=== PATIENT | male | born 1970 | race Two or more races ===

== ENCOUNTER 2024-08-20 15:03 | Inpatient (IN) | payer MEDICARE, OTHER ==
[~2024-08-20] VITALS: Ht 167.6 cm; Wt 53.5 kg
--- NOTE | 2024-08-20 15:17 | ED.PDOC ---
History of Present Illness HPI Comments 63-year-old male brought by paramedics from home because shortness a breath and vomiting for the past three days. Shortness of breath progressively getting worse. He has mentally challenged. Does have a history of seizures. His blood pressure when paramedics arrived was 84/59 after 600 mL of bolus. Heart rate was 140. Patient currently on 10 L oxygen. Family stated that he has been having fevers on and off for the past few days. Patient is nonverbal. Time Seen by MD: 15:06 Reviewed Notes: Nurses Notes, Medications, Allergies Information Source: Emergency Med Personnel Mode of Arrival: EMS Severity: Moderate Timing: Days Duration: Since onset Past Medical History PAST MEDICAL HISTORY: Seizures Surgical History: Denies all surgeries Family History Family History: Reviewed,noncontributory to illness, No family hx of Cancer, No family hx of DM, No family hx of Heart myriam, No family hx of HTN, No family hx ofKidney myriam, No family hx of Liver myriam, No family hx of Lung myriam, No family hx of Stroke Social History Smoker: Non-Smoker Alcohol: Denies ETOH Use Drugs: Denies Drug Use Unable to Obtain due to: Altered Mental Status Physical Exam General Appearance: Severe Distress HEENT: Normal ENT Inspection, Pharynx Normal, TMs Normal Neck: Full Range of Motion, Non-Tender, Normal, Normal Inspection Respiratory: Respiratory Distress, Other (Coarse breath sounds) Cardiovascular: Tachycardia Breast Exam: Deferred Gastrointestinal: No Organomegaly, Non Tender, No Pulsatile Mass, Normal Bowel Sounds, Soft Genitalia: Deferred Pelvic: Deferred Rectal: Deferred Extremities: No calf tenderness Musculoskeletal : Apperance: Normal Neurologic: Disoriented, No Motor Deficits, No Sensory Deficits Cerebellar Function: NOT DONE Reflexes: NOT DONE Skin: Dry, Normal Color, Warm Peripheral Pulses: 3+ Radial (R), 3+ Radial (L) Lymphatic: No Adenopathy Was a procedure done? Was a procedure done?: No EKG EKG : Pulse Rate (adult): 131 Cardiac Rhythm: NSR Differential Dx Considerations may include: Sepsis Electrolyte imbalance X-Ray, Labs, Meds, VS Patient disoriented. Possible sepsis. Establish intravenous access. Was given fluids pain Unable to get history from the patient. He is nonverbal. Started done Rocephin. Was given azithromycin. Abdomen is soft nontender. Placed on oxygen. Possible pneumonia. Possible pneumonitis. History of seizure. Reviewed his history. Waiting for family. Continue to monitor. EKG reviewed does not show any acute changes. Time of 1ST Reevaluation: 15:14 Reevaluation 1ST: Unchanged Patient Education/Counseling: Other (Altered) Family Education/Counseling: No Family Present Departure 1 Departure Time of Disposition: 15:15 Impression: Primary Impression: Metabolic encephalopathy Additional Impressions: Sepsis Qualified Codes: A41.9 - Sepsis, unspecified organism Acute respiratory distress Disposition: ADMITTED INPATIENT Admit to: Med Surg Condition: Guarded Critical Care Note Critical Care Time?: Yes (90 min-critical care time only) Critical care comment: Placed on oxygen continue to monitor Stability Stability form required: No Heart Score Heart Score: Heart Score Response (Comments) Value History Slightly Suspicious 0 EKG Normal 0 Age >65 2 Risk Factors 1 or 2 risk factors 1 Troponin Normal limit 0 Total 3 JUAN CARLOS ARTHUR MD August 20, 2024 15:17
[2024-08-20] MEDS: methylPREDNISolone SOD SUCC 125 MG/2 ML VL IV ONE (15:31)
[2024-08-20] MEDS: SODIUM CHLORIDE 0.9% 1,000 ML IV ONE ×2 (15:33→16:39)
[2024-08-20] MEDS: cefTRIAXone 1GM/50ML D5W 50 ML IV ONE (15:34)
[2024-08-20] MEDS: ONDANSETRON HCL 4 MG/2 ML VIAL IV ONE (15:34)
[2024-08-20 15:58] LABS: Basophils # (auto) 0 10 ^3/uL (0-0.2); Basophils % (auto) 0.1 % (0.0-2.0); Eosinophils # (auto) 0 10 ^3/uL (0-0.8); Eosinophils % (auto) 0.1 % (0.0-7.0); Hematocrit 36.2 % (41.0-53.0); Hemoglobin 12.1 g/dL (13.5-17.5); Lymphocytes # (auto) 0.6 10 ^3/uL (0.4-5.4); Lymphocytes % (auto) 19.9 % (10.0-50.0); Mean Corpuscular Hemoglobin 30.6 pg (28.0-32.0); Mean Corpuscular Hgb Conc. 33.5 g/dL (32.0-36.0); Mean Corpuscular Volume 91.5 fL (80.0-100.0); Monocytes # (auto) 0.3 10 ^3/uL (0-1.3); Monocytes % (auto) 9.1 % (0.0-12.0); Neutrophils # (auto) 2.2 10 ^3/uL (1.6-8.6); Neutrophils % (auto) 70.8 % (37.0-80.0); Nucleated Red Blood Cells % 0.3 %; Platelet Count (auto) 280 10^3/uL (140-450); Red Blood Cells 3.95 10^6/uL (4.5-5.90); Red Cell Distribution Width 14.3 % (11.8-14.3); White Blood Cell 3.1 10^3/uL (4.4-10.8)
[2024-08-20] MEDS: AZITHROMYCIN 500MG/ 250ML 250 ML IV ONE (15:59)
[2024-08-20 16:07] LABS: Sodium 139 mmol/L (136-145)
[2024-08-20 16:08] LABS: Anion Gap 15 (5-15); Carbon Dioxide 29 mmol/L (20-31)
[2024-08-20 16:13] LABS: BUN/Creatinine Ratio 18.4 (10.0-20.0)
[2024-08-20 16:17] LABS: Blood Urea Nitrogen 25 mg/dL (9-23); Calcium 8.4 mg/dL (8.7-10.4); Chloride 95 mmol/L (98-107); Glucose 142 mg/dL (74-106); Potassium 3.2 mmol/L (3.5-5.1)
[2024-08-20 16:26] LABS: Lactic Acid w/Reflex 7.3 mmol/L (0.4-2.0)
--- NOTE | 2024-08-20 17:03 | DVH ---
EXAM: XY CHEST PORTABLE HISTORY: sob COMPARISON: None TECHNIQUE: Portable AP view of the chest was performed. FINDINGS: There are patchy and consolidative infiltrates in the left lung, greatest in the left mid lung. There is blunting of the left costophrenic angle. There is diffuse bilateral interstitial prominence. The lung apices are partially obscured by head and neck tissues. No definite pneumothorax. The heart is not enlarged. IMPRESSION: 1. Left-sided pneumonia. 2. Bilateral interstitial prominence may be due to reactive airways disease or CHF.
[2024-08-20 17:11] LABS: Urine Bacteria None Seen /hpf (None Seen)
[2024-08-20 17:21] LABS: Urine Blood Negative /uL (Negative); Urine Clarity Clear (Clear); Urine Color Yellow (Yellow); Urine Mucus FEW (None Seen); Urine Protein, UAD TRACE (Negative); Urine Specific Gravity 1.019 (1.001-1.035); Urine Squamous Epithelial Cell None Seen /hpf (<5); Urine Urobilinogen Normal (Negative); Urine WBC 1 /HPF (0-3); Urine pH 7.5 (5.0-9.0)
--- NOTE | 2024-08-20 18:32 | DVH ---
EXAM: CT HEAD WITHOUT CONTRAST INDICATION: altered TECHNIQUE: CT of the head without intravenous contrast. Radiation Dose : 1. Head: CT Dose: CTDI volume is 53.98 mGy. Dose-length product is 973.29 mGy*cm The dose indicators for CT are the volume Computed Tomography (CT) Dose Index (CTDIvol) and the Dose Length Product (DLP), and are measured in units of mGy and mGy-cm, respectively. These indicators are not patient dose, but values generated from the CT scanner acquisition factors. The report includes radiation exposure data for exposures received during this examination. COMPARISON: None FINDINGS: There is no evidence of acute intracranial hemorrhage, extra-axial collection, mass effect, midline s hift, herniation or hydrocephalus. The ventricles, sulci and cisterns are age appropriate. The horan-white differentiation is intact. Patchy periventricular and subcortical white matter hypoattenuation is nonspecific but may be related to small vessel ischemic disease. Mild mucosal opacification of the right maxillary sinus. The surrounding soft tissues and osseous structures are unremarkable. IMPRESSION: No acute intracranial abnormality. Radiation optimization: All CT scans at this facility use at least one of these dose optimization mayte hniques: automated exposure control mA and/or kV adjustment per patient size (includes targeted exam s where dose is matched to clinical indication) or iterative reconstruction.
--- NOTE | 2024-08-20 18:33 | ECG ---
[facility] Test Date: 2024-08-20 Test Time: 15:15:19 Pat Name: JUAN JOSÉ KWOK Department: ED Room: [address] [place] [address] Gender: M C4 Planner: SANDRA : 1970 Requested By: JUAN CARLOS ARTHUR Order Number: [id number] Reading MD: Elvin Andrew Measurements Intervals [place] Rate: 131 P: 70 TX: 107 QRS: 62 QRSD: 85 T: 35 QT: 331 QTc: 489 Interpretive Statements Sinus tachycardia RSR' in V1 or V2, probably normal variant Borderline T wave abnormalities Minimal ST elevation, inferior leads Borderline prolonged QT interval Electronically Signed On 08-23-2024 12:43:37 PDT by Elvin Andrew Please click the below link to view image of tracing.
[2024-08-20 19:40] VITALS: PULSE 125; RESP 45; O2SAT 60
[2024-08-20] MEDS ORDERED: ACETAMINOPHEN 325 MG TAB PO PRN (20:15)
[2024-08-20] MEDS ORDERED: ALBUTEROL SULF 2.5 MG/0.5ML(0.5%) NEB SOLN NEB PRN (20:15)
[2024-08-20] MEDS ORDERED: HYDROcodone-ACET 5/325MG TAB PO PRN (20:15)
[2024-08-20] MEDS ORDERED: ONDANSETRON HCL 4 MG/2 ML VIAL IV PRN (20:15)
[2024-08-20] MEDS ORDERED: DOCUSATE SOD 100 MG CAP PO PRN (20:15)
[2024-08-20] MEDS: SOD CHL 0.45% 1,000 ML IV SCH (21:00)
[2024-08-20] MEDS: methylPREDNISolone SOD SUCC 40 MG/ML VL IV SCH (21:04)
[2024-08-20] MEDS: FAMOTIDINE (10MG/ML) 2ML VL IV SCH (21:04)
[2024-08-20] MEDS: POTASSIUM CHL 20 Meq TABLET PO ONE (21:04)
--- NOTE | 2024-08-20 21:12 | DVHHP2 ---
History of Present Illness Reason for Visit: Sepsis, unspecified organism History of Present Illness The patient is a 53-year-old male with past medical history of mental retardation and seizures who presented to [facility] ED for evaluation of shortness of breaths for the past 3 days. As reported by caregiver, patient's symptoms progressively get worse with nausea, vomiting, getting worse that EMS were called. When EMS arrived on the scene, patient's blood pressure was 84/59, and was given 600 mL normal saline bolus. Patient was seen and evaluated in the ED, laboratory data shows WBC 3.1, hemoglobin 12.1, hematocrit 36.2, platelets 280, sodium 139, potassium 3.2, BUN 25, creatinine 1.36, glucose 142, calcium 8.4, troponin 34, lactic acid 7.3 trending down to 4.6, blood pressure trending up to 97/64, heart rate 102, temperature 98.9 F, O2 saturation 92% on oxygen. Chest x-ray revealing left-sided pneumonia. Patient was started on IV antibiotic regimen azithromycin, please see medication orders section in the computer. On my assessment, caregiver at bedside, patient remains altered, no diaphoresis, currently on oxygen, no nausea, no vomiting at this moment, no fever, no chills. Patient was admitted for further evaluation and medical management. Past Medical History Seizures, Mental retardation Past Surgical History Denies all surgeries Family History Reviewed, noncontributory to the management of this case. Past Social History The patient lives at home, no history of smoking, alcohol or illicit drugs abuse on file. Review of Systems Constitutional: Yes: Fever, Weakness; No: Chills, Sweats, Malaise, Other Eyes: No: Pain, Vision change, Conjunctivae inflammation, Eyelid inflammation, Other, Redness ENT: No: Ear pain, Ear discharge, Nose pain, Nose discharge, Nose congestion, Mouth pain, Mouth swelling, Throat pain, Throat swelling, Other Respiratory: No: Cough, Dry, Shortness of breath, SOB with excertion, Wheezing, Hemoptysis, Pleuritic Pain, Sputum, Wheezing, Other Cardiovascular: No: Chest Pain, Palpitations, Orthopnea, Paroxysmal Noc. Dyspnea, Edema, Lt Headedness, Other Gastrointestinal: No: Nausea, Vomiting, Abdominal Pain, Diarrhea, Constipation, Melena, Hematochezia, Other Genitourinary: No Dysuria, No Frequency, No Incontinence, No Hematuria, No Retention; Other (Rivera catheter in place) Musculoskeletal: No: other, neck pain, shoulder pain, arm pain, back pain, hand pain, leg pain, foot pain Skin: No: Rash, Lesions, Jaundice, Bruising, Other Neurological: Other (Mental retardation); No: Weakness, Numbness, Incoordination, Change in speech, Confusion, Seizures Allergies: Coded Allergies: NO KNOWN ALLERGIES (Unverified , 08/20/24) Medications Current Medications Medications Dose Ordered Sig/Shar Route Start Time Stop Time Status Last Admin Dose Admin Ceftriaxone Sodium 50 ml @ 100 mls/hr DAILY@09 IV 08/21/24 09:00 Azithromycin 250 ml @ 125 mls/hr DAILY IV 08/21/24 10:00 Methylprednisolone Sodium Succinate 40 mg BID IV 08/20/24 22:00 08/20/24 21:04 40 MG Famotidine 20 mg Q12HR IV 08/20/24 22:00 08/20/24 21:04 20 MG Sodium Chloride 1,000 ml @ 100 mls/hr Q10H IV 08/20/24 20:15 Acetaminophen/ Hydrocodone Bitart 1 tab Q4HP PRN PO 08/20/24 20:15 Ondansetron HCl 4 mg Q4HP PRN IV 08/20/24 20:15 Docusate Sodium 100 mg BIDPRN PRN PO 08/20/24 20:15 Acetaminophen 650 mg Q6HP PRN PO 08/20/24 20:15 Albuterol 2.5 mg Q4HPRN PRN NEB 08/20/24 20:15 Ipratropium [place] 0.5 mg Q4HPRN PRN NEB 08/20/24 20:15 Exam Vital Signs Vital Signs Date Time Temp Pulse Resp B/P (MAP) Pulse Ox O2 Delivery O2 Flow Rate FiO2 08/20/24 20:00 124 08/20/24 17:20 35 97/64 (75) 98 08/20/24 15:24 Non-Rebreather 10 N/A 08/20/24 15:20 100.3 100.3 General Appearance: Alert, Cooperative, No acute distress, Other (Oriented x1) HEENT: Atraumatic, PERRLA, EOMI, Mucous membr. moist/pink Respiratory: Normal air movement, Other (Diminished breath sounds) Cardiovascular: Regular rate, Normal S1, Normal S2, No murmurs Abdominal: Normal bowel sounds, Soft, No tenderness, No hepatospenomegaly, No masses Extremities: No clubbing, No cyanosis, No edema, Normal pulses, No tenderness/swelling Skin: No rashes, No breakdown, No significant lesion Neuro: Normal tone, Sensation intact, Reflexes 2+, Other (Generalized weakness) Psych/Mental Status: Mood NL, Other (Altered mental status) Labs/Xrays Labs Test 08/20/24 18:38 08/20/24 16:15 08/20/24 15:21 Range/Units Lactic Acid Level 4.6 *H 0.4-2.0 mmol/L Troponin I High Sensitivity 35 </=54 ng/L Urine Color Yellow Yellow Urine Clarity Clear Clear Urine pH 7.5 5.0-9.0 Urine Specific [place] 1.019 1.001-1.035 Urine Protein Trace H Negative Urine Ketones Negative Negative Urine Blood Negative Negative /uL Urine Nitrite Negative Negative Urine Bilirubin Negative Negative Urine Urobilinogen Normal Negative mg/dL Urine Leukocyte Esterase Negative Negative /uL Urine RBC 2 0 - 3 /hpf Urine Microscopic WBC 1 0-3 /HPF Urine Squamous Epithelial Cells None seen <5 /hpf Urine Bacteria None seen None Seen /hpf Urine Mucus Few None Seen Urine Glucose Normal Normal mg/dL White Blood Count 3.1 L 4.4-10.8 10^3/uL Red Blood Count 3.95 L 4.5-5.90 10^6/uL Hemoglobin 12.1 L 13.5-17.5 g/dL Hematocrit 36.2 L 41.0-53.0 % Mean Corpuscular Volume 91.5 80.0-100.0 fL Mean Corpuscular Hemoglobin 30.6 28.0-32.0 pg Mean Corpuscular Hemoglobin Concent 33.5 32.0-36.0 g/dL Red Cell Distribution Width 14.3 11.8-14.3 % Platelet Count 280 140-450 10^3/uL Mean Platelet Volume 6.4 L 6.9-10.8 fL Neutrophils (%) (Auto) 70.8 37.0-80.0 % Lymphocytes (%) (Auto) 19.9 10.0-50.0 % Monocytes (%) (Auto) 9.1 0.0-12.0 % Eosinophils (%) (Auto) 0.1 0.0-7.0 % Basophils (%) (Auto) 0.1 0.0-2.0 % Neutrophils # (Auto) 2.2 1.6-8.6 10 ^3/uL Lymphocytes # (Auto) 0.6 0.4-5.4 10 ^3/uL Monocytes # (Auto) 0.3 0-1.3 10 ^3/uL Eosinophils # (Auto) 0 0-0.8 10 ^3/uL Basophils # (Auto) 0 0-0.2 10 ^3/uL Nucleated Red Blood Cells 0.3 % Sodium Level 139 136-145 mmol/L Potassium Level 3.2 L 3.5-5.1 mmol/L Chloride Level 95 L 98-107 mmol/L Carbon Dioxide Level 29 20-31 mmol/L Anion Gap 15 5-15 Blood Urea Nitrogen 25 H 9-23 mg/dL Creatinine 1.36 H 0.700-1.30 mg/dL Glomerular Filtration Rate Calc 58 >90 mL/min BUN/Creatinine Ratio 18.4 10.0-20.0 Serum Glucose 142 H 74-106 mg/dL Hemoglobin A1c 4.8 <5.7 % A1C Calcium Level 8.4 L 8.7-10.4 mg/dL PATIENT: JUAN JOSÉ KWOK ACCT: [id number] UNIT: [id number] : 09/24/1960 LOC: ER ROOM / BED: / AGE / SEX: 63 / M ADM STATUS: REG ER SERVICE 1509 ORDERING PHYSICIAN: JUAN CARLOS ARTHUR MD PROCEDURE(s): CXRP - CHEST PORTABLE REASON: sob ORDER NUMBER(s): [id number], ACCESSION NUMBER(s): [id number] EXAM: XY CHEST PORTABLE HISTORY: sob COMPARISON: None TECHNIQUE: Portable AP view of the chest was performed. FINDINGS: There are patchy and consolidative infiltrates in the left lung, greatest in the left mid lung. There is blunting of the left costophrenic angle. There is diffuse bilateral interstitial prominence. The lung apices are partially obscured by head and neck tissues. No definite pneumothorax. The heart is not enlarged. IMPRESSION: 1. Left-sided pneumonia. 2. Bilateral interstitial prominence may be due to reactive airways disease or CHF. ORDERING PHYSICIAN: JUAN CARLOS ARTHUR MD PROCEDURE(s): HWOCT - HEAD WITHOUT CONTRAST REASON: altered ORDER NUMBER(s): [id number], ACCESSION NUMBER(s): [id number] EXAM: CT HEAD WITHOUT CONTRAST INDICATION: altered TECHNIQUE: CT of the head without intravenous contrast. Radiation Dose: 1. Head: CT Dose: CTDI volume is 53.98 mGy. Dose-length product is 973.29 mGy*cm The dose indicators for CT are the volume Computed Tomography (CT) Dose Index (CTDIvol) and the Dose Length Product (DLP), and are measured in units of mGy and mGy-cm, respectively. These indicators are not patient dose, but values generated from the CT scanner acquisition factors. The report includes radiation exposure data for exposures received during this examination. COMPARISON: None FINDINGS: There is no evidence of acute intracranial hemorrhage, extra-axial collection, mass effect, midline shift, herniation or hydrocephalus. The ventricles, sulci and cisterns are age appropriate. The horan-white differentiation is intact. Patchy periventricular and subcortical white matter hypoattenuation is nonspecific but may be related to small vessel ischemic disease. Mild mucosal opacification of the right maxillary sinus. The surrounding soft tissues and osseous structures are unremarkable. IMPRESSION: No acute intracranial abnormality. Assessment/Plan Assessment/Plan Metabolic encephalopathy Hypokalemia Sepsis, unspecified organism Acute respiratory distress Generalized weakness Pneumonia, unspecified organisms Plan 1. Admit to telemetry unit 2. Breathing treatment 3. Pain control management 4. IV antibiotic management 5. Management of fluids and electrolytes 6. Consultation for hospitalist 7. Diagnostic test chest x-ray 8. DVT prophylaxis-on SCDs 9. Repeat labs CBC, CMP in a.m. 10. Home medication reviewed and reconciled 11. Continue with current medical management 12. Treatment plan discussed with patient/caregiver and RN. Caregiver verbalized understanding. Plan discussed with: Patient, Other (RN) My Orders Orders - BIBIANA BRISENO DNP Procedure Category Date Status Time Ceftriaxone 1gm/50ml PHA 08/21/24 In Process D5w (Rocephin) 09:00 Azithromycin 500mg/ PHA 08/21/24 In Process 250ml (Zithromax 50 10:00 Methylprednisolone PHA 08/20/24 In Process Sod Succ (Solu Medrol 22:00 Famotidine Injection PHA 08/20/24 In Process (Pepcid Injection) 22:00 Sod Chl 0.45% (Sodium PHA 08/20/24 In Process Chloride 0.45% Via 20:15 Allergies LAWRENCE 08/20/24 In Process 20:10 Code Status CODE 08/20/24 Transmitted 20:10 Oxygen Per Hour RT 08/20/24 Transmitted 20:10 Hydrocodone-Acet PHA 08/20/24 In Process 5/325mg Tab (Ames 20:15 Ondansetron Hcl PHA 08/20/24 In Process (Zofran) 20:15 Docusate Sodium PHA 08/20/24 In Process Capsule (Colace 20:15 Complete Blood Count LAB 08/21/24 Verified 04:00 Comprehensive LAB 08/21/24 Verified Metabolic Panel 04:00 Cardiac DIET 08/21/24 Transmitted Diet-2gna,Lofat,Lochol Breakfast Condition: Serious [place]ENCE 08/20/24 In Process 20:10 Acetaminophen Tablet PHA 08/20/24 In Process (Tylenol Tablet) 20:15 Bedrest With Bathroom LAWRENCE 08/20/24 In Process Privileg 20:10 Sequential LAWRENCE 08/20/24 In Process Compression Device Albuterol Medneb PHA 08/20/24 In Process (Ventolin Medneb) 20:15 Ipratropium Medneb PHA 08/20/24 In Process (Atrovent Medneb) 20:15 Problem List: (1) Metabolic encephalopathy (2) Hypokalemia (3) Sepsis, unspecified organism (4) Acute respiratory distress (5) Generalized weakness (6) Pneumonia, unspecified organism Date of Service: August 20, 2024 Billing Provider: BIBIANA BRISENO DNP Common Visit Codes: [id number] INP/OBS CARE (HIGH) BIBIANA BRISENO DNP August 20, 2024 21:12
[2024-08-20] MEDS ORDERED: MORPHINE SULFATE INJ 2 MG/ml SYRG IV PRN (21:15)
[2024-08-20] MEDS ORDERED: NITROGLYCERIN 0.4 MG SL TAB SL PRN (21:15)
[2024-08-20 22:40] VITALS: BP 101/63; PULSE 116; RESP 35; TEMP 100.3; O2SAT 93
[2024-08-20 22:54] LABS: Base Excess 4.8 mmol/L (-2.0-3.0)
[2024-08-21] VITALS (57 sets, daily range): BP systolic 83–167; BP diastolic 49–86; PULSE 88–126; RESP 13–50; TEMP 96.4–100.4; O2SAT 85–100
[2024-08-21 02:44] LABS: Base Excess 2.1 mmol/L (-2.0-3.0)
[2024-08-21 04:21] LABS: Hematocrit 38.1 % (41.0-53.0); Hemoglobin 12.6 g/dL (13.5-17.5); Mean Corpuscular Hemoglobin 30.1 pg (28.0-32.0); Mean Corpuscular Hgb Conc. 33.2 g/dL (32.0-36.0); Mean Corpuscular Volume 90.7 fL (80.0-100.0); Platelet Count (auto) 258 10^3/uL (140-450); Red Cell Distribution Width 14.3 % (11.8-14.3); White Blood Cell 5.8 10^3/uL (4.4-10.8)
[2024-08-21 04:27] LABS: Basophils % (manual) 0 (0.0-2.0); Blast Cells 0; Eosinophils % (manual) 0 (0-7); Monocytes % (manual) 0 (0-12); Promyelocytes % 0; Reactive Lymphocytes 0
[2024-08-21 04:29] LABS: Albumin 3.3 g/dL (3.2-4.8); Alkaline Phosphatase 67 U/L (46-116); Anion Gap 9 (5-15); Aspartate Aminotransferase 19 U/L (13-40); Bilirubin, Total 0.5 mg/dL (0.2-1.0); Blood Urea Nitrogen 21 mg/dL (9-23); Carbon Dioxide 28 mmol/L (20-31); Chloride 101 mmol/L (98-107); Potassium 4.6 mmol/L (3.5-5.1); Sodium 138 mmol/L (136-145); Total Protein 6.2 g/dL (5.7-8.2)
[2024-08-21 04:33] LABS: Alanine Aminotransferase < 9 U/L (7-40); Calcium 8.1 mg/dL (8.7-10.4); Glucose 149 mg/dL (74-106)
[2024-08-21 05:17] LABS: BUN/Creatinine Ratio 27.3 (10.0-20.0)
[2024-08-21 05:25] LABS: Band Neutrophils % (manual) 34; Lymphocytes % (manual) 15 (10.0-50.0); Metamyelocytes % 6; Myelocytes % 4; Platelet Estimate Adequate
[2024-08-21] MEDS: PHENYTOIN SODIUM 100 MG CAP PO SCH (06:04)
[2024-08-21] MEDS: cefTRIAXone 1GM/50ML D5W 50 ML IV SCH (11:34)
[2024-08-21] MEDS: AZITHROMYCIN 500MG/ 250ML 250 ML IV SCH (12:29)
[2024-08-21] MEDS: SODIUM CHLORIDE 0.9% 1,000 ML IV ONE ×2 (17:15→18:30)
--- NOTE | 2024-08-21 17:23 | DVHPN2 ---
Subjective Seen and examined at bedside. Patient is noncommunicative due to Cerebral Palsy? accompanied with his sister. Patient is on HiFlow Oxygen 50L 40%. Will treat for possible aspiration pneumonia. Changes from previous H/P or p: No Changes Eyes: No Pain, No Vision change, No Conjunctivae inflammation, No Eyelid inflammation, No Other, No Redness ENT: No Ear pain, No Ear discharge, No Nose pain, No Nose discharge, No Nose congestion, No Mouth pain, No Mouth swelling, No Throat pain, No Throat swelling, No Other Cardiovascular: No Chest Pain, No Palpitations, No Orthopnea, No Paroxysmal Noc. Dyspnea, No Edema, No Lt Headedness, No Other Respiratory: No Cough, No Dry, No Shortness of breath, No SOB with excertion, No Wheezing, No Hemoptysis, No Pleuritic Pain, No Sputum, No Other Gastrointestinal: No Nausea, No Vomiting, No Abdominal Pain, No Diarrhea, No Constipation, No Melena, No Hematochezia, No Other Genitourinary: No Dysuria, No Frequency, No Incontinence, No Hematuria, No Retention; Other (Rivera catheter in place) Musculoskeletal: No other, No neck pain, No shoulder pain, No arm pain, No back pain, No hand pain, No leg pain, No foot pain Skin: No Rash, No Lesions, No Jaundice, No Bruising, No Other Objective Vitals Vital Signs Date Time Temp Pulse Resp B/P (MAP) Pulse Ox O2 Delivery O2 Flow Rate FiO2 08/21/24 15:00 109 29 107/67 (80) 93 08/21/24 13:23 Oxymizer 6 N/A 08/21/24 08:00 98.3 98.3 Intake/Output Intake and Output 08/21/24 07:00 Intake Total 1940 ml Output Total 1200 ml Balance 740 ml Intake Oral 240 ml IV Total 1700 ml Output Urine Total 1200 ml Exam Gen: in bed non communicative Resp: Diminshied Cardio: Tachycardic Abd: Soft, NT [employer] Operator: AAO x 2, non communicative Medications Current Medications Medications Dose Ordered Sig/Shar Route Start Time Stop Time Status Last Admin Dose Admin Ceftriaxone Sodium 50 ml @ 100 mls/hr DAILY@09 IV 08/21/24 09:00 08/21/24 11:34 100 MLS/HR Azithromycin 250 ml @ 125 mls/hr DAILY IV 08/21/24 10:00 08/21/24 12:29 125 MLS/HR Methylprednisolone Sodium Succinate 40 mg BID IV 08/20/24 22:00 08/21/24 11:34 40 MG Famotidine 20 mg Q12HR IV 08/20/24 22:00 08/21/24 11:34 20 MG Sodium Chloride 1,000 ml @ 100 mls/hr Q10H IV 08/20/24 20:15 08/20/24 21:00 100 MLS/HR Acetaminophen/ Hydrocodone Bitart 1 tab Q4HP PRN PO 08/20/24 20:15 Ondansetron HCl 4 mg Q4HP PRN IV 08/20/24 20:15 Docusate Sodium 100 mg BIDPRN PRN PO 08/20/24 20:15 Acetaminophen 650 mg Q6HP PRN PO 08/20/24 20:15 Albuterol 2.5 mg Q4HPRN PRN NEB 08/20/24 20:15 Ipratropium [place] 0.5 mg Q4HPRN PRN NEB 08/20/24 20:15 Nitroglycerin 0.4 mg Q5MINP PRN SL 08/20/24 21:15 Morphine Sulfate 2 mg Q30M PRN IV 08/20/24 21:15 Phenytoin Sodium 200 mg Q8HR PO 08/21/24 06:00 08/21/24 14:52 200 MG Divalproex Sodium 250 mg DAILY PO 08/21/24 10:00 08/21/24 11:34 250 MG Laboratory Results Laboratory Tests 08/21/24 03:52 Chemistry Test 08/21/24 03:52 Albumin 3.3 g/dL (3.2-4.8) Calcium Level 8.1 mg/dL (8.7-10.4) L Total Protein 6.2 g/dL (5.7-8.2) LFT Test 08/21/24 03:52 Alanine Aminotransferase (ALT) < 9 U/L (7-40) Alkaline Phosphatase 67 U/L (46-116) Aspartate Amino Transferase (AST) 19 U/L (13-40) Total Bilirubin 0.5 mg/dL (0.2-1.0) Urinalysis Test 08/20/24 16:15 Urine Color Yellow (Yellow) Urine Clarity Clear (Clear) Urine pH 7.5 (5.0-9.0) Urine Specific [place] 1.019 (1.001-1.035) Urine Protein Trace (Negative) H Urine Ketones Negative (Negative) Urine Blood Negative /uL (Negative) Urine Nitrite Negative (Negative) Urine Bilirubin Negative (Negative) Urine Urobilinogen Normal mg/dL (Negative) Urine Leukocyte Esterase Negative /uL (Negative) Urine RBC 2 /hpf (0 - 3) Urine Microscopic WBC 1 /HPF (0-3) Urine Squamous Epithelial Cells None seen /hpf (<5) Urine Bacteria None seen /hpf (None Seen) Urine Mucus Few (None Seen) Urine Glucose Normal mg/dL (Normal) Blood Gas Results Test 08/20/24 22:17 08/21/24 02:39 Arterial Blood pH 7.478 (7.350-7.450) 7.444 (7.350-7.450) FiO2 % 100.0 100.0 Microbiology Microbiology Date/Time Source Procedure Growth Status 08/20/24 15:21 Blood Blood Culture - Preliminary NO GROWTH AFTER 24 HOURS OF INCUBATION. Resulted Assessment/Plan Assessment/Plan # Sepsis due to possible Aspiration PNA - Sputum cultures - Abx # Acute Hypoxic Resp Failure - On HiFlow Oxygen, may need intubate # Cerebral Palsy - Unable to communicate critical care time 45 mins Plan discussed with: Patient, Other (sister) My Orders Orders - KERRIE VAZQUEZ MD Procedure Category Date Status Time Abg W/ Co-Ox RT 08/21/24 Logged 17:03 Covid19 Antigen Lucia LAB 08/21/24 Logged Rapid Influenza A&B LAB 08/21/24 Logged 17:03 Lactic Acid W/ Reflex LAB 08/21/24 Transmitted Order 17:13 Zosyn Extended PHA 08/21/24 Transmitted Infusion 18:00 Complete Blood Count LAB 08/22/24 Verified 04:00 Comprehensive LAB 08/22/24 Verified Metabolic Panel 04:00 B-Type Natriuretic LAB 08/22/24 Verified Peptide 04:00 Lactic Acid W/ Reflex LAB 08/22/24 Verified Order 04:00 Magnesium LAB 08/22/24 Verified 04:00 Echo 2d Mode Cardiac US 08/21/24 Logged DOP 17:13 Enoxaparin Sodium PHA 08/22/24 Transmitted (Lovenox) 10:00 NS PHA 08/21/24 Transmitted 17:15 Respiratory Culture ALFA 08/21/24 Transmitted W/ Gs 17:13 Sputum Induction RT 08/21/24 Logged 17:[address] 08/22/24 Logged 07:00 Date of Service: August 21, 2024 Billing Provider: KERRIE VAZQUEZ MD Common Visit Codes: [id number] CARE 30-74 MIN KERRIE VAZQUEZ MD August 21, 2024 17:23
[2024-08-21 17:29] LABS: Base Excess -2.4 mmol/L (-2.0-3.0)
[2024-08-21 17:56] LABS: COVID19 ANTIGEN SOFIA FIA NEGATIVE (NEGATIVE)
[2024-08-21] MEDS ORDERED: ENOXAPARIN SOD 30 MG/0.3 ML SYRINGE SC SCH (18:00)
[2024-08-21] MEDS: LEVALBUTEROL HCL 1.25 MG/3 ML NEB NEB SCH (18:00)
[2024-08-21] MEDS: ETOMIDATE (2MG/ML) 20ML VIAL IV ONE ×2 (18:13→18:58)
[2024-08-21] MEDS: ROCURONIUM 10MG/ML 10ML VIAL IV ONE (18:14)
[2024-08-21 18:27] LABS: Rapid Influenza A Negative (Negative); Rapid Influenza B Negative (Negative)
[2024-08-21] MEDS ORDERED: DOXYCYCLINE 100MG/100ML 100 ML IV SCH (18:30)
[2024-08-21] MEDS: OCTREOTIDE ACETATE 500 MCG in SODIUM CHL 0.9% 99 ML IV SCH (18:45)
[2024-08-21] MEDS: PANTOPRAZOLE 80 MG in SODIUM CHL 0.9% 100 ML IV ONE (18:45)
[2024-08-21] MEDS: SUCCINYLCHOLINE CHLORIDE 20 MG/ML 10ML VIAL IV ONE ×2 (18:48→18:58)
[2024-08-21] MEDS: PROPOFOL 100 ML IV ONE (18:48)
[2024-08-21] MEDS: fentaNYL Drip 2500mCg/250mlNS 250 ML IV ONE (18:48)
[2024-08-21] MEDS: MIDAZOLAM DRIP 50 mg/50mL 50 ML IV ONE (18:48)
[2024-08-21] MEDS: MIDAZOLAM DRIP 50 mg/50mL 50 ML IV SCH (18:59)
[2024-08-21] MEDS: fentaNYL Drip 2500mCg/250mlNS 250 ML IV SCH (19:03)
[2024-08-21] MEDS: NOREPINEPHRINE 8 MG/250ML KIT 250 ML IV SCH (19:04)
[2024-08-21] MEDS: PROPOFOL 100 ML IV SCH (19:05)
[2024-08-21] MEDS: DOXYCYCLINE 100MG/100ML 100 ML IV SCH (20:00)
--- NOTE | 2024-08-21 20:08 | DVH ---
CHEST RADIOGRAPH Indication: s/p intubation Technique: Single frontal view of the chest was obtained Comparison: XY CHEST PORTABLE on DOS: 08/20/24 FINDINGS: Lines and Tubes: Endotracheal tube 3.4 cm above the balwinder. Right internal jugular catheter in place at cavoatrial junction. Bilateral perihilar infiltrates involvement of the left upper lobe. Enteric tube below the left diaphragm in the stomach. Lungs: Pulmonary infiltrates bilaterally in the perihilar areas in the left upper lobe and right uppe r lobe Pleura: No effusion. No pneumothorax. Cardiomediastinal contours: Unremarkable Bones: No acute osseous abnormality. IMPRESSION: 1. Endotracheal tube in place 3.4 cm above the balwinder. 2. Enteric tube in the stomach 3. Right internal jugular catheter in place in the right atrium 4. Bilateral perihilar and upper lobe airspace disease.
--- NOTE | 2024-08-21 20:22 | DVHNC2 ---
Intubation Indication: Respiratory Insufficiency, Airway Protection Prep: Preoxygenation Pretreated with: Analgesia, Sedation Medicated with: Succinylcholine, Other (etomidate) Intubation Approach: Orotracheal Intubation size: cm Informed consent obtained: Yes Risks/benefits/alt described: Yes Notes Procedure note A time out was performed. My hands were washed immediately prior to the procedure. I wore a surgical cap, mask with protective eyewear, gown and gloves throughout the procedure. The patient was placed on a cardiac catheterization technologist including continuous pulse oximetry. Rapid Sequence Intubation was conducted. The patient received 20 mg of etomidate for induction and 20 mg of succinylcholine for adequate paralysis. Cricoid pressure was maintained from time induction agent was given to time of cuff balloon inflation. Using a glidescope and a size 7.5 endotracheal tube with stylet, the patient was intubated on the 1st attempt. The stylet was removed and cuff balloon was inflated. Appropriate endotracheal tube position was confirmed by direct visualization of vocal cord passage, fogging of the tube, CO2 colormetric indicator and symmetric breath sounds. The tube was secured at 26 cm at the lips. Post intubation chest x-ray confirms the position of the tube. Supervised by Dr. Prince Date of Service: August 21, 2024 Billing Provider: KERRIE PRINCE MD Common Visit Codes: PROCEDURE ONLY Procedure Codes: 47354-[id number] THIERNO KRISHNAN RESIDENT August 21, 2024 20:22
[2024-08-21 20:28] LABS: Base Excess -5.1 mmol/L (-2.0-3.0)
--- NOTE | 2024-08-21 20:28 | DVHNC2 ---
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 My hands were washed immediately prior to the procedure. I wore a surgical cap, mask with protective eyewear, full gown and sterile gloves throughout the procedure. The patient was placed in Trendelenburg position. RIGHT chest region was prepped using chlorhexidine scrub and draped in sterile fashion using a full drape and sterile probe cover and sterile gel employed. The medial and lateral heads of the sternocleidomastoid muscle were identified as was the carotid pulse. The Internal Jugular vein was identified using the ultrasound. Anesthesia was achieved over the vein using 1% lidocaine. Using real-time out of plane guidance, the introducer needle was inserted into the Internal Jugular vein under direct ultrasound visualization. Venous blood was withdrawn. The syringe was removed and a guidewire was advanced into the introducer needle. The guidewire was visualized in the Internal Jugular Vein by ultrasound. A small incision was made at the skin surface with a scalpel and the introducer needle was exchanged for a dilator over the guidewire. After appropriate dilation was obtained, the dilator was exchanged over the wire for a triple lumen central venous catheter. The wire was removed and the catheter was sutured in [address] A sterile sorbaview shield was placed over the catheter at the insertion site. The patient tolerated the procedure without any hemodynamic compromise. At time of procedure completion, all ports aspirated and flushed properly. Post- procedure chest x-ray confirms the position of the catheter. Estimated blood loss is less than [address] Prince Date of Service: August 21, 2024 Billing Provider: KERRIE PRICNE MD Common Visit Codes: PROCEDURE ONLY Procedure Codes: [id number] NON-TUNNEL CV CATH THIERNO SMART RESIDENT August 21, 2024 20:28
[2024-08-21 21:00] LABS: Basophils # (auto) 0 10 ^3/uL (0-0.2); Eosinophils # (auto) 0 10 ^3/uL (0-0.8); Eosinophils % (auto) 0.2 % (0.0-7.0); Hematocrit 34.7 % (41.0-53.0); Hemoglobin 11.7 g/dL (13.5-17.5); Lymphocytes # (auto) 0.6 10 ^3/uL (0.4-5.4); Lymphocytes % (auto) 8.8 % (10.0-50.0); Mean Corpuscular Hemoglobin 30.8 pg (28.0-32.0); Mean Corpuscular Hgb Conc. 33.7 g/dL (32.0-36.0); Mean Corpuscular Volume 91.4 fL (80.0-100.0); Monocytes # (auto) 0.1 10 ^3/uL (0-1.3); Monocytes % (auto) 1.7 % (0.0-12.0); Neutrophils # (auto) 6.1 10 ^3/uL (1.6-8.6); Neutrophils % (auto) 89.3 % (37.0-80.0); Nucleated Red Blood Cells % 0.1 %; Platelet Count (auto) 271 10^3/uL (140-450); Red Cell Distribution Width 14.1 % (11.8-14.3); White Blood Cell 6.8 10^3/uL (4.4-10.8)
[2024-08-21 21:16] LABS: Alanine Aminotransferase 12 U/L (7-40); Alkaline Phosphatase 65 U/L (46-116); Anion Gap 11 (5-15); Aspartate Aminotransferase 21 U/L (13-40); BUN/Creatinine Ratio 28.4 (10.0-20.0); Blood Urea Nitrogen 21 mg/dL (9-23); Calcium 8.9 mg/dL (8.7-10.4); Carbon Dioxide 22 mmol/L (20-31); Chloride 105 mmol/L (98-107); Potassium 4.8 mmol/L (3.5-5.1); Sodium 138 mmol/L (136-145); Total Protein 6.2 g/dL (5.7-8.2)
[2024-08-21 21:17] LABS: Bilirubin, Total 0.5 mg/dL (0.2-1.0)
[2024-08-21 21:20] LABS: Albumin 3.2 g/dL (3.2-4.8); Glucose 148 mg/dL (74-106); Magnesium 1.5 mg/dL (1.6-2.6)
[2024-08-21] MEDS: PIPERACILLIN-TAZOB 3.375GM 100 ML IV SCH (21:32)
[2024-08-21] MEDS: OCTREOTIDE ACETATE 100 MCG in SODIUM CHL 0.9% 50 ML IV ONE (21:33)
[2024-08-21] MEDS: PANTOPRAZOLE 40mg/50ML NS AE 50 ML IV SCH (21:51)
[2024-08-22] VITALS (104 sets, daily range): BP systolic 49–139; BP diastolic 24–81; PULSE 85–139; RESP 20–29; TEMP 95.7–98.6; O2SAT 92–100
[2024-08-22] MEDS: IPRATROPIUM BROM 0.5 MG/2.5ML INH SOL NEB PRN (00:30)
[2024-08-22 04:48] LABS: Basophils # (auto) 0 10 ^3/uL (0-0.2); Basophils % (auto) 0.1 % (0.0-2.0); Eosinophils # (auto) 0.4 10 ^3/uL (0-0.8); Eosinophils % (auto) 5.2 % (0.0-7.0); Hematocrit 32.2 % (41.0-53.0); Hemoglobin 10.8 g/dL (13.5-17.5); Lymphocytes # (auto) 0.9 10 ^3/uL (0.4-5.4); Lymphocytes % (auto) 11.3 % (10.0-50.0); Mean Corpuscular Hemoglobin 30.9 pg (28.0-32.0); Mean Corpuscular Hgb Conc. 33.5 g/dL (32.0-36.0); Mean Corpuscular Volume 92.4 fL (80.0-100.0); Monocytes # (auto) 0.2 10 ^3/uL (0-1.3); Monocytes % (auto) 2.5 % (0.0-12.0); Neutrophils # (auto) 6.2 10 ^3/uL (1.6-8.6); Neutrophils % (auto) 80.9 % (37.0-80.0); Platelet Count (auto) 287 10^3/uL (140-450); Red Blood Cells 3.49 10^6/uL (4.5-5.90); Red Cell Distribution Width 14.4 % (11.8-14.3); White Blood Cell 7.6 10^3/uL (4.4-10.8)
[2024-08-22 04:52] LABS: Alkaline Phosphatase 62 U/L (46-116); Anion Gap 13 (5-15); Aspartate Aminotransferase 20 U/L (13-40); BUN/Creatinine Ratio 22.5 (10.0-20.0); Blood Urea Nitrogen 20 mg/dL (9-23); Chloride 104 mmol/L (98-107); Potassium 4.4 mmol/L (3.5-5.1)
[2024-08-22 05:11] LABS: Alanine Aminotransferase < 9 U/L (7-40); Bilirubin, Total 0.2 mg/dL (0.2-1.0); Calcium 8.2 mg/dL (8.7-10.4); Carbon Dioxide 19 mmol/L (20-31); Glucose 242 mg/dL (74-106); Magnesium 1.5 mg/dL (1.6-2.6); Sodium 136 mmol/L (136-145); Total Protein 5.7 g/dL (5.7-8.2)
--- NOTE | 2024-08-22 05:11 | DVH ---
EXAM: XR Chest, 1 View CLINICAL INDICATION: INTUBATION TECHNIQUE: Frontal view of the chest. COMPARISON: XY CHEST PORTABLE on DOS: 08/21/24, XY CHEST PORTABLE on DOS: 08/20/24 FINDINGS: LUNGS AND PLEURAL SPACES: Pulmonary congestion and edema. Pneumonia cannot be excluded. No pneumot horax. HEART: Unremarkable. No cardiomegaly. MEDIASTINUM: Unremarkable. Normal mediastinal contour. BONES/JOINTS: Unremarkable. No acute fracture. TUBES, LINES AND DEVICES: Right internal jugular central venous catheter tip in the superior vena c mary. The endotracheal tube (ETT) is in satisfactory position. Enteric tube tip cannot be seen but i s below the diaphragm. OTHER FINDINGS: . . IMPRESSION: Pulmonary congestion and edema. Pneumonia cannot be excluded.
[2024-08-22] MEDS: MAGNESIUM SULFATE 1GM/100ML 100 ML IV SCH ×2 (06:10→08:00)
[2024-08-22 07:48] LABS: Base Excess -7.7 mmol/L (-2.0-3.0)
[2024-08-22] MEDS ORDERED: VANCOMYCIN PER PHARMACY 0 MG IV SCH ×2 (08:00→15:15)
--- NOTE | 2024-08-22 08:32 | DVHPNRES ---
Progress Note Date Seen: August 22, 2024 Resident Creating Document: BLANCA IRVIN RESIDENT Medical Necessity Reason Pt with a Central, PICC or Fol: Yes The following are medically ne: Central Line, Rivera Catheter Subjective Review of Systems Juanjose Ribeiro is a 53-year-old male patient who presents to ED via EMS with chief complaint of progressive dyspnea. Patient is currently intubated, could not obtain review of systems. Obtained information by family (sister) and EMR. Patient's symptoms got worse three days prior to his admission, associated with nausea, vomiting. Per sister patient stopped eating on Wednesday after coming back from a care facility, presented ground coffee emesis and has been having constipation (last bowel movement last ). Patient on scene and in ED presented hypotension, desaturation, tachypnea, with initial diagnosis of acute respiratory failure with septic shock secondary to probable aspiration pneumonia. Required IV fluids, empiric IV antibiotic and high-flow with regular response, deciding endotracheal intubation and placement of central line. While intubating, evidenced copious dark ground coffee secretion, deciding to initiate octreotide and IV pantoprazole. 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 2016 pneumonia Surgical history: Per sister had lung surgery because of collapse lung (questionable thoracentesis) Family history: Mother of congestive heart failure, also had diabetes Social history: Lives in [place] with sister who is her his caregiver. Denies current tobacco, alcohol and other drug abuse Allergies: Denies Home medication: Divalproex 250 mg p.o. b.i.d., Dilantin 100 mg p.o. q.8 hours Patient seen and examined at bedside. Currently in ICU status, on sedoanalgesia due to mechanical assisted ventilation, on IV vasopressors and empiric IV antibiotic, discontinued IV octreotide. Objective vital signs Vital Sign Date Time Temp Pulse Resp B/P (MAP) Pulse Ox O2 Delivery O2 Flow Rate FiO2 08/22/24 07:12 92/52 08/22/24 06:30 104 20 98 08/22/24 06:23 60 08/22/24 05:53 Mechanical Ventilator+ 08/22/24 04:00 98.3 98.3 08/21/24 18:00 6 Total Intake and Output 08/21/24 08/21/24 08/22/24 15:00 23:00 07:00 Intake Total 1050 ml 254.094 ml 680.158 ml Output Total 150 ml 250 ml Balance 1050 ml 104.094 ml 430.158 ml medications Current Medications Medications Dose Ordered Sig/Shar Route Start Time Stop Time Status Last Admin Dose Admin Acetaminophen/ Hydrocodone Bitart 1 tab Q4HP PRN PO 08/20/24 20:15 Ondansetron HCl 4 mg Q4HP PRN IV 08/20/24 20:15 Docusate Sodium 100 mg BIDPRN PRN PO 08/20/24 20:15 Acetaminophen 650 mg Q6HP PRN PO 08/20/24 20:15 Ipratropium Wilkinson 0.5 mg Q4HPRN PRN NEB 08/20/24 20:15 08/22/24 06:22 0.5 MG Nitroglycerin 0.4 mg Q5MINP PRN SL 08/20/24 21:15 Morphine Sulfate 2 mg Q30M PRN IV 08/20/24 21:15 Piperacillin Sod/ Tazobactam Sod 100 ml @ 25 mls/hr Q8H IV 08/21/24 18:00 08/22/24 02:36 25 MLS/HR Levalbuterol HCl 1.25 mg Q6HR NEB 08/21/24 18:00 08/22/24 06:23 1.25 MG Doxycycline Hyclate 100 ml @ 50 mls/hr Q12H IV 08/21/24 18:30 UNV Propofol 100 ml @ 1.293 mls/ hr Q24H IV 08/21/24 18:45 08/22/24 04:32 12.93 MLS/HR Midazolam HCl 50 ml @ 1 mls/hr Q24H IV 08/21/24 18:45 08/22/24 04:32 12 MLS/HR Fentanyl Citrate 250 ml @ 2.5 mls/hr Q24H IV 08/21/24 18:45 08/21/24 19:03 5 MLS/HR Norepinephrine Bitartrate 250 ml @ 3.75 mls/hr Q24H IV 08/21/24 18:45 08/22/24 04:31 41.25 MLS/HR Pantoprazole Sodium 50 ml @ 10 mls/hr Q5H IV 08/21/24 18:45 08/22/24 02:40 10 MLS/HR Doxycycline Hyclate 100 ml @ 50 mls/hr Q12H IV 08/21/24 18:45 08/21/24 20:00 50 MLS/HR Octreotide Acetate 500 mcg/ Sodium Chloride 100 ml @ 10 mls/hr Q10H IV 08/21/24 18:45 08/22/24 05:06 10 MLS/HR Magnesium Sulfate/ Dextrose 100 ml @ 100 mls/hr Q1HR IV 08/22/24 06:00 08/22/24 07:59 08/22/24 07:06 100 MLS/HR Examination Patient lying in bed, under sedoanalgesia due to mechanical ventilation General: RASS -3, afebrile, mucosae are moist Cardiovascular: Normal S1 and S2. No murmurs, gallops or rubs Respiratory: Mechanically assisted ventilation, equal bilateral airway entree. Bilateral diffuse rhonchus Abdomen: Soft, nontender, no organomegaly, normal bowel sounds MSK/skin: Mobilization of limbs cannot be evaluated. Skin is dry and warm Neurological: Orientation cannot be assessed. No apparent motor no sensitive deficits. Pupils are isocoric and reactive laboratory and microbiology Laboratory Tests 08/22/24 03:00 Test 08/22/24 03:00 Range/Units Serum Glucose 242 H 74-106 mg/dL Microbiology Date/Time Source Procedure Growth Status 08/20/24 15:21 Blood Blood Culture - Preliminary NO GROWTH AFTER 24 HOURS OF INCUBATION. Resulted Problem List/Assessment/Plan Problem List/Assessment/Plan Neurology # Acute metabolic encephalopathy secondary to septic shock likely due to aspiration PNA # Questionable history of childhood meningitis # Developmental delay # Seizures Patient currently intubated Resumed Divalproex and Dilantin Cardiovascular # Rule out congestive heart failure Negative BNP and Troponin. Chest xray shows pulmonary edema. Ordered echocardiogram Respiratory # Acute respiratory failure due to aspiration pneumonia # Aspiration pneumonia Ordered pancultures (blood, urine, sputum), pending Currently under empiric antibiotics (Zosyn and Doxycycline) On mechanical assisted ventilation (VCV Vt 400, RR 20, PEEP 8, FIO2 60%) On bronchodilators, oxygen therapy Gastrointestinal # Rule out upper GI bleed # Rule out intestinal obstruction # Cholecystitis Monitor H&H On Pantoprazole drip Ordered abdomen and pelvis CT: Cholecystitis and abnormal mass in jejunum Consulted GI: Obtain GOB, monitor H&H, DC octeotride drip and continue pantoprazole drip. Will evaluate need for PEG Consulted Surgery: Re-evaluate once patient is more stable from aspiration pneumonia Genitourinary/Neprhology # KARISHMA hemodynamically mediated (VMN) # Ruled out UTI UA within normal limits On NS 50ml/h Infectious Disease # Septic shock seondary to aspiration pneumonia Ordered pancultures (blood, urine, sputum), pending Currently under empiric antibiotics (Zosyn and Vancomycin) Endocrine # Simple hyperglycemia with no Diabetes Probably secondary to steroids and septic shock On mild ISS Hematology # Rule out GI bleed Monitor H&H At admission was on Octeotride and Pantoprazole drip. Discontinue octeotride drip on 08/22/2024 Ordered anemia work up Nutrition: NPO due to questionable GI bleed Prophylaxis: PUD (pantoprazole drip) and DVT (SCDs) Lines: 08/21/2024 ET tube 08/21/2024 Rivera 08/21/2024 Right IJ CVC 08/21/2024 OG Drips: Fentanyl Versed Propofol Norepinephrine Pantoprazole Goals of care discussed with family (sister, she is the caregiver) for over 18 minutes: Full code status. She will discuss with family to reevaluate code status. Discussed plan with Dr. Kuhn, family and nurses: Currently in ICU status on mechanical assisted ventilation, under sedation-analgesia, on empiric IV antibiotic, IV fluids, IV vasopressors, bronchodilators. Due to questionable GI bleed and intestinal obstruction, patient is currently under pantoprazole drip, awaiting anemia workup. PAdomen US and CT showed cholecystitis, consulted GI and surgery, awaiting for patient to become more stable to proceed with any intervention. Patient has poor prognosis. Critical care time spent including discussion with nursing and family excluding procedures: 84 minutes Plan discussed with: Other (Nurses and sister (caregiver)) My Orders My Orders Orders - BLANCA IRVIN RESIDENT Procedure Category Date Status Time Ventilator Orders RT 08/21/24 Transmitted 18:47 Abg W/ Co-Ox RT 08/21/24 Logged 19:30 Respiratory Culture ALFA 08/21/24 Logged W/ Gs 18:47 Date of Service: August 22, 2024 Billing Provider: ZACHERY KUHN MD Common Visit Codes: 66362-YFLPUTYG CARE 30-74 MIN, 41241-[id number] CARE-EACH +30MIN BLANCA IRVIN August 22, 2024 08:32 ZACHERY KUHN MD August 23, 2024 14:49
[2024-08-22] MEDS: SODIUM CHLORIDE 0.9% 1,000 ML IV ONE (08:34)
[2024-08-22 09:37] LABS: Base Excess -7.8 mmol/L (-2.0-3.0)
[2024-08-22] MEDS: SODIUM CHLORIDE 0.9% 1,000 ML IV SCH (09:53)
--- NOTE | 2024-08-22 10:00 | ECG ---
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
[2024-08-22] MEDS: methylPREDNISolone SOD SUCC 40 MG/ML VL IV SCH (10:10)
[2024-08-22] MEDS: NOREPINEPHRINE BITARTRATE 32 MG in SODIUM CHL 0.9% 218 ML IV SCH (10:12)
--- NOTE | 2024-08-22 10:25 | DVH ---
INDICATION: Septic shock, questionable upper GI bleed TECHNIQUE: Multiple real-time sonographic images of the abdomen were obtained. COMPARISON: None FINDINGS: The liver is homogenous in echogenicity. The liver measures 14 cm. No intrahepatic biliary ductal dilatation is noted. Partially visualized small bilateral pleural effusions. The gallbladder wall measures 0.6 cm and is thickened. There are gallstones and gallbladder sludge. The common duct measures 0.4 cm and is unremarkable. Trace pericholecystic edema. The right kidney measures 9.9 cm. No hydronephrosis. The left kidney measures 10.3 cm. No hydroneph rosis. There is a right renal cyst measuring 2.7 cm. The spleen measures 13 cm, which is enlarged. The echogenicity is within normal limits. The pancreas is not well visualized due to obscuration from bowel gas. The visualized portions of the IVC and aorta are grossly unremarkable. IMPRESSION: Gallstones and gallbladder sludge with gallbladder wall thickening which can be seen in the setting o f acute cholecystitis. Mild splenomegaly. Partially visualized small bilateral pleural effusions.
[2024-08-22 10:30] LABS: Amphetamine Screen, Urine Neg (NEGATIVE); Barbiturate Scree,Urine Neg (NEGATIVE); Benzodiazephine Screen, Urine Pos (NEGATIVE); Cannabinoid Screen, Urine Neg (NEGATIVE); Cocaine Screen, Urine Neg (NEGATIVE); Opiate Scree,Urine Neg (NEGATIVE); Phencyclidine Screen, Urine Neg (NEGATIVE)
[2024-08-22 10:55] LABS: INR 1.24 (0.9-1.15); Partial Thromboplastin Time 32.7 SEC (24.5-34.5); Prothrombin Time 12.9 sec (9.3-11.8)
[2024-08-22 10:57] LABS: Ferritin 77.2 ng/mL (22-322); Folate (Folic Acid) 5.72 ng/mL (>5.38)
[2024-08-22 11:16] LABS: % Iron Saturation 5.2 % (20-55)
[2024-08-22 12:12] LABS: Base Excess -3.5 mmol/L (-2.0-3.0)
[2024-08-22] MEDS: PHENYTOIN SODIUM 100 MG CAP PO SCH (14:00)
--- NOTE | 2024-08-22 14:28 | DVH ---
Indication: Obstruction Technique: CT axial images of the chest, abdomen and pelvis are obtained without contrast. Coronal an d sagittal reformats were obtained. Radiation Dose Information: CTDI volume is 5.83 mGy. Dose-length product is 405.1 mGy*cm Comparison: None FINDINGS: There is limited interpretation of the chest, abdomen and pelvis without administration of intravenou s contrast. Endotracheal tube terminating just at the balwinder /proximal right main bronchus. Nasogastric tube proj ecting towards the pylorus/proximal duodenum. Extensive bilateral pulmonary airspace consolidation. There are associated bronchiectatic changes es pecially within the left lower lobe, left upper lobe lingular segment, right middle lobe. Small bilateral pleural effusions. Right IJ catheter terminating at the inferior cavoatrial junction. Adrenal glands, spleen and pancreas unremarkable in shape. Pericholecystic edema. Liver unremarkabl e in shape. Kidneys demonstrate no hydronephrosis. Nonobstructing right renal calculus measuring 3 m m. Nonobstructing left renal calculus measuring 2 mm.m right renal cystic appearing lesion measuring 2.6 cm. Gastric distention. The small bowel loops are demonstrate bowel wall thickening. There is a circumfer ential mass in the left lower quadrant which appearsm to be within jejunal loops measuring 2.7 by 2.2 cm and contains soft tissue and small fat components. Rectal catheter. Moderate volume stool in the colon. Lipomatous hypertrophy of the ileocecal valve. N ormal appendix. Bladder partially decompressed by Rivera catheter. Small amount of free pelvic fluid. No inguinal lymp hadenopathy. Subacute to chronic T12 compression fracture with 30% loss height. Similar appearing compression defo rmities at T9 and T10 with approximately 20% loss height. IMPRESSION: 1. Circumferential masslike lesion which appears to be within the small bowel in the left lower quadr ant, possibly within the jejunal loops and contains soft tissue and fat components , measuring 2.7 x 2.2 cm. Recommend GI and surgical consultation for further evaluation, especially to exclude a neopl astic process. CT/ MR angiography can also be obtained to characterize this lesions location 2. Diffuse small bowel wall thickening. Correlate for enteritis, inflammatory bowel disease 3. Diffuse bilateral pulmonary airspace consolidation, likely infectious in etiology. Follow-up to re solution to exclude any underlying pulmonary lesion/ neoplasm.Pulmonary bronchiectatic 4. Changes which may represent sequela of previous infection. 5. Small bilateral pleural effusions. 6. Pericholecystic edema. Recommend abdominal ultrasound and HIDA scan to evaluate for cholecystitis . 7. Thoracic compression deformities as described at T9, T10 and T12. Recommend MRI thoracic spine to exclude acute compression fracture deformity. 8. Small amount of free pelvic fluid. 9. Endotracheal tube tip at the balwinder /proximal right main bronchus. Recommend Repositioning. 10. Right IJ catheter tip at the lower cavoatrial junction. Recommend Repositioning. 11. Other findings as described.
[2024-08-22] MEDS: VANCOMYCIN 750mg/150ml 150 ML IV ONE (16:54)
--- NOTE | 2024-08-22 18:41 | DVH ---
INDICATION: ET TUBE REPOSITIONING TECHNIQUE: Frontal view of the chest. COMPARISON: XY CHEST PORTABLE on DOS: 08/22/24, XY CHEST PORTABLE on DOS: 08/21/24, XY CHEST PORTABLE o n DOS: 08/20/24 FINDINGS: Finding. The heart and mediastinal contours are grossly unremarkable. There is no evidence of pleura l disease. The lungs demonstrated diffuse infiltrates seen throughout both lungs. The support lines i ncluding endotracheal tube nasogastric tube and right internal jugular catheter to be in satisfactory position. The bony structures of the chest are intact without fracture. IMPRESSION: 1. Diffuse infiltrates seen throughout both lungs 2. Support lines are in satisfactory position.
[2024-08-22 20:43] LABS: Gastric Occult Blood Positive (Negative)
--- NOTE | 2024-08-22 21:35 | DVHINCON2 ---
Date of service: August 22, [address] Daugherty Reason for Consultation Possible coffe grounds via NGT History of Present Illness The patient is a 53-year-old male with past medical history of mental retardation and seizures Related to history of childhood meningitiswho presented [facility] for evaluation of shortness of breaths for the past 3 days. As reported by caregiver, patient's symptoms progressively get worse with nausea, vomiting, getting worse that EMS were called. When EMS arrived on the scene, patient's blood pressure was 84/59, and was given 600 mL normal saline bolus. Chest x-ray revealing left-sided pneumonia. Patient was started on IV antibiotic regimen azithromycin patient eventually required to be intubated for respiratory failure His NG tube output less than 500 mL somewhat dark tinged with some dark tinged stool output from the rectum;Hemoglobin drifted down slowly to 10.8 Abdominal ultrasound and imaging suggestive of cholelithiasis with possible acute cholecystitis Past Medical History Past Medical History Seizures, Mental retardation Past Surgical History Negative Allergies: Coded Allergies: NO KNOWN ALLERGIES (Unverified , 08/20/24) Current Medications Current Medications Medications (Trade) Dose Ordered Sig/Shar Route PRN Reason Start Time Stop Time Status Last Admin Magnesium Sulfate/ Dextrose 100 ml @ 100 mls/hr Q1HR IV 08/22/24 06:00 08/22/24 07:59 DC 08/22/24 07:06 Magnesium Sulfate/ Dextrose 100 ml @ 100 mls/hr Q1HR IV 08/22/24 08:00 08/22/24 09:59 DC Vancomycin HCl 0 ml @ 0 mls/hr UD IV 08/22/24 08:00 08/22/24 08:19 DC Divalproex Sodium (Depakote "Dr" Tablet) 250 mg BID PO 08/22/24 10:00 08/22/24 20:56 DC Methylprednisolone Sodium Succinate (Solu Medrol) 40 mg BID IV 08/22/24 10:00 08/22/24 15:28 DC 08/22/24 10:10 Sodium Chloride 1,000 ml @ 50 mls/hr Q20H IV 08/22/24 09:15 08/22/24 09:53 Phenytoin Sodium (Dilantin Capsule) 100 mg Q8HR PO 08/22/24 14:00 08/22/24 20:56 DC Norepinephrine Bitartrate 32 mg/ Sodium Chloride 250 ml @ 0.938 mls/ hr Q24H IV 08/22/24 09:15 08/22/24 10:12 Vancomycin HCl 0 ml @ 0 mls/hr UD IV 08/22/24 15:15 Valproate Sodium 250 mg/Sodium Chloride 52.5 ml @ 52.5 mls/hr BID IV 08/22/24 22:00 Phenytoin Sodium 100 mg Q8HR IV 08/22/24 22:00 Vital Signs Vital Signs Date Time Temp Pulse Resp B/P (MAP) Pulse Ox O2 Delivery O2 Flow Rate FiO2 08/22/24 19:58 89 24 94/60 (71) 100 30 08/22/24 18:00 Mechanical Ventilator+ 08/22/24 17:00 97.4 97.4 08/21/24 18:00 6 Physical Exam Patient Is intubated sedated thin male somewhat cachectic Cardiovascular: Normal S1 and S2. No murmurs, gallops or rubs Respiratory: Mechanically assisted ventilation, equal bilateral airway entree. Bilateral diffuse rhonchus Abdomen: Soft, nontender, no organomegaly, normal bowel sounds MSK/skin: Mobilization of limbs cannot be evaluated. Skin is dry and warm Neurological: Orientation cannot be assessed. No apparent motor no sensitive deficits. Pupils are isocoric and reactive Labs/Diagnostic Data Labs Test 08/22/24 18:13 08/22/24 12:04 08/22/24 09:57 08/22/24 09:20 Range/Units Gastric Fluid pH 7.0 Gastric Fluid Occult Blood Positive Negative Blood Gas Specimen Type Arterial Blood Gas Sample Site Right radial Blood Gas Patient Temperature 37.0 Arterial Blood Date Drawn [id number] Arterial Blood pH 7.339 L 7.350-7.450 Arterial Blood Partial Pressure CO2 41.9 35.0-48.0 mmHg Arterial Blood Partial Pressure O2 85.5 83.0-108.0 mmHg Arterial Blood HCO3 22.0 21.0-28.0 mmol/L Arterial Blood Oxygen Saturation 96.0 94.0-98.0 % Arterial Blood Base Excess -3.5 L -2.0-3.0 mmol/L Arterial Blood Oxyhemoglobin 95.5 94.0-98.0 % Arterial Blood Carboxyhemoglobin 0.3 L 0.5-1.5 % Arterial Blood Methemoglobin 0.2 0.0-1.5 % Sher Test Yes Blood Gas Total Hemoglobin 11.40 L 13.5-17.5 g/dL Blood Gas Set Respiration Rate 24.0 Blood Gas Modality Vent - ac FiO2 % 40.0 Blood Gas Tidal Volume 450.0 Reticulocyte Count (auto) 1.54 H 0.5-1.5 % Prothrombin Time 12.9 H 9.3-11.8 sec Prothrombin Time INR 1.24 H 0.9-1.15 Activated Partial Thromboplast Time 32.7 24.5-34.5 SEC Iron Level 10 L 65-175 ug/dL Total Iron Binding Capacity 193 L 250-425 ug/dL Percent Iron Saturation 5.2 L 20-55 % Ferritin 77.2 22-322 ng/mL Folic Acid 5.72 >5.38 ng/mL Blood Gas PEEP or CPAP 5.0 Blood Gas Critical Value Read Back Yes Blood Gas Notified Whom nitza Prince md Blood Gas Notified Time [id number] Blood Gas Notified By ivan Snowden vaccine manager Test 08/22/24 09:00 08/22/24 06:06 08/22/24 03:00 08/21/24 17:12 Range/Units Urine Opiates Screen Neg NEGATIVE Urine Fentanyl Screen Pos NEGATIVE Urine Barbiturates Screen Neg NEGATIVE Urine Phencyclidine Screen Neg NEGATIVE Urine Amphetamines Screen Neg NEGATIVE Urine Benzodiazepines Screen Pos NEGATIVE Urine Cocaine Screen Neg NEGATIVE Urine Cannabinoids Screen Neg NEGATIVE Lactic Acid Level 5.2 *H 0.4-2.0 mmol/L White Blood Count 7.6 4.4-10.8 10^3/uL Red Blood Count 3.49 L 4.5-5.90 10^6/uL Hemoglobin 10.8 L 13.5-17.5 g/dL Hematocrit 32.2 L 41.0-53.0 % Mean Corpuscular Volume 92.4 80.0-100.0 fL Mean Corpuscular Hemoglobin 30.9 28.0-32.0 pg Mean Corpuscular Hemoglobin Concent 33.5 32.0-36.0 g/dL Red Cell Distribution Width 14.4 H 11.8-14.3 % Platelet Count 287 140-450 10^3/uL Mean Platelet Volume 7.1 6.9-10.8 fL Neutrophils (%) (Auto) 80.9 H 37.0-80.0 % Lymphocytes (%) (Auto) 11.3 10.0-50.0 % Monocytes (%) (Auto) 2.5 0.0-12.0 % Eosinophils (%) (Auto) 5.2 0.0-7.0 % Basophils (%) (Auto) 0.1 0.0-2.0 % Neutrophils # (Auto) 6.2 1.6-8.6 10 ^3/uL Lymphocytes # (Auto) 0.9 0.4-5.4 10 ^3/uL Monocytes # (Auto) 0.2 0-1.3 10 ^3/uL Eosinophils # (Auto) 0.4 0-0.8 10 ^3/uL Basophils # (Auto) 0 0-0.2 10 ^3/uL Nucleated Red Blood Cells 0.0 % Sodium Level 136 136-145 mmol/L Potassium Level 4.4 3.5-5.1 mmol/L Chloride Level 104 98-107 mmol/L Carbon Dioxide Level 19 L 20-31 mmol/L Anion Gap 13 5-15 Blood Urea Nitrogen 20 9-23 mg/dL Creatinine 0.89 0.700-1.30 mg/dL Glomerular Filtration Rate Calc 101 >90 mL/min BUN/Creatinine Ratio 22.5 H 10.0-20.0 Serum Glucose 242 H 74-106 mg/dL Calcium Level 8.2 L 8.7-10.4 mg/dL Magnesium Level 1.5 L 1.6-2.6 mg/dL Total Bilirubin 0.2 0.2-1.0 mg/dL Aspartate Amino Transferase (AST) 20 13-40 U/L Alanine Aminotransferase (ALT) < 9 7-40 U/L Alkaline Phosphatase 62 46-116 U/L B-Type Natriuretic Peptide 30.49 0-100 pg/mL Total Protein 5.7 5.7-8.2 g/dL Albumin 3.0 L 3.2-4.8 g/dL Phenytoin (Dilantin) Level 18.7 10-20 ug/mL Blood Gas Liter Flow 6.00 Test 08/21/24 17:10 08/21/24 03:52 08/20/24 18:38 08/20/24 16:15 Range/Units Influenza Type A Antigen Negative Negative Influenza Type B Antigen Negative Negative SARS-CoV-2 Antigen (Rapid) Negative NEGATIVE Differential Total Cells Counted 100.0 100 Neutrophils % (Manual) 41 37.0-80.0 Band Neutrophils % (Manual) 34 Lymphocytes % (Manual) 15 10.0-50.0 Monocytes % (Manual) 0 0-12 Eosinophils % (Manual) 0 0-7 Basophils % (Manual) 0 0.0-2.0 Metamyelocytes % (manual) 6 Myelocytes % (Manual) 4 Promyelocytes % (Manual) 0 Blast Cells % (Manual) 0 Reactive Lymphocytes 0 Platelet Estimate Adequate Troponin I High Sensitivity 35 </=54 ng/L Urine Color Yellow Yellow Urine Clarity Clear Clear Urine pH 7.5 5.0-9.0 Urine Specific [place] 1.019 1.001-1.035 Urine Protein Trace H Negative Urine Ketones Negative Negative Urine Blood Negative Negative /uL Urine Nitrite Negative Negative Urine Bilirubin Negative Negative Urine Urobilinogen Normal Negative mg/dL Urine Leukocyte Esterase Negative Negative /uL Urine RBC 2 0 - 3 /hpf Urine Microscopic WBC 1 0-3 /HPF Urine Squamous Epithelial Cells None seen <5 /hpf Urine Bacteria None seen None Seen /hpf Urine Mucus Few None Seen Urine Glucose Normal Normal mg/dL Test 08/20/24 15:21 Range/Units Hemoglobin A1c 4.8 <5.7 % A1C Microbiology Date/Time Source Procedure Growth Status 08/21/24 18:43 Sputum Gram Stain - Final Resulted 08/21/24 18:43 Sputum Respiratory Culture - Preliminary Resulted 08/21/24 17:05 Nose MRSA Screen - Final Complete 08/20/24 15:21 Blood Blood Culture - Preliminary NO GROWTH AFTER 48 HOURS OF INCU[address]ATION. Resulted CT SCAN ABD PELVIS IMPRESSION: 1. Circumferential masslike lesion which appears to be within the small bowel in the left lower quadrant, possibly within the jejunal loops and contains soft tissue and fat components , measuring 2.7 x 2.2 cm. Recommend GI and surgical consultation for further evaluation, especially to exclude a neoplastic process. CT/ MR angiography can also be obtained to characterize this lesions location 2. Diffuse small bowel wall thickening. Correlate for enteritis, inflammatory bowel disease 3. Diffuse bilateral pulmonary airspace consolidation, likely infectious in etiology. Follow-up to resolution to exclude any underlying pulmonary lesion/ neoplasm.Pulmonary bronchiectatic 4. Changes which may represent sequela of previous infection. 5. Small bilateral pleural effusions. 6. Pericholecystic edema. Recommend abdominal ultrasound and HIDA scan to evaluate for cholecystitis. 7. Thoracic compression deformities as described at T9, T10 and T12. Recommend MRI thoracic spine to exclude acute compression fracture deformity. 8. Small amount of free pelvic fluid. 9. Endotracheal tube tip at the balwinder /proximal right main bronchus. Recommend Repositioning. 10. Right IJ catheter tip at the lower cavoatrial junction. Recommend Repositioning. 11. Other findings as described. ATED BY: YANDY YANG MD DICTATED DATE/TIME: 08/22/241425 SIGNED BY: YANDY YANG MD SIGNED DATE/TIME: 08/22/241425 CC: RUQ USG IMPRESSION: Gallstones and gallbladder sludge with gallbladder wall thickening which can be seen in the setting of acute cholecystitis. Mild splenomegaly. Partially visualized small bilateral pleural effusions. Problems(with codes): (1) Coffee ground emesis (2) Pneumonia, unspecified organism (3) Sepsis, unspecified organism (4) Generalized weakness (5) Hypokalemia (6) Metabolic encephalopathy (7) Acute respiratory distress (8) Sepsis (9) Abnormal finding on GI tract imaging Plan/Recommendation Plan Conservative management for his coffee-ground emesis which was gastric occult positive Protonix 40 mg IV q.8 hours I think we can likely taper off the IV octreotide drip Monitor serial H&H and transfuse if hemoglobin drops below seven Hold Lovenox and blood thinners at this time Start nutritional support in 24-48 hours either with enteral tube feedings or IV Clinimix Patient has an abnormal finding in CT imaging suggestive of a possible small- bowel growth or foreign body We can arrange a bedside small-bowel follow-through series once the contrast has passed through his colon This can be further assessed with a repeat KUB or an MRI when the patient is more stable Plan discussed with: Patient, Other (Dr Daugherty) MADAN JUAREZ MD August 22, 2024 21:35
[2024-08-22] MEDS: VALPROATE INJ 250 MG in SODIUM CHL 0.9% 50 ML IV SCH (22:00)
[2024-08-22] MEDS: PHENYTOIN SODIUM 50 MG/ML 2ML VIAL IV SCH (22:32)
[2024-08-23] VITALS (107 sets, daily range): BP systolic 60–125; BP diastolic 29–81; PULSE 77–119; RESP 19–25; TEMP 85.1–99.7; O2SAT 88–100
[2024-08-23 04:39] LABS: Basophils # (auto) 0 10 ^3/uL (0-0.2); Eosinophils # (auto) 0.1 10 ^3/uL (0-0.8); Eosinophils % (auto) 1.3 % (0.0-7.0); Hematocrit 29.1 % (41.0-53.0); Hemoglobin 9.7 g/dL (13.5-17.5); Lymphocytes # (auto) 0.7 10 ^3/uL (0.4-5.4); Lymphocytes % (auto) 8.6 % (10.0-50.0); Mean Corpuscular Hemoglobin 30.2 pg (28.0-32.0); Mean Corpuscular Hgb Conc. 33.3 g/dL (32.0-36.0); Mean Corpuscular Volume 90.7 fL (80.0-100.0); Monocytes # (auto) 0.4 10 ^3/uL (0-1.3); Monocytes % (auto) 4.8 % (0.0-12.0); Neutrophils # (auto) 6.8 10 ^3/uL (1.6-8.6); Neutrophils % (auto) 85.3 % (37.0-80.0); Nucleated Red Blood Cells % 0.1 %; Platelet Count (auto) 212 10^3/uL (140-450); Red Blood Cells 3.21 10^6/uL (4.5-5.90); Red Cell Distribution Width 14.2 % (11.8-14.3)
--- NOTE | 2024-08-23 04:41 | DVH ---
CHEST RADIOGRAPH Indication: Intubation Technique: Single frontal view of the chest was obtained Comparison: XY CHEST PORTABLE on DOS: 08/22/24 FINDINGS: Lines and Tubes: Endotracheal tube terminates 2.6 cm above the balwinder. The enteric tube courses below the left hemidiaphragm and the tip extends outside the field of view. Right central venous catheter terminates in the right atrium. Lungs: Bilateral airspace disease similar to prior study. Pleura: No effusion. No pneumothorax. Cardiomediastinal contours: Unremarkable Bones: No acute osseous abnormality. IMPRESSION: 1. Stable position of the support lines and tubes. 2. Patchy diffuse bilateral opacities similar to prior study.
[2024-08-23 04:44] LABS: Alkaline Phosphatase 61 U/L (46-116); Anion Gap 9 (5-15); BUN/Creatinine Ratio 22.6 (10.0-20.0); Blood Urea Nitrogen 14 mg/dL (9-23); Carbon Dioxide 24 mmol/L (20-31)
[2024-08-23 04:48] LABS: Alanine Aminotransferase < 9 U/L (7-40); Albumin 2.9 g/dL (3.2-4.8); Aspartate Aminotransferase 12 U/L (13-40); Bilirubin, Total 0.2 mg/dL (0.2-1.0); Calcium 8.4 mg/dL (8.7-10.4); Chloride 118 mmol/L (98-107); Glucose 119 mg/dL (74-106); Magnesium 1.6 mg/dL (1.6-2.6); Potassium 3.2 mmol/L (3.5-5.1); Sodium 151 mmol/L (136-145); Total Protein 5.5 g/dL (5.7-8.2)
[2024-08-23] MEDS: POTASSIUM CHL 20MEQ/100ML 100 ML IV SCH (05:39)
[2024-08-23] MEDS: MAGNESIUM SULFATE 1GM/100ML 100 ML IV ONE (05:39)
[2024-08-23 06:08] LABS: Base Excess -2.6 mmol/L (-2.0-3.0)
[2024-08-23] MEDS ORDERED: POTASSIUM CHL 20MEQ/100ML 100 ML IV SCH (08:15)
[2024-08-23] MEDS ORDERED: MAGNESIUM SULFATE 1GM/100ML 100 ML IV SCH (09:00)
[2024-08-23] MEDS: D5W 5% 1,000 ML IV SCH (09:36)
--- NOTE | 2024-08-23 11:36 | DVHINCON2 ---
Date of service: August 23, 2024 Family History: Colon cancer G8 MOTHER Allergies: Coded Allergies: NO KNOWN ALLERGIES (Unverified , 08/20/24) Current Medications Current Medications Medications (Trade) Dose Ordered Sig/Shar Route PRN Reason Start Time Stop Time Status Last Admin Phenytoin Sodium (Dilantin Capsule) 100 mg Q8HR PO 08/22/24 14:00 08/22/24 20:56 DC Vancomycin HCl 0 ml @ 0 mls/hr UD IV 08/22/24 15:15 Valproate Sodium 250 mg/Sodium Chloride 52.5 ml @ 52.5 mls/hr BID IV 08/22/24 22:00 08/23/24 09:40 Phenytoin Sodium 100 mg Q8HR IV 08/22/24 22:00 08/23/24 05:51 Potassium Chloride 100 ml @ 50 mls/hr Q2H IV 08/23/24 05:15 08/23/24 09:14 DC 08/23/24 07:56 Potassium Chloride 100 ml @ 50 mls/hr Q2H IV 08/23/24 08:15 08/23/24 08:23 DC Magnesium Sulfate/ Dextrose 100 ml @ 100 mls/hr Q1HR IV 08/23/24 09:00 08/23/24 08:23 DC Dextrose 1,000 ml @ 50 mls/hr Q20H IV 08/23/24 08:15 08/23/24 09:36 Iron Sucrose 110 ml @ 110 mls/hr DAILY@1200 IV 08/23/24 12:00 08/27/24 12:59 Pantoprazole Sodium (Protonix) 40 mg TID IV 08/23/24 14:00 Vancomycin HCl 250 ml @ 200 mls/hr Q12H IV 08/23/24 14:00 Vital Signs Vital Signs Date Time Temp Pulse Resp B/P (MAP) Pulse Ox O2 Delivery O2 Flow Rate FiO2 08/23/24 11:26 96/60 08/23/24 11:23 96 24 98 30 08/23/24 10:00 98.2 208.8 08/23/24 10:00 Mechanical Ventilator+ 08/21/24 18:00 6 Labs/Diagnostic Data Labs Test 08/23/24 06:03 08/23/24 03:20 08/22/24 18:13 08/22/24 09:57 Range/Units Blood Gas Specimen Type Arterial Blood Gas Sample Site Right radial Blood Gas Patient Temperature 37.0 Arterial Blood Date Drawn [id number] Arterial Blood pH 7.418 7.350-7.450 Arterial Blood Partial Pressure CO2 33.8 L 35.0-48.0 mmHg Arterial Blood Partial Pressure O2 81.2 L 83.0-108.0 mmHg Arterial Blood HCO3 21.3 21.0-28.0 mmol/L Arterial Blood Oxygen Saturation 96.1 94.0-98.0 % Arterial Blood Base Excess -2.6 L -2.0-3.0 mmol/L Arterial Blood Oxyhemoglobin 95.5 94.0-98.0 % Arterial Blood Carboxyhemoglobin 0.3 L 0.5-1.5 % Arterial Blood Methemoglobin 0.3 0.0-1.5 % Sher Test Modified Blood Gas Total Hemoglobin 10.20 L 13.5-17.5 g/dL Blood Gas Set Respiration Rate 24.0 Blood Gas Modality Vent - ac FiO2 % 30.0 Blood Gas Tidal Volume 450.0 Blood Gas PEEP or CPAP 5.0 White Blood Count 8.0 4.4-10.8 10^3/uL Red Blood Count 3.21 L 4.5-5.90 10^6/uL Hemoglobin 9.7 L 13.5-17.5 g/dL Hematocrit 29.1 L 41.0-53.0 % Mean Corpuscular Volume 90.7 80.0-100.0 fL Mean Corpuscular Hemoglobin 30.2 28.0-32.0 pg Mean Corpuscular Hemoglobin Concent 33.3 32.0-36.0 g/dL Red Cell Distribution Width 14.2 11.8-14.3 % Platelet Count 212 140-450 10^3/uL Mean Platelet Volume 6.8 L 6.9-10.8 fL Neutrophils (%) (Auto) 85.3 H 37.0-80.0 % Lymphocytes (%) (Auto) 8.6 L 10.0-50.0 % Monocytes (%) (Auto) 4.8 0.0-12.0 % Eosinophils (%) (Auto) 1.3 0.0-7.0 % Basophils (%) (Auto) 0.0 0.0-2.0 % Neutrophils # (Auto) 6.8 1.6-8.6 10 ^3/uL Lymphocytes # (Auto) 0.7 0.4-5.4 10 ^3/uL Monocytes # (Auto) 0.4 0-1.3 10 ^3/uL Eosinophils # (Auto) 0.1 0-0.8 10 ^3/uL Basophils # (Auto) 0 0-0.2 10 ^3/uL Nucleated Red Blood Cells 0.1 % Sodium Level 151 #H 136-145 mmol/L Potassium Level 3.2 L 3.5-5.1 mmol/L Chloride Level 118 #H 98-107 mmol/L Carbon Dioxide Level 24 20-31 mmol/L Anion Gap 9 5-15 Blood Urea Nitrogen 14 9-23 mg/dL Creatinine 0.62 L 0.700-1.30 mg/dL Glomerular Filtration Rate Calc 113 >90 mL/min BUN/Creatinine Ratio 22.6 H 10.0-20.0 Serum Glucose 119 #H 74-106 mg/dL Lactic Acid Level 1.1 0.4-2.0 mmol/L Calcium Level 8.4 L 8.7-10.4 mg/dL Magnesium Level 1.6 1.6-2.6 mg/dL Total Bilirubin 0.2 0.2-1.0 mg/dL Aspartate Amino Transferase (AST) 12 L 13-40 U/L Alanine Aminotransferase (ALT) < 9 7-40 U/L Alkaline Phosphatase 61 46-116 U/L Total Protein 5.5 L 5.7-8.2 g/dL Albumin 2.9 L 3.2-4.8 g/dL Random Vancomycin Level 5.9 5-10 ug/mL Gastric Fluid pH 7.0 Gastric Fluid Occult Blood Positive Negative Reticulocyte Count (auto) 1.54 H 0.5-1.5 % Haptoglobin 226 29-370 mg/dL Prothrombin Time 12.9 H 9.3-11.8 sec Prothrombin Time INR 1.24 H 0.9-1.15 Activated Partial Thromboplast Time 32.7 24.5-34.5 SEC Iron Level 10 L 65-175 ug/dL Total Iron Binding Capacity 193 L 250-425 ug/dL Percent Iron Saturation 5.2 L 20-55 % Ferritin 77.2 22-322 ng/mL Folic Acid 5.72 >5.38 ng/mL Test 08/22/24 09:20 08/22/24 09:00 08/22/24 03:00 08/21/24 17:12 Range/Units Blood Gas Critical Value Read Back Yes Blood Gas Notified Whom nitza Prince md Blood Gas Notified Time [id number] Blood Gas Notified By ivan Snowden rrt Urine Opiates Screen Neg NEGATIVE Urine Fentanyl Screen Pos NEGATIVE Urine Barbiturates Screen Neg NEGATIVE Urine Phencyclidine Screen Neg NEGATIVE Urine Amphetamines Screen Neg NEGATIVE Urine Benzodiazepines Screen Pos NEGATIVE Urine Cocaine Screen Neg NEGATIVE Urine Cannabinoids Screen Neg NEGATIVE B-Type Natriuretic Peptide 30.49 0-100 pg/mL Phenytoin (Dilantin) Level 18.7 10-20 ug/mL Blood Gas Liter Flow 6.00 Test 08/21/24 17:10 08/21/24 03:52 08/20/24 18:38 08/20/24 16:15 Range/Units Influenza Type A Antigen Negative Negative Influenza Type B Antigen Negative Negative SARS-CoV-2 Antigen (Rapid) Negative NEGATIVE Differential Total Cells Counted 100.0 100 Neutrophils % (Manual) 41 37.0-80.0 Band Neutrophils % (Manual) 34 Lymphocytes % (Manual) 15 10.0-50.0 Monocytes % (Manual) 0 0-12 Eosinophils % (Manual) 0 0-7 Basophils % (Manual) 0 0.0-2.0 Metamyelocytes % (manual) 6 Myelocytes % (Manual) 4 Promyelocytes % (Manual) 0 Blast Cells % (Manual) 0 Reactive Lymphocytes 0 Platelet Estimate Adequate Troponin I High Sensitivity 35 </=54 ng/L Urine Color Yellow Yellow Urine Clarity Clear Clear Urine pH 7.5 5.0-9.0 Urine Specific [place] 1.019 1.001-1.035 Urine Protein Trace H Negative Urine Ketones Negative Negative Urine Blood Negative Negative /uL Urine Nitrite Negative Negative Urine Bilirubin Negative Negative Urine Urobilinogen Normal Negative mg/dL Urine Leukocyte Esterase Negative Negative /uL Urine RBC 2 0 - 3 /hpf Urine Microscopic WBC 1 0-3 /HPF Urine Squamous Epithelial Cells None seen <5 /hpf Urine Bacteria None seen None Seen /hpf Urine Mucus Few None Seen Urine Glucose Normal Normal mg/dL Test 08/20/24 15:21 Range/Units Hemoglobin A1c 4.8 <5.7 % A1C Microbiology Date/Time Source Procedure Growth Status 08/22/24 09:00 Urine - [place] Urine Culture - Preliminary Resulted 08/21/24 18:43 Sputum Gram Stain - Final Resulted 08/21/24 18:43 Sputum Respiratory Culture - Preliminary Resulted 08/21/24 17:05 Nose MRSA Screen - Final Complete 08/20/24 15:21 Blood Blood Culture - Preliminary NO GROWTH AFTER 48 HOURS OF INCUBATION. Resulted Assessment patient is referred for surgical consultation to treat cholecystitis ,patient with multiple complex co morbidities, presently not a candidate for cholecystectomy, will request cholecystostomy to temporize till his overall situation will allow cholecystectomy under less dire circumstances. Plan discussed with: Other ALANA FERRER MD August 23, 2024 11:36
[2024-08-23] MEDS: PANTOPRAZOLE 40 MG/10 ML VIAL INJ IV SCH (13:45)
[2024-08-23] MEDS: IRON SUCROSE COMPLEX 110 ML IV SCH (13:47)
--- NOTE | 2024-08-23 14:57 | DVHPNRES ---
Progress Note Date Seen: August 23, 2024 Resident Creating Document: BLANCA IRVIN RESIDENT Medical Necessity Reason Pt with a Central, PICC or Fol: Yes The following are medically ne: Central Line, Rivera Catheter Subjective Review of Systems Juanjose Ribeiro is a 53-year-old male patient who presents to ED via EMS with chief complaint of progressive dyspnea. Patient is currently intubated, could not obtain review of systems. Obtained information by family (sister) and EMR. Patient's symptoms got worse three days prior to his admission, associated with nausea, vomiting. Per sister patient stopped eating on Wednesday after coming back from a care facility, presented ground coffee emesis and has been having constipation (last bowel movement last ). Patient on scene and in ED presented hypotension, desaturation, tachypnea, with initial diagnosis of acute respiratory failure with septic shock secondary to probable aspiration pneumonia. Required IV fluids, empiric IV antibiotic and high-flow with regular response, deciding endotracheal intubation and placement of central line. While intubating, evidenced copious dark ground coffee secretion, deciding to initiate octreotide and IV pantoprazole. 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 2016 pneumonia Surgical history: Per sister had lung surgery because of collapse lung (questionable thoracentesis) Family history: Mother of congestive heart failure, also had diabetes Social history: Lives in [place] with sister who is her his caregiver. Denies current tobacco, alcohol and other drug abuse Allergies: Denies Home medication: Divalproex 250 mg p.o. b.i.d., Dilantin 100 mg p.o. q.8 hours Patient seen and examined at bedside. Currently in ICU status, on sedoanalgesia due to mechanical assisted ventilation, on IV vasopressors and empiric IV antibiotic Objective vital signs Vital Sign Date Time Temp Pulse Resp B/P (MAP) Pulse Ox O2 Delivery O2 Flow Rate FiO2 08/23/24 13:53 90 24 98/67 (77) 99 30 08/23/24 10:00 98.2 208.8 08/23/24 10:00 Mechanical Ventilator+ 08/21/24 18:00 6 Total Intake and Output 08/22/24 08/22/24 08/23/24 15:00 23:00 07:00 Intake Total 1047.533 ml 877.362 ml 880.626 ml Output Total 2400 ml 530 ml Balance 1047.533 ml -1522.638 ml 350.626 ml medications Current Medications Medications Dose Ordered Sig/Shar Route Start Time Stop Time Status Last Admin Dose Admin Docusate Sodium 100 mg BIDPRN PRN PO 08/20/24 20:15 Acetaminophen 650 mg Q6HP PRN PO 08/20/24 20:15 Ipratropium [place] 0.5 mg Q4HPRN PRN NEB 08/20/24 20:15 08/23/24 11:22 0.5 MG Piperacillin Sod/ Tazobactam Sod 100 ml @ 25 mls/hr Q8H IV 08/21/24 18:00 08/23/24 09:45 25 MLS/HR Levalbuterol HCl 1.25 mg Q6HR NEB 08/21/24 18:00 08/23/24 11:22 1.25 MG Doxycycline Hyclate 100 ml @ 50 mls/hr Q12H IV 08/21/24 18:30 UNV Propofol 100 ml @ 1.293 mls/ hr Q24H IV 08/21/24 18:45 08/22/24 12:56 7.758 MLS/HR Midazolam HCl 50 ml @ 1 mls/hr Q24H IV 08/21/24 18:45 08/23/24 11:26 10 MLS/HR Fentanyl Citrate 250 ml @ 2.5 mls/hr Q24H IV 08/21/24 18:45 08/23/24 06:01 12.5 MLS/HR Norepinephrine Bitartrate 32 mg/ Sodium Chloride 250 ml @ 0.938 mls/ hr Q24H IV 08/22/24 09:15 08/23/24 09:36 3.75 MLS/HR Vancomycin HCl 0 ml @ 0 mls/hr UD IV 08/22/24 15:15 Valproate Sodium 250 mg/Sodium Chloride 52.5 ml @ 52.5 mls/hr BID IV 08/22/24 22:00 08/23/24 09:40 52.5 MLS/HR Phenytoin Sodium 100 mg Q8HR IV 08/22/24 22:00 08/23/24 05:51 100 MG Iron Sucrose 110 ml @ 110 mls/hr DAILY@1200 IV 08/23/24 12:00 08/27/24 12:59 08/23/24 13:47 110 MLS/HR Pantoprazole Sodium 40 mg TID IV 08/23/24 14:00 08/23/24 13:45 40 MG Vancomycin HCl 250 ml @ 200 mls/hr Q12H IV 08/23/24 14:00 Amino Acids 0 ml @ 0 mls/hr PER PHARMACY IV 08/23/24 15:00 UNV Examination Patient lying in bed, under sedoanalgesia due to mechanical ventilation General: RASS -3, afebrile, mucosae are moist Cardiovascular: Normal S1 and S2. No murmurs, gallops or rubs Respiratory: Mechanically assisted ventilation, equal bilateral airway entree. Bilateral diffuse rhonchus Abdomen: Soft, nontender, no organomegaly, normal bowel sounds MSK/skin: Mobilization of limbs cannot be evaluated. Skin is dry and warm Neurological: Orientation cannot be assessed. No apparent motor no sensitive deficits. Pupils are isocoric and reactive laboratory and microbiology Laboratory Tests 08/23/24 03:20 Test 08/23/24 03:20 Range/Units Serum Glucose 119 #H 74-106 mg/dL Microbiology Date/Time Source Procedure Growth Status 08/22/24 09:00 Urine - Rivera Port Urine Culture - Preliminary Resulted 08/21/24 18:43 Sputum Gram Stain - Final Resulted 08/21/24 18:43 Sputum Respiratory Culture - Preliminary Resulted 08/21/24 17:05 Nose MRSA Screen - Final Complete 08/20/24 15:21 Blood Blood Culture - Preliminary NO GROWTH AFTER 48 HOURS OF INCUBATION. Resulted Problem List/Assessment/Plan Problem List/Assessment/Plan Neurology # Acute metabolic encephalopathy secondary to septic shock likely due to aspiration PNA # Questionable history of childhood meningitis # Developmental delay # Seizures Patient currently intubated Resumed Divalproex and Dilantin. Pharmacy adjusted dose due to hypoalbuminemia Cardiovascular # Rule out congestive heart failure Negative BNP and Troponin. Chest xray shows pulmonary edema. 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 Currently on bolus pantoprazole tid. Will evaluate need for PEG. Ordered small bowel series, pending report Consulted Surgery: Re-evaluate once patient is more stable from aspiration pneumonia Genitourinary/Neprhology # KARISHMA hemodynamically mediated (VMN) # Ruled out UTI UA within normal limits On NS 50ml/h Infectious Disease # Septic shock seondary to aspiration pneumonia Ordered pancultures (blood, urine, sputum), pending Currently under empiric antibiotics (Zosyn and Vancomycin) Endocrine # Simple hyperglycemia with no Diabetes # Severe malnutrition Probably secondary to steroids and septic shock On mild ISS BMI less than 19 and hypoalbuminemia Hematology # Rule out GI bleed # Acute blood loss #Iron deficiency anemia Monitor H&H At admission was on Octeotride and Pantoprazole drip. Discontinue octeotride drip on 08/22/2024 Ordered anemia work up Nutrition: NPO due to questionable GI bleed. On Clinimix Prophylaxis: PUD (pantoprazole bolus tid) and DVT (SCDs) Lines: 08/21/2024 ET tube 08/21/2024 Rivera 08/21/2024 Right IJ CVC 08/21/2024 OG Drips: Fentanyl 125 Versed 10 Propofol DC Norepinephrine 6 Pantoprazole drip DC Clinimix Goals of care discussed with family (sister, she is the caregiver) for over 18 minutes: Full code status. She will discuss with family to reevaluate code status. Discussed plan with Dr. Kuhn, family and nurses: Currently in ICU status on mechanical assisted ventilation, under sedation-analgesia, on empiric IV antibiotic, IV fluids, IV vasopressors, bronchodilators. Due to questionable GI bleed and intestinal obstruction, patient is currently under pantoprazole bolus, awaiting anemia workup. Adomen US and CT showed cholecystitis, consulted GI and surgery, awaiting for patient to become more stable to proceed with any intervention. Patient has poor prognosis. Critical care time spent including discussion with nursing and family excluding procedures: 84 minutes Plan discussed with: Other (Sister and Nurses) My Orders My Orders Orders - BLANCA IRVIN RESIDENT Procedure Category Date Status Time Respiratory Misc. RT 08/22/24 Transmitted Order 15:11 Vancomycin Per [facility] 08/22/24 In Process Pharmacy 15:15 Chest Portable XY 08/22/24 Resulted 16:06 Valproate Inj [facility] 08/22/24 In Process (Depacon) 22:00 Phenytoin Iv Dilantin [facility] 08/22/24 In Process 22:00 Abg W/ Co-Ox RT 08/23/24 Logged 06:00 Iron Sucrose Complex [facility] 08/23/24 In Process (Venofer) 12:00 Npo (Nothing By DIET 08/23/24 Transmitted Mouth) Diet Lunch Ng To Lis [facility] 08/23/24 In Process 09:53 Small Bowel Series-W XY 08/23/24 Logged Gastrogra 09:54 Pantoprazole PHA 08/23/24 In Process (Protonix) 14:00 Vancomycin,Trough LAB 08/25/24 Verified 01:00 Vancomycin Per [facility] 08/25/24 In Process Pharmacy Protoc 01:00 Complete Blood Count LAB 08/24/24 Verified 04:00 Creatinine LAB 08/24/24 Verified 04:00 Vancomycin PH[facility] 08/23/24 In Process 1.25gm/250ml 14:00 Valproic Acid LAB 08/23/24 Logged (Depakene) 14:48 Clinimix Per Pharmacy [facility] 08/23/24 Logged 15:00 Basic Metabolic Panel LAB 08/23/24 Logged 14:50 Dietary Evaluation Review Comments: 1. no PO or EN tube feeding until GI bleed resolved. Cancel Cardic Diet 2. Initiate TPN if pt is NPO>7 days. Expected Outcomes/Goals: reassess needs when pt is off vent. Date of Service: August 23, 2024 Billing Provider: ZACHERY KUHN MD Common Visit Codes: 47888-[id number] CARE 30-74 MIN, 13077-[id number] CARE-EACH +30MIN BLANCA IRVIN RESIDENT August 23, 2024 14:57 ZACHERY KUHN MD August 24, 2024 11:55
[2024-08-23] MEDS ORDERED: CLINIMIX PER PHARMACY 0 ML IV SCH (15:00)
[2024-08-23] MEDS: VANCOMYCIN 1.25GM/250ML 250 ML IV SCH (15:13)
--- NOTE | 2024-08-23 15:57 | DVHSR ---
APPROVED REPORT EXAM: Two-dimensional and M-mode echocardiogram with Doppler and color Doppler. Blood Pressure: 92/52 mmHg INDICATION Heart Failure RISK FACTORS Height: 5'6", Weight: 104 DIMENSIONS LVDd3.9 (3.8-5.7cm)LA (2D)3.6 (1.9-4.0cm)Aortic Root2.7 (2.0-3.7cm) LVDs2.9 (2.5-4.0cm)LA (MM) (1.9-4.0cm)Aortic Cusp Exc1.5 (1.5-2.0cm) EF (%) 55.0 (55-70%)Rt. Atrium3.8 (1.9-4.0cm)Asc. Aorta cm IVSd0.4 (0.7-1.1cm)RV (D)3.4 (1.8-2.4cm) PWd0.5 (0.7-1.1cm) Mitral Valve MitralMitral Stenosis E wave0.78m/sMV Mean GR.mmHg A wave0.64m/sMV Peak GR.mmHg E/A ratio1.22D MVAcm2 DECEL [id number] 1/2 Timems Aortic Valve Aortic ValveAortic Stenosis V11.04m/Howie Mean GR.4mmHg V21.30m/Howie Peak GR.7mmHg LVOT Diameter2.0 (1.8-2.4cm)Doppler AVA2.51cm2 Pulmonic Valve V21.18m/s Tricuspid Valve TR Velocity2.76m/s [id number] Other Information Quality : Technically LimitedRhythm : Technically limited study due to on vent. Conclusion Technically good study. Sinus rhythm. Normal chamber sizes. Normal valves. EF normal at 60% with normal RV function. Mild TR. No pericardial effusion masses or vegetations.
[2024-08-23] MEDS: GASTROGRAFIN 120 ML SOL ONE (16:00)
[2024-08-23 16:46] LABS: Anion Gap 8 (5-15); Carbon Dioxide 24 mmol/L (20-31)
[2024-08-23 16:47] LABS: Calcium 8.1 mg/dL (8.7-10.4); Chloride 117 mmol/L (98-107); Sodium 149 mmol/L (136-145)
[2024-08-23 16:51] LABS: BUN/Creatinine Ratio 17.5 (10.0-20.0); Blood Urea Nitrogen 11 mg/dL (9-23)
[2024-08-23 16:52] LABS: Glucose 175 mg/dL (74-106)
--- NOTE | 2024-08-23 17:27 | DVH ---
Procedure: XY SMALL BOWEL SERIES-W GASTROGRA Reason for study/Clinical History: Evaluate obstruction Comparison Study: None Technique: Single contrast small bowel series performed. FINDINGS/IMPRESSION: Initial science editor radiograph demonstrates nonspecific bowel-gas pattern. Contrast is not identified within the colon by 3 hours. This represents a delayed transit time. KUB could be obtained on 08/24/2024 2 further assess for enteric contrast entering the colon.
--- NOTE | 2024-08-23 18:53 | DVH ---
Procedure: XY KUB ABDOMEN SINGLE VIEW Study Date and Requested Time: 08/23/2024 06:14 PM Technique: Single view of the abdomen and pelvis is available for evaluation. History: intestinal obstruction Comparison: Small-bowel series 08/23/[address] chest abdomen and pelvis 08/22/2024 Findings/ Impression: Enteric tube is noted terminating over The distal stomach. Contrast is noted within the stomach with progressive contrast passes through the small bowel with no contrast noted within the large bowel. Fi ndings is consistent with delayed transit time. KUB should be obtained on 08/24/2024 for further evaluation of the enteric contrast passage into the colon as recommended on the small-bowel series. There is contrast within the partially visualized distal esophagus. Aspiration precaution is recommen ded.
[2024-08-23] MEDS: AMINO ACID INFUSION IN D10W 1,000 ML IV SCH (21:30)
[2024-08-23] MEDS ORDERED: DEXTROSE (50%) 50ML SYRG IV SCH (22:00)
[2024-08-24] VITALS (108 sets, daily range): BP systolic 96–142; BP diastolic 62–91; PULSE 102–128; RESP 16–36; TEMP 95.2–100.2; O2SAT 90–100
[2024-08-24] MEDS: InsuLIN REG 1unit/0.01ml Soln (100units/ml) SC SCH
[2024-08-24] MEDS: ACCU-CHEK COMFORT CURVE STRIP VI SCH (00:11)
[2024-08-24 03:44] LABS: Basophils # (auto) 0 10 ^3/uL (0-0.2); Basophils % (auto) 0.2 % (0.0-2.0); Eosinophils # (auto) 0.7 10 ^3/uL (0-0.8); Eosinophils % (auto) 9.6 % (0.0-7.0); Hematocrit 27.2 % (41.0-53.0); Hemoglobin 9.2 g/dL (13.5-17.5); Lymphocytes % (auto) 13.2 % (10.0-50.0); Mean Corpuscular Hemoglobin 30.6 pg (28.0-32.0); Mean Corpuscular Hgb Conc. 33.7 g/dL (32.0-36.0); Mean Corpuscular Volume 90.7 fL (80.0-100.0); Monocytes # (auto) 0.5 10 ^3/uL (0-1.3); Monocytes % (auto) 6.4 % (0.0-12.0); Neutrophils # (auto) 5.4 10 ^3/uL (1.6-8.6); Neutrophils % (auto) 70.6 % (37.0-80.0); Nucleated Red Blood Cells % 0.1 %; Platelet Count (auto) 196 10^3/uL (140-450); Red Cell Distribution Width 14.6 % (11.8-14.3); White Blood Cell 7.7 10^3/uL (4.4-10.8)
[2024-08-24 03:56] LABS: Alkaline Phosphatase 61 U/L (46-116); Anion Gap 9 (5-15); Aspartate Aminotransferase 21 U/L (13-40); Blood Urea Nitrogen 11 mg/dL (9-23); Carbon Dioxide 26 mmol/L (20-31)
[2024-08-24 04:05] LABS: Alanine Aminotransferase < 9 U/L (7-40); Albumin 2.7 g/dL (3.2-4.8); Bilirubin, Total 0.2 mg/dL (0.2-1.0); Chloride 116 mmol/L (98-107); Glucose 170 mg/dL (74-106); Magnesium 1.3 mg/dL (1.6-2.6); Phosphorus 1.1 mg/dL (2.4-5.1); Potassium 3.4 mmol/L (3.5-5.1); Sodium 151 mmol/L (136-145); Total Protein 5.2 g/dL (5.7-8.2)
[2024-08-24] MEDS: MAGNESIUM SULFATE 1GM/100ML 100 ML IV ONE (05:15)
[2024-08-24] MEDS: POTASSIUM CHL 20MEQ/100ML 100 ML IV ONE (05:15)
--- NOTE | 2024-08-24 05:38 | DVH ---
EXAM: XR Chest, 1 View CLINICAL INDICATION: Intubation TECHNIQUE: Frontal view of the chest. COMPARISON: XY CHEST XRAY 1 VIEW on DOS: 08/23/24, XY CHEST PORTABLE on DOS: 08/22/24, XY CHEST HAO BLE on DOS: 08/22/24, XY CHEST PORTABLE on DOS: 08/21/24, XY CHEST PORTABLE on DOS: 08/20/24 FINDINGS: LUNGS AND PLEURAL SPACES: Pulmonary congestion and edema. Pneumonia cannot be excluded. No pneumot horax. HEART: Unremarkable. No cardiomegaly. MEDIASTINUM: Unremarkable. Normal mediastinal contour. BONES/JOINTS: Unremarkable. No acute fracture. TUBES, LINES AND DEVICES: Right internal jugular central venous catheter tip in the superior vena c mary. The endotracheal tube (ETT) is in satisfactory position. Enteric tube tip cannot be seen but i s below the diaphragm. OTHER FINDINGS: . IMPRESSION: Pulmonary congestion and edema. Pneumonia cannot be excluded.
[2024-08-24] MEDS: D5W 5% 1,000 ML IV SCH (06:46)
[2024-08-24 06:49] LABS: Base Excess -2.6 mmol/L (-2.0-3.0)
[2024-08-24] MEDS: POTASSIUM CHL 20MEQ/100ML 100 ML IV SCH (08:40)
[2024-08-24] MEDS: PHENYTOIN SODIUM 50 MG/ML 2ML VIAL IV SCH (10:00)
[2024-08-24] MEDS: LIDOCAINE 2%HCL (LOCAL ANESTH.) INJ 10ml MDV ONE (11:58)
[2024-08-24] MEDS ORDERED: TPN PER PHARMACY 0 ML IV SCH ×2 (12:00→12:15)
--- NOTE | 2024-08-24 12:14 | DVH ---
Date: 08/24/2024 09:55 AM Examination: XY KUB ABDOMEN SINGLE VIEW History: ABD PAIN Comparison: XY KUB ABDOMEN SINGLE VIEW on DOS: 08/23/24 TECHNIQUE: Frontal views of the abdomen was obtained. FINDINGS: There is multiple distended small bowel loops throughout the abdomen which contain contrast. Moderate distention of the stomach which contains a Gastric tube. A Rivera catheter projects over the pelvis. No definite contrast is seen in the colon. Osseous structures are grossly intact. IMPRESSION: Multiple distended small bowel loops throughout the abdomen containing contrast. DDX includes small-b owel obstruction or ileus.
--- NOTE | 2024-08-24 12:39 | DVH ---
Procedure: US GALLBLADDER 08/24/2024 12:00 PM Indication: CHOLECYSTOSTOMY Comparison: US ABDOMEN LIMITED on DOS: 08/22/24 Technique: Grayscale and color images of the right upper quadrant were obtained. FINDINGS: Large amount of sludge few subcentimeter calculi noted in gallbladder lumen. Gallbladder wall measur es 2.7 mm in thickness. The sonographic Patel's sign is not evaluated. IMPRESSION: 1. Interval resolution of gallbladder wall edema and pericholecystic fluid. Large amount of sludge an d few tiny calculi noted in gallbladder lumen.
[2024-08-24] MEDS: METOCLOPRAMIDE HCL 5MG/ml INJ 2ml VIAL IV SCH (14:00)
[2024-08-24] MEDS: METOCLOPRAMIDE HCL 5MG/ml INJ 2ml VIAL IV ONE (14:19)
[2024-08-24] MEDS: POTASSIUM PHOSPHATE 44 MEQ in D5W 5% 250 ML IV ONE (15:47)
--- NOTE | 2024-08-24 20:23 | DVHPNRES ---
Progress Note Date Seen: August 24, 2024 Resident Creating Document: BLANCA IRVIN RESIDENT Medical Necessity Reason Pt with a Central, PICC or Fol: Yes The following are medically ne: Central Line, Rivera Catheter Subjective Review of Systems Juanjose Ribeiro is a 53-year-old male patient who presents to ED via EMS with chief complaint of progressive dyspnea. Patient is currently intubated, could not obtain review of systems. Obtained information by family (sister) and EMR. Patient's symptoms got worse three days prior to his admission, associated with nausea, vomiting. Per sister patient stopped eating on Wednesday after coming back from a care facility, presented ground coffee emesis and has been having constipation (last bowel movement last ). Patient on scene and in ED presented hypotension, desaturation, tachypnea, with initial diagnosis of acute respiratory failure with septic shock secondary to probable aspiration pneumonia. Required IV fluids, empiric IV antibiotic and high-flow with regular response, deciding endotracheal intubation and placement of central line. While intubating, evidenced copious dark ground coffee secretion, deciding to initiate octreotide and IV pantoprazole. 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 2016 pneumonia Surgical history: Per sister had lung surgery because of collapse lung (questionable thoracentesis) Family history: Mother of congestive heart failure, also had diabetes Social history: Lives in [place] with sister who is her his caregiver. Denies current tobacco, alcohol and other drug abuse Allergies: Denies Home medication: Divalproex 250 mg p.o. b.i.d., Dilantin 100 mg p.o. q.8 hours Patient seen and examined at bedside. Currently in ICU status, on sedoanalgesia due to mechanical assisted ventilation, on IV vasopressors and empiric IV antibiotic. Completed Gastrografin study which showed probable small bowel obstruction versus ileus. Also completed repeat gallbladder ultrasound which showed probable cholecystitis with cholelithiasis. Surgery evaluated the patient, planning on completing cholecystostomy tube placement. Objective vital signs Vital Sign Date Time Temp Pulse Resp B/P (MAP) Pulse Ox O2 Delivery O2 Flow Rate FiO2 08/24/24 20:02 110 24 111/72 (85) 92 35 08/24/24 18:30 98.4 209.1 08/24/24 18:30 Mechanical Ventilator Total Intake and Output 5/14/25 5/14/25 5/15/25 15:00 23:00 07:00 Intake Total 868.315 ml 627.004 ml 896.504 ml Output Total 800 ml 850 ml Balance 868.315 ml -172.996 ml 46.504 ml medications Current Medications Medications Dose Ordered Sig/Shar Route Start Time Stop Time Status Last Admin Dose Admin Docusate Sodium 100 mg BIDPRN PRN PO 08/20/24 20:15 Acetaminophen 650 mg Q6HP PRN PO 08/20/24 20:15 Ipratropium [place] 0.5 mg Q4HPRN PRN NEB 08/20/24 20:15 08/24/24 11:26 0.5 MG Piperacillin Sod/ Tazobactam Sod 100 ml @ 25 mls/hr Q8H IV 08/21/24 18:00 08/24/24 17:55 25 MLS/HR Levalbuterol HCl 1.25 mg Q6HR NEB 08/21/24 18:00 08/24/24 18:35 1.25 MG Doxycycline Hyclate 100 ml @ 50 mls/hr Q12H IV 08/21/24 18:30 UNV Midazolam HCl 50 ml @ 1 mls/hr Q24H IV 08/21/24 18:45 08/24/24 17:54 14 MLS/HR Fentanyl Citrate 250 ml @ 2.5 mls/hr Q24H IV 08/21/24 18:45 08/24/24 14:29 20 MLS/HR Norepinephrine Bitartrate 32 mg/ Sodium Chloride 250 ml @ 0.938 mls/ hr Q24H IV 08/22/24 09:15 08/24/24 14:13 1.875 MLS/HR Vancomycin HCl 0 ml @ 0 mls/hr UD IV 08/22/24 15:15 Valproate Sodium 250 mg/Sodium Chloride 52.5 ml @ 52.5 mls/hr BID IV 08/22/24 22:00 08/24/24 09:59 52.5 MLS/HR Iron Sucrose 110 ml @ 110 mls/hr DAILY@1200 IV 08/23/24 12:00 08/27/24 12:59 08/24/24 13:00 110 MLS/HR Pantoprazole Sodium 40 mg TID IV 08/23/24 14:00 08/24/24 14:20 40 MG Vancomycin HCl 250 ml @ 200 mls/hr Q12H IV 08/23/24 14:00 08/24/24 14:34 200 MLS/HR Phenytoin Sodium 100 mg Q12HR IV 08/24/24 10:00 Amino Acids/ Electrolytes/ Dextrose 1,000 ml @ 41 mls/hr DAILY@2200 IV 08/23/24 22:00 08/24/24 21:59 08/23/24 21:30 41 MLS/HR Diagnostic Test (Pha) 1 strip Q6HR 08/24/24 00:00 08/24/24 18:03 1 STRIP Insulin Human Regular FOLLOW SLIDING SCALE Q6HR SC 08/24/24 00:00 Dextrose 50 ml UD IV 08/23/24 22:00 Dextrose 1,000 ml @ 75 mls/hr [id number] IV 08/24/24 06:45 08/24/24 06:46 75 MLS/HR Metoclopramide HCl 5 mg Q8HR IV 08/24/24 14:00 08/24/24 14:00 5 MG Amino Acids 0 ml @ 0 mls/hr PER PHARMACY IV 08/24/24 12:15 Fat Emulsion Intravenous 50 ml/ Magnesium Sulfate 4 meq/ Multivitamins 10 ml/Chromium/ Copper/Manganese/ Zinc 1 ml/Amino Acids/Dextrose 1,062 ml @ 44 mls/hr Q24H9M IV 08/24/24 22:00 08/25/24 21:59 Examination Patient lying in bed, under sedoanalgesia due to mechanical ventilation General: RASS -3, afebrile, mucosae are moist Cardiovascular: Normal S1 and S2. No murmurs, gallops or rubs Respiratory: Mechanically assisted ventilation, equal bilateral airway entree. Bilateral diffuse rhonchus Abdomen: Mildly distended, nontender, no organomegaly, reduced bowel sounds. Has OG in low intermittent suction, with copious secretion MSK/skin: Mobilization of limbs cannot be evaluated. Skin is dry and warm Neurological: Orientation cannot be assessed. No apparent motor no sensitive deficits. Pupils are isocoric and reactive laboratory and microbiology Laboratory Tests 08/24/24 03:15 Test 08/24/24 03:15 Range/Units Serum Glucose 170 H 74-106 mg/dL Microbiology Date/Time Source Procedure Growth Status 08/22/24 09:00 Urine - Rivera Port Urine Culture - Final Complete 08/21/24 18:43 Sputum Gram Stain - Final Complete 08/21/24 18:43 Sputum Respiratory Culture - Final Complete 08/21/24 17:05 Nose MRSA Screen - Final Complete 08/20/24 15:21 Blood Blood Culture - Preliminary NO GROWTH AFTER 72 HOURS OF INCUBATION. Resulted Problem List/Assessment/Plan Problem List/Assessment/Plan Neurology # Acute metabolic encephalopathy secondary to septic shock likely due to aspiration PNA # Questionable history of childhood meningitis # Developmental delay # Seizures Patient currently intubated Resumed Divalproex and Dilantin. Pharmacy adjusted dose due to hypoalbuminemia Cardiovascular # Ruled out congestive heart failure Negative BNP and Troponin. Chest xray shows pulmonary edema. Echocardiogram: Normal chambers, LVEF 60%, normal RV function and mild TR. 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 Currently on bolus pantoprazole tid. Will evaluate need for PEG. Ordered small bowel series which showed probable small-bowel obstruction versus ileus. Consulted Surgery: Re-evaluate once patient is more stable from aspiration pneumonia Patient currently on low intermittent suction, with copious secretion. Genitourinary/Neprhology # KARISHMA hemodynamically mediated (VMN) # Ruled out UTI UA within normal limits On NS 50ml/h Infectious Disease # Septic shock seondary to aspiration pneumonia Ordered pancultures (blood, urine, sputum), pending Currently under empiric antibiotics (Zosyn and Vancomycin) Endocrine # Simple hyperglycemia with no Diabetes # Severe malnutrition Probably secondary to steroids and septic shock On mild ISS BMI less than 19 and hypoalbuminemia Hematology # Rule out GI bleed # Acute blood loss #Iron deficiency anemia Monitor H&H At admission was on Octeotride and Pantoprazole drip. Discontinue octeotride drip on 08/22/2024 Ordered anemia work up Nutrition: NPO due to questionable GI bleed. On Clinimix posterior TPN Prophylaxis: PUD (pantoprazole bolus tid) and DVT (SCDs) Lines: 08/21/2024 ET tube 08/21/2024 Rivera 08/21/2024 Right IJ CVC 08/21/2024 OG Drips: Fentanyl 125 Versed 12 Norepinephrine 6 Pantoprazole drip DC Clinimix posterior TPN Goals of care discussed with family (sister, she is the caregiver) for over 18 minutes: Full code status. She will discuss with family to reevaluate code status. Discussed plan with Dr. Kuhn, family and nurses: Currently in ICU status on mechanical assisted ventilation, under sedation-analgesia, on empiric IV antibiotic, IV fluids, IV vasopressors, bronchodilators. Patient presents upper GI bleed, probable small intestine obstruction versus ileus, and cholecystitis. Consulted GI and surgery, planning on placement of cholecystostomy tube, patient is too unstable to undergo any kind of surgery. Patient has poor prognosis. Critical care time spent including discussion with nursing and family excluding procedures: 87 minutes Plan discussed with: Patient, Other (Sister (Delmis) and nurses) My Orders My Orders Orders - BLANCA IRVIN RESIDENT Procedure Category Date Status Time Abg W/ Co-Ox RT 08/24/24 Logged 05:18 D5w 5% (Dextrose 5%) PHA 08/24/24 In Process 06:45 Kub Abdomen Single XY 08/24/24 Resulted View 09:57 Phenytoin (Dilantin) LAB 08/25/24 Verified 04:00 Tpn Per Pharmacy PHA 08/24/24 In Process 12:15 Amino Acid PHA 08/24/24 In Process Infusion... W/Fat 22:00 Potassium Phosphate PHA 08/24/24 In Process 13:00 Comprehensive LAB 08/25/24 Verified Metabolic Panel 04:00 Magnesium LAB 08/25/24 Verified 04:00 Phosphorus LAB 08/25/24 Verified 04:00 Tpn Per Pharmacy [facility] 08/24/24 In Process 22:00 Triglycerides LAB 08/25/24 Verified 04:00 Complete Blood Count LAB 08/25/24 Verified 04:00 Dietary Evaluation Review Comments: 1. no PO or EN tube feeding until GI bleed resolved. Cancel Cardic Diet 2. Initiate TPN if pt is NPO>7 days. Expected Outcomes/Goals: reassess needs when pt is off vent. Date of Service: August 24, 2024 Billing Provider: ZACHERY KUHN MD Common Visit Codes: [id number] CARE 30-74 MIN, [id number] CARE-EACH +30MIN BLANCA IRVIN RESIDENT August 24, 2024 20:22 ZACHERY KUHN MD August 26, 2024 22:34
[2024-08-24] MEDS: TPN PER PHARMACY IV NR (22:00)
[2024-08-25] VITALS (111 sets, daily range): BP systolic 88–134; BP diastolic 55–75; PULSE 97–117; RESP 16–28; TEMP 97.3–99.5; O2SAT 88–100
[2024-08-25 03:32] LABS: Hematocrit 29.1 % (41.0-53.0); Hemoglobin 9.5 g/dL (13.5-17.5); Mean Corpuscular Hemoglobin 29.8 pg (28.0-32.0); Mean Corpuscular Hgb Conc. 32.7 g/dL (32.0-36.0); Mean Corpuscular Volume 91.1 fL (80.0-100.0); Platelet Count (auto) 181 10^3/uL (140-450); Red Cell Distribution Width 15.2 % (11.8-14.3); White Blood Cell 11.2 10^3/uL (4.4-10.8)
[2024-08-25 03:47] LABS: Band Neutrophils % (manual) 0; Basophils % (manual) 0 (0.0-2.0); Blast Cells 0; Myelocytes % 0; Promyelocytes % 0; Reactive Lymphocytes 0
[2024-08-25 04:03] LABS: Alkaline Phosphatase 47 U/L (46-116); Anion Gap 9 (5-15); Aspartate Aminotransferase 28 U/L (13-40); BUN/Creatinine Ratio 19.1 (10.0-20.0); Carbon Dioxide 22 mmol/L (20-31); Glucose 92 mg/dL (74-106); Phosphorus 2.7 mg/dL (2.4-5.1)
[2024-08-25 04:21] LABS: Alanine Aminotransferase < 9 U/L (7-40); Albumin 2.1 g/dL (3.2-4.8); Bilirubin, Total 0.2 mg/dL (0.2-1.0); Blood Urea Nitrogen 9 mg/dL (9-23); Calcium 6.3 mg/dL (8.7-10.4); Chloride 118 mmol/L (98-107); Magnesium 1.1 mg/dL (1.6-2.6); Sodium 149 mmol/L (136-145); Total Protein 4.1 g/dL (5.7-8.2)
[2024-08-25 04:47] LABS: Lymphocytes % (manual) 18 (10.0-50.0); Monocytes % (manual) 3 (0-12)
[2024-08-25 04:48] LABS: Eosinophils % (manual) 18 (0-7); Metamyelocytes % 1; Platelet Estimate Adequate
[2024-08-25] MEDS: MAGNESIUM SULFATE 1GM/100ML 100 ML IV ONE ×2 (05:09→14:31)
[2024-08-25] MEDS: POTASSIUM CHL 20MEQ/100ML 100 ML IV SCH (05:09)
--- NOTE | 2024-08-25 06:01 | DVH ---
EXAM: XR Chest, 1 View CLINICAL INDICATION: Intubation TECHNIQUE: Frontal view of the chest. COMPARISON: XY CHEST XRAY 1 VIEW on DOS: 08/24/24, XY CHEST XRAY 1 VIEW on DOS: 08/23/24, XY CHEST PO RTABLE on DOS: 08/22/24, XY CHEST PORTABLE on DOS: 08/22/24, XY CHEST PORTABLE on DOS: 08/21/24 FINDINGS: LUNGS AND PLEURAL SPACES: Pulmonary congestion and edema. Pneumonia cannot be excluded. No pneumot horax. HEART: Unremarkable. No cardiomegaly. MEDIASTINUM: Unremarkable. Normal mediastinal contour. BONES/JOINTS: Unremarkable. No acute fracture. TUBES, LINES AND DEVICES: The endotracheal tube (ETT) is in satisfactory position. Right internal jugular central venous catheter tip in the superior vena cava. Enteric tube tip cannot be seen but i s below the diaphragm. OTHER FINDINGS: . . IMPRESSION: Pulmonary congestion and edema. Pneumonia cannot be excluded.
[2024-08-25 06:24] LABS: Base Excess -0.6 mmol/L (-2.0-3.0)
[2024-08-25] MEDS: CALCIUM GLUC 1,000mg/50ml-NS 50 ML IV SCH (10:50)
--- NOTE | 2024-08-25 11:49 | DVHPN2 ---
Progress Note - Dictate Date Seen: August 25, 2024 Medical Necessity Reason Pt with a Central, PICC or Fol: Yes The following are medically ne: Central Line, Rivera Catheter Subjective Patient is intubated sedated NG tube output put appears to be mostly bilious H&H is stable at 9.5 Liver enzymes are normal No bowel movement recorded vital signs Vital Sign Date Time Temp Pulse Resp B/P (MAP) Pulse Ox O2 Delivery O2 Flow Rate FiO2 08/25/24 11:36 24 98 Mechanical Ventilator+ 40 40 08/25/24 11:14 107 107/65 (79) 08/25/24 11:00 99.0 210.2 Total Intake and Output 08/24/24 08/24/24 08/25/24 14:59 22:59 06:59 Intake Total 763.978 ml 833.2 ml 1402.125 ml Output Total 3300 ml 2440 ml Balance 763.978 ml -2466.8 ml -1037.875 ml medications Current Medications Medications Dose Ordered Sig/Shar Route Start Time Stop Time Status Last Admin Dose Admin Docusate Sodium 100 mg BIDPRN PRN PO 08/20/24 20:15 Acetaminophen 650 mg Q6HP PRN PO 08/20/24 20:15 Ipratropium [place] 0.5 mg Q4HPRN PRN NEB 08/20/24 20:15 08/25/24 11:14 0.5 MG Piperacillin Sod/ Tazobactam Sod 100 ml @ 25 mls/hr Q8H IV 08/21/24 18:00 08/25/24 09:15 25 MLS/HR Levalbuterol HCl 1.25 mg Q6HR NEB 08/21/24 18:00 08/25/24 11:14 1.25 MG Doxycycline Hyclate 100 ml @ 50 mls/hr Q12H IV 08/21/24 18:30 UNV Midazolam HCl 50 ml @ 1 mls/hr Q24H IV 08/21/24 18:45 08/25/24 09:06 14 MLS/HR Fentanyl Citrate 250 ml @ 2.5 mls/hr Q24H IV 08/21/24 18:45 08/25/24 00:09 20 MLS/HR Norepinephrine Bitartrate 32 mg/ Sodium Chloride 250 ml @ 0.938 mls/ hr Q24H IV 08/22/24 09:15 08/24/24 14:13 1.875 MLS/HR Vancomycin HCl 0 ml @ 0 mls/hr UD IV 08/22/24 15:15 Valproate Sodium 250 mg/Sodium Chloride 52.5 ml @ 52.5 mls/hr BID IV 08/22/24 22:00 08/25/24 09:23 52.5 MLS/HR Iron Sucrose 110 ml @ 110 mls/hr DAILY@1200 IV 08/23/24 12:00 08/27/24 12:59 08/24/24 13:00 110 MLS/HR Pantoprazole Sodium 40 mg TID IV 08/23/24 14:00 08/25/24 05:09 40 MG Vancomycin HCl 250 ml @ 200 mls/hr Q12H IV 08/23/24 14:00 08/24/24 14:34 200 MLS/HR Phenytoin Sodium 100 mg Q12HR IV 08/24/24 10:00 08/25/24 10:29 100 MG Diagnostic Test (Pha) 1 strip Q6HR 08/24/24 00:00 08/25/24 05:51 1 STRIP Insulin Human Regular FOLLOW SLIDING SCALE Q6HR SC 08/24/24 00:00 08/25/24 05:44 2 UNITS Dextrose 50 ml UD IV 08/23/24 22:00 Dextrose 1,000 ml @ 75 mls/hr [id number] IV 08/24/24 06:45 08/25/24 09:08 75 MLS/HR Metoclopramide HCl 5 mg Q8HR IV 08/24/24 14:00 08/25/24 05:10 5 MG Amino Acids 0 ml @ 0 mls/hr PER PHARMACY IV 08/24/24 12:15 Fat Emulsion Intravenous 50 ml/ Magnesium Sulfate 4 meq/ Multivitamins 10 ml/Chromium/ Copper/Manganese/ Zinc 1 ml/Amino Acids/Dextrose 1,062 ml @ 44 mls/hr Q24H9M IV 08/24/24 22:00 08/25/24 21:59 08/24/24 22:00 44 MLS/HR Levalbuterol HCl 0.625 mg Q6HR NEB 08/25/24 12:00 objective Patient Is intubated sedated thin male somewhat cachectic Cardiovascular: Normal S1 and S2. No murmurs, gallops or rubs Respiratory: Mechanically assisted ventilation, equal bilateral airway entree. Bilateral diffuse rhonchus Abdomen: Soft, nontender, no organomegaly, normal bowel sounds MSK/skin: Mobilization of limbs cannot be evaluated. Skin is dry and warm Neurological: Orientation cannot be assessed. No apparent motor no sensitive deficits. Pupils are isocoric and reactive laboratory and microbiology Laboratory Tests 08/25/24 03:00 Test 08/25/24 03:00 Range/Units Serum Glucose 92 74-106 mg/dL Gallbladder ultrasound IMPRESSION: 1. Interval resolution of gallbladder wall edema and pericholecystic fluid. Large amount of sludge and few tiny calculi noted in gallbladder lumen. Small-bowel follow-through x-ray FINDINGS/IMPRESSION: Initial fish header radiograph demonstrates nonspecific bowel-gas pattern. Contrast is not identified within the colon by 3 hours. This represents a delayed transit time. KUB could be obtained on 08/24/2024 2 further assess for enteric contrast entering the colon. Chest x-ray 08/24 IMPRESSION: Multiple distended small bowel loops throughout the abdomen containing contrast. DDX includes small-bowel obstruction or ileus. Problems(with codes): (1) Abnormal finding on GI tract imaging (2) Coffee ground emesis (3) Pneumonia, unspecified organism (4) Sepsis, unspecified organism (5) Generalized weakness (6) Metabolic encephalopathy Prognosis Plan Continue IV antibiotics Start him on IV TPN Repeat KUB in a.m. NPO with NG tube to low intermittent suction for suspected bowel obstruction or ileus Surgical consult recommendations noted Possible repeat small bowel follow-through series next week if there was no improvement Dietary Evaluation Review Comments: 1. no PO or EN tube feeding until GI bleed resolved. Cancel Cardic Diet 2. Initiate TPN if pt is NPO>7 days. Expected Outcomes/Goals: reassess needs when pt is off vent. Plan discussed with: Other (None) MADAN JUAREZ MD August 25, 2024 11:49
--- NOTE | 2024-08-25 15:25 | DVHPNRES ---
Progress Note Date Seen: August 25, 2024 Resident Creating Document: BLANCA IRVIN RESIDENT Medical Necessity Reason Pt with a Central, PICC or Fol: Yes The following are medically ne: Central Line, Rivera Catheter Subjective Review of Systems Juanjose Ribeiro is a 53-year-old male patient who presents to ED via EMS with chief complaint of progressive dyspnea. Patient is currently intubated, could not obtain review of systems. Obtained information by family (sister) and EMR. Patient's symptoms got worse three days prior to his admission, associated with nausea, vomiting. Per sister patient stopped eating on Wednesday after coming back from a care facility, presented ground coffee emesis and has been having constipation (last bowel movement last ). Patient on scene and in ED presented hypotension, desaturation, tachypnea, with initial diagnosis of acute respiratory failure with septic shock secondary to probable aspiration pneumonia. Required IV fluids, empiric IV antibiotic and high-flow with regular response, deciding endotracheal intubation and placement of central line. While intubating, evidenced copious dark ground coffee secretion, deciding to initiate octreotide and IV pantoprazole. 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 2016 pneumonia Surgical history: Per sister had lung surgery because of collapse lung (questionable thoracentesis) Family history: Mother of congestive heart failure, also had diabetes Social history: Lives in [place] with sister who is her his caregiver. Denies current tobacco, alcohol and other drug abuse Allergies: Denies Home medication: Divalproex 250 mg p.o. b.i.d., Dilantin 100 mg p.o. q.8 hours Patient seen and examined at bedside. Currently in ICU status, on sedoanalgesia due to mechanical assisted ventilation, on IV vasopressors and empiric IV antibiotic. Completed Gastrografin study which showed probable small bowel obstruction versus ileus, patient NPO due to high risk aspiration. Also completed repeat gallbladder ultrasound which showed probable cholecystitis with cholelithiasis. Surgery evaluated the patient, planning on completing cholecystostomy tube placement. Objective vital signs Vital Sign Date Time Temp Pulse Resp B/P (MAP) Pulse Ox O2 Delivery O2 Flow Rate FiO2 08/25/24 13:53 40 08/25/24 13:53 110 08/25/24 13:53 24 95 Mechanical Ventilator+ 08/25/24 13:34 106/61 (76) 08/25/24 13:30 99.3 210.7 Total Intake and Output 08/24/24 08/24/24 08/25/24 15:00 23:00 07:00 Intake Total 773.565 ml 961.8 ml 1400.500 ml Output Total 3300 ml 2440 ml Balance 773.565 ml -2338.2 ml -1039.500 ml medications Current Medications Medications Dose Ordered Sig/Shar Route Start Time Stop Time Status Last Admin Dose Admin Docusate Sodium 100 mg BIDPRN PRN PO 08/20/24 20:15 Acetaminophen 650 mg Q6HP PRN PO 08/20/24 20:15 Ipratropium [place] 0.5 mg Q4HPRN PRN NEB 08/20/24 20:15 08/25/24 11:14 0.5 MG Piperacillin Sod/ Tazobactam Sod 100 ml @ 25 mls/hr Q8H IV 08/21/24 18:00 08/25/24 09:15 25 MLS/HR Doxycycline Hyclate 100 ml @ 50 mls/hr Q12H IV 08/21/24 18:30 UNV Midazolam HCl 50 ml @ 1 mls/hr Q24H IV 08/21/24 18:45 08/25/24 12:17 12 MLS/HR Fentanyl Citrate 250 ml @ 2.5 mls/hr Q24H IV 08/21/24 18:45 08/25/24 12:12 20 MLS/HR Norepinephrine Bitartrate 32 mg/ Sodium Chloride 250 ml @ 0.938 mls/ hr Q24H IV 08/22/24 09:15 08/24/24 14:13 1.875 MLS/HR Vancomycin HCl 0 ml @ 0 mls/hr UD IV 08/22/24 15:15 Valproate Sodium 250 mg/Sodium Chloride 52.5 ml @ 52.5 mls/hr BID IV 08/22/24 22:00 08/25/24 09:23 52.5 MLS/HR Iron Sucrose 110 ml @ 110 mls/hr DAILY@1200 IV 08/23/24 12:00 08/27/24 12:59 08/25/24 14:09 110 MLS/HR Pantoprazole Sodium 40 mg TID IV 08/23/24 14:00 08/25/24 14:31 40 MG Phenytoin Sodium 100 mg Q12HR IV 08/24/24 10:00 08/25/24 10:29 100 MG Diagnostic Test (Pha) 1 strip Q6HR 08/24/24 00:00 08/25/24 12:21 1 STRIP Insulin Human Regular FOLLOW SLIDING SCALE Q6HR SC 08/24/24 00:00 08/25/24 05:44 2 UNITS Dextrose 50 ml UD IV 08/23/24 22:00 Dextrose 1,000 ml @ 75 mls/hr [id number] IV 08/24/24 06:45 08/25/24 09:08 75 MLS/HR Metoclopramide HCl 5 mg Q8HR IV 08/24/24 14:00 08/25/24 14:31 5 MG Amino Acids 0 ml @ 0 mls/hr PER PHARMACY IV 08/24/24 12:15 Fat Emulsion Intravenous 50 ml/ Magnesium Sulfate 4 meq/ Multivitamins 10 ml/Chromium/ Copper/Manganese/ Zinc 1 ml/Amino Acids/Dextrose 1,062 ml @ 44 mls/hr Q24H9M IV 08/24/24 22:00 08/25/24 21:59 08/24/24 22:00 44 MLS/HR Levalbuterol HCl 0.625 mg Q6HR NEB 08/25/24 12:00 Fat Emulsion Intravenous 100 ml/Potassium Acetate 20 meq/ Potassium Phosphate 20 meq/ Calcium Gluconate 4.6 meq/Magnesium Sulfate 12 meq/ Multivitamins 10 ml/Chromium/ Copper/Manganese/ Zinc 1 ml/Amino Acids/Dextrose 1,238.4379 ml @ 51 mls/hr [id number] IV 08/25/24 22:00 08/26/24 21:59 Vancomycin HCl 200 ml @ 200 mls/hr Q12H IV 08/25/24 16:00 Examination Patient lying in bed, under sedoanalgesia due to mechanical ventilation General: RASS -3, afebrile, mucosae are moist Cardiovascular: Normal S1 and S2. No murmurs, gallops or rubs Respiratory: Mechanically assisted ventilation, equal bilateral airway entree. Bilateral diffuse rhonchus Abdomen: Mildly distended, nontender, no organomegaly, reduced bowel sounds. Has OG in low intermittent suction, with copious secretion MSK/skin: Mobilization of limbs cannot be evaluated. Skin is dry and warm Neurological: Orientation cannot be assessed. No apparent motor no sensitive deficits. Pupils are isocoric and reactive laboratory and microbiology Laboratory Tests 08/25/24 03:00 Test 08/25/24 03:00 Range/Units Serum Glucose 92 74-106 mg/dL Microbiology Date/Time Source Procedure Growth Status 08/22/24 09:00 Urine - Rivera Port Urine Culture - Final Complete 08/21/24 18:43 Sputum Gram Stain - Final Complete 08/21/24 18:43 Sputum Respiratory Culture - Final Complete 08/21/24 17:05 Nose MRSA Screen - Final Complete 08/20/24 15:21 Blood Blood Culture - Preliminary NO GROWTH AFTER 72 HOURS OF INCUBATION. Resulted Problem List/Assessment/Plan Problem List/Assessment/Plan Neurology # Acute metabolic encephalopathy secondary to septic shock likely due to aspiration PNA # Questionable history of childhood meningitis # Developmental delay # Seizures Patient currently intubated Resumed Divalproex and Dilantin. Pharmacy adjusted dose due to hypoalbuminemia Cardiovascular # Ruled out congestive heart failure Negative BNP and Troponin. Chest xray shows pulmonary edema. Echocardiogram: Normal chambers, LVEF 60%, normal RV function and mild TR. 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 Currently on bolus pantoprazole tid. Will evaluate need for PEG. Ordered small bowel series which showed probable small-bowel obstruction versus ileus. Consulted Surgery: Re-evaluate once patient is more stable from aspiration pneumonia Patient currently on low intermittent suction, with copious secretion. Genitourinary/Neprhology # KARISHMA hemodynamically mediated (VMN) # Ruled out UTI UA within normal limits On NS 50ml/h Infectious Disease # Septic shock seondary to aspiration pneumonia Ordered pancultures (blood, urine, sputum), pending Currently under empiric antibiotics (Zosyn and Vancomycin) Endocrine # Simple hyperglycemia with no Diabetes # Severe malnutrition Probably secondary to steroids and septic shock On mild ISS BMI less than 19 and hypoalbuminemia Hematology # Rule out GI bleed # Acute blood loss #bIron deficiency anemia Monitor H&H At admission was on Octeotride and Pantoprazole drip. Discontinue octeotride drip on 08/22/2024 Ordered anemia work up Nutrition: NPO due to GI bleed, Ileus vs small intestinal obstruction. On Clinimix posterior TPN Prophylaxis: PUD (pantoprazole bolus tid) and DVT (SCDs) Lines: 08/21/2024 ET tube 08/21/2024 Rivera 08/21/2024 Right IJ CVC 08/21/2024 OG Drips: Fentanyl 200 Versed 14 Norepinephrine 4 Clinimix posterior TPN Goals of care discussed with family (sister, she is the caregiver) for over 18 minutes: Full code status. She will discuss with family to reevaluate code status. Discussed plan with Dr. Watkins, family and nurses: Currently ICU status on mechanical assisted ventilation, under sedation-analgesia, on empiric IV antibiotic, IV fluids, IV vasopressors, bronchodilators. Patient presents upper probable GI bleed, probable small intestine obstruction versus ileus, and cholecystitis. Consulted GI and surgery, planning on placement of cholecystostomy tube, patient is too unstable to undergo any kind of surgery. Patient has poor prognosis. Critical care time spent including discussion with nursing and family excluding procedures: 76 minutes Plan discussed with: Patient, Other (Sister (Delmis) and nurses) My Orders My Orders Orders - BLANCA IRVIN RESIDENT Procedure Category Date Status Time Phenytoin (Dilantin) LAB 08/27/24 Verified 05:00 Levalbuterol Hcl PHA 08/25/24 In Process (Xopenex Medneb) 12:00 Comprehensive LAB 08/26/24 Verified Metabolic Panel 05:00 Phosphorus LAB 08/26/24 Verified 05:00 Magnesium LAB 08/26/24 Verified 05:00 Amino Acid PHA 08/25/24 In Process Infusion... W/Fat 22:00 Tpn Per Pharmacy [facility] 08/25/24 In Process 22:00 Vancomycin,Random LAB 08/25/24 In Process 14:24 Vancomycin Per [facility] 08/25/24 In Process Pharmacy [facility] 14:24 Vancomycin 1gm/200ml PHA 08/25/24 In Process Pm 16:00 Vancomycin Per [facility] 08/26/24 In Process Pharmacy Protoc 16:00 Vancomycin,Trough LAB 08/26/24 Verified 15:00 Respiratory Misc. RT 08/25/24 Transmitted Order 15:15 Kub Abdomen Single XY 08/25/24 Verified View 15:15 Complete Blood Count LAB 08/26/24 Verified 04:00 Phosphorus LAB 08/26/24 Verified 04:00 Abg W/ Co-Ox RT 08/26/24 Verified 04:00 Dietary Evaluation Review Comments: 1. no PO or EN tube feeding until GI bleed resolved. Cancel Cardic Diet 2. Initiate TPN if pt is NPO>7 days. Expected Outcomes/Goals: reassess needs when pt is off vent. BLANCA IRVIN RESIDENT August 25, 2024 15:25
--- NOTE | 2024-08-25 16:02 | DVH ---
INDICATION: VERIFY ET TUBE PLACEMENT. TECHNIQUE: Frontal view of the chest. COMPARISON: XY CHEST XRAY 1 VIEW on DOS: 08/25/24, XY CHEST XRAY 1 VIEW on DOS: 08/24/24, XY CHEST XRAY 1 VIEW on DOS: 08/23/24, XY CHEST PORTABLE on DOS: 08/22/24, XY CHEST PORTABLE on DOS: 08/22/24 FINDINGS: Finding:. The heart and mediastinal contours are grossly unremarkable. There is no evidence of pleur al disease. The lungs diffuse infiltrates seen throughout both lungs more pronounced in the right as compared to the left. This appears to be worsening as compared to prior study from 08/25/2024 at 5:36 a.m.. The support lines including endotracheal tube, nasogastric tube and right internal jugular CVP catheters are in satisfactory position.. The bony structures of the chest are intact without frac ture. IMPRESSION: 1. Worsening pulmonary edema with underlying pneumonia can not be excluded
--- NOTE | 2024-08-25 16:20 | DVH ---
EXAM: XR Abdomen, 1 View CLINICAL INDICATION: F/u on Small bowel obstruction vs ileus TECHNIQUE: Frontal supine view of the abdomen/pelvis. COMPARISON: XY KUB ABDOMEN SINGLE VIEW on DOS: 08/24/24, XY KUB ABDOMEN SINGLE VIEW on DOS: 08/23/24 FINDINGS: GASTROINTESTINAL TRACT: Contrast is still in the small-bowel. Findings suggest at least a partial small bowel obstruction. BONES/JOINTS: Unremarkable. No acute fracture. OTHER FINDINGS: . IMPRESSION: Contrast is still in the small-bowel. Findings suggest at least a partial small bowel obstruction.
[2024-08-25] MEDS: VANCOMYCIN 1GM/200ML PM 200 ML IV SCH (16:30)
[2024-08-25] MEDS: LEVALBUTEROL HCL 1.25 MG/3 ML NEB NEB SCH (18:00)
[2024-08-25] MEDS: IOHEXOL 300 MG/ML 100ML BOTTLE IJ ONE (18:13)
--- NOTE | 2024-08-25 18:19 | DVHPN2 ---
Progress Note - Dictate Date Seen: August 25, 2024 Medical Necessity Reason Pt with a Central, PICC or Fol: Yes The following are medically ne: Central Line, Rivera Catheter vital signs Vital Sign Date Time Temp Pulse Resp B/P (MAP) Pulse Ox O2 Delivery O2 Flow Rate FiO2 08/25/24 17:25 102/64 08/25/24 15:47 40 08/25/24 15:47 26 98 Mechanical Ventilator+ 08/25/24 15:45 99.3 117 210.7 Total Intake and Output 08/24/24 08/24/24 08/25/24 15:00 23:00 07:00 Intake Total 773.565 ml 961.8 ml 1400.500 ml Output Total 3300 ml 2440 ml Balance 773.565 ml -2338.2 ml -1039.500 ml medications Current Medications Medications Dose Ordered Sig/Shar Route Start Time Stop Time Status Last Admin Dose Admin Docusate Sodium 100 mg BIDPRN PRN PO 08/20/24 20:15 Acetaminophen 650 mg Q6HP PRN PO 08/20/24 20:15 Ipratropium [place] 0.5 mg Q4HPRN PRN NEB 08/20/24 20:15 08/25/24 11:14 0.5 MG Piperacillin Sod/ Tazobactam Sod 100 ml @ 25 mls/hr Q8H IV 08/21/24 18:00 08/25/24 09:15 25 MLS/HR Doxycycline Hyclate 100 ml @ 50 mls/hr Q12H IV 08/21/24 18:30 UNV Midazolam HCl 50 ml @ 1 mls/hr Q24H IV 08/21/24 18:45 08/25/24 17:25 12 MLS/HR Fentanyl Citrate 250 ml @ 2.5 mls/hr Q24H IV 08/21/24 18:45 08/25/24 12:12 20 MLS/HR Norepinephrine Bitartrate 32 mg/ Sodium Chloride 250 ml @ 0.938 mls/ hr Q24H IV 08/22/24 09:15 08/24/24 14:13 1.875 MLS/HR Vancomycin HCl 0 ml @ 0 mls/hr UD IV 08/22/24 15:15 Valproate Sodium 250 mg/Sodium Chloride 52.5 ml @ 52.5 mls/hr BID IV 08/22/24 22:00 08/25/24 09:23 52.5 MLS/HR Iron Sucrose 110 ml @ 110 mls/hr DAILY@1200 IV 08/23/24 12:00 08/27/24 12:59 08/25/24 14:09 110 MLS/HR Pantoprazole Sodium 40 mg TID IV 08/23/24 14:00 08/25/24 14:31 40 MG Phenytoin Sodium 100 mg Q12HR IV 08/24/24 10:00 08/25/24 10:29 100 MG Diagnostic Test (Pha) 1 strip Q6HR 08/24/24 00:00 08/25/24 12:21 1 STRIP Insulin Human Regular FOLLOW SLIDING SCALE Q6HR SC 08/24/24 00:00 08/25/24 05:44 2 UNITS Dextrose 50 ml UD IV 08/23/24 22:00 Dextrose 1,000 ml @ 75 mls/hr [id number] IV 08/24/24 06:45 08/25/24 09:08 75 MLS/HR Metoclopramide HCl 5 mg Q8HR IV 08/24/24 14:00 08/25/24 14:31 5 MG Amino Acids 0 ml @ 0 mls/hr PER PHARMACY IV 08/24/24 12:15 Fat Emulsion Intravenous 50 ml/ Magnesium Sulfate 4 meq/ Multivitamins 10 ml/Chromium/ Copper/Manganese/ Zinc 1 ml/Amino Acids/Dextrose 1,062 ml @ 44 mls/hr Q24H9M IV 08/24/24 22:00 08/25/24 21:59 08/24/24 22:00 44 MLS/HR Levalbuterol HCl 0.625 mg Q6HR NEB 08/25/24 12:00 Fat Emulsion Intravenous 100 ml/Potassium Acetate 20 meq/ Potassium Phosphate 20 meq/ Calcium Gluconate 4.6 meq/Magnesium Sulfate 12 meq/ Multivitamins 10 ml/Chromium/ Copper/Manganese/ Zinc 1 ml/Amino Acids/Dextrose 1,238.4379 ml @ 51 mls/hr [id number] IV 08/25/24 22:00 08/26/24 21:59 Vancomycin HCl 200 ml @ 200 mls/hr Q12H IV 08/25/24 16:00 08/25/24 16:30 200 MLS/HR objective E: off pressors now. Covering for Dr. Méndez over the weekend. Was contacted my the medical legal investigator regarding concern for possible cholecystitis and obstruction from a possible foreign body versus a mass. GEN: sedated. Intubated ABD: soft. NT but difficult exam d/t AMS. ND. laboratory and microbiology Laboratory Tests 08/25/24 03:00 Test 08/25/24 03:00 Range/Units Serum Glucose 92 74-106 mg/dL Assessment/Plan A: 1. aspiration PNA 2. seizure DO 3. questionable cholecystitis but likely resolving on abx 4. unknown intestinal mass with poss SBO? P: 1. regarding the possibility of acute cholecystitis, patient is clinically improving and now off pressors. also his LFTs are normal with repeat imaging studies show resolution of GB wall edema and pericholecystic fluid. apparently cannot do HIDA d/t intubation. recommend continuing curr abx tx and consider possible percutaneous cholecystostomy as a backup if his clinical situation worsens. 2. regarding the possible intestinal mass, ordered CT abd/pelvis with IV contrast for better evaluation. it is possible that the mass is causing a SBO but less likely as not much intestinal distention at this time. although contrast from SBO has not reached the colon, it may be d/t ileus as well. again, will check with repeat CT. if there is a definite mass seen on CT, depending on the location (intraluminal vs extraluminal) surgery can wait until he is more stable as the chance of bowel perforation from this is low. d/w ICU medical team and patient's sister. Dietary Evaluation Review Comments: 1. no PO or EN tube feeding until GI bleed resolved. Cancel Cardic Diet 2. Initiate TPN if pt is NPO>7 days. Expected Outcomes/Goals: reassess needs when pt is off vent. Plan discussed with: Other (sister) JOANNE BARROS MD August 25, 2024 18:19
--- NOTE | 2024-08-25 18:58 | DVH ---
Exam: CT CT AB PEL WITH IV CON ONLY History: SBO COMPARISON: August 22, 2024 Technique: Multidetector spiral CT of the abdomen and pelvis was performed from lung bases to pubic s ymphysis. Intravenous contrast was administered during this examination. Portal venous imaging was obtained. Axial, coronal and sagittal multiplanar reformats were performed by the technologist on a separate workstation. Radiation Dose : 1. Abdomen/Pelvis: CTDIvol 5.36mGy, DLP 268.72 mGy*cm. CONTRAST: Type of contrast: Omni 300 Contrast injected: 80 ml Findings: Lung Bases: Bibasilar consolidations , suspicious for pneumonia or aspiration . Small bilateral pleur al effusions. Liver: The liver is normal in size. No focal lesions. Normal hepatic vascular enhancement. Gallbladder and Biliary Tree: Unremarkable Spleen: Unremarkable Pancreas: The pancreas is normal in appearance without focal lesions or abnormal enhancement. Adrenal Glands: Unremarkable Kidneys: No hydronephrosis. Bladder: Collapsed around a Rivera catheter. Bowel: The stomach is grossly normal in appearance. Multiple abnormally dilated loops of small bowel are seen throughout the abdomen with probable transition point in the right lower quadrant. Concentri c wall thickening of the cecum and ascending colon may reflect infectious/inflammatory colitis The a ppendix is not visualized; however, no secondary findings of acute appendicitis identified. Stable ro und masslike lesion is seen within a segment of jejunum which contains both soft tissue and fat compo nents and measures up to 2.7 cm. Ascites: Trace pelvic ascites Lymphadenopathy: No mesenteric, retroperitoneal or periportal lymphadenopathy. Abdominal Wall and Mesentery: Unremarkable. Vasculature: The visualized abdominal aorta is normal in size and caliber. Abdominal and pelvic vess els demonstrate normal enhancement. Pelvic Organs: Unremarkable Musculoskeletal: No aggressive focal bony lesions, acute fractures or dislocation. Stable thoracic co mpression deformities. IMPRESSION: 1. Stable round masslike lesion is seen within a segment of jejunum which contains both soft tissue a nd fat components and measures up to 2.7 cm. 2. Small-bowel obstruction with probable transition point in the right lower quadrant. 3. Infectious / inflammatory colitis involving the cecum and ascending colon. 4. Trace pelvic ascites 5. Bibasilar consolidations, suspicious for pneumonia or aspiration. 6. Small bilateral pleural effusions Radiation optimization: All CT scans at this facility use at least one of these dose optimization mayte hniques: automated exposure control mA and/or kV adjustment per patient size (includes targeted exam s where dose is matched to clinical indication) or iterative reconstruction.
[2024-08-25] MEDS: FAT EMULSION IV NR (22:25)
[2024-08-25] MEDS: [UNRECOGNIZED DRUG - OTHER] IV NR (22:25)
[2024-08-25] MEDS: POTASSIUM ACETATE IV NR (22:25)
[2024-08-25] MEDS: POTASSIUM PHOSPHATE IV NR (22:25)
[2024-08-26] VITALS (105 sets, daily range): BP systolic 89–138; BP diastolic 48–76; PULSE 106–126; RESP 18–36; TEMP 97.2–100; O2SAT 87–100
[2024-08-26 04:11] LABS: Hematocrit 27.7 % (41.0-53.0); Hemoglobin 9.2 g/dL (13.5-17.5); Mean Corpuscular Hemoglobin 30.5 pg (28.0-32.0); Mean Corpuscular Hgb Conc. 33.2 g/dL (32.0-36.0); Mean Corpuscular Volume 91.6 fL (80.0-100.0); Platelet Count (auto) 175 10^3/uL (140-450); Red Blood Cells 3.02 10^6/uL (4.5-5.90); White Blood Cell 9.5 10^3/uL (4.4-10.8)
[2024-08-26 04:19] LABS: Basophils % (manual) 0 (0.0-2.0); Blast Cells 0; Metamyelocytes % 0; Promyelocytes % 0; Reactive Lymphocytes 0
[2024-08-26 04:20] LABS: Alkaline Phosphatase 68 U/L (46-116); Anion Gap 6 (5-15); Aspartate Aminotransferase 23 U/L (13-40); BUN/Creatinine Ratio 21.6 (10.0-20.0); Bilirubin, Total 0.3 mg/dL (0.2-1.0); Blood Urea Nitrogen 16 mg/dL (9-23); Carbon Dioxide 26 mmol/L (20-31); Potassium 4.2 mmol/L (3.5-5.1); Sodium 142 mmol/L (136-145)
[2024-08-26 04:23] LABS: Alanine Aminotransferase < 9 U/L (7-40); Albumin 2.5 g/dL (3.2-4.8); Chloride 110 mmol/L (98-107); Glucose 152 mg/dL (74-106); Magnesium 1.6 mg/dL (1.6-2.6); Phosphorus 2.2 mg/dL (2.4-5.1)
[2024-08-26 04:41] LABS: Band Neutrophils % (manual) 1; Eosinophils % (manual) 11 (0-7); Lymphocytes % (manual) 18 (10.0-50.0); Monocytes % (manual) 2 (0-12); Myelocytes % 1; Platelet Estimate Adequate
--- NOTE | 2024-08-26 05:34 | DVH ---
CHEST RADIOGRAPH Indication: Intubation Technique: Single frontal view of the chest was obtained Comparison: XY CHEST PORTABLE on DOS: 08/25/24, XY CHEST XRAY 1 VIEW on DOS: 08/25/24, XY CHEST XRAY 1 VIEW on DOS: 08/24/24 IMPRESSION: Heart appears normal in size. Support lines and tubes appear unchanged in position. Diffuse patchy i nterstitial and alveolar airspace opacities appear stable. Trace bilateral pleural effusions. No pneu mothorax. No significant interval change.
[2024-08-26] MEDS: MAGNESIUM SULFATE 1GM/100ML 100 ML IV ONE (05:40)
[2024-08-26 07:22] LABS: Base Excess 0.1 mmol/L (-2.0-3.0)
--- NOTE | 2024-08-26 10:21 | DVHPN2 ---
Marino Ribeiro is a 53-year-old male patient who presents to ED via EMS with chief complaint of progressive dyspnea. Patient is currently intubated, could not obtain review of systems. Obtained information by family (sister) and EMR. Patient's symptoms got worse three days prior to his admission, associated with nausea, vomiting. Per sister patient stopped eating on Wednesday after coming back from a care facility, presented ground coffee emesis and has been having constipation (last bowel movement last ). Patient on scene and in ED presented hypotension, desaturation, tachypnea, with initial diagnosis of acute respiratory failure with septic shock secondary to probable aspiration pneumonia. Required IV fluids, empiric IV antibiotic and high-flow with regular response, deciding endotracheal intubation and placement of central line. While intubating, evidenced copious dark ground coffee secretion, deciding to initiate octreotide and IV pantoprazole. 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 2016 pneumonia Surgical history: Per sister had lung surgery because of collapse lung (questionable thoracentesis) Family history: Mother of congestive heart failure, also had diabetes Social history: Lives in [place] with sister who is her his caregiver. Denies current tobacco, alcohol and other drug abuse Allergies: Denies Home medication: Divalproex 250 mg p.o. b.i.d., Dilantin 100 mg p.o. q.8 hours Patient seen and examined at bedside. Currently in ICU status, on sedoanalgesia due to mechanical assisted ventilation, on IV vasopressors and empiric IV antibiotic. Completed Gastrografin study which showed probable small bowel obstruction versus ileus, patient NPO due to high risk aspiration. Also completed repeat gallbladder ultrasound which showed probable cholecystitis with cholelithiasis. Surgery evaluating patient Reviewed: H&P Changes from previous H/P or p: No Changes General: Per HPI Objective Vitals Vital Signs Date Time Temp Pulse Resp B/P (MAP) Pulse Ox O2 Delivery O2 Flow Rate FiO2 08/26/24 10:00 117 29 123/64 (83) 93 50 08/26/24 08:45 100.0 212.0 08/26/24 08:00 Mechanical Ventilator+ Intake/Output Intake and Output 08/26/24 07:00 Intake Total 4775.861 ml Output Total 3625 ml Balance 1150.861 ml Intake Oral 0 ml IV Total 4775.861 ml Output Urine Total 3425 ml Gastric Drainage Total 200 ml Exam General: RASS -3, afebrile, mucosae are moist Cardiovascular: Normal S1 and S2. No murmurs, gallops or rubs Respiratory: Mechanically assisted ventilation, equal bilateral airway entree. Bilateral diffuse rhonchus Abdomen: Mildly distended, nontender, no organomegaly, reduced bowel sounds. Has OG in low intermittent suction, with copious secretion MSK/skin: Mobilization of limbs cannot be evaluated. Skin is dry and warm Neurological: Orientation cannot be assessed. No apparent motor no sensitive deficits. Pupils are isocoric and reactive Medications Current Medications Medications Dose Ordered Sig/Shar Route Start Time Stop Time Status Last Admin Dose Admin Docusate Sodium 100 mg BIDPRN PRN PO 08/20/24 20:15 Acetaminophen 650 mg Q6HP PRN PO 08/20/24 20:15 Ipratropium [place] 0.5 mg Q4HPRN PRN NEB 08/20/24 20:15 08/26/24 00:15 0.5 MG Piperacillin Sod/ Tazobactam Sod 100 ml @ 25 mls/hr Q8H IV 08/21/24 18:00 08/26/24 01:31 25 MLS/HR Doxycycline Hyclate 100 ml @ 50 mls/hr Q12H IV 08/21/24 18:30 UNV Midazolam HCl 50 ml @ 1 mls/hr Q24H IV 08/21/24 18:45 08/26/24 06:10 11 MLS/HR Fentanyl Citrate 250 ml @ 2.5 mls/hr Q24H IV 08/21/24 18:45 08/25/24 23:29 20 MLS/HR Norepinephrine Bitartrate 32 mg/ Sodium Chloride 250 ml @ 0.938 mls/ hr Q24H IV 08/22/24 09:15 08/24/24 14:13 1.875 MLS/HR Vancomycin HCl 0 ml @ 0 mls/hr UD IV 08/22/24 15:15 Valproate Sodium 250 mg/Sodium Chloride 52.5 ml @ 52.5 mls/hr BID IV 08/22/24 22:00 08/25/24 21:53 52.5 MLS/HR Iron Sucrose 110 ml @ 110 mls/hr DAILY@1200 IV 08/23/24 12:00 08/27/24 12:59 08/25/24 14:09 110 MLS/HR Pantoprazole Sodium 40 mg TID IV 08/23/24 14:00 08/26/24 05:40 40 MG Phenytoin Sodium 100 mg Q12HR IV 08/24/24 10:00 08/25/24 22:16 100 MG Diagnostic Test (Pha) 1 strip Q6HR 08/24/24 00:00 08/26/24 05:49 1 STRIP Insulin Human Regular FOLLOW SLIDING SCALE Q6HR SC 08/24/24 00:00 08/25/24 05:44 2 UNITS Dextrose 50 ml UD IV 08/23/24 22:00 Dextrose 1,000 ml @ 75 mls/hr [id number] IV 08/24/24 06:45 08/25/24 22:25 75 MLS/HR Metoclopramide HCl 5 mg Q8HR IV 08/24/24 14:00 08/26/24 05:40 5 MG Amino Acids 0 ml @ 0 mls/hr PER PHARMACY IV 08/24/24 12:15 Levalbuterol HCl 0.625 mg Q6HR NEB 08/25/24 12:00 08/26/24 06:03 0.625 MG Fat Emulsion Intravenous 100 ml/Potassium Acetate 20 meq/ Potassium Phosphate 20 meq/ Calcium Gluconate 4.6 meq/Magnesium Sulfate 12 meq/ Multivitamins 10 ml/Chromium/ Copper/Manganese/ Zinc 1 ml/Amino Acids/Dextrose 1,238.4379 ml @ 51 mls/hr [id number] IV 08/25/24 22:00 08/26/24 21:59 08/25/24 22:25 51 MLS/HR Vancomycin HCl 200 ml @ 200 mls/hr Q12H IV 08/25/24 16:00 08/26/24 04:17 200 MLS/HR Laboratory Results Laboratory Tests 08/26/24 03:00 Chemistry Test 08/26/24 03:00 Albumin 2.5 g/dL (3.2-4.8) L Calcium Level 9.0 mg/dL (8.7-10.4) Magnesium Level 1.6 mg/dL (1.6-2.6) Phosphorus Level 2.2 mg/dL (2.4-5.1) L Total Protein 5.0 g/dL (5.7-8.2) L LFT Test 08/26/24 03:00 Alanine Aminotransferase (ALT) < 9 U/L (7-40) Alkaline Phosphatase 68 U/L (46-116) Aspartate Amino Transferase (AST) 23 U/L (13-40) Total Bilirubin 0.3 mg/dL (0.2-1.0) Urinalysis Test 08/20/24 16:15 Urine Color Yellow (Yellow) Urine Clarity Clear (Clear) Urine pH 7.5 (5.0-9.0) Urine Specific [place] 1.019 (1.001-1.035) Urine Protein Trace (Negative) H Urine Ketones Negative (Negative) Urine Blood Negative /uL (Negative) Urine Nitrite Negative (Negative) Urine Bilirubin Negative (Negative) Urine Urobilinogen Normal mg/dL (Negative) Urine Leukocyte Esterase Negative /uL (Negative) Urine RBC 2 /hpf (0 - 3) Urine Microscopic WBC 1 /HPF (0-3) Urine Squamous Epithelial Cells None seen /hpf (<5) Urine Bacteria None seen /hpf (None Seen) Urine Mucus Few (None Seen) Urine Glucose Normal mg/dL (Normal) Blood Gas Results Test 08/26/24 07:07 Arterial Blood pH 7.350 (7.350-7.450) FiO2 % 50.0 Microbiology Microbiology Date/Time Source Procedure Growth Status 08/22/24 09:00 Urine - [place] Urine Culture - Final Complete 08/21/24 18:43 Sputum Gram Stain - Final Complete 08/21/24 18:43 Sputum Respiratory Culture - Final Complete 08/21/24 17:05 Nose MRSA Screen - Final Complete 08/20/24 15:21 Blood Blood Culture - Final NO GROWTH AFTER 5 DAYS OF INCUBATION. Complete Labs and/or images reviewed: Labs reviewed by me, Image(s) reviewed by me Assessment/Plan Assessment/Plan 08/26-patient presented with nausea and vomiting shortness of breath intubated for aspiration pneumonia. During intubation concern for upper GI bleed with coffee-ground emesis. On imaging findings include sodium cystitis, SBO, ileus, jejunal mass. Patient also needs bronch today. Patient is on broad-spectrum antibiotics vancomycin Zosyn. Patient is tachycardic and breathing over the vent. Tachypneic and tachycardic, still septic needs source control surgery evaluating. Patient also having fevers, okay for rectal Tylenol suppository.. Weaned off Levophed maintaining good blood pressure. Drips include D5 half- normal saline, Versed, fentanyl, TPN, Levophed,. Vent settings a.c. 450/24/5 0.0/50%, patient breathing over vent at 28. We will keep patient is sedated to control tachypnea, trial LR bolus for possible sepsis cause of tachycardia. Continue broad-spectrum. Pending bronch and surgery intervention. Neurology # Acute metabolic encephalopathy secondary to septic shock likely due to aspiration PNA # Questionable history of childhood meningitis # Developmental delay # Seizures Patient currently intubated Resumed Divalproex and Dilantin. Pharmacy adjusted dose due to hypoalbuminemia Cardiovascular # Ruled out congestive heart failure Negative BNP and Troponin. Chest xray shows pulmonary edema. Echocardiogram: Normal chambers, LVEF 60%, normal RV function and mild TR. 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 Currently on bolus pantoprazole tid. Will evaluate need for PEG. Ordered small bowel series which showed probable small-bowel obstruction versus ileus. Consulted Surgery: Re-evaluate once patient is more stable from aspiration pneumonia Patient currently on low intermittent suction, with copious secretion. Genitourinary/Neprhology # KARISHMA hemodynamically mediated (VMN) # Ruled out UTI UA within normal limits On NS 50ml/h Infectious Disease # Septic shock seondary to aspiration pneumonia Ordered pancultures (blood, urine, sputum), pending Currently under empiric antibiotics (Zosyn and Vancomycin) Endocrine # Simple hyperglycemia with no Diabetes # Severe malnutrition Probably secondary to steroids and septic shock On mild ISS BMI less than 19 and hypoalbuminemia Hematology # Rule out GI bleed # Acute blood loss #bIron deficiency anemia Monitor H&H At admission was on Octeotride and Pantoprazole drip. Discontinue octeotride drip on 08/22/2024 Ordered anemia work up Nutrition: NPO due to GI bleed, Ileus vs small intestinal obstruction. On Clinimix posterior TPN Prophylaxis: PUD (pantoprazole bolus tid) and DVT (SCDs) Lines: 08/21/2024 ET tube 08/21/2024 Rivera 08/21/2024 Right IJ CVC 08/21/2024 OG Drips: Fentanyl 200 Versed 14 Norepinephrine 4 Clinimix posterior TPN Plan discussed with: Other Date of Service: August 26, 2024 Billing Provider: CYNTHIA ROLLINS MD Common Visit Codes: [id number] CARE 30-74 MIN CYNTHIA ROLLINS MD August 26, 2024 10:21
[2024-08-26] MEDS: LACTATED RINGER'S 500 ML IV ONE (10:45)
--- NOTE | 2024-08-26 14:00 | DVHPN2 ---
Progress Note - Dictate Date Seen: August 26, 2024 Medical Necessity Reason Pt with a Central, PICC or Fol: Yes The following are medically ne: Central Line, Rivera Catheter Subjective E: no major events o/n. off pressors. vital signs Vital Sign Date Time Temp Pulse Resp B/P (MAP) Pulse Ox O2 Delivery O2 Flow Rate FiO2 08/26/24 12:39 127/71 08/26/24 11:26 115 28 94 50 08/26/24 08:45 100.0 212.0 08/26/24 08:00 Mechanical Ventilator+ Total Intake and Output 08/25/24 08/25/24 08/26/24 14:59 22:59 06:59 Intake Total 1583.563 ml 1540 ml 1698.235 ml Output Total 2150 ml 1475 ml Balance 1583.563 ml -610 ml 223.235 ml medications Current Medications Medications Dose Ordered Sig/Shar Route Start Time Stop Time Status Last Admin Dose Admin Docusate Sodium 100 mg BIDPRN PRN PO 08/20/24 20:15 Acetaminophen 650 mg Q6HP PRN PO 08/20/24 20:15 Ipratropium [place] 0.5 mg Q4HPRN PRN NEB 08/20/24 20:15 08/26/24 00:15 0.5 MG Piperacillin Sod/ Tazobactam Sod 100 ml @ 25 mls/hr Q8H IV 08/21/24 18:00 08/26/24 12:48 25 MLS/HR Doxycycline Hyclate 100 ml @ 50 mls/hr Q12H IV 08/21/24 18:30 UNV Midazolam HCl 50 ml @ 1 mls/hr Q24H IV 08/21/24 18:45 08/26/24 10:23 13 MLS/HR Fentanyl Citrate 250 ml @ 2.5 mls/hr Q24H IV 08/21/24 18:45 08/26/24 12:39 22.5 MLS/HR Norepinephrine Bitartrate 32 mg/ Sodium Chloride 250 ml @ 0.938 mls/ hr Q24H IV 08/22/24 09:15 08/24/24 14:13 1.875 MLS/HR Vancomycin HCl 0 ml @ 0 mls/hr UD IV 08/22/24 15:15 Valproate Sodium 250 mg/Sodium Chloride 52.5 ml @ 52.5 mls/hr BID IV 08/22/24 22:00 08/26/24 10:30 52.5 MLS/HR Iron Sucrose 110 ml @ 110 mls/hr DAILY@1200 IV 08/23/24 12:00 08/27/24 12:59 08/25/24 14:09 110 MLS/HR Pantoprazole Sodium 40 mg TID IV 08/23/24 14:00 08/26/24 05:40 40 MG Phenytoin Sodium 100 mg Q12HR IV 08/24/24 10:00 08/26/24 10:22 100 MG Diagnostic Test (Pha) 1 strip Q6HR 08/24/24 00:00 08/26/24 12:49 1 STRIP Insulin Human Regular FOLLOW SLIDING SCALE Q6HR SC 08/24/24 00:00 08/26/24 12:49 2 UNITS Dextrose 50 ml UD IV 08/23/24 22:00 Dextrose 1,000 ml @ 75 mls/hr [id number] IV 08/24/24 06:45 08/25/24 22:25 75 MLS/HR Metoclopramide HCl 5 mg Q8HR IV 08/24/24 14:00 08/26/24 05:40 5 MG Amino Acids 0 ml @ 0 mls/hr PER PHARMACY IV 08/24/24 12:15 Levalbuterol HCl 0.625 mg Q6HR NEB 08/25/24 12:00 08/26/24 11:26 0.625 MG Fat Emulsion Intravenous 100 ml/Potassium Acetate 20 meq/ Potassium Phosphate 20 meq/ Calcium Gluconate 4.6 meq/Magnesium Sulfate 12 meq/ Multivitamins 10 ml/Chromium/ Copper/Manganese/ Zinc 1 ml/Amino Acids/Dextrose 1,238.4379 ml @ 51 mls/hr [id number] IV 08/25/24 22:00 08/26/24 21:59 08/25/24 22:25 51 MLS/HR Vancomycin HCl 200 ml @ 200 mls/hr Q12H IV 08/25/24 16:00 08/26/24 04:17 200 MLS/HR Fat Emulsion Intravenous 100 ml/Potassium Phosphate 44 meq/ Magnesium Sulfate 8 meq/ Multivitamins 10 ml/Chromium/ Copper/Manganese/ Zinc 1 ml/Amino Acids/Dextrose 1,023 ml @ 43 mls/hr [id number] IV 08/26/24 22:00 08/27/24 21:59 objective GEN: sedated. Intubated ABD: soft. NT but difficult exam d/t AMS. ND. laboratory and microbiology Laboratory Tests 08/26/24 03:00 Test 08/26/24 03:00 Range/Units Serum Glucose 152 H 74-106 mg/dL Assessment/Plan A: 1. aspiration PNA 2. seizure DO 3. questionable cholecystitis but likely resolving on abx 4. unknown intestinal mass unlikely to be the cause of SBO P: 1. brochoscopy today by pulm 2. consider possible diagnostic laparoscopy once more stable from pulm POV Dietary Evaluation Review Comments: 1. no PO or EN tube feeding until GI bleed resolved. Cancel Cardic Diet 2. Initiate TPN if pt is NPO>7 days. Expected Outcomes/Goals: reassess needs when pt is off vent. Plan discussed with: Other JOANNE BARROS MD August 26, 2024 14:00
[2024-08-26] MEDS: CATHFLO ACTIVASE (ALTEPLASE) 2 MG VIAL IV ONE (14:15)
[2024-08-26] MEDS: SODIUM PHOSPHATES 20 MEQ in SODIUM CHL 0.9% 100 ML IV ONE (15:13)
--- NOTE | 2024-08-26 18:44 | DVHINCON2 ---
Date of service: August 26, 2024 Referring Physician Covering for Pulm/CCM team. Reason for Consultation Acute hypoxic respiratory failure requiring mechanical ventilator and aspiration pneumonia. History of Present Illness A 53-year-old man with past medical history of mental retardation and seizures who presented to ED on 08/20/24 for evaluation of shortness of breath x3 days. As reported by caregiver, patient's symptoms progressively get worse with nausea and vomiting and EMS were called. When EMS arrived on the scene, patient's blood pressure was 84/59 and he was given 600 mL normal saline bolus. Patient was seen and evaluated in the ED and workup showed WBC 3.1, hemoglobin 12.1, hematocrit 36.2, platelets 280, sodium 139, potassium 3.2, BUN 25, creatinine 1.36, glucose 142, calcium 8.4, troponin 34, lactic acid 7.3 trending down to 4.6, blood pressure trending up to 97/64, heart rate 102, temperature 98.9 F, O2 saturation 92% on oxygen. Chest x-ray revealing left-sided pneumonia. Patient was started on IV antibiotic azithromycin and supplemental oxygen and admitted for further care. Pulmonary consultation is requested for evaluation and management of acute hypoxic respiratory failure requiring mechanical ventilator and aspiration pneumonia. Review of Systems: 14-point review of systems negative unless otherwise noted above. Past Medical History: Seizures, Mental retardation Past Surgical History: Denies Medications: Reviewed. Allergies: No known drug allergies. Family History: Colon cancer No family history of premature CAD. No family history of lung disorders. Social History: Nonsmoker. No alcohol or illicit drug use. Family History: Colon cancer G8 MOTHER Allergies: Coded Allergies: NO KNOWN ALLERGIES (Unverified , 08/20/24) Current Medications Current Medications Medications (Trade) Dose Ordered Sig/Shar Route PRN Reason Start Time Stop Time Status Last Admin Fat Emulsion Intravenous 100 ml/Potassium Acetate 20 meq/ Potassium Phosphate 20 meq/ Calcium Gluconate 4.6 meq/Magnesium Sulfate 12 meq/ Multivitamins 10 ml/Chromium/ Copper/Manganese/ Zinc 1 ml/Amino Acids/Dextrose 1,238.4379 ml @ 51 mls/hr [id number] IV 08/25/24 22:00 08/26/24 21:59 08/25/24 22:25 Fat Emulsion Intravenous 100 ml/Potassium Phosphate 44 meq/ Magnesium Sulfate 8 meq/ Multivitamins 10 ml/Chromium/ Copper/Manganese/ Zinc 1 ml/Amino Acids/Dextrose 1,023 ml @ 43 mls/hr [id number] IV 08/26/24 22:00 08/27/24 21:59 Acetaminophen (Tylenol Suppository) 650 mg Q6HP PRN NE PAIN SCALE 1-3 OR TEMP>100.4 08/26/24 16:30 Vital Signs Vital Signs Date Time Temp Pulse Resp B/P (MAP) Pulse Ox O2 Delivery O2 Flow Rate FiO2 08/26/24 18:33 121/72 08/26/24 18:25 114 28 91 08/26/24 18:15 45 08/26/24 18:00 Mechanical Ventilator+ 08/26/24 17:45 98.4 209.1 Physical Exam Gen.: Patient lying in bed in medical ICU. Sedated, intubated on mechanical ventilator. Head: Normocephalic, atraumatic. Eyes: PERRLA. Ears: Normal external anatomy. Throat: Endotracheal tube and orogastric tube in place. Neck: Supple, trachea midline. Chest: Transmitted breath sounds bilaterally. Decreased air entry bilaterally. No wheezing. Bibasilar crackles. Cardiovascular: Positive S1, positive S2. Regular rate and rhythm. Abdomen: Positive bowel sounds in all 4 quadrants. Soft, nontender, nondistended. : Rivera in place. Normal external genitalia. Rectal: Deferred. Skin: Warm, dry. Intact. Extremities: 2+ radial pulses bilaterally. No lower extremity edema. Neuro: Sedated. Labs/Diagnostic Data Labs Test 08/26/24 17:45 08/26/24 15:10 08/26/24 07:07 08/26/24 03:00 Range/Units POC Glucose 147 H 70-106 mg/dl Vancomycin Level Trough 18.6 H 5-10 ug/mL Blood Gas Specimen Type Arterial Blood Gas Sample Site Right radial Blood Gas Patient Temperature 37.0 Arterial Blood Date Drawn [id number] Arterial Blood pH 7.350 7.350-7.450 Arterial Blood Partial Pressure CO2 48.3 H 35.0-48.0 mmHg Arterial Blood Partial Pressure O2 61.3 L 83.0-108.0 mmHg Arterial Blood HCO3 26.1 21.0-28.0 mmol/L Arterial Blood Oxygen Saturation 90.4 L 94.0-98.0 % Arterial Blood Base Excess 0.1 -2.0-3.0 mmol/L Arterial Blood Oxyhemoglobin 90.2 L 94.0-98.0 % Arterial Blood Carboxyhemoglobin 0.2 L 0.5-1.5 % Arterial Blood Methemoglobin 0.0 0.0-1.5 % Sher Test Modified Blood Gas Total Hemoglobin 10.90 L 13.5-17.5 g/dL Blood Gas Set Respiration Rate 24.0 Blood Gas Modality Vent - ac FiO2 % 50.0 Blood Gas Tidal Volume 450.0 Blood Gas PEEP or CPAP 5.0 White Blood Count 9.5 4.4-10.8 10^3/uL Red Blood Count 3.02 L 4.5-5.90 10^6/uL Hemoglobin 9.2 L 13.5-17.5 g/dL Hematocrit 27.7 L 41.0-53.0 % Mean Corpuscular Volume 91.6 80.0-100.0 fL Mean Corpuscular Hemoglobin 30.5 28.0-32.0 pg Mean Corpuscular Hemoglobin Concent 33.2 32.0-36.0 g/dL Red Cell Distribution Width 15.0 H 11.8-14.3 % Platelet Count 175 140-450 10^3/uL Mean Platelet Volume 7.0 6.9-10.8 fL Neutrophils (%) (Auto) 37.0-80.0 % Lymphocytes (%) (Auto) 10.0-50.0 % Monocytes (%) (Auto) 0.0-12.0 % Basophils (%) (Auto) 0.0-2.0 % Neutrophils # (Auto) 1.6-8.6 10 ^3/uL Lymphocytes # (Auto) 0.4-5.4 10 ^3/uL Monocytes # (Auto) 0-1.3 10 ^3/uL Differential Total Cells Counted 100.0 100 Neutrophils % (Manual) 67 37.0-80.0 Band Neutrophils % (Manual) 1 Lymphocytes % (Manual) 18 10.0-50.0 Monocytes % (Manual) 2 0-12 Eosinophils % (Manual) 11 H 0-7 Basophils % (Manual) 0 0.0-2.0 Metamyelocytes % (manual) 0 Myelocytes % (Manual) 1 Promyelocytes % (Manual) 0 Blast Cells % (Manual) 0 Nucleated Red Blood Cells 1.0 % Reactive Lymphocytes 0 Platelet Estimate Adequate Sodium Level 142 # 136-145 mmol/L Potassium Level 4.2 3.5-5.1 mmol/L Chloride Level 110 H 98-107 mmol/L Carbon Dioxide Level 26 20-31 mmol/L Anion Gap 6 5-15 Blood Urea Nitrogen 16 9-23 mg/dL Creatinine 0.74 0.700-1.30 mg/dL Glomerular Filtration Rate Calc 107 >90 mL/min BUN/Creatinine Ratio 21.6 H 10.0-20.0 Serum Glucose 152 H 74-106 mg/dL Calcium Level 9.0 8.7-10.4 mg/dL Phosphorus Level 2.2 L 2.4-5.1 mg/dL Magnesium Level 1.6 1.6-2.6 mg/dL Total Bilirubin 0.3 0.2-1.0 mg/dL Aspartate Amino Transferase (AST) 23 13-40 U/L Alanine Aminotransferase (ALT) < 9 7-40 U/L Alkaline Phosphatase 68 46-116 U/L Total Protein 5.0 L 5.7-8.2 g/dL Albumin 2.5 L 3.2-4.8 g/dL Test 08/25/24 14:45 08/25/24 03:00 08/24/24 03:15 08/23/24 16:23 Range/Units Random Vancomycin Level 11.2 H 5-10 ug/mL Triglycerides Level 61 < 150 mg/dL Phenytoin (Dilantin) Level 9.8 L 10-20 ug/mL Eosinophils (%) (Auto) 9.6 H 0.0-7.0 % Eosinophils # (Auto) 0.7 0-0.8 10 ^3/uL Basophils # (Auto) 0 0-0.2 10 ^3/uL Valproic Acid Level 21.9 L 50-100 ug/mL Test 08/23/24 03:20 08/22/24 18:13 08/22/24 09:57 08/22/24 09:20 Range/Units Lactic Acid Level 1.1 0.4-2.0 mmol/L Gastric Fluid pH 7.0 Gastric Fluid Occult Blood Positive Negative Reticulocyte Count (auto) 1.54 H 0.5-1.5 % Haptoglobin 226 29-370 mg/dL Prothrombin Time 12.9 H 9.3-11.8 sec Prothrombin Time INR 1.24 H 0.9-1.15 Activated Partial Thromboplast Time 32.7 24.5-34.5 SEC Iron Level 10 L 65-175 ug/dL Total Iron Binding Capacity 193 L 250-425 ug/dL Percent Iron Saturation 5.2 L 20-55 % Ferritin 77.2 22-322 ng/mL Folic Acid 5.72 >5.38 ng/mL Blood Gas Critical Value Read Back Yes Blood Gas Notified Whom nitza Prince md Blood Gas Notified Time [id number] Blood Gas Notified By ivan Snowden rehabilitation counselor Test 08/22/24 09:00 08/22/24 03:00 08/21/24 17:12 08/21/24 17:10 Range/Units Urine Opiates Screen Neg NEGATIVE Urine Fentanyl Screen Pos NEGATIVE Urine Barbiturates Screen Neg NEGATIVE Urine Phencyclidine Screen Neg NEGATIVE Urine Amphetamines Screen Neg NEGATIVE Urine Benzodiazepines Screen Pos NEGATIVE Urine Cocaine Screen Neg NEGATIVE Urine Cannabinoids Screen Neg NEGATIVE B-Type Natriuretic Peptide 30.49 0-100 pg/mL Blood Gas Liter Flow 6.00 Influenza Type A Antigen Negative Negative Influenza Type B Antigen Negative Negative SARS-CoV-2 Antigen (Rapid) Negative NEGATIVE Test 08/20/24 18:38 08/20/24 16:15 08/20/24 15:21 Range/Units Troponin I High Sensitivity 35 </=54 ng/L Urine Color Yellow Yellow Urine Clarity Clear Clear Urine pH 7.5 5.0-9.0 Urine Specific [place] 1.019 1.001-1.035 Urine Protein Trace H Negative Urine Ketones Negative Negative Urine Blood Negative Negative /uL Urine Nitrite Negative Negative Urine Bilirubin Negative Negative Urine Urobilinogen Normal Negative mg/dL Urine Leukocyte Esterase Negative Negative /uL Urine RBC 2 0 - 3 /hpf Urine Microscopic WBC 1 0-3 /HPF Urine Squamous Epithelial Cells None seen <5 /hpf Urine Bacteria None seen None Seen /hpf Urine Mucus Few None Seen Urine Glucose Normal Normal mg/dL Hemoglobin A1c 4.8 <5.7 % A1C Microbiology Date/Time Source Procedure Growth Status 08/22/24 09:00 Urine - [place] Urine Culture - Final Complete 08/21/24 18:43 Sputum Gram Stain - Final Complete 08/21/24 18:43 Sputum Respiratory Culture - Final Complete 08/21/24 17:05 Nose MRSA Screen - Final Complete 08/20/24 15:21 Blood Blood Culture - Final NO GROWTH AFTER 5 DAYS OF INCUBATION. Complete Assessment Impression: Acute hypoxic respiratory failure On mechanical ventilator Metabolic encephalopathy Septic shock Aspiration pneumonia Seizure disorder Anemia KARISHMA Cachexia, BMI 17.1 Plan: s/p intubation on mechanical ventilator. CXR image and report reviewed. ABG reviewed, compensated. On AC mode; RR 24, VT 450, PEEP 5, FiO2 50% Titrate FIO2 to keep O2 saturation above 90%. VAP bundle. Daily ABG and CXR while intubated Sedate for ventilator synchrony - On Versed, Fentanyl Plan for bronchoscopy to clear mucous plugs. TPN for nutritional support Monitor hemoglobin Iron supplementation Continue bronchodilators. Continue antibiotics. Pressors if necessary for hemodynamic support Titrate to keep mean arterial pressure greater than 65 mmHg. Off Levophed. IV fluids with LR Monitor renal function Monitor electrolytes. Supplement as necessary. Monitor ins and outs. GI prophylaxis. DVT prophylaxis. Prognosis: Poor given patient's multiple co-morbidities. Condition: Critical Rest of plan per hospitalist and other consultants. A total of 35 minutes of critical care time was spent reviewing the patient record, examining the patient, making a diagnostic and therapeutic plan, dis cussing this plan with the medical personnel, following up on diagnostic studies and following the patient for clinical stability excluding any and all procedures. At least 50% of this time was spent in direct, [id number] contact. Thank you Dr. Smith, for allowing me to participate in this patient's care. Further recommendations will depend on the patient's clinical course. Please do not hesitate to contact me if you have any questions or concerns. This medical document was created using an electronic medical record system with [employer] dictation system. Although these documentations are being carefully reviewed, there may still be some phonetic and typographical changes. The errors are purely typographical, due to imperfection on the software program, and do not reflect any compromise in the patient's medical care. Plan discussed with: Other (NOE Anderson/Dr. Smith) EDILBERTO CENTENO MD August 26, 2024 18:44
[2024-08-26] MEDS: PROPOFOL 100 ML IV SCH (20:41)
[2024-08-26] MEDS: TPN PER PHARMACY IV NR (21:18)
[2024-08-27] VITALS (104 sets, daily range): BP systolic 84–129; BP diastolic 43–73; PULSE 91–123; RESP 16–32; TEMP 97.3–98.6; O2SAT 88–100
[2024-08-27 04:13] LABS: Hematocrit 26.7 % (41.0-53.0); Hemoglobin 8.8 g/dL (13.5-17.5); Mean Corpuscular Volume 90.9 fL (80.0-100.0); Platelet Count (auto) 232 10^3/uL (140-450); Red Blood Cells 2.94 10^6/uL (4.5-5.90); Red Cell Distribution Width 14.6 % (11.8-14.3); White Blood Cell 11.9 10^3/uL (4.4-10.8)
[2024-08-27 04:23] LABS: Basophils % (manual) 0 (0.0-2.0); Blast Cells 0; Promyelocytes % 0; Reactive Lymphocytes 0
[2024-08-27 04:27] LABS: Alkaline Phosphatase 80 U/L (46-116); Anion Gap 7 (5-15); Aspartate Aminotransferase 25 U/L (13-40); BUN/Creatinine Ratio 28.8 (10.0-20.0); Blood Urea Nitrogen 21 mg/dL (9-23); Carbon Dioxide 26 mmol/L (20-31); Magnesium 1.7 mg/dL (1.6-2.6); Phosphorus 3.5 mg/dL (2.4-5.1); Potassium 4.2 mmol/L (3.5-5.1); Sodium 144 mmol/L (136-145)
[2024-08-27 04:28] LABS: Bilirubin, Total 0.4 mg/dL (0.2-1.0)
[2024-08-27 04:44] LABS: Alanine Aminotransferase < 9 U/L (7-40); Albumin 2.5 g/dL (3.2-4.8); Calcium 8.7 mg/dL (8.7-10.4); Chloride 111 mmol/L (98-107); Glucose 150 mg/dL (74-106); Total Protein 5.1 g/dL (5.7-8.2)
[2024-08-27 05:18] LABS: Band Neutrophils % (manual) 2; Eosinophils % (manual) 10 (0-7); Lymphocytes % (manual) 10 (10.0-50.0); Metamyelocytes % 1; Monocytes % (manual) 1 (0-12); Myelocytes % 2
[2024-08-27 05:19] LABS: Large Platelets FEW; Platelet Estimate Adequa
--- NOTE | 2024-08-27 05:54 | DVH ---
CHEST RADIOGRAPH Indication: Intubation Technique: Single frontal view of the chest was obtained Comparison: XY CHEST XRAY 1 VIEW on DOS: 08/26/24, XY CHEST PORTABLE on DOS: 08/25/24, XY CHEST XRAY 1 VIEW on DOS: 08/25/24 IMPRESSION: Heart appears normal in size. Endotracheal tube approximately 3 cm from the balwinder. Enteric tube ti p within the stomach. Right IJ catheter tip at the cavoatrial junction, unchanged. Diffuse interstit ial and alveolar airspace opacities appear similar. No pneumothorax.
[2024-08-27 07:17] LABS: Base Excess -3.3 mmol/L (-2.0-3.0)
--- NOTE | 2024-08-27 11:03 | DVHPN2 ---
Marino Ribeiro is a 53-year-old male patient who presents to ED via EMS with chief complaint of progressive dyspnea. Patient is currently intubated, could not obtain review of systems. Obtained information by family (sister) and EMR. Patient's symptoms got worse three days prior to his admission, associated with nausea, vomiting. Per sister patient stopped eating on Wednesday after coming back from a care facility, presented ground coffee emesis and has been having constipation (last bowel movement last ). Patient on scene and in ED presented hypotension, desaturation, tachypnea, with initial diagnosis of acute respiratory failure with septic shock secondary to probable aspiration pneumonia. Required IV fluids, empiric IV antibiotic and high-flow with regular response, deciding endotracheal intubation and placement of central line. While intubating, evidenced copious dark ground coffee secretion, deciding to initiate octreotide and IV pantoprazole. 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 2016 pneumonia Surgical history: Per sister had lung surgery because of collapse lung (questionable thoracentesis) Family history: Mother of congestive heart failure, also had diabetes Social history: Lives in [place] with sister who is her his caregiver. Denies current tobacco, alcohol and other drug abuse Allergies: Denies Home medication: Divalproex 250 mg p.o. b.i.d., Dilantin 100 mg p.o. q.8 hours Patient seen and examined at bedside. Currently in ICU status, on sedoanalgesia due to mechanical assisted ventilation, on IV vasopressors and empiric IV antibiotic. Completed Gastrografin study which showed probable small bowel obstruction versus ileus, patient NPO due to high risk aspiration. Also completed repeat gallbladder ultrasound which showed probable cholecystitis with cholelithiasis. Surgery evaluating patient Reviewed: H&P Changes from previous H/P or p: No Changes General: Per HPI Objective Vitals Vital Signs Date Time Temp Pulse Resp B/P (MAP) Pulse Ox O2 Delivery O2 Flow Rate FiO2 08/27/24 10:13 105 24 99/62 (74) 97 50 08/27/24 10:00 Mechanical Ventilator+ 08/27/24 08:00 97.7 97.7 Intake/Output Intake and Output 08/27/24 07:00 Intake Total 3573.381 ml Output Total 2750 ml Balance 823.381 ml Intake Oral 0 ml IV Total 3573.381 ml Output Urine Total 2650 ml Gastric Drainage Total 100 ml Exam General: RASS -3, afebrile, mucosae are moist Cardiovascular: Normal S1 and S2. No murmurs, gallops or rubs Respiratory: Mechanically assisted ventilation, equal bilateral airway entree. Bilateral diffuse rhonchus Abdomen: Mildly distended, nontender, no organomegaly, reduced bowel sounds. Has OG in low intermittent suction, with copious secretion MSK/skin: Mobilization of limbs cannot be evaluated. Skin is dry and warm Neurological: Orientation cannot be assessed. No apparent motor no sensitive deficits. Pupils are isocoric and reactive Medications Current Medications Medications Dose Ordered Sig/Shar Route Start Time Stop Time Status Last Admin Dose Admin Docusate Sodium 100 mg BIDPRN PRN PO 08/20/24 20:15 Ipratropium [place] 0.5 mg Q4HPRN PRN NEB 08/20/24 20:15 08/27/24 06:06 0.5 MG Piperacillin Sod/ Tazobactam Sod 100 ml @ 25 mls/hr Q8H IV 08/21/24 18:00 08/27/24 01:19 25 MLS/HR Doxycycline Hyclate 100 ml @ 50 mls/hr Q12H IV 08/21/24 18:30 UNV Midazolam HCl 50 ml @ 1 mls/hr Q24H IV 08/21/24 18:45 08/27/24 08:26 14 MLS/HR Fentanyl Citrate 250 ml @ 2.5 mls/hr Q24H IV 08/21/24 18:45 08/27/24 08:27 22.5 MLS/HR Norepinephrine Bitartrate 32 mg/ Sodium Chloride 250 ml @ 0.938 mls/ hr Q24H IV 08/22/24 09:15 08/27/24 08:28 2.813 MLS/HR Vancomycin HCl 0 ml @ 0 mls/hr UD IV 08/22/24 15:15 Valproate Sodium 250 mg/Sodium Chloride 52.5 ml @ 52.5 mls/hr BID IV 08/22/24 22:00 08/27/24 08:27 52.5 MLS/HR Iron Sucrose 110 ml @ 110 mls/hr DAILY@1200 IV 08/23/24 12:00 08/27/24 12:59 08/26/24 14:24 110 MLS/HR Pantoprazole Sodium 40 mg TID IV 08/23/24 14:00 08/27/24 05:51 40 MG Phenytoin Sodium 100 mg Q12HR IV 08/24/24 10:00 08/26/24 21:11 100 MG Diagnostic Test (Pha) 1 strip Q6HR 08/24/24 00:00 08/27/24 05:52 1 STRIP Insulin Human Regular FOLLOW SLIDING SCALE Q6HR SC 08/24/24 00:00 08/27/24 05:53 2 UNITS Dextrose 50 ml UD IV 08/23/24 22:00 Metoclopramide HCl 5 mg Q8HR IV 08/24/24 14:00 08/27/24 05:51 5 MG Amino Acids 0 ml @ 0 mls/hr PER PHARMACY IV 08/24/24 12:15 Levalbuterol HCl 0.625 mg Q6HR NEB 08/25/24 12:00 08/27/24 06:06 0.625 MG Vancomycin HCl 200 ml @ 200 mls/hr Q12H IV 08/25/24 16:00 08/27/24 04:08 200 MLS/HR Fat Emulsion Intravenous 100 ml/Potassium Phosphate 44 meq/ Magnesium Sulfate 8 meq/ Multivitamins 10 ml/Chromium/ Copper/Manganese/ Zinc 1 ml/Amino Acids/Dextrose 1,023 ml @ 43 mls/hr [id number] IV 08/26/24 22:00 08/27/24 21:59 08/26/24 21:18 43 MLS/HR Acetaminophen 650 mg Q6HP PRN [place] 08/26/24 16:30 Propofol 100 ml @ 1.467 mls/ hr Q24H IV 08/26/24 20:30 08/26/24 20:41 1.467 MLS/HR Laboratory Results Laboratory Tests 08/27/24 03:47 Chemistry Test 08/27/24 03:47 Albumin 2.5 g/dL (3.2-4.8) L Calcium Level 8.7 mg/dL (8.7-10.4) Magnesium Level 1.7 mg/dL (1.6-2.6) Phosphorus Level 3.5 mg/dL (2.4-5.1) Total Protein 5.1 g/dL (5.7-8.2) L LFT Test 08/27/24 03:47 Alanine Aminotransferase (ALT) < 9 U/L (7-40) Alkaline Phosphatase 80 U/L (46-116) Aspartate Amino Transferase (AST) 25 U/L (13-40) Total Bilirubin 0.4 mg/dL (0.2-1.0) Urinalysis Test 08/20/24 16:15 Urine Color Yellow (Yellow) Urine Clarity Clear (Clear) Urine pH 7.5 (5.0-9.0) Urine Specific [place] 1.019 (1.001-1.035) Urine Protein Trace (Negative) H Urine Ketones Negative (Negative) Urine Blood Negative /uL (Negative) Urine Nitrite Negative (Negative) Urine Bilirubin Negative (Negative) Urine Urobilinogen Normal mg/dL (Negative) Urine Leukocyte Esterase Negative /uL (Negative) Urine RBC 2 /hpf (0 - 3) Urine Microscopic WBC 1 /HPF (0-3) Urine Squamous Epithelial Cells None seen /hpf (<5) Urine Bacteria None seen /hpf (None Seen) Urine Mucus Few (None Seen) Urine Glucose Normal mg/dL (Normal) Blood Gas Results Test 08/27/24 07:04 Arterial Blood pH 7.336 (7.350-7.450) FiO2 % 50.0 Microbiology Microbiology Date/Time Source Procedure Growth Status 08/22/24 09:00 Urine - [place] Urine Culture - Final Complete 08/21/24 18:43 Sputum Gram Stain - Final Complete 08/21/24 18:43 Sputum Respiratory Culture - Final Complete 08/21/24 17:05 Nose MRSA Screen - Final Complete 08/20/24 15:21 Blood Blood Culture - Final NO GROWTH AFTER 5 DAYS OF INCUBATION. Complete Labs and/or images reviewed: Labs reviewed by me, Image(s) reviewed by me Assessment/Plan Assessment/Plan 08/26-patient presented with nausea and vomiting shortness of breath intubated for aspiration pneumonia. During intubation concern for upper GI bleed with coffee-ground emesis. On imaging findings include sodium cystitis, SBO, ileus, jejunal mass. Patient also needs bronch today. Patient is on broad-spectrum antibiotics vancomycin Zosyn. Patient is tachycardic and breathing over the vent. Tachypneic and tachycardic, still septic needs source control surgery evaluating. Patient also having fevers, okay for rectal Tylenol suppository.. Weaned off Levophed maintaining good blood pressure. Drips include D5 half- normal saline, Versed, fentanyl, TPN, Levophed,. Vent settings a.c. 450/24/5 0.0/50%, patient breathing over vent at 28. We will keep patient is sedated to control tachypnea, trial LR bolus for possible sepsis cause of tachycardia. Continue broad-spectrum. Pending bronch and surgery intervention. 08/27-patient remains in ICU intubated sedated. No sedation vacation or CPAP trial. Tachycardic 118. Was given IV fluid challenge, unknown results. Pulmonology is at bedside today doing bronch, likely big mucus plug has been removed.. Surgery following and plan for possible ex lap once stable from pulmonology standpoint. Making good urine output dark straw-colored. Drips include propofol, Versed, fentanyl, TPN, Levophed,. Okay for rectal Tylenol suppository for fevers, no fevers currently. Ventilated a.c./450/30 (24)/5.0/50%. Continue IV antibiotics. Neurology # Acute metabolic encephalopathy secondary to septic shock likely due to aspiration PNA # Questionable history of childhood meningitis # Developmental delay # Seizures Patient currently intubated Resumed Divalproex and Dilantin. Pharmacy adjusted dose due to hypoalbuminemia Cardiovascular # Ruled out congestive heart failure Negative BNP and Troponin. Chest xray shows pulmonary edema. Echocardiogram: Normal chambers, LVEF 60%, normal RV function and mild TR. 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 Currently on bolus pantoprazole tid. Will evaluate need for PEG. Ordered small bowel series which showed probable small-bowel obstruction versus ileus. Consulted Surgery: Re-evaluate once patient is more stable from aspiration pneumonia Patient currently on low intermittent suction, with copious secretion. Genitourinary/Neprhology # KARISHMA hemodynamically mediated (VMN) # Ruled out UTI UA within normal limits On NS 50ml/h Infectious Disease # Septic shock seondary to aspiration pneumonia Ordered pancultures (blood, urine, sputum), pending Currently under empiric antibiotics (Zosyn and Vancomycin) Endocrine # Simple hyperglycemia with no Diabetes # Severe malnutrition Probably secondary to steroids and septic shock On mild ISS BMI less than 19 and hypoalbuminemia Hematology # Rule out GI bleed # Acute blood loss #bIron deficiency anemia Monitor H&H At admission was on Octeotride and Pantoprazole drip. Discontinue octeotride drip on 08/22/2024 Ordered anemia work up Nutrition: NPO due to GI bleed, Ileus vs small intestinal obstruction. On Clinimix posterior TPN Prophylaxis: PUD (pantoprazole bolus tid) and DVT (SCDs) Lines: 08/21/2024 ET tube 08/21/2024 Rivera 08/21/2024 Right IJ CVC 08/21/2024 OG Drips: Fentanyl 200 Versed 14 Norepinephrine 4 Clinimix posterior TPN Plan discussed with: Patient My Orders Orders - CYNTHIA ROLLINS MD Procedure Category Date Status Time Acetaminophen PHA 08/26/24 In Process Suppository (Tylenol 16:30 Date of Service: August 27, 2024 Billing Provider: CYNTHIA ROLLINS MD Common Visit Codes: [id number] CARE 30-74 MIN CYNTHIA ROLLINS MD August 27, 2024 11:03
--- NOTE | 2024-08-27 11:46 | DVHNC2 ---
Procedure - Bronchoscopy procedure note: Indications: right and left lower lobe atelectasis, Possible mucous plugging. Medicines: See [employer] notes. Complications: None Procedure: Patient medications and allergies reviewed. The risks and benefits of the procedure and the sedation options and risk were discussed with the patient's healthcare proxy. All questions were answered and informed consent was obtained. Patient identification and proposed procedure were verified prior to the procedure by the physician, and a nurse, and the respiratory therapist in ICU room. The heart rate, respiratory rate, oxygen saturations, blood pressure, adequacy of pulmonary ventilation, and response to care were monitored throughout the procedure. The physical status of the patient was reassessed after the procedure. After obtaining informed consent, the bronchoscope was introduced through the endotracheal tube and advanced into the trachea bronchial tree of both lungs. The procedure was accomplished without difficulty. The patient tolerated the procedure well. Findings: The trachea is in normal caliber. The balwinder is sharp. The tracheobronchial tree of the right lung was examined to at least the first subsegmental level. The bronchial mucosa and anatomy in the right lung are normal. There are no endobronchial lesions. There was copious whitish secretions from right main stem bronchus onward throughout R1-R3 and R6-R10. Right middle lobe (RML) Bronchoalveolar lavage (BAL) obtained. RML BAL sent for gram stain and culture, and fungal culture. The left upper lobe, lingula, and left lower lobe were examined to at least the first subsegmental level. Bronchial mucosa and anatomy in the left upper lobe and lingula are normal. There were no endobronchial lesions. There was copious whitish secretions from left main stem bronchus onward throughout L6-L10. Mucous plugging removed from L6-L10. There was no active bleeding at the completion of the procedure. Estimated blood loss: Less than 5 mL. Impression: Left lower lobe atelectasis due to mucous plugging Mucous plugging from L6-L10 and R1-R3, and R6-R10 RUL BAL performed Recommendation: Follow-up RUL BAL results. Procedure codes: 53048, bronchoscopy, rigid and flexible, including fluoroscopic guidance, one performed; with bronchial endobronchial broncho-alveolar lavage, single or multiple sites EDILBERTO CENTENO MD August 27, 2024 11:45
--- NOTE | 2024-08-27 13:51 | DVHPN2 ---
Progress Note - Dictate Date Seen: August 27, 2024 Medical Necessity Reason Pt with a Central, PICC or Fol: Yes The following are medically ne: Central Line, Rivera Catheter Subjective E: no major events o/n. no BM. vital signs Vital Sign Date Time Temp Pulse Resp B/P (MAP) Pulse Ox O2 Delivery O2 Flow Rate FiO2 08/27/24 13:45 120 08/27/24 13:45 50 08/27/24 13:45 24 95 Mechanical Ventilator+ 08/27/24 13:40 95/49 (64) 08/27/24 08:00 97.7 97.7 Total Intake and Output 08/26/24 08/26/24 08/27/24 15:00 23:00 07:00 Intake Total 1503.50 ml 1093.151 ml 976.730 ml Output Total 1500 ml 1250 ml Balance 1503.50 ml -406.849 ml -273.270 ml medications Current Medications Medications Dose Ordered Sig/Shar Route Start Time Stop Time Status Last Admin Dose Admin Docusate Sodium 100 mg BIDPRN PRN PO 08/20/24 20:15 Ipratropium [place] 0.5 mg Q4HPRN PRN NEB 08/20/24 20:15 08/27/24 12:33 0.5 MG Piperacillin Sod/ Tazobactam Sod 100 ml @ 25 mls/hr Q8H IV 08/21/24 18:00 08/27/24 11:13 25 MLS/HR Doxycycline Hyclate 100 ml @ 50 mls/hr Q12H IV 08/21/24 18:30 UNV Midazolam HCl 50 ml @ 1 mls/hr Q24H IV 08/21/24 18:45 08/27/24 12:04 14 MLS/HR Fentanyl Citrate 250 ml @ 2.5 mls/hr Q24H IV 08/21/24 18:45 08/27/24 08:27 22.5 MLS/HR Norepinephrine Bitartrate 32 mg/ Sodium Chloride 250 ml @ 0.938 mls/ hr Q24H IV 08/22/24 09:15 08/27/24 08:28 2.813 MLS/HR Vancomycin HCl 0 ml @ 0 mls/hr UD IV 08/22/24 15:15 Valproate Sodium 250 mg/Sodium Chloride 52.5 ml @ 52.5 mls/hr BID IV 08/22/24 22:00 08/27/24 08:27 52.5 MLS/HR Pantoprazole Sodium 40 mg TID IV 08/23/24 14:00 08/27/24 05:51 40 MG Phenytoin Sodium 100 mg Q12HR IV 08/24/24 10:00 08/27/24 11:13 100 MG Diagnostic Test (Pha) 1 strip Q6HR 08/24/24 00:00 08/27/24 11:55 1 STRIP Insulin Human Regular FOLLOW SLIDING SCALE Q6HR SC 08/24/24 00:00 08/27/24 05:53 2 UNITS Dextrose 50 ml UD IV 08/23/24 22:00 Metoclopramide HCl 5 mg Q8HR IV 08/24/24 14:00 08/27/24 05:51 5 MG Amino Acids 0 ml @ 0 mls/hr PER PHARMACY IV 08/24/24 12:15 Levalbuterol HCl 0.625 mg Q6HR NEB 08/25/24 12:00 08/27/24 12:33 0.625 MG Vancomycin HCl 200 ml @ 200 mls/hr Q12H IV 08/25/24 16:00 08/27/24 04:08 200 MLS/HR Fat Emulsion Intravenous 100 ml/Potassium Phosphate 44 meq/ Magnesium Sulfate 8 meq/ Multivitamins 10 ml/Chromium/ Copper/Manganese/ Zinc 1 ml/Amino Acids/Dextrose 1,023 ml @ 43 mls/hr [id number] IV 08/26/24 22:00 08/27/24 21:59 08/26/24 21:18 43 MLS/HR Acetaminophen 650 mg Q6HP PRN SC 08/26/24 16:30 Propofol 100 ml @ 1.467 mls/ hr Q24H IV 08/26/24 20:30 08/26/24 20:41 1.467 MLS/HR Magnesium Sulfate 12 meq/ Multivitamins 10 ml/Chromium/ Copper/Manganese/ Zinc 1 ml/Amino Acids/Dextrose 1,014 ml @ 42 mls/hr Q24H9M IV 08/27/24 22:00 08/28/24 21:59 objective GEN: sedated. Intubated ABD: soft. NT but difficult exam d/t AMS. laboratory and microbiology Laboratory Tests 08/27/24 03:47 Test 08/27/24 03:47 Range/Units Serum Glucose 150 H 74-106 mg/dL Assessment/Plan A: 1. aspiration PNA 2. seizure DO 3. questionable cholecystitis but likely resolving on abx 4. unknown intestinal mass unlikely to be the cause of SBO P: 1. KUB today. if it shows persistent SBO, will schedule for diagnostic laparoscopy on Mon. Dietary Evaluation Review Comments: 1. no PO or EN tube feeding until GI bleed resolved. Cancel Cardic Diet 2. Initiate TPN if pt is NPO>7 days. Expected Outcomes/Goals: reassess needs when pt is off vent. Plan discussed with: Other (sister) JOANNE BARROS MD August 27, 2024 13:51
--- NOTE | 2024-08-27 15:11 | DVH ---
CHEST RADIOGRAPH Indication: s/p bronchoscopy with BAL, r/o pneumothorax Technique: Single frontal view of the chest was obtained Comparison: XY CHEST XRAY 1 VIEW on DOS: 08/27/24, XY CHEST XRAY 1 VIEW on DOS: 08/26/24, XY CHEST PORT ABLE on DOS: 08/25/24 FINDINGS: Lines and Tubes: Endotracheal tube proximally 4.1 cm above the balwinder. Right internal jugular cathet er in place in superior vena cava. Enteric tube below the left diaphragm in the stomach. Lungs: Bilateral perihilar infiltrates with airspace disease mid lung polk bilaterally and right lo wer lobe. Right appears worse than left. Pleura: No effusion. No pneumothorax. Cardiomediastinal contours: Unremarkable Bones: No acute osseous abnormality. IMPRESSION: 1. Endotracheal tube 4.1 cm above the balwinder. 2. Right internal jugular catheter in place at the cavoatrial junction 3. Enteric tube below the left diaphragm in the stomach 4. Airspace disease in the right perihilar lower lung polk and left perihilar and mid lung field.
--- NOTE | 2024-08-27 15:51 | DVH ---
Indication: poss SBO Technique: Frontal radiograph abdomen Comparison: 08/25/2024 FINDINGS/IMPRESSION: Nasogastric tube projects towards the stomach. Multiple loops ofm moderately distended small bowel up to approximately 2.9 cm. Contrast seen within the rectum/ ascending colon. No air-fluid level seen. Considerations include ileus, partial small b owel obstruction.
[2024-08-27] MEDS: TPN PER PHARMACY IV NR (21:07)
--- NOTE | 2024-08-27 22:47 | DVHPN2 ---
Progress Note - Dictate Date Seen: August 27, 2024 Medical Necessity Reason Pt with a Central, PICC or Fol: Yes The following are medically ne: Central Line, Josue Catheter Reason for josue catheter: Strict I&O Subjective Patient seen and examined at bedside. Sedated, intubated on mechanical ventilator. Overnight events reviewed. vital signs Vital Sign Date Time Temp Pulse Resp B/P (MAP) Pulse Ox O2 Delivery O2 Flow Rate FiO2 08/27/24 22:35 91/47 08/27/24 22:19 96 24 95 60 08/27/24 22:15 97.3 97.3 08/27/24 22:00 Mechanical Ventilator+ Total Intake and Output 08/26/24 08/26/24 08/27/24 15:00 23:00 07:00 Intake Total 1503.50 ml 1093.151 ml 976.730 ml Output Total 1500 ml 1250 ml Balance 1503.50 ml -406.849 ml -273.270 ml medications Current Medications Medications Dose Ordered Sig/Shar Route Start Time Stop Time Status Last Admin Dose Admin Docusate Sodium 100 mg BIDPRN PRN PO 08/20/24 20:15 Ipratropium [place] 0.5 mg Q4HPRN PRN NEB 08/20/24 20:15 08/27/24 18:45 0.5 MG Piperacillin Sod/ Tazobactam Sod 100 ml @ 25 mls/hr Q8H IV 08/21/24 18:00 08/27/24 18:37 25 MLS/HR Doxycycline Hyclate 100 ml @ 50 mls/hr Q12H IV 08/21/24 18:30 UNV Midazolam HCl 50 ml @ 1 mls/hr Q24H IV 08/21/24 18:45 08/27/24 22:35 14 MLS/HR Fentanyl Citrate 250 ml @ 2.5 mls/hr Q24H IV 08/21/24 18:45 08/27/24 18:39 2.5 MLS/HR Norepinephrine Bitartrate 32 mg/ Sodium Chloride 250 ml @ 0.938 mls/ hr Q24H IV 08/22/24 09:15 08/27/24 08:28 2.813 MLS/HR Vancomycin HCl 0 ml @ 0 mls/hr UD IV 08/22/24 15:15 Valproate Sodium 250 mg/Sodium Chloride 52.5 ml @ 52.5 mls/hr BID IV 08/22/24 22:00 08/27/24 21:41 52.5 MLS/HR Pantoprazole Sodium 40 mg TID IV 08/23/24 14:00 08/27/24 21:40 40 MG Phenytoin Sodium 100 mg Q12HR IV 08/24/24 10:00 08/27/24 21:40 100 MG Diagnostic Test (Pha) 1 strip Q6HR 08/24/24 00:00 08/27/24 18:46 1 STRIP Insulin Human Regular FOLLOW SLIDING SCALE Q6HR SC 08/24/24 00:00 08/27/24 18:50 2 UNITS Dextrose 50 ml UD IV 08/23/24 22:00 Metoclopramide HCl 5 mg Q8HR IV 08/24/24 14:00 08/27/24 21:40 5 MG Amino Acids 0 ml @ 0 mls/hr PER PHARMACY IV 08/24/24 12:15 Levalbuterol HCl 0.625 mg Q6HR NEB 08/25/24 12:00 08/27/24 18:45 0.625 MG Vancomycin HCl 200 ml @ 200 mls/hr Q12H IV 08/25/24 16:00 08/27/24 17:22 200 MLS/HR Acetaminophen 650 mg Q6HP PRN GA 08/26/24 16:30 Propofol 100 ml @ 1.467 mls/ hr Q24H IV 08/26/24 20:30 08/27/24 18:51 7.335 MLS/HR Magnesium Sulfate 12 meq/ Multivitamins 10 ml/Chromium/ Copper/Manganese/ Zinc 1 ml/Amino Acids/Dextrose 1,014 ml @ 42 mls/hr Q24H9M IV 08/27/24 22:00 08/28/24 21:59 08/27/24 21:07 42 MLS/HR objective Gen.: Patient lying in bed in medical ICU. Sedated, intubated on mechanical ventilator. Head: Normocephalic, atraumatic. Eyes: PERRLA. Ears: Normal external anatomy. Throat: Endotracheal tube and orogastric tube in place. Neck: Supple, trachea midline. Chest: Transmitted breath sounds bilaterally. Decreased air entry bilaterally. No wheezing. Bibasilar crackles. Cardiovascular: Positive S1, positive S2. Regular rate and rhythm. Abdomen: Positive bowel sounds in all 4 quadrants. Soft, nontender, nondistended. : Josue in place. Normal external genitalia. Rectal: Deferred. Skin: Warm, dry. Intact. Extremities: 2+ radial pulses bilaterally. No lower extremity edema. Neuro: Sedated. laboratory and microbiology Laboratory Tests 08/27/24 03:47 Test 08/27/24 03:47 Range/Units Serum Glucose 150 H 74-106 mg/dL Assessment/Plan Impression: Acute hypoxic respiratory failure On mechanical ventilator Metabolic encephalopathy Septic shock Aspiration pneumonia Seizure disorder Anemia KARISHMA Cachexia, BMI 17.1 Events: Remains on vent support On AC mode; RR 24, VT 450, PEEP 5, FiO2 50% Taper FiO2 as tolerated Sedated on Propofol, Versed, Fentanyl On pressors for hemodynamic support Levophed 6 mcg/min Titrate to keep mean arterial pressure greater than 65 mmHg. TPN for nutritional support Continue antibiotics S/p therapeutic bronchoscopy today with removal of mucous plugs from RUL, RLL and LLL. See separate procedure note for details. ABG reviewed, notable for acidemia CXR reviewed, demonstrates devices in place; airspace disease in the right perihilar lower lung polk and left perihilar and mid lung field. Labs and imaging reviewed. Rest of plan as noted below. Plan: s/p intubation on mechanical ventilator. On AC mode; RR 24, VT 450, PEEP 5, FiO2 50% Titrate FIO2 to keep O2 saturation above 90%. VAP bundle. Daily ABG and CXR while intubated Sedate for ventilator synchrony TPN for nutritional support Monitor hemoglobin Iron supplementation Continue bronchodilators. Continue antibiotics. Pressors as necessary for hemodynamic support Titrate to keep mean arterial pressure greater than 65 mmHg. Received IV fluids with LR Monitor renal function Monitor electrolytes. Supplement as necessary. Monitor ins and outs. GI prophylaxis. DVT prophylaxis. Prognosis: Poor given patient's multiple co-morbidities. Condition: Critical Rest of plan per hospitalist and other consultants. A total of 35 minutes of critical care time was spent reviewing the patient record, examining the patient, making a diagnostic and therapeutic plan, discussing this plan with the medical personnel, following up on diagnostic studies and following the patient for clinical stability excluding any and all procedures. At least 50% of this time was spent in direct, [id number] contact. Thank you Dr. Smith, for allowing me to participate in this patient's care. Further recommendations will depend on the patient's clinical course. Please do not hesitate to contact me if you have any questions or concerns. This medical document was created using an electronic medical record system with [employer] system. Although these documentations are being carefully reviewed, there may still be some phonetic and typographical changes. The errors are purely typographical, due to imperfection on the software program, and do not reflect any compromise in the patient's medical care. Dietary Evaluation Review Comments: 1. no PO or EN tube feeding until GI bleed resolved. Cancel Cardic Diet 2. Initiate TPN if pt is NPO>7 days. Expected Outcomes/Goals: reassess needs when pt is off vent. Plan discussed with: Other (NOE Anderson) Critical Care Time(min): 35 EDILBERTO CENTENO MD August 27, 2024 22:47
[2024-08-28] VITALS (103 sets, daily range): BP systolic 93–131; BP diastolic 45–77; PULSE 84–116; RESP 20–31; TEMP 97–99.3; O2SAT 87–100
[2024-08-28 04:07] LABS: Hematocrit 26.5 % (41.0-53.0); Hemoglobin 8.7 g/dL (13.5-17.5); Mean Corpuscular Hemoglobin 30.3 pg (28.0-32.0); Mean Corpuscular Hgb Conc. 32.8 g/dL (32.0-36.0); Mean Corpuscular Volume 92.4 fL (80.0-100.0); Platelet Count (auto) 255 10^3/uL (140-450); Red Blood Cells 2.87 10^6/uL (4.5-5.90); Red Cell Distribution Width 14.8 % (11.8-14.3)
[2024-08-28 04:24] LABS: Alkaline Phosphatase 94 U/L (46-116); Anion Gap 8 (5-15); Aspartate Aminotransferase 32 U/L (13-40); BUN/Creatinine Ratio 24.1 (10.0-20.0); Blood Urea Nitrogen 20 mg/dL (9-23); Calcium 8.9 mg/dL (8.7-10.4); Carbon Dioxide 26 mmol/L (20-31); Magnesium 1.8 mg/dL (1.6-2.6); Phosphorus 3.7 mg/dL (2.4-5.1); Potassium 4.2 mmol/L (3.5-5.1)
[2024-08-28 04:25] LABS: Bilirubin, Total 0.5 mg/dL (0.2-1.0)
[2024-08-28 04:32] LABS: Basophils % (manual) 0 (0.0-2.0); Blast Cells 0; Metamyelocytes % 0; Myelocytes % 0; Reactive Lymphocytes 0
[2024-08-28 04:42] LABS: INR 1.15 (0.9-1.15); Partial Thromboplastin Time 39.9 SEC (24.5-34.5)
[2024-08-28 04:57] LABS: Alanine Aminotransferase < 9 U/L (7-40); Albumin 2.6 g/dL (3.2-4.8); Chloride 114 mmol/L (98-107); Glucose 137 mg/dL (74-106); Sodium 148 mmol/L (136-145); Total Protein 5.2 g/dL (5.7-8.2)
--- NOTE | 2024-08-28 05:15 | DVH ---
EXAM: XR Chest, 1 View CLINICAL INDICATION: Intubation TECHNIQUE: Frontal view of the chest. COMPARISON: XY CHEST XRAY 1 VIEW on DOS: 08/27/24, XY CHEST XRAY 1 VIEW on DOS: 08/27/24, XY CHEST XR AY 1 VIEW on DOS: 08/26/24, XY CHEST PORTABLE on DOS: 08/25/24, XY CHEST XRAY 1 VIEW on DOS: 08/25/24 FINDINGS: LUNGS AND PLEURAL SPACES: Stable patchy airspace disease in both lungs. No consolidation. No pneu mothorax. HEART: Unremarkable. No cardiomegaly. MEDIASTINUM: Unremarkable. Normal mediastinal contour. BONES/JOINTS: Unremarkable. No acute fracture. TUBES, LINES AND DEVICES: Right internal jugular central venous catheter tip in the superior vena c mary. The endotracheal tube (ETT) is in satisfactory position. Enteric tube tip in the stomach. OTHER FINDINGS: . . IMPRESSION: Stable patchy airspace disease in both lungs.
[2024-08-28 05:44] LABS: Band Neutrophils % (manual) 2; Eosinophils % (manual) 16 (0-7); Lymphocytes % (manual) 16 (10.0-50.0); Monocytes % (manual) 4 (0-12); Promyelocytes % 2
[2024-08-28 05:45] LABS: Platelet Estimate Adequate
[2024-08-28 07:34] LABS: Base Excess -2.1 mmol/L (-2.0-3.0)
[2024-08-28] MEDS ORDERED: HYDROmorphone HCL 2 MG/ML VL/or syr ONE (13:50)
[2024-08-28] MEDS ORDERED: fentaNYL CITRATE 100 MCG/2 ML VL ONE (13:50)
[2024-08-28] MEDS ORDERED: MIDAZOLAM HCL 2MG/2ML 2ml VIAL (1mg/ml) ONE ×2 (13:53→15:31)
--- NOTE | 2024-08-28 14:20 | DVHPN2 ---
Progress Note - Dictate Date Seen: August 28, 2024 Medical Necessity Reason Pt with a Central, PICC or Fol: Yes The following are medically ne: Central Line, Rivera Catheter Subjective Patient is intubated sedated NG tube output put appears to be mostly dark bilious H&H is stable at 8.7 Liver enzymes are normal No bowel movement recorded vital signs Vital Sign Date Time Temp Pulse Resp B/P (MAP) Pulse Ox O2 Delivery O2 Flow Rate FiO2 08/28/24 13:15 116 31 112/58 (76) 92 08/28/24 12:00 60 08/28/24 12:00 Mechanical Ventilator+ 08/28/24 12:00 99.3 99.3 Total Intake and Output 08/27/24 08/27/24 08/28/24 15:00 23:00 07:00 Intake Total 831.476 ml 933.6075 ml 998.684 ml Output Total 1025 ml 1400 ml Balance 831.476 ml -91.3925 ml -401.316 ml medications Current Medications Medications Dose Ordered Sig/Shar Route Start Time Stop Time Status Last Admin Dose Admin Docusate Sodium 100 mg BIDPRN PRN PO 08/20/24 20:15 Ipratropium [place] 0.5 mg Q4HPRN PRN NEB 08/20/24 20:15 08/28/24 00:20 0.5 MG Piperacillin Sod/ Tazobactam Sod 100 ml @ 25 mls/hr Q8H IV 08/21/24 18:00 08/28/24 09:58 25 MLS/HR Doxycycline Hyclate 100 ml @ 50 mls/hr Q12H IV 08/21/24 18:30 UNV Midazolam HCl 50 ml @ 1 mls/hr Q24H IV 08/21/24 18:45 08/28/24 13:03 14 MLS/HR Fentanyl Citrate 250 ml @ 2.5 mls/hr Q24H IV 08/21/24 18:45 08/28/24 05:27 22.5 MLS/HR Norepinephrine Bitartrate 32 mg/ Sodium Chloride 250 ml @ 0.938 mls/ hr Q24H IV 08/22/24 09:15 08/27/24 08:28 2.813 MLS/HR Vancomycin HCl 0 ml @ 0 mls/hr UD IV 08/22/24 15:15 Valproate Sodium 250 mg/Sodium Chloride 52.5 ml @ 52.5 mls/hr BID IV 08/22/24 22:00 08/28/24 08:34 52.5 MLS/HR Pantoprazole Sodium 40 mg TID IV 08/23/24 14:00 08/28/24 05:30 40 MG Phenytoin Sodium 100 mg Q12HR IV 08/24/24 10:00 08/28/24 08:33 100 MG Diagnostic Test (Pha) 1 strip Q6HR 08/24/24 00:00 08/28/24 12:25 1 STRIP Insulin Human Regular FOLLOW SLIDING SCALE Q6HR SC 08/24/24 00:00 08/27/24 18:50 2 UNITS Dextrose 50 ml UD IV 08/23/24 22:00 Metoclopramide HCl 5 mg Q8HR IV 08/24/24 14:00 08/28/24 05:30 5 MG Amino Acids 0 ml @ 0 mls/hr PER PHARMACY IV 08/24/24 12:15 Levalbuterol HCl 0.625 mg Q6HR NEB 08/25/24 12:00 08/28/24 12:14 0.625 MG Vancomycin HCl 200 ml @ 200 mls/hr Q12H IV 08/25/24 16:00 08/28/24 03:59 200 MLS/HR Acetaminophen 650 mg Q6HP PRN MD 08/26/24 16:30 Propofol 100 ml @ 1.467 mls/ hr Q24H IV 08/26/24 20:30 08/28/24 07:59 7.335 MLS/HR Magnesium Sulfate 12 meq/ Multivitamins 10 ml/Chromium/ Copper/Manganese/ Zinc 1 ml/Amino Acids/Dextrose 1,014 ml @ 42 mls/hr Q24H9M IV 08/27/24 22:00 08/28/24 21:59 08/27/24 21:07 42 MLS/HR Magnesium Sulfate 12 meq/ Multivitamins 10 ml/Chromium/ Copper/Manganese/ Zinc 1 ml/Amino Acids/Dextrose 1,014 ml @ 42 mls/hr Q24H9M IV 08/28/24 22:00 08/29/24 21:59 objective Patient Is intubated sedated thin male somewhat cachectic Cardiovascular: Normal S1 and S2. No murmurs, gallops or rubs Respiratory: Mechanically assisted ventilation, equal bilateral airway entree. Bilateral diffuse rhonchus Abdomen: Soft, nontender, no organomegaly, normal bowel sounds MSK/skin: Mobilization of limbs cannot be evaluated. Skin is dry and warm Neurological: Orientation cannot be assessed. No apparent motor no sensitive deficits. Pupils are isocoric and reactive laboratory and microbiology Laboratory Tests 08/28/24 03:42 Test 08/28/24 03:42 Range/Units Serum Glucose 137 H 74-106 mg/dL Problems(with codes): (1) Sepsis, unspecified organism (2) Pneumonia, unspecified organism (3) Coffee ground emesis (4) Abnormal finding on GI tract imaging (5) Generalized weakness (6) Metabolic encephalopathy Prognosis Plan Patient is scheduled to go to the OR today with general surgery for possible laparoscopy possible laparotomy lysis of adhesions and relieve a bowel obstruction Continue supportive care IV Protonix 40 mg q.12 hours Prognosis remains guarded Dietary Evaluation Review Comments: 1. no PO or EN tube feeding until GI bleed resolved. Cancel Cardic Diet 2. Initiate TPN if pt is NPO>7 days. Expected Outcomes/Goals: reassess needs when pt is off vent. Plan discussed with: Other (ICU Nurse) MADAN JUAREZ MD August 28, 2024 14:20
[2024-08-28 15:22] LABS: Base Excess -7.4 mmol/L (-2.0-3.0)
[2024-08-28] MEDS: LIDOCAINE W/ EPINEPHRINE 1% 20ML VIAL ONE (15:46)
--- NOTE | 2024-08-28 15:59 | DVHOP2 ---
Operative Report - 2 Report Details Date: 08/28/24 Preop Diagnosis: 1. 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 Respiratory failure Postop Diagnosis: 1. 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 Respiratory failure Surgeon: Joanne Sutton MD Crm Campaign Manager: None Anesthesiologist: Dr. Messina Anesthesia: General, Local Consent: The surgery and its risks including but not limited to infection, bleeding requiring possible blood transfusion with the risk of hepatitis or HIV infection, possible open surgery, possible bowel resection resulting in anastomotic leak requiring another surgery, possible perioperative HI or stroke were explained to the patient's sister. All questions were answered to her satisfaction. She expressed verbal understanding and wished to proceed with the surgery. Complications: None Estimated Blood Loss: 20 mL Fluids: 500 mL Findings: Intraluminal mass in the proximal jejunum Name of Procedure Performed Diagnostic laparoscopy with resection of proximal jejunal mass with anastomosis Procedure Details Procedure Details: After induction of general anesthesia, patient's abdomen was prepped and draped in standard surgical fashion. A small infraumbilical incision was made and this incision was taken through the abdominal wall down to the fascia which was opened in midline. Peritoneum was then bluntly divided gaining access to the intra-abdominal cavity. Interrupted 0 Vicryl sutures were placed through the fascial incision and using an open technique, Karen trocar was introduced and secured using the Vicryl sutures. Abdomen was insufflated to 15 mmHg and camera was inserted. Visual examination of the intestine under the fascial incision appeared normal without injury. Under direct visualization, a 5 mm bladeless trocar was placed in the left lower quadrant and a 2nd 5 mm bladeless trocar was placed in the suprapubic region. Examination of the right lower quadrant revealed normal-appearing cecum and the appendix. The terminal ileum was identified and was traced proximally all the way to the proximal jejunum where the previously seen jejunal mass on CT was identified. This appeared to be the previous site of obstruction as the intestine proximal to it appeared dilated well distally it was decompressed. Once the jejunal mass was identified a the Karen trocar was removed and the infraumbilical incision was then extended slightly and the mass was then externalized completely. TAM staplers were used to staple and divide the the intestine proximally and distally away from the mass. The mesentery was then divided using LigaSure impact device. The jejunal mass was then sent off to pathology. The two ends of the intestine were brought together in a [id number] fashion using 3-0 silk sutures. Enterotomies were made in each corresponding stump and a 75 mm TAM blue load was used to create the [id number] anastomosis. Newly created enterotomy was then closed using a 60 mm TA stapler. A single 3-0 silk suture was used to reinforce the cross staple line. The newly created mesenteric defect was closed using running 2-0 Vicryl sutures. There was wide patent opening of the anastomosis without signs of ischemia or twisting of the mesentery. The intestine was then placed back into the abdominal cavity. The midline fascia was then closed using running 1. Vicryl sutures. Surgical site was irrigated. The abdomen was then re- insufflated to visualize from the inside and appeared that there was no active bleeding or twisting of the bowel. Trocars were then removed under direct visualization as the abdomen was deflated. The surgical incisions were injected with 15 mL of 1% lidocaine with epinephrine and closed using melissa. Surgical sites were cleaned and dried and dressings were applied. Sponge, needle, instrument count at the end of the case were reported to be correct by the nursing staff. There were no complications. Specimen: Proximal jejunal mass Condition Critical Disposition Still a Patient JOANNE SUTTON MD August 28, 2024 15:59
[2024-08-28 17:59] LABS: Base Excess -5.3 mmol/L (-2.0-3.0)
--- NOTE | 2024-08-28 19:47 | DVHPNRES ---
Progress Note Date Seen: August 28, 2024 Resident Creating Document: BLANCA IRVIN RESIDENT Medical Necessity Reason Pt with a Central, PICC or Fol: Yes The following are medically ne: Central Line, Josue Catheter Reason for josue catheter: Strict I&O Subjective Review of Systems Juanjose Ribeiro is a 53-year-old male patient who presents to ED via EMS with chief complaint of progressive dyspnea. Patient is currently intubated, could not obtain review of systems. Obtained information by family (sister) and EMR. Patient's symptoms got worse three days prior to his admission, associated with nausea, vomiting. Per sister patient stopped eating on Wednesday after coming back from a care facility, presented ground coffee emesis and has been having constipation (last bowel movement last ). Patient on scene and in ED presented hypotension, desaturation, tachypnea, with initial diagnosis of acute respiratory failure with septic shock secondary to probable aspiration pneumonia. Required IV fluids, empiric IV antibiotic and high-flow with regular response, deciding endotracheal intubation and placement of central line. While intubating, evidenced copious dark ground coffee secretion, deciding to initiate octreotide and IV pantoprazole. 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 2016 pneumonia Surgical history: Per sister had lung surgery because of collapse lung (questionable thoracentesis) Family history: Mother of congestive heart failure, also had diabetes Social history: Lives in [place] with sister who is her his caregiver. Denies current tobacco, alcohol and other drug abuse Allergies: Denies Home medication: Divalproex 250 mg p.o. b.i.d., Dilantin 100 mg p.o. q.8 hours Patient seen and examined at bedside. Currently in ICU status, on sedoanalgesia due to mechanical assisted ventilation, on IV vasopressors and empiric IV antibiotic. Completed Gastrografin study which showed probable small bowel obstruction versus ileus, patient NPO due to high risk aspiration. Also completed repeat gallbladder ultrasound which showed probable cholecystitis with cholelithiasis, which is improving with medical management. Surgery evaluated the patient, and completed small intestinal resection, sent mass for pathology lab. Objective vital signs Vital Sign Date Time Temp Pulse Resp B/P (MAP) Pulse Ox O2 Delivery O2 Flow Rate FiO2 08/28/24 18:45 97.3 99 26 119/69 (86) 100 207.1 129/53 (78) 08/28/24 18:00 60 08/28/24 18:00 Mechanical Ventilator+ Total Intake and Output 08/27/24 08/27/24 08/28/24 15:00 23:00 07:00 Intake Total 831.476 ml 933.6075 ml 998.684 ml Output Total 1025 ml 1400 ml Balance 831.476 ml -91.3925 ml -401.316 ml medications Current Medications Medications Dose Ordered Sig/Shar Route Start Time Stop Time Status Last Admin Dose Admin Docusate Sodium 100 mg BIDPRN PRN PO 08/20/24 20:15 Ipratropium [place] 0.5 mg Q4HPRN PRN NEB 08/20/24 20:15 08/28/24 18:14 0.5 MG Piperacillin Sod/ Tazobactam Sod 100 ml @ 25 mls/hr Q8H IV 08/21/24 18:00 08/28/24 17:43 25 MLS/HR Doxycycline Hyclate 100 ml @ 50 mls/hr Q12H IV 08/21/24 18:30 UNV Midazolam HCl 50 ml @ 1 mls/hr Q24H IV 08/21/24 18:45 08/28/24 16:34 14 MLS/HR Fentanyl Citrate 250 ml @ 2.5 mls/hr Q24H IV 08/21/24 18:45 08/28/24 16:34 22.5 MLS/HR Norepinephrine Bitartrate 32 mg/ Sodium Chloride 250 ml @ 0.938 mls/ hr Q24H IV 08/22/24 09:15 08/28/24 14:28 4.688 MLS/HR Vancomycin HCl 0 ml @ 0 mls/hr UD IV 08/22/24 15:15 Valproate Sodium 250 mg/Sodium Chloride 52.5 ml @ 52.5 mls/hr BID IV 08/22/24 22:00 08/28/24 08:34 52.5 MLS/HR Pantoprazole Sodium 40 mg TID IV 08/23/24 14:00 08/28/24 14:20 40 MG Phenytoin Sodium 100 mg Q12HR IV 08/24/24 10:00 08/28/24 08:33 100 MG Diagnostic Test (Pha) 1 strip Q6HR 08/24/24 00:00 08/28/24 18:00 1 STRIP Insulin Human Regular FOLLOW SLIDING SCALE Q6HR SC 08/24/24 00:00 08/27/24 18:50 2 UNITS Dextrose 50 ml UD IV 08/23/24 22:00 Metoclopramide HCl 5 mg Q8HR IV 08/24/24 14:00 08/28/24 14:21 5 MG Amino Acids 0 ml @ 0 mls/hr PER PHARMACY IV 08/24/24 12:15 Levalbuterol HCl 0.625 mg Q6HR NEB 08/25/24 12:00 08/28/24 18:14 0.625 MG Acetaminophen 650 mg Q6HP PRN VT 08/26/24 16:30 Propofol 100 ml @ 1.467 mls/ hr Q24H IV 08/26/24 20:30 08/28/24 07:59 7.335 MLS/HR Magnesium Sulfate 12 meq/ Multivitamins 10 ml/Chromium/ Copper/Manganese/ Zinc 1 ml/Amino Acids/Dextrose 1,014 ml @ 42 mls/hr Q24H9M IV 08/27/24 22:00 08/28/24 21:59 08/27/24 21:07 42 MLS/HR Magnesium Sulfate 12 meq/ Multivitamins 10 ml/Chromium/ Copper/Manganese/ Zinc 1 ml/Amino Acids/Dextrose 1,014 ml @ 42 mls/hr Q24H9M IV 08/28/24 22:00 08/29/24 21:59 Examination Patient lying in bed, under sedoanalgesia due to mechanical ventilation General: RASS -4, afebrile, mucosae are moist Cardiovascular: Normal S1 and S2. No murmurs, gallops or rubs Respiratory: Mechanically assisted ventilation, equal bilateral airway entree. Bilateral diffuse rhonchus Abdomen: Mildly distended, surgical site of laparotomy with scarce serous secretion, JAKE with serosanguineous debit, nontender, no organomegaly, reduced bowel sounds. Has OG in low intermittent suction, with copious secretion MSK/skin: Mobilization of limbs cannot be evaluated. Skin is dry and warm Neurological: Orientation cannot be assessed. No apparent motor no sensitive deficits. Pupils are isocoric and reactive laboratory and microbiology Laboratory Tests 08/28/24 03:42 Test 08/28/24 03:42 Range/Units Serum Glucose 137 H 74-106 mg/dL Microbiology Date/Time Source Procedure Growth Status 08/27/24 16:05 Lung Pending Resulted 08/27/24 16:05 Lung Pending Resulted 08/27/24 16:05 Lung Pending Resulted 08/27/24 16:05 Lung Pending Resulted 08/27/24 16:05 Lung - Final See Separate Report... Resulted 08/27/24 16:05 Sputum Gram Stain Pending Resulted 08/27/24 16:05 Sputum Respiratory Culture - Preliminary Resulted 08/22/24 09:00 Urine - Josue [place] Urine Culture - Final Complete 08/20/24 15:21 Blood Blood Culture - Final NO GROWTH AFTER 5 DAYS OF INCUBATION. Complete Problem List/Assessment/Plan Problem List/Assessment/Plan Neurology # Acute metabolic encephalopathy secondary to septic shock likely due to aspiration PNA # Questionable history of childhood meningitis # Developmental delay # Seizures Patient currently intubated Resumed Divalproex and Dilantin. Pharmacy adjusted dose due to hypoalbuminemia Cardiovascular # Ruled out congestive heart failure Negative BNP and Troponin. Chest xray shows pulmonary edema. Echocardiogram: Normal chambers, LVEF 60%, normal RV function and mild TR. Respiratory # Acute respiratory failure due to aspiration pneumonia # Aspiration pneumonia # Bilateral mucous plug Ordered pancultures (blood, urine, sputum), pending Currently under empiric antibiotics (Zosyn and Doxycycline) On mechanical assisted ventilation (VCV Vt 450, RR 26, PEEP 8, FIO2 60%) On bronchodilators, oxygen therapy Due to continues aspiration pneumonia, with increase oxygen requirement, completed bronchoscopy on 08/27/2024 with abundant mucus plugs on L6-L5, R1-R2 and R6-R10, samples were sent to culture and pathology Gastrointestinal # Probable upper GI bleed # Intestinal obstruction versus ileus # Cholecystitis # 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 Currently on bolus pantoprazole tid. Will evaluate need for PEG. Ordered small bowel series which showed probable small-bowel obstruction versus ileus. Consulted Surgery: Re-evaluate once patient is more stable from aspiration pneumonia Patient currently on low intermittent suction, with copious secretion. Genitourinary/Neprhology # KARISHMA hemodynamically mediated (VMN) # Ruled out UTI UA within normal limits Infectious Disease # Septic shock secondary to aspiration pneumonia Ordered pancultures (blood, urine, sputum), pending Currently under empiric antibiotics (Zosyn and Vancomycin) Endocrine # Simple hyperglycemia with no Diabetes # Severe malnutrition Probably secondary to steroids and septic shock On mild ISS BMI less than 19 and hypoalbuminemia Hematology # Rule out GI bleed # Acute blood loss #bIron deficiency anemia Monitor H&H At admission was on Octeotride and Pantoprazole drip. Discontinue octeotride drip on 08/22/2024 Ordered anemia work up Nutrition: NPO due to GI bleed, Ileus vs small intestinal obstruction. On Clinimix posterior TPN Prophylaxis: PUD (pantoprazole bolus tid) and DVT (SCDs) Lines: 08/21/2024 ET tube 08/21/2024 Josue 08/21/2024 Right IJ CVC 08/21/2024 OG 28/08/2024 JAKE drain 28/08/2024 Left A-line Drips: Fentanyl 225 Versed 14 Norepinephrine 10 TPN 42 Goals of care discussed with family (sister, she is the caregiver) for over 18 minutes: Full code status. She will discuss with family to reevaluate code status. Discussed plan with Dr. Kuhn, family and nurses: Currently ICU status, s/p bronchoscopy and intestinal resection, on mechanical assisted ventilation with increasing oxygen requirement, under sedation-analgesia, on empiric IV antibiotic, IV fluids, IV vasopressors, bronchodilators. Patient has poor prognosis. Critical care time spent including discussion with nursing and family excluding procedures: 66 minutes Plan discussed with: Other (Sister (Delmis) and nurses) My Orders My Orders Orders - BLANCA IRVIN RESIDENT Procedure Category Date Status Time Respiratory Misc. RT 08/28/24 Transmitted Order 08:35 Comprehensive LAB 08/29/24 Verified Metabolic Panel 05:00 Phosphorus LAB 08/29/24 Verified 05:00 Magnesium LAB 08/29/24 Verified 05:00 Tpn Per Pharmacy [facility] 08/28/24 In Process 22:00 Amino Acid PHA 08/28/24 In Process Infusion... 22:00 Vancomycin,Random LAB 08/29/24 Verified 05:00 Dietary Evaluation Review Comments: 1. no PO or EN tube feeding until GI bleed resolved. Cancel Cardic Diet 2. Initiate TPN if pt is NPO>7 days. Expected Outcomes/Goals: reassess needs when pt is off vent. Date of Service: August 28, 2024 Billing Provider: ZACHERY KUHN MD Common Visit Codes: 92432-[id number] CARE 30-74 MIN BLANCA IRVIN RESIDENT August 28, 2024 19:47 ZACHERY KUHN MD August 29, 2024 13:50
[2024-08-28] MEDS: TPN PER PHARMACY IV NR (22:00)
[2024-08-29] VITALS (110 sets, daily range): BP systolic 88–149; BP diastolic 36–74; PULSE 83–115; RESP 22–38; TEMP 96.6–99; O2SAT 91–100
[2024-08-29 03:41] LABS: Hematocrit 25.6 % (41.0-53.0); Hemoglobin 8.4 g/dL (13.5-17.5); Mean Corpuscular Hemoglobin 30.7 pg (28.0-32.0); White Blood Cell 19.2 10^3/uL (4.4-10.8)
[2024-08-29 03:43] LABS: Mean Corpuscular Hgb Conc. 32.9 g/dL (32.0-36.0); Mean Corpuscular Volume 93.4 fL (80.0-100.0); Platelet Count (auto) 338 10^3/uL (140-450); Red Blood Cells 2.74 10^6/uL (4.5-5.90)
[2024-08-29 04:06] LABS: Alanine Aminotransferase 11 U/L (7-40); Alkaline Phosphatase 104 U/L (46-116); Anion Gap 9 (5-15); Aspartate Aminotransferase 32 U/L (13-40); BUN/Creatinine Ratio 24.1 (10.0-20.0); Bilirubin, Total 0.5 mg/dL (0.2-1.0); Blood Urea Nitrogen 20 mg/dL (9-23); Carbon Dioxide 25 mmol/L (20-31); Magnesium 1.8 mg/dL (1.6-2.6); Phosphorus 2.6 mg/dL (2.4-5.1); Potassium 4.7 mmol/L (3.5-5.1)
[2024-08-29 04:08] LABS: Blast Cells 0; Eosinophils % (manual) 0 (0-7); Metamyelocytes % 0; Myelocytes % 0; Reactive Lymphocytes 0
[2024-08-29 04:43] LABS: Albumin 2.6 g/dL (3.2-4.8); Calcium 8.1 mg/dL (8.7-10.4); Chloride 116 mmol/L (98-107); Glucose 270 mg/dL (74-106); Sodium 150 mmol/L (136-145); Total Protein 5.5 g/dL (5.7-8.2)
[2024-08-29 05:52] LABS: Band Neutrophils % (manual) 4; Basophils % (manual) 1 (0.0-2.0); Lymphocytes % (manual) 4 (10.0-50.0); Monocytes % (manual) 3 (0-12); Promyelocytes % 1
[2024-08-29 05:53] LABS: Platelet Estimate Adequate
--- NOTE | 2024-08-29 05:57 | DVH ---
EXAM: XR Chest, 1 View CLINICAL INDICATION: Intubation TECHNIQUE: Frontal view of the chest. COMPARISON: XY CHEST XRAY 1 VIEW on DOS: 08/28/24, XY CHEST XRAY 1 VIEW on DOS: 08/27/24, XY CHEST XR AY 1 VIEW on DOS: 08/27/24, XY CHEST XRAY 1 VIEW on DOS: 08/26/24, XY CHEST PORTABLE on DOS: 08/25/24 FINDINGS: LUNGS AND PLEURAL SPACES: Pulmonary congestion and edema. Pneumonia cannot be excluded. No pneumot horax. HEART: Unremarkable. No cardiomegaly. MEDIASTINUM: Unremarkable. Normal mediastinal contour. BONES/JOINTS: Unremarkable. No acute fracture. TUBES, LINES AND DEVICES: The endotracheal tube (ETT) is in satisfactory position. Enteric tube ti p cannot be seen but is below the diaphragm. Right internal jugular central venous catheter tip in t he superior vena cava. OTHER FINDINGS: . . . IMPRESSION: Pulmonary congestion and edema. Pneumonia cannot be excluded.
[2024-08-29 07:25] LABS: Base Excess -6.1 mmol/L (-2.0-3.0)
[2024-08-29] MEDS: D5W 5% 1,000 ML IV SCH ×2 (07:31→14:00)
--- NOTE | 2024-08-29 09:53 | DVHPN2 ---
Progress Note - Dictate Date Seen: August 29, 2024 Medical Necessity Reason Pt with a Central, PICC or Fol: Yes The following are medically ne: Central Line, Josue Catheter Reason for josue catheter: Strict I&O Subjective E: no major events o/n. vital signs Vital Sign Date Time Temp Pulse Resp B/P (MAP) Pulse Ox O2 Delivery O2 Flow Rate FiO2 08/29/24 09:42 100 30 115/48 (70) 95 65 08/29/24 09:15 98.4 209.1 08/29/24 08:00 Mechanical Ventilator+ Total Intake and Output 08/28/24 08/28/24 08/29/24 15:00 23:00 07:00 Intake Total 786.161 ml 689.313 ml 784.184 ml Output Total 1725 ml 1900 ml Balance 786.161 ml -1035.687 ml -1115.816 ml medications Current Medications Medications Dose Ordered Sig/Shar Route Start Time Stop Time Status Last Admin Dose Admin Ipratropium [place] 0.5 mg Q4HPRN PRN NEB 08/20/24 20:15 08/29/24 09:40 0.5 MG Piperacillin Sod/ Tazobactam Sod 100 ml @ 25 mls/hr Q8H IV 08/21/24 18:00 08/29/24 09:48 25 MLS/HR Doxycycline Hyclate 100 ml @ 50 mls/hr Q12H IV 08/21/24 18:30 UNV Midazolam HCl 50 ml @ 1 mls/hr Q24H IV 08/21/24 18:45 08/29/24 07:22 14 MLS/HR Fentanyl Citrate 250 ml @ 2.5 mls/hr Q24H IV 08/21/24 18:45 08/29/24 03:18 22.5 MLS/HR Norepinephrine Bitartrate 32 mg/ Sodium Chloride 250 ml @ 0.938 mls/ hr Q24H IV 08/22/24 09:15 08/28/24 14:28 4.688 MLS/HR Vancomycin HCl 0 ml @ 0 mls/hr UD IV 08/22/24 15:15 Valproate Sodium 250 mg/Sodium Chloride 52.5 ml @ 52.5 mls/hr BID IV 08/22/24 22:00 08/29/24 09:49 52.5 MLS/HR Pantoprazole Sodium 40 mg TID IV 08/23/24 14:00 08/29/24 05:32 40 MG Phenytoin Sodium 100 mg Q12HR IV 08/24/24 10:00 08/29/24 09:49 100 MG Diagnostic Test (Pha) 1 strip Q6HR 08/24/24 00:00 08/29/24 05:32 1 STRIP Insulin Human Regular FOLLOW SLIDING SCALE Q6HR SC 08/24/24 00:00 08/29/24 05:37 8 UNITS Dextrose 50 ml UD IV 08/23/24 22:00 Metoclopramide HCl 5 mg Q8HR IV 08/24/24 14:00 08/29/24 05:32 5 MG Amino Acids 0 ml @ 0 mls/hr PER PHARMACY IV 08/24/24 12:15 Levalbuterol HCl 0.625 mg Q6HR NEB 08/25/24 12:00 08/29/24 09:40 0.625 MG Acetaminophen 650 mg Q6HP PRN AR 08/26/24 16:30 Propofol 100 ml @ 1.467 mls/ hr Q24H IV 08/26/24 20:30 08/28/24 07:59 7.335 MLS/HR Magnesium Sulfate 12 meq/ Multivitamins 10 ml/Chromium/ Copper/Manganese/ Zinc 1 ml/Amino Acids/Dextrose 1,014 ml @ 42 mls/hr Q24H9M IV 08/28/24 22:00 08/29/24 21:59 08/28/24 22:00 42 MLS/HR Dextrose 1,000 ml @ 100 mls/hr Q10H IV 08/29/24 07:00 08/29/24 07:31 100 MLS/HR objective GEN: sedated. Intubated ABD: surgical dressings clean and dry. laboratory and microbiology Laboratory Tests 08/29/24 03:24 Test 08/29/24 03:24 Range/Units Serum Glucose 270 #H 74-106 mg/dL Assessment/Plan A: 1. s/p laparoscopic small bowel resection POD #1 2. aspiration PNA 3. seizure DO P: 1. cont curr tx. Dietary Evaluation Review Comments: 1. no PO or EN tube feeding until GI bleed resolved. Cancel Cardic Diet 2. Initiate TPN if pt is NPO>7 days. Expected Outcomes/Goals: reassess needs when pt is off vent. Plan discussed with: JOANNE Tena MD August 29, 2024 09:53
[2024-08-29] MEDS: VANCOMYCIN 1GM/200ML PM 200 ML IV ONE (11:00)
--- NOTE | 2024-08-29 16:36 | DVHPN2 ---
Progress Note - Dictate Date Seen: August 29, 2024 Medical Necessity Reason Pt with a Central, PICC or Fol: Yes The following are medically ne: Central Line, Josue Catheter Reason for josue catheter: Strict I&O Subjective Postop day 1. 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 Patient is intubated sedated NG tube output put appears to be mostly dark bilious H&H is at 8.4 Liver enzymes are normal No bowel movement recorded vital signs Vital Sign Date Time Temp Pulse Resp B/P (MAP) Pulse Ox O2 Delivery O2 Flow Rate FiO2 08/29/24 16:21 88 26 100/58 (72) 96 55 08/29/24 16:15 97.7 207.9 08/29/24 16:00 Mechanical Ventilator+ Total Intake and Output 08/28/24 08/28/24 08/29/24 15:00 23:00 07:00 Intake Total 786.161 ml 689.313 ml 784.184 ml Output Total 1725 ml 1900 ml Balance 786.161 ml -1035.687 ml -1115.816 ml medications Current Medications Medications Dose Ordered Sig/Shar Route Start Time Stop Time Status Last Admin Dose Admin Ipratropium [place] 0.5 mg Q4HPRN PRN NEB 08/20/24 20:15 08/29/24 11:41 0.5 MG Piperacillin Sod/ Tazobactam Sod 100 ml @ 25 mls/hr Q8H IV 08/21/24 18:00 08/29/24 09:48 25 MLS/HR Doxycycline Hyclate 100 ml @ 50 mls/hr Q12H IV 08/21/24 18:30 UNV Midazolam HCl 50 ml @ 1 mls/hr Q24H IV 08/21/24 18:45 08/29/24 15:29 13 MLS/HR Fentanyl Citrate 250 ml @ 2.5 mls/hr Q24H IV 08/21/24 18:45 08/29/24 13:50 22.5 MLS/HR Norepinephrine Bitartrate 32 mg/ Sodium Chloride 250 ml @ 0.938 mls/ hr Q24H IV 08/22/24 09:15 08/28/24 14:28 4.688 MLS/HR Vancomycin HCl 0 ml @ 0 mls/hr UD IV 08/22/24 15:15 Valproate Sodium 250 mg/Sodium Chloride 52.5 ml @ 52.5 mls/hr BID IV 08/22/24 22:00 08/29/24 09:49 52.5 MLS/HR Pantoprazole Sodium 40 mg TID IV 08/23/24 14:00 08/29/24 13:45 40 MG Phenytoin Sodium 100 mg Q12HR IV 08/24/24 10:00 08/29/24 09:49 100 MG Diagnostic Test (Pha) 1 strip Q6HR 08/24/24 00:00 08/29/24 12:14 1 STRIP Insulin Human Regular FOLLOW SLIDING SCALE Q6HR SC 08/24/24 00:00 08/29/24 05:37 8 UNITS Dextrose 50 ml UD IV 08/23/24 22:00 Amino Acids 0 ml @ 0 mls/hr PER PHARMACY IV 08/24/24 12:15 Levalbuterol HCl 0.625 mg Q6HR NEB 08/25/24 12:00 08/29/24 11:41 0.625 MG Acetaminophen 650 mg Q6HP PRN NM 08/26/24 16:30 Propofol 100 ml @ 1.467 mls/ hr Q24H IV 08/26/24 20:30 08/29/24 11:00 7.335 MLS/HR Magnesium Sulfate 12 meq/ Multivitamins 10 ml/Chromium/ Copper/Manganese/ Zinc 1 ml/Amino Acids/Dextrose 1,014 ml @ 42 mls/hr Q24H9M IV 08/28/24 22:00 08/29/24 21:59 08/28/24 22:00 42 MLS/HR Sodium Phosphate 20 meq/Calcium Gluconate 2.3 meq/ Magnesium Sulfate 16 meq/ Multivitamins 10 ml/Chromium/ Copper/Manganese/ Zinc 1 ml/Insulin Human Regular 5 units/Amino Acids/ Dextrose 1,024.9962 ml @ 42 mls/hr [id number] IV 08/29/24 22:00 08/30/24 21:59 Dextrose 1,000 ml @ 75 mls/hr [id number] IV 08/29/24 14:00 08/29/24 14:00 75 MLS/HR objective Patient Is intubated sedated thin male somewhat cachectic Cardiovascular: Normal S1 and S2. No murmurs, gallops or rubs Respiratory: Mechanically assisted ventilation, equal bilateral airway entree. Bilateral diffuse rhonchus Abdomen: Soft, nontender, no organomegaly, normal bowel sounds MSK/skin: Mobilization of limbs cannot be evaluated. Skin is dry and warm Neurological: Orientation cannot be assessed. No apparent motor no sensitive deficits. Pupils are isocoric and reactive laboratory and microbiology Laboratory Tests 08/29/24 03:24 Test 08/29/24 03:24 Range/Units Serum Glucose 270 #H 74-106 mg/dL Problems(with codes): (1) Foreign body in jejunum (2) Small bowel obstruction (3) Abnormal finding on GI tract imaging (4) Coffee ground emesis (5) Sepsis, unspecified organism (6) Generalized weakness Prognosis Plan Continue supportive care NG tube to LIS IV Protonix 40 mg q.12 hours Continue IV TPN or Clinimix Awaiting final pathology, suspected foreign body in the jejunum that has been resected Dietary Evaluation Review Comments: 1. no PO or EN tube feeding until GI bleed resolved. Cancel Cardic Diet 2. Initiate TPN if pt is NPO>7 days. Expected Outcomes/Goals: reassess needs when pt is off vent. Plan discussed with: Other (Dr Carrillo) MADAN JUAREZ MD August 29, 2024 16:36
[2024-08-29] MEDS: LIDOCAINE 1% (LOCAL ANESTH.) PF 5ml SDV ID ONE (18:00)
--- NOTE | 2024-08-29 20:18 | DVHPNRES ---
Progress Note Date Seen: August 29, 2024 Resident Creating Document: BLANCA IRVIN RESIDENT Medical Necessity Reason Pt with a Central, PICC or Fol: Yes The following are medically ne: Central Line, Josue Catheter Reason for josue catheter: Strict I&O Subjective Review of Systems Juanjose Ribeiro is a 53-year-old male patient who presents to ED via EMS with chief complaint of progressive dyspnea. Patient is currently intubated, could not obtain review of systems. Obtained information by family (sister) and EMR. Patient's symptoms got worse three days prior to his admission, associated with nausea, vomiting. Per sister patient stopped eating on Wednesday after coming back from a care facility, presented ground coffee emesis and has been having constipation (last bowel movement last ). Patient on scene and in ED presented hypotension, desaturation, tachypnea, with initial diagnosis of acute respiratory failure with septic shock secondary to probable aspiration pneumonia. Required IV fluids, empiric IV antibiotic and high-flow with regular response, deciding endotracheal intubation and placement of central line. While intubating, evidenced copious dark ground coffee secretion, deciding to initiate octreotide and IV pantoprazole. 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 2016 pneumonia Surgical history: Per sister had lung surgery because of collapse lung (questionable thoracentesis) Family history: Mother of congestive heart failure, also had diabetes Social history: Lives in [place] with sister who is her his caregiver. Denies current tobacco, alcohol and other drug abuse Allergies: Denies Home medication: Divalproex 250 mg p.o. b.i.d., Dilantin 100 mg p.o. q.8 hours Patient seen and examined at bedside. Currently in ICU status, on sedoanalgesia due to mechanical assisted ventilation, on IV vasopressors and empiric IV antibiotic. Completed Gastrografin study which showed probable small bowel obstruction versus ileus, patient NPO due to high risk aspiration. Also completed repeat gallbladder ultrasound which showed probable cholecystitis with cholelithiasis, which is improving with medical management. Surgery evaluated the patient, and completed small intestinal resection, sent mass for pathology lab which is compatible with foreign body. Objective vital signs Vital Sign Date Time Temp Pulse Resp B/P (MAP) Pulse Ox O2 Delivery O2 Flow Rate FiO2 5/20/25 20:06 94 26 121/50 (73) 97 55 08/29/24 19:15 98.4 209.1 08/29/24 18:05 Mechanical Ventilator+ Total Intake and Output 08/28/24 08/28/24 08/29/24 15:00 23:00 07:00 Intake Total 786.161 ml 689.313 ml 784.184 ml Output Total 1725 ml 1900 ml Balance 786.161 ml -1035.687 ml -1115.816 ml medications Current Medications Medications Dose Ordered Sig/Shar Route Start Time Stop Time Status Last Admin Dose Admin Ipratropium [place] 0.5 mg Q4HPRN PRN NEB 08/20/24 20:15 08/29/24 18:12 0.5 MG Piperacillin Sod/ Tazobactam Sod 100 ml @ 25 mls/hr Q8H IV 08/21/24 18:00 08/29/24 18:11 25 MLS/HR Doxycycline Hyclate 100 ml @ 50 mls/hr Q12H IV 08/21/24 18:30 UNV Midazolam HCl 50 ml @ 1 mls/hr Q24H IV 08/21/24 18:45 08/29/24 19:15 13 MLS/HR Fentanyl Citrate 250 ml @ 2.5 mls/hr Q24H IV 08/21/24 18:45 08/29/24 13:50 22.5 MLS/HR Norepinephrine Bitartrate 32 mg/ Sodium Chloride 250 ml @ 0.938 mls/ hr Q24H IV 08/22/24 09:15 08/28/24 14:28 4.688 MLS/HR Vancomycin HCl 0 ml @ 0 mls/hr UD IV 08/22/24 15:15 Valproate Sodium 250 mg/Sodium Chloride 52.5 ml @ 52.5 mls/hr BID IV 08/22/24 22:00 08/29/24 09:49 52.5 MLS/HR Pantoprazole Sodium 40 mg TID IV 08/23/24 14:00 08/29/24 13:45 40 MG Phenytoin Sodium 100 mg Q12HR IV 08/24/24 10:00 08/29/24 09:49 100 MG Diagnostic Test (Pha) 1 strip Q6HR 08/24/24 00:00 08/29/24 18:11 1 STRIP Insulin Human Regular FOLLOW SLIDING SCALE Q6HR SC 08/24/24 00:00 08/29/24 18:16 4 UNITS Dextrose 50 ml UD IV 08/23/24 22:00 Amino Acids 0 ml @ 0 mls/hr PER PHARMACY IV 08/24/24 12:15 Levalbuterol HCl 0.625 mg Q6HR NEB 08/25/24 12:00 08/29/24 18:12 0.625 MG Acetaminophen 650 mg Q6HP PRN [place] 08/26/24 16:30 Propofol 100 ml @ 1.467 mls/ hr Q24H IV 08/26/24 20:30 08/29/24 11:00 7.335 MLS/HR Magnesium Sulfate 12 meq/ Multivitamins 10 ml/Chromium/ Copper/Manganese/ Zinc 1 ml/Amino Acids/Dextrose 1,014 ml @ 42 mls/hr Q24H9M IV 08/28/24 22:00 08/29/24 21:59 08/28/24 22:00 42 MLS/HR Sodium Phosphate 20 meq/Calcium Gluconate 2.3 meq/ Magnesium Sulfate 16 meq/ Multivitamins 10 ml/Chromium/ Copper/Manganese/ Zinc 1 ml/Insulin Human Regular 5 units/Amino Acids/ Dextrose 1,024.9962 ml @ 42 mls/hr [id number] IV 08/29/24 22:00 08/30/24 21:59 Dextrose 1,000 ml @ 75 mls/hr [id number] IV 08/29/24 14:00 08/29/24 14:00 75 MLS/HR Sodium Chloride 10 ml QSHIFT@10,22 IV 08/29/24 22:00 Examination Patient lying in bed, under sedoanalgesia due to mechanical ventilation General: RASS -4, afebrile, mucosae are moist Cardiovascular: Normal S1 and S2. No murmurs, gallops or rubs Respiratory: Mechanically assisted ventilation, equal bilateral airway entree. Bilateral diffuse rhonchus Abdomen: Mildly distended, surgical site of laparotomy with scarce serous secretion, JAKE with serosanguineous debit, nontender, no organomegaly, reduced bowel sounds. Has OG in low intermittent suction, with copious secretion MSK/skin: Mobilization of limbs cannot be evaluated. Skin is dry and warm Neurological: Orientation cannot be assessed. No apparent motor no sensitive deficits. Pupils are isocoric and reactive laboratory and microbiology Laboratory Tests 08/29/24 03:24 Test 08/29/24 03:24 Range/Units Serum Glucose 270 #H 74-106 mg/dL Microbiology Date/Time Source Procedure Growth Status 08/27/24 16:05 Lung Pending Resulted 08/27/24 16:05 Lung Pending Resulted 08/27/24 16:05 Lung Pending Resulted 08/27/24 16:05 Lung Pending Resulted 08/27/24 16:05 Lung - Final See Separate Report... Resulted 08/27/24 16:05 Sputum Gram Stain Pending Resulted 08/27/24 16:05 Sputum Respiratory Culture - Preliminary Resulted 08/22/24 09:00 Urine - Josue Port Urine Culture - Final Complete 08/20/24 15:21 Blood Blood Culture - Final NO GROWTH AFTER 5 DAYS OF INCUBATION. Complete Problem List/Assessment/Plan Problem List/Assessment/Plan Neurology # Acute metabolic encephalopathy secondary to septic shock likely due to aspiration PNA # Questionable history of childhood meningitis # Developmental delay # Seizures Patient currently intubated Resumed Divalproex and Dilantin. Pharmacy adjusted dose due to hypoalbuminemia Cardiovascular # Ruled out congestive heart failure Negative BNP and Troponin. Chest xray shows pulmonary edema. Echocardiogram: Normal chambers, LVEF 60%, normal RV function and mild TR. Respiratory # Acute respiratory failure due to aspiration pneumonia # Aspiration pneumonia # Bilateral mucous plug Ordered pancultures (blood, urine, sputum), pending Currently under empiric antibiotics (Zosyn and Doxycycline) On mechanical assisted ventilation (VCV Vt 450, RR 26, PEEP 8, FIO2 60%) On bronchodilators, oxygen therapy Due to continues aspiration pneumonia, with increase oxygen requirement, completed bronchoscopy on 08/27/2024 with abundant mucus plugs on L6-L5, R1-R2 and R6-R10, samples were sent to culture and pathology Gastrointestinal # Probable upper GI bleed # Intestinal obstruction versus ileus - s/p op # Cholecystitis # 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 Currently on bolus pantoprazole tid. Will evaluate need for PEG. Ordered small bowel series which showed probable small-bowel obstruction versus ileus. Consulted Surgery: Re-evaluate once patient is more stable from aspiration pneumonia Patient currently on low intermittent suction, with copious secretion. Genitourinary/Neprhology # KARISHMA hemodynamically mediated (VMN) # Ruled out UTI UA within normal limits Infectious Disease # Septic shock secondary to aspiration pneumonia Ordered pancultures (blood, urine, sputum), pending Currently under empiric antibiotics (Zosyn and Vancomycin) Endocrine # Simple hyperglycemia with no Diabetes # Severe malnutrition Probably secondary to steroids and septic shock On mild ISS BMI less than 19 and hypoalbuminemia Hematology # Rule out GI bleed # Acute blood loss #bIron deficiency anemia Monitor H&H At admission was on Octeotride and Pantoprazole drip. Discontinue octeotride drip on 08/22/2024 Ordered anemia work up Nutrition: NPO due to GI bleed, Ileus vs small intestinal obstruction. On Clinimix posterior TPN Prophylaxis: PUD (pantoprazole bolus tid) and DVT (SCDs) Lines: 08/21/2024 ET tube 08/21/2024 Josue 08/21/2024 Right IJ CVC 08/21/2024 OG 28/08/2024 JAKE drain 28/08/2024 Left A-line Drips: Fentanyl 225 Versed 14 Norepinephrine 10 TPN 42 Goals of care discussed with family (sister, she is the caregiver) for over 18 minutes: Full code status. She will discuss with family to reevaluate code status. Discussed plan with Dr. Kuhn, family and nurses: Currently ICU status, s/p bronchoscopy and intestinal resection with diagnosis of foreign body, on mechanical assisted ventilation with increasing oxygen requirement, under sedation-analgesia, on empiric IV antibiotic, IV fluids, IV vasopressors, bronchodilators. Patient has poor prognosis. Critical care time spent including discussion with nursing and family excluding procedures: 84 minutes Plan discussed with: Other (Sister (Delmis) and nurses) My Orders My Orders Orders - BLANCA IRVIN RESIDENT Procedure Category Date Status Time Ventilator Orders RT 08/29/24 Transmitted 05:37 Amino Acid PHA 08/29/24 In Process Infusion... W/Sodium 22:00 Comprehensive LAB 08/30/24 Verified Metabolic Panel 06:00 Magnesium LAB 08/30/24 Verified 06:00 Phosphorus LAB 08/30/24 Verified 06:00 Triglycerides LAB 08/30/24 Verified 06:00 Tpn Per [facility] 08/29/24 In Process 22:00 * Picc Line Consult CONS 08/29/24 Transmitted 13:47 Change Dressing Prn [facility] 08/29/24 In Process 17:59 Sodium Chloride Lock PHA 08/29/24 In Process (Saline Lock Ns) 22:00 Do Not Use Picc For [facility] 08/29/24 In Process Blood Cult 17:59 May Draw Blood From [facility] 08/29/24 In Process Picc 17:59 Ok To Use Picc [facility] 08/29/24 In Process 17:59 Change Picc Dressing [facility] 08/29/24 In Process Q7 Days 17:59 Vancomycin,Random LAB 08/30/24 Verified 06:00 Vancomycin Per [facility] 08/29/24 In Process Pharmacy [facility] 18:48 Dietary Evaluation Review Comments: 1. no PO or EN tube feeding until GI bleed resolved. Cancel Cardic Diet 2. Initiate TPN if pt is NPO>7 days. Expected Outcomes/Goals: reassess needs when pt is off vent. Date of Service: August 29, 2024 Billing Provider: ZACHERY KUHN MD Common Visit Codes: [id number] CARE 30-74 MIN, [id number] CARE-EACH +30MIN BLANCA IRVIN August 29, 2024 20:18 ZACHERY KUHN MD August 30, 2024 14:37
[2024-08-29] MEDS: TPN PER PHARMACY IV NR (21:16)
[2024-08-29] MEDS: SODIUM CHLOR 0.9% PF (SALINE LOCK) 10ML VIAL/SYR IV SCH (21:18)
[2024-08-30] VITALS (111 sets, daily range): BP systolic 80–152; BP diastolic 39–61; PULSE 90–111; RESP 19–37; TEMP 96.8–99.9; O2SAT 88–99
[2024-08-30 03:44] LABS: Basophils # (auto) 0 10 ^3/uL (0-0.2); Basophils % (auto) 0.2 % (0.0-2.0); Eosinophils # (auto) 0.7 10 ^3/uL (0-0.8); Hematocrit 24.2 % (41.0-53.0); Hemoglobin 7.9 g/dL (13.5-17.5); Lymphocytes # (auto) 1.2 10 ^3/uL (0.4-5.4); Nucleated Red Blood Cells % 0.1 %
[2024-08-30 03:46] LABS: Eosinophils % (auto) 6.2 % (0.0-7.0); Lymphocytes % (auto) 10.9 % (10.0-50.0); Mean Corpuscular Hemoglobin 30.8 pg (28.0-32.0); Mean Corpuscular Hgb Conc. 32.8 g/dL (32.0-36.0); Mean Corpuscular Volume 93.8 fL (80.0-100.0); Monocytes # (auto) 0.8 10 ^3/uL (0-1.3); Monocytes % (auto) 7.2 % (0.0-12.0); Neutrophils # (auto) 8.4 10 ^3/uL (1.6-8.6); Neutrophils % (auto) 75.5 % (37.0-80.0); Platelet Count (auto) 305 10^3/uL (140-450); Red Blood Cells 2.58 10^6/uL (4.5-5.90); White Blood Cell 11.2 10^3/uL (4.4-10.8)
[2024-08-30 03:58] LABS: Alanine Aminotransferase 10 U/L (7-40); Alkaline Phosphatase 93 U/L (46-116); Anion Gap 5 (5-15); Aspartate Aminotransferase 30 U/L (13-40); BUN/Creatinine Ratio 23.5 (10.0-20.0); Bilirubin, Total 0.6 mg/dL (0.2-1.0); Blood Urea Nitrogen 19 mg/dL (9-23); Carbon Dioxide 27 mmol/L (20-31); Magnesium 1.8 mg/dL (1.6-2.6)
--- NOTE | 2024-08-30 03:58 | DVH ---
CHEST RADIOGRAPH Indication: Intubation Technique: Single frontal view of the chest was obtained Comparison: XY CHEST XRAY 1 VIEW on DOS: 08/29/24, XY CHEST XRAY 1 VIEW on DOS: 08/28/24, XY CHEST XRAY 1 VIEW on DOS: 08/27/24 IMPRESSION: Heart is normal in size. Support lines and tubes appear unchanged in satisfactory position. Bilatera l interstitial and alveolar airspace opacities most pronounced in the mid lungs appear similar .. No pneumothorax.
[2024-08-30 04:08] LABS: Albumin 2.5 g/dL (3.2-4.8); Calcium 7.8 mg/dL (8.7-10.4); Chloride 114 mmol/L (98-107); Glucose 151 mg/dL (74-106); Phosphorus 1.8 mg/dL (2.4-5.1); Potassium 3.5 mmol/L (3.5-5.1); Sodium 146 mmol/L (136-145); Total Protein 5.2 g/dL (5.7-8.2)
[2024-08-30 04:22] LABS: Triglycerides 81 mg/dL (< 150)
--- NOTE | 2024-08-30 05:45 | DVH ---
Exam: US US GUIDED VASCULAR ACCESS Date: 08/29/2024 05:10 PM Clinical History: picc line placement Comparison: None Findings: Targeted sonographic evaluation of the upper arm vein was obtained utilizing grayscale and color Dopp ler imaging. IMPRESSION: Sonographic assistance for picc line placement. Please refer to procedural report for detailed findin gs.
[2024-08-30 07:17] LABS: Base Excess -3.8 mmol/L (-2.0-3.0)
[2024-08-30] MEDS: MAGNESIUM SULFATE 1GM/100ML 100 ML IV ONE (09:36)
[2024-08-30] MEDS: POTASSIUM CHL 20MEQ/100ML 100 ML IV ONE (11:04)
[2024-08-30] MEDS: VANCOMYCIN 1GM/200ML PM 200 ML IV ONE (11:56)
--- NOTE | 2024-08-30 13:19 | DVH ---
INDICATION: ETT PLACEMENT RE CHECK S/P ADVANCEMENT TECHNIQUE: Single frontal view of the chest was obtained COMPARISON: XY CHEST XRAY 1 VIEW on DOS: 08/30/24, XY CHEST XRAY 1 VIEW on DOS: 08/29/24, XY CHEST XRAY 1 VIEW on DOS: 08/28/24, XY CHEST XRAY 1 VIEW on DOS: 08/27/24, XY CHEST XRAY 1 VIEW on DOS: 08/27/24, XY CHEST XRAY 1 VIEW on DOS: 08/30/24 FINDINGS: Heart is normal in size. Endotracheal tube tip is 3 cm from the balwinder. The remaining Support lines and tubes appear unchanged in satisfactory position. Bilateral interstitial and alveolar airspace op acities most pronounced in the mid lungs appear similar .. No pneumothorax. IMPRESSION: Endotracheal tube tip is now 3 cm from the balwinder.
[2024-08-30] MEDS: POTASSIUM PHOSPHATE 22 MEQ in SODIUM CHL 0.9% 100 ML IV ONE (13:33)
[2024-08-30] MEDS ORDERED: FUROSEMIDE 20 MG TAB PO ONE (14:45)
[2024-08-30] MEDS: FUROSEMIDE 20 MG/2 ML VIAL IV ONE (20:24)
--- NOTE | 2024-08-30 20:27 | DVHPNRES ---
Progress Note Date Seen: August 30, 2024 Resident Creating Document: BLANCA IRVIN RESIDENT Medical Necessity Reason Pt with a Central, PICC or Fol: Yes The following are medically ne: PICC Line, Josue Catheter Reason for josue catheter: Strict I&O Subjective Review of Systems Juanjose Ribeiro is a 53-year-old male patient who presents to ED via EMS with chief complaint of progressive dyspnea. Patient is currently intubated, could not obtain review of systems. Obtained information by family (sister) and EMR. Patient's symptoms got worse three days prior to his admission, associated with nausea, vomiting. Per sister patient stopped eating on Wednesday after coming back from a care facility, presented ground coffee emesis and has been having constipation (last bowel movement last ). Patient on scene and in ED presented hypotension, desaturation, tachypnea, with initial diagnosis of acute respiratory failure with septic shock secondary to probable aspiration pneumonia. Required IV fluids, empiric IV antibiotic and high-flow with regular response, deciding endotracheal intubation and placement of central line. While intubating, evidenced copious dark ground coffee secretion, deciding to initiate octreotide and IV pantoprazole. 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 2016 pneumonia Surgical history: Per sister had lung surgery because of collapse lung (questionable thoracentesis) Family history: Mother of congestive heart failure, also had diabetes Social history: Lives in [place] with sister who is her his caregiver. Denies current tobacco, alcohol and other drug abuse Allergies: Denies Home medication: Divalproex 250 mg p.o. b.i.d., Dilantin 100 mg p.o. q.8 hours Patient seen and examined at bedside. Currently in ICU status, on sedoanalgesia due to mechanical assisted ventilation, on IV vasopressors and empiric IV antibiotic. Completed Gastrografin study which showed probable small bowel obstruction versus ileus, patient NPO due to high risk aspiration. Also completed repeat gallbladder ultrasound which showed probable cholecystitis with cholelithiasis, which is improving with medical management. Surgery evaluated the patient, and completed small intestinal resection, sent mass for pathology lab which is compatible with foreign body. Plannaning on respiratory weaning, but still presents high requirement of vent support, have spoken with sister (Delmis) about probability of requiring a tracheostomy. Objective vital signs Vital Sign Date Time Temp Pulse Resp B/P (MAP) Pulse Ox O2 Delivery O2 Flow Rate FiO2 08/30/24 19:15 98.4 104 35 110/60 (77) 88 209.1 120/51 (74) 08/30/24 18:10 45 08/30/24 08:00 Mechanical Ventilator+ Total Intake and Output 08/29/24 08/29/24 08/30/24 15:00 23:00 07:00 Intake Total 1604.295 ml 1348.306 ml 1405.666 ml Output Total 1460 ml 1250 ml Balance 1604.295 ml -111.694 ml 155.666 ml medications Current Medications Medications Dose Ordered Sig/Shar Route Start Time Stop Time Status Last Admin Dose Admin Ipratropium [place] 0.5 mg Q4HPRN PRN NEB 08/20/24 20:15 08/30/24 18:03 0.5 MG Piperacillin Sod/ Tazobactam Sod 100 ml @ 25 mls/hr Q8H IV 08/21/24 18:00 08/30/24 17:43 25 MLS/HR Doxycycline Hyclate 100 ml @ 50 mls/hr Q12H IV 08/21/24 18:30 UNV Midazolam HCl 50 ml @ 1 mls/hr Q24H IV 08/21/24 18:45 08/30/24 16:44 14 MLS/HR Fentanyl Citrate 250 ml @ 2.5 mls/hr Q24H IV 08/21/24 18:45 08/30/24 11:03 22.5 MLS/HR Norepinephrine Bitartrate 32 mg/ Sodium Chloride 250 ml @ 0.938 mls/ hr Q24H IV 08/22/24 09:15 08/30/24 03:00 3.75 MLS/HR Vancomycin HCl 0 ml @ 0 mls/hr UD IV 08/22/24 15:15 Valproate Sodium 250 mg/Sodium Chloride 52.5 ml @ 52.5 mls/hr BID IV 08/22/24 22:00 08/30/24 09:36 52.5 MLS/HR Pantoprazole Sodium 40 mg TID IV 08/23/24 14:00 08/30/24 15:53 40 MG Phenytoin Sodium 100 mg Q12HR IV 08/24/24 10:00 08/30/24 11:06 100 MG Diagnostic Test (Pha) 1 strip Q6HR 08/24/24 00:00 08/30/24 17:44 1 STRIP Insulin Human Regular FOLLOW SLIDING SCALE Q6HR SC 08/24/24 00:00 08/30/24 18:00 2 UNITS Dextrose 50 ml UD IV 08/23/24 22:00 Amino Acids 0 ml @ 0 mls/hr PER PHARMACY IV 08/24/24 12:15 Levalbuterol HCl 0.625 mg Q6HR NEB 08/25/24 12:00 08/30/24 18:03 0.625 MG Acetaminophen 650 mg Q6HP PRN [place] 08/26/24 16:30 Propofol 100 ml @ 1.467 mls/ hr Q24H IV 08/26/24 20:30 08/30/24 19:00 8.802 MLS/HR Sodium Phosphate 20 meq/Calcium Gluconate 2.3 meq/ Magnesium Sulfate 16 meq/ Multivitamins 10 ml/Chromium/ Copper/Manganese/ Zinc 1 ml/Insulin Human Regular 5 units/Amino Acids/ Dextrose 1,024.9962 ml @ 42 mls/hr [id number] IV 08/29/24 22:00 08/30/24 21:59 08/29/24 21:16 42 MLS/HR Dextrose 1,000 ml @ 75 mls/hr [id number] IV 08/29/24 14:00 08/30/24 03:56 75 MLS/HR Sodium Chloride 10 ml QSHIFT@10,22 IV 08/29/24 22:00 08/30/24 09:37 10 ML Sodium Phosphate 20 meq/Potassium Phosphate 22 meq/ Calcium Gluconate 3.5 meq/Magnesium Sulfate 20 meq/ Multivitamins 10 ml/Chromium/ Copper/Manganese/ Zinc 1 ml/Insulin Human Regular 5 units/Amino Acids/ Dextrose 1,183.5768 ml @ 49 mls/hr [id number] IV 08/30/24 22:00 08/31/24 21:59 Vancomycin HCl 200 ml @ 200 mls/hr Q16H IV 08/31/24 04:00 Examination Patient lying in bed, under sedoanalgesia due to mechanical ventilation General: RASS -3, afebrile, mucosae are moist Cardiovascular: Normal S1 and S2. No murmurs, gallops or rubs Respiratory: Mechanically assisted ventilation, equal bilateral airway entree. Bilateral diffuse rhonchus Abdomen: Mildly distended, surgical site of laparotomy with scarce serous secretion, JAKE with serosanguineous debit, nontender, no organomegaly, reduced bowel sounds. Has OG in low intermittent suction, with mild secretion MSK/skin: Mobilization of limbs cannot be evaluated. Skin is dry and warm Neurological: Orientation cannot be assessed. No apparent motor no sensitive deficits. Pupils are isocoric and reactive laboratory and microbiology Laboratory Tests 08/30/24 03:17 Test 08/30/24 03:17 Range/Units Serum Glucose 151 #H 74-106 mg/dL Microbiology Date/Time Source Procedure Growth Status 08/27/24 16:05 Lung Pending Resulted 08/27/24 16:05 Lung Pending Resulted 08/27/24 16:05 Lung Pending Resulted 08/27/24 16:05 Lung Pending Resulted 08/27/24 16:05 Lung - Final See Separate Report... Resulted 08/27/24 16:05 Sputum Gram Stain - Final Complete 08/27/24 16:05 Sputum Respiratory Culture - Final Complete 08/22/24 09:00 Urine - Josue Port Urine Culture - Final Complete 08/20/24 15:21 Blood Blood Culture - Final NO GROWTH AFTER 5 DAYS OF INCUBATION. Complete Problem List/Assessment/Plan Problem List/Assessment/Plan Neurology # Acute metabolic encephalopathy secondary to septic shock likely due to aspiration PNA # Questionable history of childhood meningitis # Developmental delay # Seizures Patient currently intubated Resumed Divalproex and Dilantin. Pharmacy adjusted dose due to hypoalbuminemia Cardiovascular # Ruled out congestive heart failure Negative BNP and Troponin. Chest xray shows pulmonary edema. Echocardiogram: Normal chambers, LVEF 60%, normal RV function and mild TR. Respiratory # Acute respiratory failure due to aspiration pneumonia # Aspiration pneumonia # Bilateral mucous plug Ordered pancultures (blood, urine, sputum), pending Currently under empiric antibiotics (Zosyn and Vamcomycin) On mechanical assisted ventilation (VCV Vt 450, RR 26, PEEP 8, FIO2 45%) On bronchodilators, oxygen therapy Due to continues aspiration pneumonia, with increase oxygen requirement, completed bronchoscopy on 08/27/2024 with abundant mucus plugs on L6-L5, R1-R2 and R6-R10, samples were sent to culture and pathology Gastrointestinal # Probable upper GI bleed # Intestinal obstruction versus ileus - s/p op # Cholecystitis # 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 Currently on bolus pantoprazole tid. Will evaluate need for PEG. Ordered small bowel series which showed probable small-bowel obstruction versus ileus. Consulted Surgery: Re-evaluate once patient is more stable from aspiration pneumonia Patient currently on low intermittent suction, with copious secretion. Genitourinary/Neprhology # KARISHMA hemodynamically mediated (VMN) # Ruled out UTI UA within normal limits Infectious Disease # Septic shock secondary to aspiration pneumonia Ordered pancultures (blood, urine, sputum), pending Currently under empiric antibiotics (Zosyn and Vancomycin) Endocrine # Simple hyperglycemia with no Diabetes # Severe malnutrition Probably secondary to steroids and septic shock On mild ISS BMI less than 19 and hypoalbuminemia Hematology # Rule out GI bleed # Acute blood loss #bIron deficiency anemia Monitor H&H At admission was on Octeotride and Pantoprazole drip. Discontinue octeotride drip on 08/22/2024 Ordered anemia work up Nutrition: NPO due to GI bleed, Ileus vs small intestinal obstruction. On Clinimix posterior TPN Prophylaxis: PUD (pantoprazole bolus tid) and DVT (SCDs) Lines: 08/21/2024 ET tube 08/21/2024 Josue 08/30/2024 PICC Left upper arm 08/21/2024 OG 28/08/2024 JAKE drain 28/08/2024 Left A-line Drips: Fentanyl 225 Versed 14 Propofol 35 Norepinephrine 0 TPN 42 Goals of care discussed with family (sister, she is the caregiver) for over 18 minutes: Full code status. She will discuss with family to reevaluate code status. Discussed plan with Dr. Kuhn, family and nurses: Currently ICU status, s/p bronchoscopy and intestinal resection with diagnosis of foreign body, on mechanical assisted ventilation with increased oxygen requirement, under sedation-analgesia, on empiric IV antibiotic, IV fluids, bronchodilators. Currently with no vasopressors. Have discussed with family the probability of requiring tracheostomy. Patient has poor prognosis. Critical care time spent including discussion with nursing and family excluding procedures: 62 minutes Plan discussed with: Spouse (Delmis (sister)), Other (Nurses) My Orders My Orders Orders - BLANCA IRVIN RESIDENT Procedure Category Date Status Time Abg W/ Co-Ox RT 08/30/24 Logged 06:00 Respiratory Misc. RT 08/30/24 Transmitted Order 08:21 Respiratory Misc. RT 08/30/24 Transmitted Order 10:48 Amino Acid PHA 08/30/24 In Process Infusion... W/Sodium 22:00 Comprehensive LAB 08/31/24 Verified Metabolic Panel 06:00 Magnesium LAB 08/31/24 Verified 06:00 Phosphorus LAB 08/31/24 Verified 06:00 Tpn Per Pharm[facility] 08/30/24 In Process 22:00 Chest Portable XY 08/30/24 Resulted 10:53 Vancomycin 1gm/200ml PHA 08/31/24 In Process Pm 04:00 Vancomycin,Trough LAB 09/01/24 Verified 11:00 Vancomycin Per [facility] 09/01/24 In Process [facility]acy [facility] 12:00 Dietary Evaluation Review Comments: 1. no PO or EN tube feeding until GI bleed resolved. Cancel Cardic Diet 2. Initiate TPN if pt is NPO>7 days. Expected Outcomes/Goals: reassess needs when pt is off vent. Date of Service: August 30, 2024 Billing Provider: ZACHERY KUHN MD Common Visit Codes: [id number] CARE 30-74 MIN BLANCA IRVIN August 30, 2024 20:27 ZACHERY KUHN MD August 31, 2024 11:56
[2024-08-30] MEDS: TPN PER PHARMACY IV NR (21:40)
--- NOTE | 2024-08-30 23:31 | DVHPN2 ---
Progress Note - Dictate Date Seen: August 30, 2024 Medical Necessity Reason Pt with a Central, PICC or Fol: Yes The following are medically ne: PICC Line, Josue Catheter Reason for josue catheter: Strict I&O Subjective Postop day 3. 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 Patient is intubated sedated;Peep of 8 and FiO2 40% NG tube output put appears to be mostly dark bilious minimal H&H is at 7.9 Liver enzymes are normal No bowel movement recorded Pt is on IV TPN vital signs Vital Sign Date Time Temp Pulse Resp B/P (MAP) Pulse Ox O2 Delivery O2 Flow Rate FiO2 08/30/24 23:27 109/53 08/30/24 23:20 102 30 92 40 08/30/24 20:00 Mechanical Ventilator+ 08/30/24 19:15 98.4 209.1 Total Intake and Output 08/29/24 08/29/24 08/30/24 15:00 23:00 07:00 Intake Total 1604.295 ml 1348.306 ml 1405.666 ml Output Total 1460 ml 1250 ml Balance 1604.295 ml -111.694 ml 155.666 ml medications Current Medications Medications Dose Ordered Sig/Shar Route Start Time Stop Time Status Last Admin Dose Admin Ipratropium [place] 0.5 mg Q4HPRN PRN NEB 08/20/24 20:15 08/30/24 18:03 0.5 MG Piperacillin Sod/ Tazobactam Sod 100 ml @ 25 mls/hr Q8H IV 08/21/24 18:00 08/30/24 17:43 25 MLS/HR Doxycycline Hyclate 100 ml @ 50 mls/hr Q12H IV 08/21/24 18:30 UNV Midazolam HCl 50 ml @ 1 mls/hr Q24H IV 08/21/24 18:45 08/30/24 23:27 14 MLS/HR Norepinephrine Bitartrate 32 mg/ Sodium Chloride 250 ml @ 0.938 mls/ hr Q24H IV 08/22/24 09:15 08/30/24 03:00 3.75 MLS/HR Vancomycin HCl 0 ml @ 0 mls/hr UD IV 08/22/24 15:15 Valproate Sodium 250 mg/Sodium Chloride 52.5 ml @ 52.5 mls/hr BID IV 08/22/24 22:00 08/30/24 21:30 52.5 MLS/HR Pantoprazole Sodium 40 mg TID IV 08/23/24 14:00 08/30/24 21:29 40 MG Phenytoin Sodium 100 mg Q12HR IV 08/24/24 10:00 08/30/24 21:29 100 MG Diagnostic Test (Pha) 1 strip Q6HR 08/24/24 00:00 08/30/24 17:44 1 STRIP Insulin Human Regular FOLLOW SLIDING SCALE Q6HR SC 08/24/24 00:00 08/30/24 18:00 2 UNITS Dextrose 50 ml UD IV 08/23/24 22:00 Amino Acids 0 ml @ 0 mls/hr PER PHARMACY IV 08/24/24 12:15 Levalbuterol HCl 0.625 mg Q6HR NEB 08/25/24 12:00 08/30/24 23:20 0.625 MG Acetaminophen 650 mg Q6HP PRN [place] 08/26/24 16:30 Propofol 100 ml @ 1.467 mls/ hr Q24H IV 08/26/24 20:30 08/30/24 19:00 8.802 MLS/HR Dextrose 1,000 ml @ 75 mls/hr [id number] IV 08/29/24 14:00 08/30/24 22:52 75 MLS/HR Sodium Chloride 10 ml QSHIFT@10,22 IV 08/29/24 22:00 08/30/24 21:30 10 ML Sodium Phosphate 20 meq/Potassium Phosphate 22 meq/ Calcium Gluconate 3.5 meq/Magnesium Sulfate 20 meq/ Multivitamins 10 ml/Chromium/ Copper/Manganese/ Zinc 1 ml/Insulin Human Regular 5 units/Amino Acids/ Dextrose 1,183.5768 ml @ 49 mls/hr [id number] IV 08/30/24 22:00 08/31/24 21:59 08/30/24 21:40 49 MLS/HR Vancomycin HCl 200 ml @ 200 mls/hr Q16H IV 08/31/24 04:00 Fentanyl Citrate 250 ml @ 2.5 mls/hr Q24H IV 08/30/24 22:00 objective Patient Is intubated sedated thin male somewhat cachectic Cardiovascular: Normal S1 and S2. No murmurs, gallops or rubs Respiratory: Mechanically assisted ventilation, equal bilateral airway entree. Bilateral diffuse rhonchus Abdomen: Soft, nontender, no organomegaly, normal bowel sounds MSK/skin: Mobilization of limbs cannot be evaluated. Skin is dry and warm Neurological: Orientation cannot be assessed. No apparent motor no sensitive deficits. Pupils are isocoric and reactive laboratory and microbiology Laboratory Tests 08/30/24 03:17 Test 08/30/24 03:17 Range/Units Serum Glucose 151 #H 74-106 mg/dL Dietary Evaluation Review Comments: 1. no PO or EN tube feeding until GI bleed resolved. Cancel Cardic Diet 2. Initiate TPN if pt is NPO>7 days. Expected Outcomes/Goals: reassess needs when pt is off vent. Plan discussed with: Other (ICU Nurse) MADAN JUAREZ MD August 30, 2024 23:30
[2024-08-31] VITALS (104 sets, daily range): BP systolic 77–144; BP diastolic 44–77; PULSE 80–107; RESP 16–39; TEMP 97.9–99.7; O2SAT 90–100
[2024-08-31] MEDS: VANCOMYCIN 1GM/200ML PM 200 ML IV SCH (04:14)
[2024-08-31 04:28] LABS: Hemoglobin 8.2 g/dL (13.5-17.5)
[2024-08-31 04:33] LABS: Hematocrit 24.5 % (41.0-53.0); Mean Corpuscular Hemoglobin 31.1 pg (28.0-32.0); Mean Corpuscular Hgb Conc. 33.3 g/dL (32.0-36.0); Mean Corpuscular Volume 93.5 fL (80.0-100.0); Platelet Count (auto) 341 10^3/uL (140-450); Red Blood Cells 2.62 10^6/uL (4.5-5.90); Red Cell Distribution Width 14.8 % (11.8-14.3); White Blood Cell 9.8 10^3/uL (4.4-10.8)
[2024-08-31 04:41] LABS: Alanine Aminotransferase 10 U/L (7-40); Alkaline Phosphatase 99 U/L (46-116); Anion Gap 9 (5-15); Aspartate Aminotransferase 28 U/L (13-40); BUN/Creatinine Ratio 24.1 (10.0-20.0); Bilirubin, Total 0.6 mg/dL (0.2-1.0); Blood Urea Nitrogen 20 mg/dL (9-23); Carbon Dioxide 25 mmol/L (20-31); Phosphorus 2.6 mg/dL (2.4-5.1); Potassium 3.6 mmol/L (3.5-5.1); Sodium 143 mmol/L (136-145)
[2024-08-31 04:58] LABS: Albumin 2.5 g/dL (3.2-4.8); Calcium 7.9 mg/dL (8.7-10.4); Chloride 109 mmol/L (98-107); Glucose 149 mg/dL (74-106); Total Protein 5.5 g/dL (5.7-8.2)
[2024-08-31 05:04] LABS: Basophils % (manual) 0 (0.0-2.0); Blast Cells 0; Metamyelocytes % 0; Myelocytes % 0; Promyelocytes % 0; Reactive Lymphocytes 0
--- NOTE | 2024-08-31 05:39 | DVH ---
EXAM: XR Chest, 1 View CLINICAL INDICATION: Intubation TECHNIQUE: Frontal view of the chest. COMPARISON: XY CHEST PORTABLE on DOS: 08/30/24, XY CHEST XRAY 1 VIEW on DOS: 08/30/24, XY CHEST XRAY 1 VIEW on DOS: 08/29/24, XY CHEST XRAY 1 VIEW on DOS: 08/28/24, XY CHEST XRAY 1 VIEW on DOS: 08/27/24 FINDINGS: LUNGS AND PLEURAL SPACES: Pulmonary congestion and edema. Pneumonia cannot be excluded. No pneumot horax. HEART: Unremarkable. No cardiomegaly. MEDIASTINUM: Unremarkable. Normal mediastinal contour. BONES/JOINTS: Unremarkable. No acute fracture. TUBES, LINES AND DEVICES: The endotracheal tube (ETT) is in satisfactory position. Enteric tube ti p cannot be seen but is below the diaphragm. OTHER FINDINGS: . . . IMPRESSION: Pulmonary congestion and edema. Pneumonia cannot be excluded.
[2024-08-31 06:11] LABS: Band Neutrophils % (manual) 2; Eosinophils % (manual) 6 (0-7); Lymphocytes % (manual) 11 (10.0-50.0); Monocytes % (manual) 4 (0-12)
[2024-08-31 06:12] LABS: Platelet Estimate Adequate
[2024-08-31 06:37] LABS: Base Excess -2.3 mmol/L (-2.0-3.0)
[2024-08-31] MEDS: fentaNYL Drip 2500mCg/250mlNS 250 ML IV SCH (07:32)
[2024-08-31] MEDS: D5W 5% 1,000 ML IV SCH (08:00)
[2024-08-31] MEDS: FUROSEMIDE 20 MG/2 ML VIAL IV ONE (13:12)
--- NOTE | 2024-08-31 17:40 | DVHPN2 ---
Subjective Date Seen: August 31, 2024 Post op day Post op day: 5 Objective Vitals Vital Sign Date Time Temp Pulse Resp B/P (MAP) Pulse Ox O2 Delivery O2 Flow Rate FiO2 08/31/24 16:36 96 26 99/48 (65) 97 65 08/31/24 15:00 99.0 210.2 08/31/24 08:00 Mechanical Ventilator+ Total Intake and Output 08/30/24 08/30/24 08/31/24 15:00 23:00 07:00 Intake Total 1109.528 ml 858.170 ml 1592.179 ml Output Total 1200 ml 2400 ml Balance 1109.528 ml -341.830 ml -807.821 ml Medications Current Medications Medications Dose Ordered Sig/Shar Route Start Time Stop Time Status Last Admin Dose Admin Ipratropium [place] 0.5 mg Q4HPRN PRN NEB 08/20/24 20:15 08/31/24 11:57 0.5 MG Piperacillin Sod/ Tazobactam Sod 100 ml @ 25 mls/hr Q8H IV 08/21/24 18:00 08/31/24 10:50 25 MLS/HR Doxycycline Hyclate 100 ml @ 50 mls/hr Q12H IV 08/21/24 18:30 UNV Midazolam HCl 50 ml @ 1 mls/hr Q24H IV 08/21/24 18:45 08/31/24 17:35 15 MLS/HR Norepinephrine Bitartrate 32 mg/ Sodium Chloride 250 ml @ 0.938 mls/ hr Q24H IV 08/22/24 09:15 08/30/24 03:00 3.75 MLS/HR Vancomycin HCl 0 ml @ 0 mls/hr UD IV 08/22/24 15:15 Valproate Sodium 250 mg/Sodium Chloride 52.5 ml @ 52.5 mls/hr BID IV 08/22/24 22:00 08/31/24 10:00 52.5 MLS/HR Pantoprazole Sodium 40 mg TID IV 08/23/24 14:00 08/31/24 13:11 40 MG Phenytoin Sodium 100 mg Q12HR IV 08/24/24 10:00 08/31/24 10:49 100 MG Diagnostic Test (Pha) 1 strip Q6HR 08/24/24 00:00 08/31/24 12:00 1 STRIP Insulin Human Regular FOLLOW SLIDING SCALE Q6HR SC 08/24/24 00:00 08/31/24 06:16 2 UNITS Dextrose 50 ml UD IV 08/23/24 22:00 Amino Acids 0 ml @ 0 mls/hr PER PHARMACY IV 08/24/24 12:15 Levalbuterol HCl 0.625 mg Q6HR NEB 08/25/24 12:00 08/31/24 11:57 0.625 MG Acetaminophen 650 mg Q6HP PRN [place] 08/26/24 16:30 Propofol 100 ml @ 1.467 mls/ hr Q24H IV 08/26/24 20:30 08/31/24 08:31 8.802 MLS/HR Sodium Chloride 10 ml QSHIFT@10,22 IV 08/29/24 22:00 08/31/24 10:50 10 ML Sodium Phosphate 20 meq/Potassium Phosphate 22 meq/ Calcium Gluconate 3.5 meq/Magnesium Sulfate 20 meq/ Multivitamins 10 ml/Chromium/ Copper/Manganese/ Zinc 1 ml/Insulin Human Regular 5 units/Amino Acids/ Dextrose 1,183.5768 ml @ 49 mls/hr [id number] IV 08/30/24 22:00 08/31/24 21:59 08/30/24 21:40 49 MLS/HR Vancomycin HCl 200 ml @ 200 mls/hr Q16H IV 08/31/24 04:00 08/31/24 04:14 200 MLS/HR Fentanyl Citrate 250 ml @ 2.5 mls/hr Q24H IV 08/30/24 22:00 08/31/24 07:32 22.5 MLS/HR Dextrose 1,000 ml @ 40 mls/hr Q24H IV 08/31/24 08:00 08/31/24 08:00 40 MLS/HR Sodium Phosphate 20 meq/Potassium Acetate 20 meq/ Potassium Phosphate 22 meq/ Calcium Gluconate 4.65 meq/ Magnesium Sulfate 18 meq/ Multivitamins 10 ml/Chromium/ Copper/Manganese/ Zinc 1 ml/Amino Acids/Dextrose 1,245.5 ml @ 51 mls/hr [id number] IV 08/31/24 22:00 09/01/24 21:59 General: Other (intubated) Labs and Microbiology Laboratory Tests 08/31/24 03:20 Test 08/31/24 03:20 Range/Units Serum Glucose 149 H 74-106 mg/dL Ass/Plan Labs and/or images reviewed: Labs reviewed by me, Image(s) reviewed by me Problem List Neurology # Acute metabolic encephalopathy secondary to septic shock likely due to aspiration PNA # Questionable history of childhood meningitis # Developmental delay # Seizures Patient currently intubated Resumed Divalproex and Dilantin. Pharmacy adjusted dose due to hypoalbuminemia Cardiovascular # Ruled out congestive heart failure Negative BNP and Troponin. Chest xray shows pulmonary edema. Echocardiogram: Normal chambers, LVEF 60%, normal RV function and mild TR. Respiratory # Acute respiratory failure due to aspiration pneumonia # Aspiration pneumonia # Bilateral mucous plug Ordered pancultures (blood, urine, sputum), pending Currently under empiric antibiotics (Zosyn and Vamcomycin) On mechanical assisted ventilation (VCV Vt 450, RR 26, PEEP 8, FIO2 45%) On bronchodilators, oxygen therapy Due to continues aspiration pneumonia, with increase oxygen requirement, completed bronchoscopy on 08/27/2024 with abundant mucus plugs on L6-L5, R1-R2 and R6-R10, samples were sent to culture and pathology Gastrointestinal # Probable upper GI bleed # Intestinal obstruction versus ileus - s/p op # Cholecystitis # 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 Currently on bolus pantoprazole tid. Will evaluate need for PEG. Ordered small bowel series which showed probable small-bowel obstruction versus ileus. Consulted Surgery: Re-evaluate once patient is more stable from aspiration pneumonia Patient currently on low intermittent suction, with copious secretion. Genitourinary/Neprhology # KARISHMA hemodynamically mediated (VMN) # Ruled out UTI UA within normal limits Infectious Disease # Septic shock secondary to aspiration pneumonia Ordered pancultures (blood, urine, sputum), pending Currently under empiric antibiotics (Zosyn and Vancomycin) Endocrine # Simple hyperglycemia with no Diabetes # Severe malnutrition Probably secondary to steroids and septic shock On mild ISS BMI less than 19 and hypoalbuminemia Hematology # Rule out GI bleed # Acute blood loss #bIron deficiency anemia Monitor H&H At admission was on Octeotride and Pantoprazole drip. Discontinue octeotride drip on 08/22/2024 Ordered anemia work up Nutrition: NPO due to GI bleed, Ileus vs small intestinal obstruction. On Clinimix posterior TPN Prophylaxis: PUD (pantoprazole bolus tid) and DVT (SCDs) Lines: 08/21/2024 ET tube 08/21/2024 [place] 08/30/2024 PICC Left upper arm 08/21/2024 OG 28/08/2024 JAKE drain 28/08/2024 Left A-line Drips: Fentanyl 225 Versed 14 Propofol 35 Norepinephrine 0 TPN 42 Goals of care discussed with family (sister, she is the caregiver) for over 18 minutes: Full code status. She will discuss with family to reevaluate code status. Discussed plan with Dr. Vela, family and nurses: Currently ICU status, s/p bronchoscopy and intestinal resection with diagnosis of foreign body, on mechanical assisted ventilation with increased oxygen requirement, under sedation-analgesia, on empiric IV antibiotic, IV fluids, bronchodilators. Currently with no vasopressors. Have discussed with family the probability of requiring tracheostomy. Patient has poor prognosis. Critical care time spent including discussion with nursing and family excluding procedures: 62 minutes Assessment/Plan s/p jejunal mass resection POD 3 abdomen soft, non distended, wound ok labs and notes reviewed , patient intubated Fi02 increase to 65 BP support Plan: continue current treatment Plan discussed with Lesley Visit Coding Surgery Date of Service if different f: August 31, 2024 Billing Provider: JOANNE BARROS MD Surgery Visit Codes: [id number] INP/OBS CARE(HIGH) PEPPER LEDEZMA GRINDER NEEDLE TIP August 31, 2024 17:40
--- NOTE | 2024-08-31 19:37 | DVHPNRES ---
Progress Note Date Seen: August 31, 2024 Resident Creating Document: BLANCA IRVIN RESIDENT Medical Necessity Reason Pt with a Central, PICC or Fol: Yes The following are medically ne: PICC Line, Josue Catheter Reason for josue catheter: Strict I&O Subjective Review of Systems Juanjose Ribeiro is a 53-year-old male patient who presents to ED via EMS with chief complaint of progressive dyspnea. Patient is currently intubated, could not obtain review of systems. Obtained information by family (sister) and EMR. Patient's symptoms got worse three days prior to his admission, associated with nausea, vomiting. Per sister patient stopped eating on Wednesday after coming back from a care facility, presented ground coffee emesis and has been having constipation (last bowel movement last ). Patient on scene and in ED presented hypotension, desaturation, tachypnea, with initial diagnosis of acute respiratory failure with septic shock secondary to probable aspiration pneumonia. Required IV fluids, empiric IV antibiotic and high-flow with regular response, deciding endotracheal intubation and placement of central line. While intubating, evidenced copious dark ground coffee secretion, deciding to initiate octreotide and IV pantoprazole. 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 2016 pneumonia Surgical history: Per sister had lung surgery because of collapse lung (questionable thoracentesis) Family history: Mother of congestive heart failure, also had diabetes Social history: Lives in [place] with sister who is her his caregiver. Denies current tobacco, alcohol and other drug abuse Allergies: Denies Home medication: Divalproex 250 mg p.o. b.i.d., Dilantin 100 mg p.o. q.8 hours Patient seen and examined at bedside. Currently in ICU status, on sedoanalgesia due to mechanical assisted ventilation, on IV vasopressors and empiric IV antibiotic, status post intestinal resection with terminal-terminal anastomosis. Pathology lab diagnosed foreign body in Jejunum (orbi toy). Planning on respiratory weaning, but still presents high requirement of vent support, have spoken with sister (Delmis) about probability of requiring a tracheostomy. Objective vital signs Vital Sign Date Time Temp Pulse Resp B/P (MAP) Pulse Ox O2 Delivery O2 Flow Rate FiO2 08/31/24 17:45 99.5 94 26 103/53 (70) 97 211.1 89/57 (68) 08/31/24 16:36 65 08/31/24 08:00 Mechanical Ventilator+ Total Intake and Output 08/30/24 08/30/24 08/31/24 15:00 23:00 07:00 Intake Total 1109.528 ml 858.170 ml 1592.179 ml Output Total 1200 ml 2400 ml Balance 1109.528 ml -341.830 ml -807.821 ml medications Current Medications Medications Dose Ordered Sig/Shar Route Start Time Stop Time Status Last Admin Dose Admin Ipratropium [place] 0.5 mg Q4HPRN PRN NEB 08/20/24 20:15 08/31/24 19:18 0.5 MG Piperacillin Sod/ Tazobactam Sod 100 ml @ 25 mls/hr Q8H IV 08/21/24 18:00 08/31/24 10:50 25 MLS/HR Doxycycline Hyclate 100 ml @ 50 mls/hr Q12H IV 08/21/24 18:30 UNV Midazolam HCl 50 ml @ 1 mls/hr Q24H IV 08/21/24 18:45 08/31/24 18:49 15 MLS/HR Norepinephrine Bitartrate 32 mg/ Sodium Chloride 250 ml @ 0.938 mls/ hr Q24H IV 08/22/24 09:15 08/30/24 03:00 3.75 MLS/HR Vancomycin HCl 0 ml @ 0 mls/hr UD IV 08/22/24 15:15 Valproate Sodium 250 mg/Sodium Chloride 52.5 ml @ 52.5 mls/hr BID IV 08/22/24 22:00 08/31/24 10:00 52.5 MLS/HR Pantoprazole Sodium 40 mg TID IV 08/23/24 14:00 08/31/24 13:11 40 MG Phenytoin Sodium 100 mg Q12HR IV 08/24/24 10:00 08/31/24 10:49 100 MG Diagnostic Test (Pha) 1 strip Q6HR 08/24/24 00:00 08/31/24 18:00 1 STRIP Insulin Human Regular FOLLOW SLIDING SCALE Q6HR SC 08/24/24 00:00 08/31/24 18:54 4 UNITS Dextrose 50 ml UD IV 08/23/24 22:00 Amino Acids 0 ml @ 0 mls/hr PER PHARMACY IV 08/24/24 12:15 Levalbuterol HCl 0.625 mg Q6HR NEB 08/25/24 12:00 08/31/24 19:18 0.625 MG Acetaminophen 650 mg Q6HP PRN [place] 08/26/24 16:30 Propofol 100 ml @ 1.467 mls/ hr Q24H IV 08/26/24 20:30 08/31/24 08:31 8.802 MLS/HR Sodium Chloride 10 ml QSHIFT@10,22 IV 08/29/24 22:00 08/31/24 10:50 10 ML Sodium Phosphate 20 meq/Potassium Phosphate 22 meq/ Calcium Gluconate 3.5 meq/Magnesium Sulfate 20 meq/ Multivitamins 10 ml/Chromium/ Copper/Manganese/ Zinc 1 ml/Insulin Human Regular 5 units/Amino Acids/ Dextrose 1,183.5768 ml @ 49 mls/hr [id number] IV 08/30/24 22:00 08/31/24 21:59 08/30/24 21:40 49 MLS/HR Vancomycin HCl 200 ml @ 200 mls/hr Q16H IV 08/31/24 04:00 08/31/24 04:14 200 MLS/HR Fentanyl Citrate 250 ml @ 2.5 mls/hr Q24H IV 08/30/24 22:00 08/31/24 18:56 22.5 MLS/HR Dextrose 1,000 ml @ 40 mls/hr Q24H IV 08/31/24 08:00 08/31/24 08:00 40 MLS/HR Sodium Phosphate 20 meq/Potassium Acetate 20 meq/ Potassium Phosphate 22 meq/ Calcium Gluconate 4.65 meq/ Magnesium Sulfate 18 meq/ Multivitamins 10 ml/Chromium/ Copper/Manganese/ Zinc 1 ml/Amino Acids/Dextrose 1,245.5 ml @ 51 mls/hr [id number] IV 08/31/24 22:00 09/01/24 21:59 Examination Patient lying in bed, under sedoanalgesia due to mechanical ventilation General: RASS -3, afebrile, mucosae are moist Cardiovascular: Normal S1 and S2. No murmurs, gallops or rubs Respiratory: Mechanically assisted ventilation, equal bilateral airway entree. Bilateral diffuse rhonchus Abdomen: Mildly distended, surgical site of laparotomy with no secretion nor erythema, nontender, no organomegaly, reduced bowel sounds. Has OG in low intermittent suction, with mild secretion MSK/skin: Mobilization of limbs cannot be evaluated. Skin is dry and warm Neurological: Orientation cannot be assessed. No apparent motor or sensitive deficits. Pupils are isocoric and reactive laboratory and microbiology Laboratory Tests 08/31/24 03:20 Test 08/31/24 03:20 Range/Units Serum Glucose 149 H 74-106 mg/dL Microbiology Date/Time Source Procedure Growth Status 08/27/24 16:05 Lung Pending Resulted 08/27/24 16:05 Lung Pending Resulted 08/27/24 16:05 Lung Pending Resulted 08/27/24 16:05 Lung Pending Resulted 08/27/24 16:05 Lung - Final See Separate Report... Resulted 08/27/24 16:05 Sputum Gram Stain - Final Complete 08/27/24 16:05 Sputum Respiratory Culture - Final Complete 08/22/24 09:00 Urine - Josue [place] Urine Culture - Final Complete 08/20/24 15:21 Blood Blood Culture - Final NO GROWTH AFTER 5 DAYS OF INCUBATION. Complete Problem List/Assessment/Plan Problem List/Assessment/Plan Neurology # Acute metabolic encephalopathy secondary to septic shock likely due to aspiration PNA # Questionable history of childhood meningitis # Developmental delay # Seizures Patient currently intubated Resumed Divalproex and Dilantin. Pharmacy adjusted dose due to hypoalbuminemia Cardiovascular # Ruled out congestive heart failure Negative BNP and Troponin. Chest xray shows pulmonary edema. Echocardiogram: Normal chambers, LVEF 60%, normal RV function and mild TR. Respiratory # Acute respiratory failure due to aspiration pneumonia # Aspiration pneumonia # Bilateral mucous plug Ordered pancultures (blood, urine, sputum), pending Currently under empiric antibiotics (Zosyn and Vamcomycin) On mechanical assisted ventilation (VCV Vt 450, RR 26, PEEP 8, FIO2 35%) On bronchodilators, oxygen therapy Due to continues aspiration pneumonia, with increase oxygen requirement, completed bronchoscopy on 08/27/2024 with abundant mucus plugs on L6-L5, R1-R2 and R6-R10, samples were sent to culture and pathology Gastrointestinal # Probable upper GI bleed # Intestinal obstruction versus ileus - s/p op # Cholecystitis # 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 Currently on bolus pantoprazole tid. Will evaluate need for PEG. Ordered small bowel series which showed probable small-bowel obstruction versus ileus. Consulted Surgery: Re-evaluate once patient is more stable from aspiration pneumonia Patient currently on low intermittent suction, with copious secretion. Genitourinary/Neprhology # KARISHMA hemodynamically mediated (VMN) # Ruled out UTI # Hypernatremia - Resolved UA within normal limits Required D5W Infectious Disease # Septic shock secondary to aspiration pneumonia Ordered pancultures (blood, urine, sputum), pending Currently under empiric antibiotics (Zosyn and Vancomycin) Endocrine # Simple hyperglycemia with no Diabetes # Severe malnutrition Probably secondary to steroids and septic shock On mild ISS BMI less than 19 and hypoalbuminemia Hematology # Rule out GI bleed # Acute blood loss # Iron deficiency anemia Monitor H&H At admission was on Octeotride and Pantoprazole drip. Discontinue octeotride drip on 08/22/2024 Ordered anemia work up Nutrition: NPO due to GI bleed, Ileus vs small intestinal obstruction. On Clinimix posterior TPN Prophylaxis: PUD (pantoprazole bolus tid) and DVT (SCDs) Lines: 08/21/2024 ET tube 08/21/2024 Josue 08/30/2024 PICC Left upper arm 08/21/2024 OG 28/08/2024 JAKE drain 28/08/2024 Left A-line Drips: Fentanyl 125 Versed 7 Propofol 15 Norepinephrine 0 TPN 42 Goals of care discussed with family (sister, she is the caregiver) for over 18 minutes: Full code status. Discussed plan with Dr. Kuhn, family and nurses: Currently ICU status, s/p bronchoscopy and intestinal resection with diagnosis of foreign body, on mechanical assisted ventilation with increased oxygen requirement, under sedation-analgesia, on empiric IV antibiotic, IV fluids, bronchodilators and intermittent IV vasopressors. Have discussed with family the probability of requiring tracheostomy. Indicated IV diuretics to assist respiratory weaning. Critical care time spent including discussion with nursing and family excluding procedures: 69 minutes Plan discussed with: Other (Sister (Delmis) and nurses) My Orders My Orders Orders - BLANCA IRVIN RESIDENT Procedure Category Date Status Time Abg W/ Co-Ox RT 08/31/24 Logged 04:00 Fentanyl Drip PHA 08/30/24 In Process 2500mcg/250mlns 22:00 Rass Sedation Scale [place] 08/30/24 In Process 21:49 Complete Blood Count LAB 09/01/24 Verified 04:00 Magnesium LAB 09/01/24 Verified 04:00 Phosphorus LAB 09/01/24 Verified 04:00 D5w 5% (Dextrose 5%) PHA 08/31/24 In Process 08:00 Amino Acid PHA 08/31/24 In Process Infusion... W/Sodium 22:00 Comprehensive LAB 09/01/24 Verified Metabolic Panel 04:00 Tpn Per Pharmacy [facility] 08/31/24 In Process 22:00 Abg W/ Co-Ox RT 09/01/24 Logged 04:00 Dietary Evaluation Review Comments: 1. no PO or EN tube feeding until GI bleed resolved. Cancel Cardic Diet 2. Initiate TPN if pt is NPO>7 days. Expected Outcomes/Goals: reassess needs when pt is off vent. Date of Service: August 31, 2024 Billing Provider: ZACHERY KUHN MD Common Visit Codes: [id number] CARE 30-74 MIN BLANCA IRVIN RESIDENT August 31, 2024 19:37 ZACHERY KUHN MD September 03, 2024 21:55
[2024-08-31] MEDS: TPN PER PHARMACY IV NR (22:01)
[2024-09-01] VITALS (107 sets, daily range): BP systolic 83–142; BP diastolic 45–83; PULSE 89–112; RESP 16–33; TEMP 97.9–99.9; O2SAT 91–100
[2024-09-01 04:06] LABS: Alanine Aminotransferase 11 U/L (7-40); Alkaline Phosphatase 115 U/L (46-116); Anion Gap 8 (5-15); Aspartate Aminotransferase 35 U/L (13-40); BUN/Creatinine Ratio 25.3 (10.0-20.0); Blood Urea Nitrogen 20 mg/dL (9-23); Carbon Dioxide 28 mmol/L (20-31); Total Protein 5.8 g/dL (5.7-8.2)
[2024-09-01 04:07] LABS: Bilirubin, Total 0.6 mg/dL (0.2-1.0); Phosphorus 3.1 mg/dL (2.4-5.1)
[2024-09-01 04:09] LABS: Hematocrit 26.3 % (41.0-53.0); Hemoglobin 8.9 g/dL (13.5-17.5); Mean Corpuscular Hemoglobin 31.8 pg (28.0-32.0); Mean Corpuscular Hgb Conc. 33.9 g/dL (32.0-36.0); Mean Corpuscular Volume 93.6 fL (80.0-100.0); Platelet Count (auto) 441 10^3/uL (140-450); Red Blood Cells 2.81 10^6/uL (4.5-5.90); Red Cell Distribution Width 14.8 % (11.8-14.3); White Blood Cell 10.9 10^3/uL (4.4-10.8)
[2024-09-01 04:18] LABS: Albumin 2.6 g/dL (3.2-4.8); Calcium 7.9 mg/dL (8.7-10.4); Chloride 113 mmol/L (98-107); Glucose 107 mg/dL (74-106); Potassium 3.2 mmol/L (3.5-5.1); Sodium 149 mmol/L (136-145)
[2024-09-01 04:51] LABS: Basophils % (manual) 0 (0.0-2.0); Blast Cells 0; Metamyelocytes % 0; Promyelocytes % 0; Reactive Lymphocytes 0
--- NOTE | 2024-09-01 05:52 | DVH ---
EXAM: XR Chest, 1 View CLINICAL INDICATION: Intubation TECHNIQUE: Frontal view of the chest. COMPARISON: XY CHEST XRAY 1 VIEW on DOS: 08/31/24, XY CHEST PORTABLE on DOS: 08/30/24, XY CHEST XRAY 1 VIEW on DOS: 08/30/24, XY CHEST XRAY 1 VIEW on DOS: 08/29/24, XY CHEST XRAY 1 VIEW on DOS: 08/28/24 FINDINGS: LUNGS AND PLEURAL SPACES: Increased interstitial and patchy airspace disease of both lungs. No con solidation. No pneumothorax. HEART: Unremarkable. No cardiomegaly. MEDIASTINUM: Unremarkable. Normal mediastinal contour. BONES/JOINTS: Unremarkable. No acute fracture. TUBES, LINES AND DEVICES: The endotracheal tube (ETT) is in satisfactory position. UPPER ABDOMEN: Enteric stomach. OTHER FINDINGS: . IMPRESSION: Increased interstitial and patchy airspace disease of both lungs.
[2024-09-01 06:28] LABS: Band Neutrophils % (manual) 1; Eosinophils % (manual) 6 (0-7); Lymphocytes % (manual) 5 (10.0-50.0); Monocytes % (manual) 3 (0-12); Myelocytes % 2; Platelet Estimate Adequate
[2024-09-01 07:32] LABS: Base Excess -0.4 mmol/L (-2.0-3.0)
[2024-09-01] MEDS: D5W 5% 1,000 ML IV SCH (10:00)
[2024-09-01] MEDS: POTASSIUM CHL 20MEQ/100ML 100 ML IV SCH (10:10)
--- NOTE | 2024-09-01 17:19 | DVHPNRES ---
Progress Note Date Seen: September 01, 2024 Resident Creating Document: BLANCA IRVIN RESIDENT Medical Necessity Reason Pt with a Central, PICC or Fol: Yes The following are medically ne: PICC Line, Josue Catheter Reason for josue catheter: Strict I&O Subjective Review of Systems Juanjose Ribeiro is a 53-year-old male patient who presents to ED via EMS with chief complaint of progressive dyspnea. Patient is currently intubated, could not obtain review of systems. Obtained information by family (sister) and EMR. Patient's symptoms got worse three days prior to his admission, associated with nausea, vomiting. Per sister patient stopped eating on Wednesday after coming back from a care facility, presented ground coffee emesis and has been having constipation (last bowel movement last ). Patient on scene and in ED presented hypotension, desaturation, tachypnea, with initial diagnosis of acute respiratory failure with septic shock secondary to probable aspiration pneumonia. Required IV fluids, empiric IV antibiotic and high-flow with regular response, deciding endotracheal intubation and placement of central line. While intubating, evidenced copious dark ground coffee secretion, deciding to initiate octreotide and IV pantoprazole. 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 2016 pneumonia Surgical history: Per sister had lung surgery because of collapse lung (questionable thoracentesis) Family history: Mother of congestive heart failure, also had diabetes Social history: Lives in [place] with sister who is her his caregiver. Denies current tobacco, alcohol and other drug abuse Allergies: Denies Home medication: Divalproex 250 mg p.o. b.i.d., Dilantin 100 mg p.o. q.8 hours Patient seen and examined at bedside. Currently in ICU status, on sedoanalgesia due to mechanical assisted ventilation, on IV vasopressors and empiric IV antibiotic, status post intestinal resection with terminal-terminal anastomosis. Pathology lab diagnosed foreign body in Jejunum (orbi toy). Planning on respiratory weaning, but still presents high requirement of vent support, have spoken with sister (Delmis) about probability of requiring a tracheostomy. Objective vital signs Vital Sign Date Time Temp Pulse Resp B/P (MAP) Pulse Ox O2 Delivery O2 Flow Rate FiO2 09/01/24 16:48 97 26 126/73 (90) 97 60 09/01/24 16:30 98.2 208.8 09/01/24 08:00 Mechanical Ventilator+ Total Intake and Output 08/31/24 08/31/24 09/01/24 15:00 23:00 07:00 Intake Total 1194.891 ml 1003.110 ml 1243.0 ml Output Total 4500 ml 2520 ml Balance 1194.891 ml -3496.890 ml -1277.0 ml medications Current Medications Medications Dose Ordered Sig/Shar Route Start Time Stop Time Status Last Admin Dose Admin Ipratropium [place] 0.5 mg Q4HPRN PRN NEB 08/20/24 20:15 09/01/24 12:04 0.5 MG Piperacillin Sod/ Tazobactam Sod 100 ml @ 25 mls/hr Q8H IV 08/21/24 18:00 09/01/24 10:09 25 MLS/HR Doxycycline Hyclate 100 ml @ 50 mls/hr Q12H IV 08/21/24 18:30 UNV Midazolam HCl 50 ml @ 1 mls/hr Q24H IV 08/21/24 18:45 09/01/24 15:36 15 MLS/HR Norepinephrine Bitartrate 32 mg/ Sodium Chloride 250 ml @ 0.938 mls/ hr Q24H IV 08/22/24 09:15 09/01/24 08:20 6.563 MLS/HR Vancomycin HCl 0 ml @ 0 mls/hr UD IV 08/22/24 15:15 Valproate Sodium 250 mg/Sodium Chloride 52.5 ml @ 52.5 mls/hr BID IV 08/22/24 22:00 09/01/24 10:09 52.5 MLS/HR Phenytoin Sodium 100 mg Q12HR IV 08/24/24 10:00 09/01/24 10:08 100 MG Diagnostic Test (Pha) 1 strip Q6HR 08/24/24 00:00 09/01/24 12:01 1 STRIP Insulin Human Regular FOLLOW SLIDING SCALE Q6HR SC 08/24/24 00:00 09/01/24 13:09 2 UNITS Dextrose 50 ml UD IV 08/23/24 22:00 Amino Acids 0 ml @ 0 mls/hr PER PHARMACY IV 08/24/24 12:15 Levalbuterol HCl 0.625 mg Q6HR NEB 08/25/24 12:00 09/01/24 12:04 0.625 MG Acetaminophen 650 mg Q6HP PRN [place] 08/26/24 16:30 Propofol 100 ml @ 1.467 mls/ hr Q24H IV 08/26/24 20:30 09/01/24 08:19 5.868 MLS/HR Sodium Chloride 10 ml QSHIFT@10,22 IV 08/29/24 22:00 09/01/24 10:09 10 ML Vancomycin HCl 200 ml @ 200 mls/hr Q16H IV 08/31/24 04:00 09/01/24 12:15 200 MLS/HR Fentanyl Citrate 250 ml @ 2.5 mls/hr Q24H IV 08/30/24 22:00 09/01/24 15:37 22.5 MLS/HR Sodium Phosphate 20 meq/Potassium Acetate 20 meq/ Potassium Phosphate 22 meq/ Calcium Gluconate 4.65 meq/ Magnesium Sulfate 18 meq/ Multivitamins 10 ml/Chromium/ Copper/Manganese/ Zinc 1 ml/Amino Acids/Dextrose 1,245.5 ml @ 51 mls/hr [id number] IV 08/31/24 22:00 09/01/24 21:59 08/31/24 22:01 51 MLS/HR Potassium Acetate 40 meq/Potassium Phosphate 22 meq/ Calcium Gluconate 4.65 meq/ Magnesium Sulfate 20 meq/ Multivitamins 10 ml/Chromium/ Copper/Manganese/ Zinc 1 ml/Amino Acids/Dextrose 1,251 ml @ 52 mls/hr Q24H4M IV 09/01/24 22:00 09/02/24 21:59 Dextrose 1,000 ml @ 75 mls/hr [id number] IV 09/01/24 10:15 09/01/24 10:00 75 MLS/HR Pantoprazole Sodium 40 mg BID IV 09/01/24 22:00 Examination Patient lying in bed, under sedoanalgesia due to mechanical ventilation General: RASS -3, afebrile, mucosae are moist Cardiovascular: Normal S1 and S2. No murmurs, gallops or rubs Respiratory: Mechanically assisted ventilation, equal bilateral airway entree. Bilateral diffuse rhonchus Abdomen: Mildly distended, surgical site of laparotomy with no secretion nor erythema, nontender, no organomegaly, reduced bowel sounds. Has OG in low intermittent suction, with mild secretion MSK/skin: Mobilization of limbs cannot be evaluated. Skin is dry and warm Neurological: Orientation cannot be assessed. No apparent motor or sensitive deficits. Pupils are isocoric and reactive laboratory and microbiology Laboratory Tests 09/01/24 03:20 Test 09/01/24 03:20 Range/Units Serum Glucose 107 H 74-106 mg/dL Microbiology Date/Time Source Procedure Growth Status 08/27/24 16:05 Lung - Final Resulted 08/27/24 16:05 Lung - Final Resulted 08/27/24 16:05 Lung Pending Resulted 08/27/24 16:05 Lung Pending Resulted 08/27/24 16:05 Lung - Final See Separate Report... Resulted 08/27/24 16:05 Sputum Gram Stain - Final Complete 08/27/24 16:05 Sputum Respiratory Culture - Final Complete 08/22/24 09:00 Urine - Josue Port Urine Culture - Final Complete 08/20/24 15:21 Blood Blood Culture - Final NO GROWTH AFTER 5 DAYS OF INCUBATION. Complete Problem List/Assessment/Plan Problem List/Assessment/Plan Neurology # Acute metabolic encephalopathy secondary to septic shock likely due to aspiration PNA # Questionable history of childhood meningitis # Developmental delay # Seizures Patient currently intubated Resumed Divalproex and Dilantin. Pharmacy adjusted dose due to hypoalbuminemia Cardiovascular # Ruled out congestive heart failure Negative BNP and Troponin. Chest xray shows pulmonary edema. Echocardiogram: Normal chambers, LVEF 60%, normal RV function and mild TR. Respiratory # Acute respiratory failure due to aspiration pneumonia # Aspiration pneumonia # Bilateral mucous plug Ordered pancultures (blood, urine, sputum), pending Currently under empiric antibiotics (Zosyn and Vamcomycin) On mechanical assisted ventilation (VCV Vt 450, RR 26, PEEP 8, FIO2 60%) On bronchodilators, oxygen therapy Due to continues aspiration pneumonia, with increase oxygen requirement, completed bronchoscopy on 08/27/2024 with abundant mucus plugs on L6-L5, R1-R2 and R6-R10, samples were sent to culture and pathology Gastrointestinal # Probable upper GI bleed # Intestinal obstruction versus ileus - s/p op # Cholecystitis # 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 Currently on bolus pantoprazole tid. Will evaluate need for PEG. Ordered small bowel series which showed probable small-bowel obstruction versus ileus. Consulted Surgery: Re-evaluate once patient is more stable from aspiration pneumonia Patient currently on low intermittent suction, with copious secretion. Genitourinary/Neprhology # KARISHMA hemodynamically mediated (VMN) # Ruled out UTI # Hypernatremia - Resolved UA within normal limits Required D5W Infectious Disease # Septic shock secondary to aspiration pneumonia Ordered pancultures (blood, urine, sputum), pending Currently under empiric antibiotics (Zosyn and Vancomycin) Endocrine # Simple hyperglycemia with no Diabetes # Severe malnutrition Probably secondary to steroids and septic shock On mild ISS BMI less than 19 and hypoalbuminemia Hematology # Rule out GI bleed # Acute blood loss # Iron deficiency anemia Monitor H&H At admission was on Octeotride and Pantoprazole drip. Discontinue octeotride drip on 08/22/2024 Ordered anemia work up Nutrition: NPO due to GI bleed, Ileus vs small intestinal obstruction. On Clinimix posterior TPN Prophylaxis: PUD (pantoprazole bolus tid) and DVT (SCDs) Lines: 08/21/2024 ET tube 08/21/2024 Josue 08/30/2024 PICC Left upper arm 08/21/2024 OG 28/08/2024 JAKE drain 28/08/2024 Left A-line Drips: Fentanyl 225 Versed 15 Propofol 20 Norepinephrine 16 TPN 42 Goals of care discussed with family (sister, she is the caregiver) for over 18 minutes: Full code status. Discussed plan with Dr. Villatoro, family and nurses: Currently ICU status, s/p bronchoscopy and intestinal resection with diagnosis of foreign body, on mechanical assisted ventilation with increased oxygen requirement, under sedation-analgesia, on empiric IV antibiotic, IV fluids, bronchodilators and intermittent IV vasopressors. Have discussed with family the probability of requiring tracheostomy. Indicated IV diuretics to assist respiratory weaning. Planning on completing bronchoscopy on 09/02/2024 Critical care time spent including discussion with nursing and family excluding procedures: 78 minutes Plan discussed with: Other (sister (Delmis) and nurses) My Orders My Orders Orders - BLANCA IRVIN RESIDENT Procedure Category Date Status Time Abg W/ Co-Ox RT 09/01/24 Logged 04:00 Amino Acid PHA 09/01/24 In Process Infusion... 22:00 Comprehensive LAB 09/02/24 Verified Metabolic Panel 05:00 Phosphorus LAB 09/02/24 Verified 05:00 Magnesium LAB 09/02/24 Verified 05:00 Tpn Per Pharmacy [facility] 09/01/24 In Process 22:00 Respiratory Misc. RT 09/01/24 Transmitted Order 10:07 D5w 5% (Dextrose 5%) PHA 09/01/24 In Process 10:15 Pantoprazole PHA 09/01/24 In Process (Protonix) 22:00 Dietary Evaluation Review Comments: 1. no PO or EN tube feeding until GI bleed resolved. Cancel Cardic Diet 2. Initiate TPN if pt is NPO>7 days. Expected Outcomes/Goals: reassess needs when pt is off vent. BLANCA IRVIN RESIDENT September 01, 2024 17:19
[2024-09-01] MEDS: PANTOPRAZOLE 40 MG/10 ML VIAL INJ IV SCH (21:37)
[2024-09-01] MEDS: [UNRECOGNIZED DRUG - OTHER] IV NR (21:45)
[2024-09-01] MEDS: POTASSIUM ACETATE IV NR (21:45)
[2024-09-01] MEDS: POTASSIUM PHOSPHATE IV NR (21:45)
[2024-09-02] VITALS (112 sets, daily range): BP systolic 86–144; BP diastolic 43–116; PULSE 94–115; RESP 12–39; TEMP 97–99.9; O2SAT 93–100
[2024-09-02 03:59] LABS: Hemoglobin 8.4 g/dL (13.5-17.5); Mean Corpuscular Hemoglobin 31.1 pg (28.0-32.0); Platelet Count (auto) 502 10^3/uL (140-450); Red Blood Cells 2.71 10^6/uL (4.5-5.90)
[2024-09-02 04:03] LABS: Hematocrit 25.4 % (41.0-53.0); Mean Corpuscular Hgb Conc. 33.2 g/dL (32.0-36.0); Mean Corpuscular Volume 93.7 fL (80.0-100.0); Red Cell Distribution Width 15.3 % (11.8-14.3); White Blood Cell 9.8 10^3/uL (4.4-10.8)
[2024-09-02 04:05] LABS: Basophils % (manual) 0 (0.0-2.0); Blast Cells 0; Metamyelocytes % 0; Myelocytes % 0; Reactive Lymphocytes 0
[2024-09-02 04:16] LABS: Alanine Aminotransferase 13 U/L (7-40); Anion Gap 7 (5-15); Aspartate Aminotransferase 33 U/L (13-40); BUN/Creatinine Ratio 27.4 (10.0-20.0); Bilirubin, Total 0.6 mg/dL (0.2-1.0); Blood Urea Nitrogen 20 mg/dL (9-23); Carbon Dioxide 29 mmol/L (20-31); Potassium 3.6 mmol/L (3.5-5.1); Total Protein 5.7 g/dL (5.7-8.2)
[2024-09-02 04:17] LABS: Albumin 2.6 g/dL (3.2-4.8); Alkaline Phosphatase 124 U/L (46-116); Calcium 8.7 mg/dL (8.7-10.4); Chloride 113 mmol/L (98-107); Glucose 128 mg/dL (74-106); Phosphorus 2.3 mg/dL (2.4-5.1); Sodium 149 mmol/L (136-145)
[2024-09-02 04:51] LABS: Band Neutrophils % (manual) 4; Eosinophils % (manual) 6 (0-7); Lymphocytes % (manual) 12 (10.0-50.0); Monocytes % (manual) 3 (0-12); Platelet Estimate Increased; Promyelocytes % 4
--- NOTE | 2024-09-02 05:58 | DVH ---
EXAM: XY CHEST PORTABLE Indication: VENTED Technique: Single frontal view of the chest was obtained Comparison: XY CHEST XRAY 1 VIEW on DOS: 09/01/24, XY CHEST XRAY 1 VIEW on DOS: 08/31/24, XY CHEST PORT ABLE on DOS: 08/30/24, XY CHEST XRAY 1 VIEW on DOS: 08/30/24, XY CHEST XRAY 1 VIEW on DOS: 08/29/24 FINDINGS: Lines and Tubes: Endotracheal tube projects 5 cm above the balwinder. Enteric tube tip projects over th e expected region of the stomach. Left PICC tip projects over the superior vena cava. Lungs: Multifocal consolidative opacities. Pleura: No effusion. No pneumothorax. Cardiomediastinal contours: Unremarkable Bones: No acute osseous abnormality. IMPRESSION: Multifocal consolidative opacities.
[2024-09-02 08:08] LABS: Base Excess -0.3 mmol/L (-2.0-3.0)
--- NOTE | 2024-09-02 11:32 | DVHPN2 ---
Subjective Date Seen: September 02, 2024 Post op day Post op day: 0 Objective Vitals Vital Sign Date Time Temp Pulse Resp B/P (MAP) Pulse Ox O2 Delivery O2 Flow Rate FiO2 09/02/24 10:10 107 29 108/70 (83) 95 55 09/02/24 09:30 99.1 210.4 09/02/24 08:00 Mechanical Ventilator+ Total Intake and Output 09/01/24 09/01/24 09/02/24 15:00 23:00 07:00 Intake Total 1894.1 ml 1587.075 ml 1434.294 ml Output Total 2550 ml 2050 ml Balance 1894.1 ml -962.925 ml -615.706 ml Medications Current Medications Medications Dose Ordered Sig/Shar Route Start Time Stop Time Status Last Admin Dose Admin Ipratropium [place] 0.5 mg Q4HPRN PRN NEB 08/20/24 20:15 09/02/24 06:45 0.5 MG Doxycycline Hyclate 100 ml @ 50 mls/hr Q12H IV 08/21/24 18:30 UNV Midazolam HCl 50 ml @ 1 mls/hr Q24H IV 08/21/24 18:45 09/02/24 11:08 15 MLS/HR Norepinephrine Bitartrate 32 mg/ Sodium Chloride 250 ml @ 0.938 mls/ hr Q24H IV 08/22/24 09:15 09/02/24 10:21 1.875 MLS/HR Vancomycin HCl 0 ml @ 0 mls/hr UD IV 08/22/24 15:15 Valproate Sodium 250 mg/Sodium Chloride 52.5 ml @ 52.5 mls/hr BID IV 08/22/24 22:00 09/02/24 10:24 52.5 MLS/HR Phenytoin Sodium 100 mg Q12HR IV 08/24/24 10:00 09/02/24 10:27 100 MG Diagnostic Test (Pha) 1 strip Q6HR 08/24/24 00:00 09/02/24 05:26 1 STRIP Insulin Human Regular FOLLOW SLIDING SCALE Q6HR SC 08/24/24 00:00 09/02/24 05:27 2 UNITS Dextrose 50 ml UD IV 08/23/24 22:00 Amino Acids 0 ml @ 0 mls/hr PER PHARMACY IV 08/24/24 12:15 Levalbuterol HCl 0.625 mg Q6HR NEB 08/25/24 12:00 09/02/24 06:45 0.625 MG Acetaminophen 650 mg Q6HP PRN [place] 08/26/24 16:30 Propofol 100 ml @ 1.467 mls/ hr Q24H IV 08/26/24 20:30 09/02/24 00:26 4.401 MLS/HR Sodium Chloride 10 ml QSHIFT@10,22 IV 08/29/24 22:00 09/02/24 10:27 10 ML Vancomycin HCl 200 ml @ 200 mls/hr Q16H IV 08/31/24 04:00 09/02/24 03:38 200 MLS/HR Fentanyl Citrate 250 ml @ 2.5 mls/hr Q24H IV 08/30/24 22:00 09/02/24 01:14 22.5 MLS/HR Potassium Acetate 40 meq/Potassium Phosphate 22 meq/ Calcium Gluconate 4.65 meq/ Magnesium Sulfate 20 meq/ Multivitamins 10 ml/Chromium/ Copper/Manganese/ Zinc 1 ml/Amino Acids/Dextrose 1,251 ml @ 52 mls/hr Q24H4M IV 09/01/24 22:00 09/02/24 21:59 09/01/24 21:45 52 MLS/HR Dextrose 1,000 ml @ 75 mls/hr [id number] IV 09/01/24 10:15 09/02/24 05:48 75 MLS/HR Pantoprazole Sodium 40 mg BID IV 09/01/24 22:00 09/02/24 10:16 40 MG Potassium Phosphate 44 meq/ Magnesium Sulfate 20 meq/ Multivitamins 10 ml/Chromium/ Copper/Manganese/ Zinc 1 ml/Amino Acids/Dextrose 1,126 ml @ 47 mls/hr [id number] IV 09/02/24 22:00 09/03/24 21:59 General: Other (intubated) Labs and Microbiology Laboratory Tests 09/02/24 03:02 Test 09/02/24 03:02 Range/Units Serum Glucose 128 H 74-106 mg/dL Ass/Plan Labs and/or images reviewed: Labs reviewed by me, Image(s) reviewed by me Problem List Neurology # Acute metabolic encephalopathy secondary to septic shock likely due to aspiration PNA # Questionable history of childhood meningitis # Developmental delay # Seizures Patient currently intubated Resumed Divalproex and Dilantin. Pharmacy adjusted dose due to hypoalbuminemia Cardiovascular # Ruled out congestive heart failure Negative BNP and Troponin. Chest xray shows pulmonary edema. Echocardiogram: Normal chambers, LVEF 60%, normal RV function and mild TR. Respiratory # Acute respiratory failure due to aspiration pneumonia # Aspiration pneumonia # Bilateral mucous plug Ordered pancultures (blood, urine, sputum), pending Currently under empiric antibiotics (Zosyn and Vamcomycin) On mechanical assisted ventilation (VCV Vt 450, RR 26, PEEP 8, FIO2 60%) On bronchodilators, oxygen therapy Due to continues aspiration pneumonia, with increase oxygen requirement, completed bronchoscopy on 08/27/2024 with abundant mucus plugs on L6-L5, R1-R2 and R6-R10, samples were sent to culture and pathology Gastrointestinal # Probable upper GI bleed # Intestinal obstruction versus ileus - s/p op # Cholecystitis # 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 Currently on bolus pantoprazole tid. Will evaluate need for PEG. Ordered small bowel series which showed probable small-bowel obstruction versus ileus. Consulted Surgery: Re-evaluate once patient is more stable from aspiration pneumonia Patient currently on low intermittent suction, with copious secretion. Genitourinary/Neprhology # KARISHMA hemodynamically mediated (VMN) # Ruled out UTI # Hypernatremia - Resolved UA within normal limits Required D5W Infectious Disease # Septic shock secondary to aspiration pneumonia Ordered pancultures (blood, urine, sputum), pending Currently under empiric antibiotics (Zosyn and Vancomycin) Endocrine # Simple hyperglycemia with no Diabetes # Severe malnutrition Probably secondary to steroids and septic shock On mild ISS BMI less than 19 and hypoalbuminemia Hematology # Rule out GI bleed # Acute blood loss # Iron deficiency anemia Monitor H&H At admission was on Octeotride and Pantoprazole drip. Discontinue octeotride drip on 08/22/2024 Ordered anemia work up Nutrition: NPO due to GI bleed, Ileus vs small intestinal obstruction. On Clinimix posterior TPN Prophylaxis: PUD (pantoprazole bolus tid) and DVT (SCDs) Lines: 08/21/2024 ET tube 08/21/2024 Rivera 08/30/2024 PICC Left upper arm 08/21/2024 OG 28/08/2024 JAKE drain 28/08/2024 Left A-line Drips: Fentanyl 225 Versed 15 Propofol 20 Norepinephrine 16 TPN 42 Goals of care discussed with family (sister, she is the caregiver) for over 18 minutes: Full code status. Discussed plan with Dr. Villatoro, family and nurses: Currently ICU status, s/p bronchoscopy and intestinal resection with diagnosis of foreign body, on mechanical assisted ventilation with increased oxygen requirement, under sedation-analgesia, on empiric IV antibiotic, IV fluids, bronchodilators and intermittent IV vasopressors. Have discussed with family the probability of requiring tracheostomy. Indicated IV diuretics to assist respiratory weaning. Planning on completing bronchoscopy on 09/02/2024 Critical care time spent including discussion with nursing and family excluding procedures: 78 minutes Assessment/Plan s/p jejunal mass resection POD 3 abdomen soft, non distended, wound ok labs and notes reviewed , patient intubated Fi02 increase to 65 BP support Plan: continue current treatment 09/02/24 s/p jejunal mass resection POD #5 abdomen soft, non distended, wound ok labs and notes reviewed , patient intubated febrile Plan: continue current treatment Dr. Estrada agrees with plan Plan discussed with Dr. estrada Visit Coding Surgery Date of Service if different f: September 02, 2024 Billing Provider: ALANA ESTRADA MD Surgery Visit Codes: [id number] INP/OBS CARE(HIGH) PEPPER LEDEZMA [employer] September 02, 2024 11:32
--- NOTE | 2024-09-02 11:58 | DVHPN2 ---
Subjective INTUBATED AND SEDATED Reviewed: Care Plan, H&P, Labs, Medications, Previous Orders, Radiology, Other (CONSULTANTS) Changes from previous H/P or p: No Changes General: Per HPI Objective Vitals Vital Signs Date Time Temp Pulse Resp B/P (MAP) Pulse Ox O2 Delivery O2 Flow Rate FiO2 09/02/24 10:10 107 29 108/70 (83) 95 55 09/02/24 09:30 99.1 210.4 09/02/24 08:00 Mechanical Ventilator+ Intake/Output Intake and Output 09/02/24 07:00 Intake Total 4915.469 ml Output Total 4600 ml Balance 315.469 ml Intake Oral 0 ml IV Total 4915.469 ml Output Urine Total 4400 ml Stool Total 0 ml Gastric Drainage Total 200 ml General Appearance: Other (INTUBATED AND SEDATED) Lungs: Other (CRACKLES BILATERAL LUNGS) Cardiovascular: Other (Borderline tachycardia) Medications Current Medications Medications Dose Ordered Sig/Shar Route Start Time Stop Time Status Last Admin Dose Admin Ipratropium [place] 0.5 mg Q4HPRN PRN NEB 08/20/24 20:15 09/02/24 06:45 0.5 MG Doxycycline Hyclate 100 ml @ 50 mls/hr Q12H IV 08/21/24 18:30 UNV Midazolam HCl 50 ml @ 1 mls/hr Q24H IV 08/21/24 18:45 09/02/24 11:08 15 MLS/HR Norepinephrine Bitartrate 32 mg/ Sodium Chloride 250 ml @ 0.938 mls/ hr Q24H IV 08/22/24 09:15 09/02/24 10:21 1.875 MLS/HR Vancomycin HCl 0 ml @ 0 mls/hr UD IV 08/22/24 15:15 Valproate Sodium 250 mg/Sodium Chloride 52.5 ml @ 52.5 mls/hr BID IV 08/22/24 22:00 09/02/24 10:24 52.5 MLS/HR Phenytoin Sodium 100 mg Q12HR IV 08/24/24 10:00 09/02/24 10:27 100 MG Diagnostic Test (Pha) 1 strip Q6HR 08/24/24 00:00 09/02/24 05:26 1 STRIP Insulin Human Regular FOLLOW SLIDING SCALE Q6HR SC 08/24/24 00:00 09/02/24 05:27 2 UNITS Dextrose 50 ml UD IV 08/23/24 22:00 Amino Acids 0 ml @ 0 mls/hr PER PHARMACY IV 08/24/24 12:15 Levalbuterol HCl 0.625 mg Q6HR NEB 08/25/24 12:00 09/02/24 06:45 0.625 MG Acetaminophen 650 mg Q6HP PRN [place] 08/26/24 16:30 Propofol 100 ml @ 1.467 mls/ hr Q24H IV 08/26/24 20:30 09/02/24 00:26 4.401 MLS/HR Sodium Chloride 10 ml QSHIFT@10,22 IV 08/29/24 22:00 09/02/24 10:27 10 ML Vancomycin HCl 200 ml @ 200 mls/hr Q16H IV 08/31/24 04:00 09/02/24 03:38 200 MLS/HR Fentanyl Citrate 250 ml @ 2.5 mls/hr Q24H IV 08/30/24 22:00 09/02/24 01:14 22.5 MLS/HR Potassium Acetate 40 meq/Potassium Phosphate 22 meq/ Calcium Gluconate 4.65 meq/ Magnesium Sulfate 20 meq/ Multivitamins 10 ml/Chromium/ Copper/Manganese/ Zinc 1 ml/Amino Acids/Dextrose 1,251 ml @ 52 mls/hr Q24H4M IV 09/01/24 22:00 09/02/24 21:59 09/01/24 21:45 52 MLS/HR Dextrose 1,000 ml @ 75 mls/hr [id number] IV 09/01/24 10:15 09/02/24 05:48 75 MLS/HR Pantoprazole Sodium 40 mg BID IV 09/01/24 22:00 09/02/24 10:16 40 MG Potassium Phosphate 44 meq/ Magnesium Sulfate 20 meq/ Multivitamins 10 ml/Chromium/ Copper/Manganese/ Zinc 1 ml/Amino Acids/Dextrose 1,126 ml @ 47 mls/hr [id number] IV 09/02/24 22:00 09/03/24 21:59 Laboratory Results Laboratory Tests 09/02/24 03:02 Chemistry Test 09/02/24 03:02 Albumin 2.6 g/dL (3.2-4.8) L Calcium Level 8.7 mg/dL (8.7-10.4) Magnesium Level 2.0 mg/dL (1.6-2.6) Phosphorus Level 2.3 mg/dL (2.4-5.1) L Total Protein 5.7 g/dL (5.7-8.2) LFT Test 09/02/24 03:02 Alanine Aminotransferase (ALT) 13 U/L (7-40) Alkaline Phosphatase 124 U/L (46-116) H Aspartate Amino Transferase (AST) 33 U/L (13-40) Total Bilirubin 0.6 mg/dL (0.2-1.0) Urinalysis Test 08/20/24 16:15 Urine Color Yellow (Yellow) Urine Clarity Clear (Clear) Urine pH 7.5 (5.0-9.0) Urine Specific [place] 1.019 (1.001-1.035) Urine Protein Trace (Negative) H Urine Ketones Negative (Negative) Urine Blood Negative /uL (Negative) Urine Nitrite Negative (Negative) Urine Bilirubin Negative (Negative) Urine Urobilinogen Normal mg/dL (Negative) Urine Leukocyte Esterase Negative /uL (Negative) Urine RBC 2 /hpf (0 - 3) Urine Microscopic WBC 1 /HPF (0-3) Urine Squamous Epithelial Cells None seen /hpf (<5) Urine Bacteria None seen /hpf (None Seen) Urine Mucus Few (None Seen) Urine Glucose Normal mg/dL (Normal) Blood Gas Results Test 09/02/24 07:50 Arterial Blood pH 7.465 (7.350-7.450) FiO2 % 55.0 Microbiology Microbiology Date/Time Source Procedure Growth Status 08/27/24 16:05 Lung - Final Resulted 08/27/24 16:05 Lung - Final Resulted 08/27/24 16:05 Lung Pending Resulted 08/27/24 16:05 Lung Pending Resulted 08/27/24 16:05 Lung - Final See Separate Report... Resulted 08/27/24 16:05 Sputum Gram Stain - Final Complete 08/27/24 16:05 Sputum Respiratory Culture - Final Complete 08/22/24 09:00 Urine - [place] Urine Culture - Final Complete 08/20/24 15:21 Blood Blood Culture - Final NO GROWTH AFTER 5 DAYS OF INCUBATION. 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 Vital signs monitoring. Monitor oxygenation IV antibiotics. Repeat labs. Vasopressors as needed Plan discussed with: Other (Nursing) Date of Service: September 02, 2024 Billing Provider: ANGELIKA ORTIZ MD Common Visit Codes: [id number] INP/OBS CARE(HIGH) ANGELIKA ORTIZ MD September 02, 2024 11:58
[2024-09-02] MEDS: POTASSIUM PHOSPHATE 22 MEQ in SODIUM CHL 0.9% 100 ML IV ONE (14:06)
--- NOTE | 2024-09-02 17:33 | DVHPN2 ---
Progress Note - Dictate Date Seen: September 02, 2024 Medical Necessity Reason Pt with a Central, PICC or Fol: Yes The following are medically ne: PICC Line, Josue Catheter Reason for josue catheter: Strict I&O vital signs Vital Sign Date Time Temp Pulse Resp B/P (MAP) Pulse Ox O2 Delivery O2 Flow Rate FiO2 09/02/24 17:00 97.9 99 29 95/53 (67) 96 97.9 91/46 (61) 09/02/24 16:20 50 09/02/24 08:00 Mechanical Ventilator+ Total Intake and Output 09/01/24 09/01/24 09/02/24 15:00 23:00 07:00 Intake Total 1894.1 ml 1587.075 ml 1607.999 ml Output Total 2550 ml 2050 ml Balance 1894.1 ml -962.925 ml -442.001 ml medications Current Medications Medications Dose Ordered Sig/Shar Route Start Time Stop Time Status Last Admin Dose Admin Ipratropium [place] 0.5 mg Q4HPRN PRN NEB 08/20/24 20:15 09/02/24 14:22 0.5 MG Doxycycline Hyclate 100 ml @ 50 mls/hr Q12H IV 08/21/24 18:30 UNV Midazolam HCl 50 ml @ 1 mls/hr Q24H IV 08/21/24 18:45 09/02/24 14:16 15 MLS/HR Norepinephrine Bitartrate 32 mg/ Sodium Chloride 250 ml @ 0.938 mls/ hr Q24H IV 08/22/24 09:15 09/02/24 10:21 1.875 MLS/HR Vancomycin HCl 0 ml @ 0 mls/hr UD IV 08/22/24 15:15 Valproate Sodium 250 mg/Sodium Chloride 52.5 ml @ 52.5 mls/hr BID IV 08/22/24 22:00 09/02/24 10:24 52.5 MLS/HR Phenytoin Sodium 100 mg Q12HR IV 08/24/24 10:00 09/02/24 10:27 100 MG Diagnostic Test (Pha) 1 strip Q6HR 08/24/24 00:00 09/02/24 12:06 1 STRIP Insulin Human Regular FOLLOW SLIDING SCALE Q6HR SC 08/24/24 00:00 09/02/24 12:12 2 UNITS Dextrose 50 ml UD IV 08/23/24 22:00 Amino Acids 0 ml @ 0 mls/hr PER PHARMACY IV 08/24/24 12:15 Levalbuterol HCl 0.625 mg Q6HR NEB 08/25/24 12:00 09/02/24 14:22 0.625 MG Acetaminophen 650 mg Q6HP PRN [place] 08/26/24 16:30 Propofol 100 ml @ 1.467 mls/ hr Q24H IV 08/26/24 20:30 09/02/24 00:26 4.401 MLS/HR Sodium Chloride 10 ml QSHIFT@10,22 IV 08/29/24 22:00 09/02/24 10:27 10 ML Vancomycin HCl 200 ml @ 200 mls/hr Q16H IV 08/31/24 04:00 09/02/24 03:38 200 MLS/HR Fentanyl Citrate 250 ml @ 2.5 mls/hr Q24H IV 08/30/24 22:00 09/02/24 12:42 27.5 MLS/HR Potassium Acetate 40 meq/Potassium Phosphate 22 meq/ Calcium Gluconate 4.65 meq/ Magnesium Sulfate 20 meq/ Multivitamins 10 ml/Chromium/ Copper/Manganese/ Zinc 1 ml/Amino Acids/Dextrose 1,251 ml @ 52 mls/hr Q24H4M IV 09/01/24 22:00 09/02/24 21:59 09/01/24 21:45 52 MLS/HR Dextrose 1,000 ml @ 75 mls/hr [id number] IV 09/01/24 10:15 09/02/24 05:48 75 MLS/HR Pantoprazole Sodium 40 mg BID IV 09/01/24 22:00 09/02/24 10:16 40 MG Potassium Phosphate 44 meq/ Magnesium Sulfate 20 meq/ Multivitamins 10 ml/Chromium/ Copper/Manganese/ Zinc 1 ml/Amino Acids/Dextrose 1,126 ml @ 47 mls/hr [id number] IV 09/02/24 22:00 09/03/24 21:59 laboratory and microbiology Laboratory Tests 09/02/24 03:02 Test 09/02/24 03:02 Range/Units Serum Glucose 128 H 74-106 mg/dL Assessment/Plan Impression Acute hypoxemic respiratory failure Metabolic encephalopathy Aspiration pneumonia Seizure disorder Patient seen and examined Events On mechanical ventilation S/p intubation PEEP 5, FiO2 30% No improvement in mentation Requires sedation Labs and imaging reviewed ABG reviewed Compensated respiratory alkalosis Management Vent support Titrate to maintain sats 90% or above Sedation for vent synchrony Continue antibiotics F/u cultures Bronchodilators Monitor renal function Monitor electrolytes Supplement as needed Pressors as needed for hemodynamic support To maintain a mean arterial pressure of 65 mmHg Antiepileptics as ordered F/u neurology DVT prophylaxis Critical care time 35 minutes Dietary Evaluation Review Comments: 1. no PO or EN tube feeding until GI bleed resolved. Cancel Cardic Diet 2. Initiate TPN if pt is NPO>7 days. Expected Outcomes/Goals: reassess needs when pt is off vent. Plan discussed with: Other (Rn) CATHI GARCIA MD September 02, 2024 17:33
[2024-09-02] MEDS: TPN PER PHARMACY IV NR (21:45)
[2024-09-02] MEDS: PROPOFOL 100 ML IV SCH (22:30)
[2024-09-02 22:53] LABS: Urine Bacteria None Seen /hpf (None Seen)
[2024-09-02 23:01] LABS: Urine Blood 3+ /uL (Negative); Urine Clarity Clear (Clear); Urine Color Yellow (Yellow); Urine Protein, UAD TRACE (Negative); Urine Specific Gravity 1.017 (1.001-1.035); Urine Squamous Epithelial Cell FEW /hpf (<5); Urine Urobilinogen Normal (Negative); Urine WBC < 1 /HPF (0-3)
[2024-09-03] VITALS (107 sets, daily range): BP systolic 83–143; BP diastolic 46–80; PULSE 76–230; RESP 16–27; TEMP 96.1–99.9; O2SAT 92–100
[2024-09-03 03:59] LABS: Hemoglobin 8.1 g/dL (13.5-17.5); Mean Corpuscular Hemoglobin 31.6 pg (28.0-32.0)
[2024-09-03 04:00] LABS: Alanine Aminotransferase 12 U/L (7-40); Anion Gap 7 (5-15); BUN/Creatinine Ratio 31.3 (10.0-20.0); Blood Urea Nitrogen 20 mg/dL (9-23); Carbon Dioxide 27 mmol/L (20-31); Chloride 107 mmol/L (98-107); Potassium 4.5 mmol/L (3.5-5.1); Sodium 141 mmol/L (136-145); Total Protein 5.9 g/dL (5.7-8.2)
[2024-09-03 04:01] LABS: Aspartate Aminotransferase 35 U/L (13-40); Bilirubin, Total 0.7 mg/dL (0.2-1.0); Hematocrit 24.2 % (41.0-53.0); Mean Corpuscular Hgb Conc. 33.3 g/dL (32.0-36.0); Mean Corpuscular Volume 94.9 fL (80.0-100.0); Phosphorus 3.8 mg/dL (2.4-5.1); Platelet Count (auto) 577 10^3/uL (140-450); Red Blood Cells 2.55 10^6/uL (4.5-5.90); Red Cell Distribution Width 15.9 % (11.8-14.3); White Blood Cell 9.6 10^3/uL (4.4-10.8)
[2024-09-03 04:19] LABS: Basophils % (manual) 0 (0.0-2.0); Blast Cells 0; Metamyelocytes % 0; Myelocytes % 0; Promyelocytes % 0; Reactive Lymphocytes 0
[2024-09-03 04:32] LABS: Albumin 2.6 g/dL (3.2-4.8); Alkaline Phosphatase 128 U/L (46-116); Calcium 8.2 mg/dL (8.7-10.4); Glucose 151 mg/dL (74-106)
[2024-09-03 06:11] LABS: Band Neutrophils % (manual) 13; Eosinophils % (manual) 13 (0-7); Lymphocytes % (manual) 12 (10.0-50.0); Monocytes % (manual) 8 (0-12); Platelet Estimate Increased
[2024-09-03 06:12] LABS: Anisocytosis Slight
--- NOTE | 2024-09-03 06:55 | DVH ---
INDICATION: VENTED TECHNIQUE: Single frontal view of the chest was obtained COMPARISON: XY CHEST PORTABLE on DOS: 09/02/24, XY CHEST XRAY 1 VIEW on DOS: 09/01/24, XY CHEST XRAY 1 VIEW on DOS: 08/31/24, XY CHEST PORTABLE on DOS: 08/30/24, XY CHEST XRAY 1 VIEW on DOS: 08/30/24, XY [place] [facility] PORTABLE on DOS: 09/02/24 FINDINGS: Lines and Tubes: Endotracheal tube projects 5 cm above the balwinder. Enteric tube tip projects over th e expected region of the stomach. Left PICC tip projects over the superior vena cava. Lungs: Multifocal consolidative opacities. Pleura: No effusion. No pneumothorax. Cardiomediastinal contours: Unremarkable Bones: No acute osseous abnormality. IMPRESSION: Multifocal consolidative opacities.
[2024-09-03 08:27] LABS: Base Excess 1.1 mmol/L (-2.0-3.0)
--- NOTE | 2024-09-03 09:10 | DVHPN2 ---
Subjective INTUBATED AND SEDATED Reviewed: Care Plan, H&P, Labs, Medications, Previous Orders, Radiology, Other (CONSULTANTS) Changes from previous H/P or p: No Changes General: Per HPI Objective Vitals Vital Signs Date Time Temp Pulse Resp B/P (MAP) Pulse Ox O2 Delivery O2 Flow Rate FiO2 09/03/24 07:15 95 26 102/56 (71) 94 104/51 (68) 09/03/24 06:00 35 09/03/24 05:15 97.3 207.1 09/02/24 20:00 Mechanical Ventilator+ Intake/Output Intake and Output 09/03/24 07:00 Intake Total 4238.305 ml Output Total 3050 ml Balance 1188.305 ml Intake Oral 0 ml IV Total 4238.305 ml Output Urine Total 2850 ml Gastric Drainage Total 200 ml General Appearance: Other (INTUBATED AND SEDATED) Lungs: Other (CRACKLES BILATERAL LUNGS) Cardiovascular: Other (Borderline tachycardia) Medications Current Medications Medications Dose Ordered Sig/Hsar Route Start Time Stop Time Status Last Admin Dose Admin Ipratropium [place] 0.5 mg Q4HPRN PRN NEB 08/20/24 20:15 09/03/24 07:04 0.5 MG Doxycycline Hyclate 100 ml @ 50 mls/hr Q12H IV 08/21/24 18:30 UNV Midazolam HCl 50 ml @ 1 mls/hr Q24H IV 08/21/24 18:45 09/03/24 08:24 15 MLS/HR Norepinephrine Bitartrate 32 mg/ Sodium Chloride 250 ml @ 0.938 mls/ hr Q24H IV 08/22/24 09:15 09/02/24 10:21 1.875 MLS/HR Valproate Sodium 250 mg/Sodium Chloride 52.5 ml @ 52.5 mls/hr BID IV 08/22/24 22:00 09/02/24 21:37 52.5 MLS/HR Phenytoin Sodium 100 mg Q12HR IV 08/24/24 10:00 09/02/24 21:38 100 MG Diagnostic Test (Pha) 1 strip Q6HR 08/24/24 00:00 09/03/24 05:39 1 STRIP Insulin Human Regular FOLLOW SLIDING SCALE Q6HR SC 08/24/24 00:00 09/03/24 05:48 2 UNITS Dextrose 50 ml UD IV 08/23/24 22:00 Amino Acids 0 ml @ 0 mls/hr PER PHARMACY IV 08/24/24 12:15 Levalbuterol HCl 0.625 mg Q6HR NEB 08/25/24 12:00 09/03/24 07:04 0.625 MG Acetaminophen 650 mg Q6HP PRN [place] 08/26/24 16:30 Sodium Chloride 10 ml QSHIFT@10,22 IV 08/29/24 22:00 09/02/24 21:45 10 ML Vancomycin HCl 200 ml @ 200 mls/hr Q16H IV 08/31/24 04:00 09/02/24 20:10 200 MLS/HR Fentanyl Citrate 250 ml @ 2.5 mls/hr Q24H IV 08/30/24 22:00 09/03/24 06:20 27.5 MLS/HR Dextrose 1,000 ml @ 75 mls/hr [id number] IV 09/01/24 10:15 09/02/24 19:30 75 MLS/HR Pantoprazole Sodium 40 mg BID IV 09/01/24 22:00 09/02/24 21:38 40 MG Potassium Phosphate 44 meq/ Magnesium Sulfate 20 meq/ Multivitamins 10 ml/Chromium/ Copper/Manganese/ Zinc 1 ml/Amino Acids/Dextrose 1,126 ml @ 47 mls/hr [id number] IV 09/02/24 22:00 09/03/24 21:59 09/02/24 21:45 47 MLS/HR Propofol 100 ml @ 1.635 mls/ hr Q24H IV 09/02/24 22:30 09/03/24 04:37 11.445 MLS/HR Laboratory Results Laboratory Tests 09/03/24 03:06 Chemistry Test 09/03/24 03:06 Albumin 2.6 g/dL (3.2-4.8) L Calcium Level 8.2 mg/dL (8.7-10.4) L Magnesium Level 2.0 mg/dL (1.6-2.6) Phosphorus Level 3.8 mg/dL (2.4-5.1) Total Protein 5.9 g/dL (5.7-8.2) LFT Test 09/03/24 03:06 Alanine Aminotransferase (ALT) 12 U/L (7-40) Alkaline Phosphatase 128 U/L (46-116) H Aspartate Amino Transferase (AST) 35 U/L (13-40) Total Bilirubin 0.7 mg/dL (0.2-1.0) Urinalysis Test 08/20/24 16:15 09/02/24 22:45 Urine Mucus Few (None Seen) Urine Color Yellow (Yellow) Urine Clarity Clear (Clear) Urine pH 6.0 (5.0-9.0) Urine Specific [place] 1.017 (1.001-1.035) Urine Protein Trace (Negative) H Urine Ketones Negative (Negative) Urine Blood 3+ /uL (Negative) H Urine Nitrite Negative (Negative) Urine Bilirubin Negative (Negative) Urine Urobilinogen Normal mg/dL (Negative) Urine Leukocyte Esterase Negative /uL (Negative) Urine RBC 196 /hpf (0 - 3) Urine Microscopic WBC < 1 /HPF (0-3) Urine Squamous Epithelial Cells Few /hpf (<5) Urine Bacteria None seen /hpf (None Seen) Urine Glucose Normal mg/dL (Normal) Blood Gas Results Test 09/03/24 08:13 Arterial Blood pH 7.290 (7.350-7.450) FiO2 % 35.0 Microbiology Microbiology Date/Time Source Procedure Growth Status 08/27/24 16:05 Lung - Final Resulted 08/27/24 16:05 Lung - Final Resulted 08/27/24 16:05 Lung Pending Resulted 08/27/24 16:05 Lung Pending Resulted 08/27/24 16:05 Lung - Final See Separate Report... Resulted 08/27/24 16:05 Sputum Gram Stain - Final Complete 08/27/24 16:05 Sputum Respiratory Culture - Final Complete 08/22/24 09:00 Urine - [place] Urine Culture - Final Complete 08/20/24 15:21 Blood Blood Culture - Final NO GROWTH AFTER 5 DAYS OF INCUBATION. 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 Repeat labs. Chest x-ray. Monitor vital signs and oxygenation and pCO2 and PO2. Ventilator changes. Further plan per orders Plan discussed with: Other (Nursing) My Orders Orders - ANGELIKA ORTIZ MD Procedure Category Date Status Time Chest Portable XY 09/03/24 Resulted 04:00 Propofol (Diprivan) PHA 09/02/24 In Process 22:30 Date of Service: September 03, 2024 Billing Provider: ANGELIKA ORTIZ MD Common Visit Codes: [id number] INP/OBS CARE(HIGH) ANGELIKA ORTIZ MD September 03, 2024 09:10
--- NOTE | 2024-09-03 09:56 | DVHPN2 ---
Progress Note - Dictate Date Seen: September 03, 2024 Medical Necessity Reason Pt with a Central, PICC or Fol: Yes The following are medically ne: PICC Line, Josue Catheter Reason for josue catheter: Strict I&O vital signs Vital Sign Date Time Temp Pulse Resp B/P (MAP) Pulse Ox O2 Delivery O2 Flow Rate FiO2 09/03/24 08:40 108 26 111/62 (78) 95 50 09/03/24 05:15 97.3 207.1 09/02/24 20:00 Mechanical Ventilator+ Total Intake and Output 09/02/24 09/02/24 09/03/24 15:00 23:00 07:00 Intake Total 1416.375 ml 1559.375 ml 1262.555 ml Output Total 1700 ml 1350 ml Balance 1416.375 ml -140.625 ml -87.445 ml medications Current Medications Medications Dose Ordered Sig/Shar Route Start Time Stop Time Status Last Admin Dose Admin Ipratropium [place] 0.5 mg Q4HPRN PRN NEB 08/20/24 20:15 09/03/24 07:04 0.5 MG Doxycycline Hyclate 100 ml @ 50 mls/hr Q12H IV 08/21/24 18:30 UNV Midazolam HCl 50 ml @ 1 mls/hr Q24H IV 08/21/24 18:45 09/03/24 08:24 15 MLS/HR Norepinephrine Bitartrate 32 mg/ Sodium Chloride 250 ml @ 0.938 mls/ hr Q24H IV 08/22/24 09:15 09/02/24 10:21 1.875 MLS/HR Valproate Sodium 250 mg/Sodium Chloride 52.5 ml @ 52.5 mls/hr BID IV 08/22/24 22:00 09/02/24 21:37 52.5 MLS/HR Phenytoin Sodium 100 mg Q12HR IV 08/24/24 10:00 09/02/24 21:38 100 MG Diagnostic Test (Pha) 1 strip Q6HR 08/24/24 00:00 09/03/24 05:39 1 STRIP Insulin Human Regular FOLLOW SLIDING SCALE Q6HR SC 08/24/24 00:00 09/03/24 05:48 2 UNITS Dextrose 50 ml UD IV 08/23/24 22:00 Amino Acids 0 ml @ 0 mls/hr PER PHARMACY IV 08/24/24 12:15 Levalbuterol HCl 0.625 mg Q6HR NEB 08/25/24 12:00 09/03/24 07:04 0.625 MG Acetaminophen 650 mg Q6HP PRN [place] 08/26/24 16:30 Sodium Chloride 10 ml QSHIFT@10,22 IV 08/29/24 22:00 09/02/24 21:45 10 ML Vancomycin HCl 200 ml @ 200 mls/hr Q16H IV 08/31/24 04:00 09/02/24 20:10 200 MLS/HR Fentanyl Citrate 250 ml @ 2.5 mls/hr Q24H IV 08/30/24 22:00 09/03/24 06:20 27.5 MLS/HR Dextrose 1,000 ml @ 75 mls/hr [id number] IV 09/01/24 10:15 09/02/24 19:30 75 MLS/HR Pantoprazole Sodium 40 mg BID IV 09/01/24 22:00 09/02/24 21:38 40 MG Potassium Phosphate 44 meq/ Magnesium Sulfate 20 meq/ Multivitamins 10 ml/Chromium/ Copper/Manganese/ Zinc 1 ml/Amino Acids/Dextrose 1,126 ml @ 47 mls/hr [id number] IV 09/02/24 22:00 09/03/24 21:59 09/02/24 21:45 47 MLS/HR Propofol 100 ml @ 1.635 mls/ hr Q24H IV 09/02/24 22:30 09/03/24 04:37 11.445 MLS/HR Cefepime HCl 50 ml @ 12.5 mls/hr Q8HR IV 09/03/24 14:00 laboratory and microbiology Laboratory Tests 09/03/24 03:06 Test 09/03/24 03:06 Range/Units Serum Glucose 151 H 74-106 mg/dL Assessment/Plan Impression Acute hypoxemic respiratory failure Metabolic encephalopathy Aspiration pneumonia Seizure disorder Patient seen and examined Events On mechanical ventilation S/p intubation PEEP 10, FiO2 50% Frequent desaturations reported Labs and imaging reviewed ABG reviewed Management Vent support Titrate to maintain sats 90% or above Sedation for vent synchrony Continue antibiotics F/u cultures Bronchodilators Monitor renal function Monitor electrolytes Supplement as needed Pressors as needed for hemodynamic support To maintain a mean arterial pressure of 65 mmHg Antiepileptics as ordered F/u neurology DVT prophylaxis Critical care time 35 minutes Dietary Evaluation Review Comments: 1. no PO or EN tube feeding until GI bleed resolved. Cancel Cardic Diet 2. Initiate TPN if pt is NPO>7 days. Expected Outcomes/Goals: reassess needs when pt is off vent. Plan discussed with: Other (Rn) CATHI GARCIA MD September 03, 2024 09:56
[2024-09-03] MEDS: CEFEPIME 1GM/ 50ML 50 ML IV SCH (14:33)
--- NOTE | 2024-09-03 21:11 | DVHPN2 ---
Progress Note - Dictate Date Seen: September 03, 2024 Medical Necessity Reason Pt with a Central, PICC or Fol: Yes The following are medically ne: PICC Line, Josue Catheter Reason for josue catheter: Strict I&O Subjective Postop day 5. 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 Patient is intubated sedated;Peep of 10 and FiO2 50% NG tube output put miminal appears to be mostly dark bilious minimal H&H is at 8.1 Liver enzymes are normal No bowel movement recorded Pt is on IV TPN vital signs Vital Sign Date Time Temp Pulse Resp B/P (MAP) Pulse Ox O2 Delivery O2 Flow Rate FiO2 09/03/24 20:11 80 26 109/55 (73) 98 50 09/03/24 17:30 97.0 206.6 09/03/24 08:00 Mechanical Ventilator+ Total Intake and Output 09/02/24 09/02/24 09/03/24 15:00 23:00 07:00 Intake Total 1416.375 ml 1559.375 ml 1446.000 ml Output Total 1700 ml 1350 ml Balance 1416.375 ml -140.625 ml 96.000 ml medications Current Medications Medications Dose Ordered Sig/Shar Route Start Time Stop Time Status Last Admin Dose Admin Ipratropium [place] 0.5 mg Q4HPRN PRN NEB 08/20/24 20:15 09/03/24 18:24 0.5 MG Doxycycline Hyclate 100 ml @ 50 mls/hr Q12H IV 08/21/24 18:30 UNV Midazolam HCl 50 ml @ 1 mls/hr Q24H IV 08/21/24 18:45 09/03/24 18:38 15 MLS/HR Norepinephrine Bitartrate 32 mg/ Sodium Chloride 250 ml @ 0.938 mls/ hr Q24H IV 08/22/24 09:15 09/03/24 12:21 6.563 MLS/HR Valproate Sodium 250 mg/Sodium Chloride 52.5 ml @ 52.5 mls/hr BID IV 08/22/24 22:00 09/03/24 10:37 52.5 MLS/HR Phenytoin Sodium 100 mg Q12HR IV 08/24/24 10:00 09/03/24 10:36 100 MG Diagnostic Test (Pha) 1 strip Q6HR 08/24/24 00:00 09/03/24 17:47 1 STRIP Insulin Human Regular FOLLOW SLIDING SCALE Q6HR SC 08/24/24 00:00 09/03/24 18:10 2 UNITS Dextrose 50 ml UD IV 08/23/24 22:00 Amino Acids 0 ml @ 0 mls/hr PER PHARMACY IV 08/24/24 12:15 Levalbuterol HCl 0.625 mg Q6HR NEB 08/25/24 12:00 09/03/24 18:24 0.625 MG Acetaminophen 650 mg Q6HP PRN [place] 08/26/24 16:30 Sodium Chloride 10 ml QSHIFT@10,22 IV 08/29/24 22:00 09/03/24 10:37 10 ML Vancomycin HCl 200 ml @ 200 mls/hr Q16H IV 08/31/24 04:00 09/03/24 12:21 200 MLS/HR Fentanyl Citrate 250 ml @ 2.5 mls/hr Q24H IV 08/30/24 22:00 09/03/24 15:08 27.5 MLS/HR Dextrose 1,000 ml @ 75 mls/hr [id number] IV 09/01/24 10:15 09/03/24 08:24 75 MLS/HR Pantoprazole Sodium 40 mg BID IV 09/01/24 22:00 09/03/24 10:36 40 MG Potassium Phosphate 44 meq/ Magnesium Sulfate 20 meq/ Multivitamins 10 ml/Chromium/ Copper/Manganese/ Zinc 1 ml/Amino Acids/Dextrose 1,126 ml @ 47 mls/hr [id number] IV 09/02/24 22:00 09/03/24 21:59 09/02/24 21:45 47 MLS/HR Propofol 100 ml @ 1.635 mls/ hr Q24H IV 09/02/24 22:30 09/03/24 12:56 11.445 MLS/HR Cefepime HCl 50 ml @ 12.5 mls/hr Q8HR IV 09/03/24 14:00 09/03/24 14:33 12.5 MLS/HR Sodium Chloride 20 meq/Sodium Acetate 20 meq/ Calcium Gluconate 1.65 meq/ Magnesium Sulfate 20 meq/ Multivitamins 10 ml/Chromium/ Copper/Manganese/ Zinc 1 ml/Amino Acids/Dextrose 1,034.5483 ml @ 43 mls/hr Q24H4M IV 09/03/24 22:00 09/04/24 21:59 objective Patient Is intubated sedated thin male somewhat cachectic Cardiovascular: Normal S1 and S2. No murmurs, gallops or rubs Respiratory: Mechanically assisted ventilation, equal bilateral airway entree. Bilateral diffuse rhonchus Abdomen: Soft, nontender, no organomegaly, normal bowel sounds MSK/skin: Mobilization of limbs cannot be evaluated. Skin is dry and warm Neurological: Orientation cannot be assessed. No apparent motor no sensitive deficits. Pupils are isocoric and reactive laboratory and microbiology Laboratory Tests 09/03/24 03:06 Test 09/03/24 03:06 Range/Units Serum Glucose 151 H 74-106 mg/dL Problems(with codes): (1) Foreign body in jejunum (2) Small bowel obstruction (3) Abnormal finding on GI tract imaging (4) Coffee ground emesis (5) Sepsis, unspecified organism (6) Pneumonia, unspecified organism Prognosis Plan Continue IV antibiotics with Gram-negative coverage Continue IV PPI Continue IV TPN Ventilatory support Prognosis remains guarded Dietary Evaluation Review Comments: 1. no PO or EN tube feeding until GI bleed resolved. Cancel Cardic Diet 2. Initiate TPN if pt is NPO>7 days. Expected Outcomes/Goals: reassess needs when pt is off vent. Plan discussed with: Other (ICU Nurse) MADAN JUAREZ MD September 03, 2024 21:11
[2024-09-03] MEDS: TPN PER PHARMACY IV NR (21:41)
[2024-09-04] VITALS (107 sets, daily range): BP systolic 73–175; BP diastolic 41–77; PULSE 74–125; RESP 17–40; TEMP 97.4–101; O2SAT 88–100
[2024-09-04 04:10] LABS: Hemoglobin 8.3 g/dL (13.5-17.5); White Blood Cell 7.3 10^3/uL (4.4-10.8)
[2024-09-04 04:14] LABS: Hematocrit 24.9 % (41.0-53.0); Mean Corpuscular Hemoglobin 31.8 pg (28.0-32.0); Mean Corpuscular Hgb Conc. 33.3 g/dL (32.0-36.0); Mean Corpuscular Volume 95.5 fL (80.0-100.0); Platelet Count (auto) 615 10^3/uL (140-450); Red Blood Cells 2.61 10^6/uL (4.5-5.90); Red Cell Distribution Width 17.1 % (11.8-14.3)
[2024-09-04 04:15] LABS: Basophils % (manual) 0 (0.0-2.0); Blast Cells 0; Myelocytes % 0; Reactive Lymphocytes 0
[2024-09-04 04:21] LABS: Alanine Aminotransferase 13 U/L (7-40); Anion Gap 5 (5-15); BUN/Creatinine Ratio 36.2 (10.0-20.0); Blood Urea Nitrogen 21 mg/dL (9-23); Carbon Dioxide 29 mmol/L (20-31); Potassium 4.3 mmol/L (3.5-5.1); Total Protein 5.9 g/dL (5.7-8.2); Triglycerides 123 mg/dL (< 150)
[2024-09-04 04:22] LABS: Aspartate Aminotransferase 29 U/L (13-40); Bilirubin, Total 0.7 mg/dL (0.2-1.0); Phosphorus 2.8 mg/dL (2.4-5.1)
[2024-09-04 04:24] LABS: Albumin 2.6 g/dL (3.2-4.8); Alkaline Phosphatase 146 U/L (46-116); Calcium 8.6 mg/dL (8.7-10.4); Chloride 111 mmol/L (98-107); Glucose 140 mg/dL (74-106); Sodium 145 mmol/L (136-145)
[2024-09-04 05:11] LABS: Band Neutrophils % (manual) 3; Eosinophils % (manual) 6 (0-7); Lymphocytes % (manual) 23 (10.0-50.0); Metamyelocytes % 1; Monocytes % (manual) 7 (0-12); Platelet Estimate Increased; Promyelocytes % 1
--- NOTE | 2024-09-04 05:54 | DVH ---
INDICATION: fu TECHNIQUE: Single frontal view of the chest was obtained COMPARISON: XY CHEST PORTABLE on DOS: 09/03/24, XY CHEST PORTABLE on DOS: 09/02/24, XY CHEST XRAY 1 VIE W on DOS: 09/01/24, XY CHEST XRAY 1 VIEW on DOS: 08/31/24, XY CHEST PORTABLE on DOS: 08/30/24, XY CHEST PORTABLE on DOS: 09/03/24 FINDINGS: Lines and Tubes: Endotracheal tube projects 5 cm above the balwinder. Enteric tube tip projects over th e expected region of the stomach. Left PICC tip projects over the superior vena cava. Lungs: Multifocal consolidative opacities. Pleura: No effusion. No pneumothorax. Cardiomediastinal contours: Unremarkable Bones: No acute osseous abnormality. IMPRESSION: Multifocal consolidative opacities.
[2024-09-04] MEDS ORDERED: PIPERACILLIN-TAZO 4.5GM 100 ML IV ONE (09:30)
[2024-09-04 09:59] LABS: Base Excess 0.8 mmol/L (-2.0-3.0)
[2024-09-04] MEDS: PIPERACILLIN-TAZOB 3.375GM 100 ML IV SCH (11:17)
--- NOTE | 2024-09-04 15:38 | DVHPN2 ---
Progress Note - Dictate Date Seen: September 04, 2024 Medical Necessity Reason Pt with a Central, PICC or Fol: Yes The following are medically ne: PICC Line, Josue Catheter Reason for josue catheter: Strict I&O Subjective Postop day 6. 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 Patient is intubated sedated;Peep of 10 and FiO2 50% NG tube output put miminal appears to be mostly dark bilious minimal H&H is at 8.1 Liver enzymes are normal No bowel movement recorded Pt is on IV TPN vital signs Vital Sign Date Time Temp Pulse Resp B/P (MAP) Pulse Ox O2 Delivery O2 Flow Rate FiO2 09/04/24 14:45 120 35 107/55 (72) 119/52 (74) 09/04/24 14:30 100 09/04/24 14:23 40 09/04/24 08:00 Mechanical Ventilator+ 09/04/24 04:00 97.6 97.6 Total Intake and Output 09/03/24 09/03/24 09/04/24 15:00 23:00 07:00 Intake Total 1460.064 ml 1528.812 ml 1089.216 ml Output Total 2500 ml 2400 ml Balance 1460.064 ml -971.188 ml -1310.784 ml medications Current Medications Medications Dose Ordered Sig/Shar Route Start Time Stop Time Status Last Admin Dose Admin Ipratropium [place] 0.5 mg Q4HPRN PRN NEB 08/20/24 20:15 09/04/24 11:42 0.5 MG Doxycycline Hyclate 100 ml @ 50 mls/hr Q12H IV 08/21/24 18:30 UNV Midazolam HCl 50 ml @ 1 mls/hr Q24H IV 08/21/24 18:45 09/04/24 14:31 12 MLS/HR Norepinephrine Bitartrate 32 mg/ Sodium Chloride 250 ml @ 0.938 mls/ hr Q24H IV 08/22/24 09:15 09/04/24 11:24 3.75 MLS/HR Valproate Sodium 250 mg/Sodium Chloride 52.5 ml @ 52.5 mls/hr BID IV 08/22/24 22:00 09/04/24 11:07 52.5 MLS/HR Phenytoin Sodium 100 mg Q12HR IV 08/24/24 10:00 09/04/24 11:06 100 MG Diagnostic Test (Pha) 1 strip Q6HR 08/24/24 00:00 09/04/24 12:17 1 STRIP Insulin Human Regular FOLLOW SLIDING SCALE Q6HR SC 08/24/24 00:00 09/04/24 00:18 2 UNITS Dextrose 50 ml UD IV 08/23/24 22:00 Amino Acids 0 ml @ 0 mls/hr PER PHARMACY IV 08/24/24 12:15 Levalbuterol HCl 0.625 mg Q6HR NEB 08/25/24 12:00 09/04/24 11:42 0.625 MG Acetaminophen 650 mg Q6HP PRN [place] 08/26/24 16:30 Sodium Chloride 10 ml QSHIFT@10,22 IV 08/29/24 22:00 09/04/24 11:23 10 ML Vancomycin HCl 200 ml @ 200 mls/hr Q16H IV 08/31/24 04:00 09/04/24 03:32 200 MLS/HR Fentanyl Citrate 250 ml @ 2.5 mls/hr Q24H IV 08/30/24 22:00 09/04/24 09:47 27.5 MLS/HR Dextrose 1,000 ml @ 75 mls/hr [id number] IV 09/01/24 10:15 09/03/24 21:30 75 MLS/HR Pantoprazole Sodium 40 mg BID IV 09/01/24 22:00 09/04/24 11:06 40 MG Propofol 100 ml @ 1.635 mls/ hr Q24H IV 09/02/24 22:30 09/04/24 09:48 6.54 MLS/HR Sodium Chloride 20 meq/Sodium Acetate 20 meq/ Calcium Gluconate 1.65 meq/ Magnesium Sulfate 20 meq/ Multivitamins 10 ml/Chromium/ Copper/Manganese/ Zinc 1 ml/Amino Acids/Dextrose 1,034.5483 ml @ 43 mls/hr Q24H4M IV 09/03/24 22:00 09/04/24 21:59 09/03/24 21:41 43 MLS/HR Piperacillin Sod/ Tazobactam Sod 100 ml @ 25 mls/hr Q8H IV 09/04/24 10:00 09/04/24 11:17 25 MLS/HR Potassium Phosphate 44 meq/ Magnesium Sulfate 20 meq/ Multivitamins 10 ml/Chromium/ Copper/Manganese/ Zinc 1 ml/Amino Acids/Dextrose 1,126 ml @ 47 mls/hr [id number] IV 09/04/24 22:00 09/05/24 21:59 objective Patient Is intubated sedated thin male somewhat cachectic Cardiovascular: Normal S1 and S2. No murmurs, gallops or rubs Respiratory: Mechanically assisted ventilation, equal bilateral airway entree. Bilateral diffuse rhonchus Abdomen: Soft, nontender, no organomegaly, normal bowel sounds MSK/skin: Mobilization of limbs cannot be evaluated. Skin is dry and warm Neurological: Orientation cannot be assessed. No apparent motor no sensitive deficits. Pupils are isocoric and reactive laboratory and microbiology Laboratory Tests 09/04/24 03:25 Test 09/04/24 03:25 Range/Units Serum Glucose 140 H 74-106 mg/dL Problems(with codes): (1) Foreign body in jejunum (2) Small bowel obstruction (3) Abnormal finding on GI tract imaging (4) Coffee ground emesis (5) Pneumonia, unspecified organism (6) Sepsis, unspecified organism (7) Generalized weakness Prognosis Plan Discuss it surgical consult if we can not start enteral tube feedings possibly trickle feedings Patient has high oxygen requirements and PEEP pressors Months more stabilized from a pulmonary point of view he might be a candidate for tracheostomy Dietary Evaluation Review Comments: 1. no PO or EN tube feeding until GI bleed resolved. Cancel Cardic Diet 2. Initiate TPN if pt is NPO>7 days. Expected Outcomes/Goals: reassess needs when pt is off vent. Plan discussed with: Other (Dr Smart) MADAN JUAREZ MD September 04, 2024 15:38
--- NOTE | 2024-09-04 16:10 | DVHNC2 ---
Procedure - Procedure- Bronchoscopy and bronchial washings Indication- Secretions Procedure in detail Consent was obtained and timeout performed per protocol. The patient was placed on 100% FiO2. Olympus bronchoscope was used and passed through the endotracheal tube, tracheobronchial tree was examined. There were copious purulent secretions in the airways bilaterally consistent with aspiration pneumonia. The secretions were then loosened up with approximately 50 cc of normal saline and thoroughly suctioned into a separate specimen container. There were no endobronchial lesions however, mucosa appeared inflamed and easily friable. After the procedure, the scope was removed. Patient tolerated the procedure well. CATHI GARCIA MD September 04, 2024 16:10
[2024-09-04] MEDS: ACETAMINOPHEN 650 MG RECT SUPP PR PRN (17:05)
[2024-09-04] MEDS: PHENYTOIN SODIUM 50 MG/ML 2ML VIAL IV SCH (17:06)
[2024-09-04] MEDS ORDERED: VANCOMYCIN PER PHARMACY 0 MG IV SCH (18:15)
--- NOTE | 2024-09-04 18:48 | DVHPNRES ---
Progress Note Date Seen: September 04, 2024 Resident Creating Document: BLANCA IRVIN RESIDENT Medical Necessity Reason Pt with a Central, PICC or Fol: Yes The following are medically ne: PICC Line, Josue Catheter Reason for josue catheter: Strict I&O Subjective Review of Systems Juanjose Ribeiro is a 53-year-old male patient who presents to ED via EMS with chief complaint of progressive dyspnea. Patient is currently intubated, could not obtain review of systems. Obtained information by family (sister) and EMR. Patient's symptoms got worse three days prior to his admission, associated with nausea, vomiting. Per sister patient stopped eating on Wednesday after coming back from a care facility, presented ground coffee emesis and has been having constipation (last bowel movement last ). Patient on scene and in ED presented hypotension, desaturation, tachypnea, with initial diagnosis of acute respiratory failure with septic shock secondary to probable aspiration pneumonia. Required IV fluids, empiric IV antibiotic and high-flow with regular response, deciding endotracheal intubation and placement of central line. While intubating, evidenced copious dark ground coffee secretion, deciding to initiate octreotide and IV pantoprazole. 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 2016 pneumonia Surgical history: Per sister had lung surgery because of collapse lung (questionable thoracentesis) Family history: Mother of congestive heart failure, also had diabetes Social history: Lives in [place] with sister who is her his caregiver. Denies current tobacco, alcohol and other drug abuse Allergies: Denies Home medication: Divalproex 250 mg p.o. b.i.d., Dilantin 100 mg p.o. q.8 hours Patient seen and examined at bedside. Currently in ICUh requirement of vent support, have spoken with sister (Delmis) about probability of requiring a tracheostomy. Completed second bronchoscopy on 06/07/2024 with abundant bilateral mucus plugs. Consulted surgical instruments inspector for eventual tracheostomy and for feedings, indicated trickle feedings. status, on sedoanalgesia due to mechanical assisted ventilation, on IV vasopressors and empiric IV antibiotic, status post intestinal resection with terminal-terminal anastomosis. Pathology lab diagnosed foreign body in Jejunum (orbi hanny). Planning on respiratory weaning, but still presents hig Objective vital signs Vital Sign Date Time Temp Pulse Resp B/P (MAP) Pulse Ox O2 Delivery O2 Flow Rate FiO2 09/04/24 18:00 50 09/04/24 18:00 110 09/04/24 18:00 30 99/53 (68) 93 110/46 (67) 09/04/24 17:05 101.0 09/04/24 08:00 Mechanical Ventilator+ Total Intake and Output 09/03/24 09/03/24 09/04/24 15:00 23:00 07:00 Intake Total 1460.064 ml 1528.812 ml 1089.216 ml Output Total 2500 ml 2400 ml Balance 1460.064 ml -971.188 ml -1310.784 ml medications Current Medications Medications Dose Ordered Sig/Shar Route Start Time Stop Time Status Last Admin Dose Admin Ipratropium [place] 0.5 mg Q4HPRN PRN NEB 08/20/24 20:15 09/04/24 11:42 0.5 MG Doxycycline Hyclate 100 ml @ 50 mls/hr Q12H IV 08/21/24 18:30 UNV Midazolam HCl 50 ml @ 1 mls/hr Q24H IV 08/21/24 18:45 09/04/24 18:04 12 MLS/HR Norepinephrine Bitartrate 32 mg/ Sodium Chloride 250 ml @ 0.938 mls/ hr Q24H IV 08/22/24 09:15 09/04/24 11:24 3.75 MLS/HR Valproate Sodium 250 mg/Sodium Chloride 52.5 ml @ 52.5 mls/hr BID IV 08/22/24 22:00 09/04/24 11:07 52.5 MLS/HR Diagnostic Test (Pha) 1 strip Q6HR 08/24/24 00:00 09/04/24 17:26 1 STRIP Insulin Human Regular FOLLOW SLIDING SCALE Q6HR SC 08/24/24 00:00 09/04/24 17:25 4 UNITS Dextrose 50 ml UD IV 08/23/24 22:00 Amino Acids 0 ml @ 0 mls/hr PER PHARMACY IV 08/24/24 12:15 Levalbuterol HCl 0.625 mg Q6HR NEB 08/25/24 12:00 09/04/24 11:42 0.625 MG Acetaminophen 650 mg Q6HP PRN [place] 08/26/24 16:30 09/04/24 17:05 650 MG Sodium Chloride 10 ml QSHIFT@10,22 IV 08/29/24 22:00 09/04/24 11:23 10 ML Vancomycin HCl 200 ml @ 200 mls/hr Q16H IV 08/31/24 04:00 09/04/24 03:32 200 MLS/HR Fentanyl Citrate 250 ml @ 2.5 mls/hr Q24H IV 08/30/24 22:00 09/04/24 18:02 30 MLS/HR Dextrose 1,000 ml @ 75 mls/hr [id number] IV 09/01/24 10:15 09/03/24 21:30 75 MLS/HR Pantoprazole Sodium 40 mg BID IV 09/01/24 22:00 09/04/24 11:06 40 MG Propofol 100 ml @ 1.635 mls/ hr Q24H IV 09/02/24 22:30 09/04/24 09:48 6.54 MLS/HR Sodium Chloride 20 meq/Sodium Acetate 20 meq/ Calcium Gluconate 1.65 meq/ Magnesium Sulfate 20 meq/ Multivitamins 10 ml/Chromium/ Copper/Manganese/ Zinc 1 ml/Amino Acids/Dextrose 1,034.5483 ml @ 43 mls/hr Q24H4M IV 09/03/24 22:00 09/04/24 21:59 09/03/24 21:41 43 MLS/HR Piperacillin Sod/ Tazobactam Sod 100 ml @ 25 mls/hr Q8H IV 09/04/24 10:00 09/04/24 17:07 25 MLS/HR Potassium Phosphate 44 meq/ Magnesium Sulfate 20 meq/ Multivitamins 10 ml/Chromium/ Copper/Manganese/ Zinc 1 ml/Amino Acids/Dextrose 1,126 ml @ 47 mls/hr [id number] IV 09/04/24 22:00 09/05/24 21:59 Phenytoin Sodium 100 mg Q8HR IV 09/04/24 16:45 09/04/24 17:06 100 MG Vancomycin HCl 0 ml @ 0 mls/hr UD IV 09/04/24 18:15 Examination Patient lying in bed, under sedoanalgesia due to mechanical ventilation General: RASS -3, afebrile, mucosae are moist Cardiovascular: Normal S1 and S2. No murmurs, gallops or rubs Respiratory: Mechanically assisted ventilation, equal bilateral airway entree. Bilateral diffuse rhonchus Abdomen: Mildly distended, surgical site of laparotomy with no secretion nor erythema, nontender, no organomegaly, reduced bowel sounds. Has OG in low intermittent suction, with mild secretion MSK/skin: Mobilization of limbs cannot be evaluated. Skin is dry and warm Neurological: Orientation cannot be assessed. No apparent motor or sensitive deficits. Pupils are isocoric and reactive laboratory and microbiology Laboratory Tests 09/04/24 03:25 Test 09/04/24 03:25 Range/Units Serum Glucose 140 H 74-106 mg/dL Microbiology Date/Time Source Procedure Growth Status 08/27/24 16:05 Lung - Final Resulted 08/27/24 16:05 Lung - Final Resulted 08/27/24 16:05 Lung Pending Resulted 08/27/24 16:05 Lung Pending Resulted 08/27/24 16:05 Lung - Final See Separate Report... Resulted 08/27/24 16:05 Sputum Gram Stain - Final Complete 08/27/24 16:05 Sputum Respiratory Culture - Final Complete 08/22/24 09:00 Urine - Josue [place] Urine Culture - Final Complete 08/20/24 15:21 Blood Blood Culture - Final NO GROWTH AFTER 5 DAYS OF INCUBATION. Complete Problem List/Assessment/Plan Problem List/Assessment/Plan Neurology # Acute metabolic encephalopathy secondary to septic shock likely due to aspiration PNA # Questionable history of childhood meningitis # Developmental delay # Seizures Patient currently intubated Resumed Divalproex and Dilantin. Pharmacy adjusted dose due to hypoalbuminemia Cardiovascular # Ruled out congestive heart failure Negative BNP and Troponin. Chest xray shows pulmonary edema. Echocardiogram: Normal chambers, LVEF 60%, normal RV function and mild TR. 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 Currently on bolus pantoprazole tid. Will evaluate need for PEG. Ordered small bowel series which showed probable small-bowel obstruction versus ileus. Consulted Surgery: Re-evaluate once patient is more stable from aspiration pneumonia. Indicated initiating trickle feedings on 09/04/2024 Patient currently on low intermittent suction, with copious secretion. Genitourinary/Neprhology # KARISHMA hemodynamically mediated (VMN) # Ruled out UTI # Hypernatremia - Resolved UA within normal limits Requires D5W Infectious Disease # Septic shock secondary to aspiration pneumonia Ordered pancultures (blood, urine, sputum), pending Currently under empiric antibiotics (Zosyn and Vancomycin) Endocrine # Simple hyperglycemia with no Diabetes # Severe malnutrition Probably secondary to steroids and septic shock On mild ISS BMI less than 19 and hypoalbuminemia Hematology # Rule out GI bleed # Acute blood loss # Iron deficiency anemia Monitor H&H At admission was on Octeotride and Pantoprazole drip. Discontinue octeotride drip on 08/22/2024 Ordered anemia work up Nutrition: NPO due to GI bleed, Ileus vs small intestinal obstruction. On Clinimix posterior TPN Prophylaxis: PUD (pantoprazole bolus tid) and DVT (SCDs) Lines: 08/21/2024 ET tube 08/21/2024 Josue 08/30/2024 PICC Left upper arm 08/21/2024 OG 28/08/2024 JAKE drain 28/08/2024 Left A-line Drips: Fentanyl 300 Versed 12 Propofol 15 Norepinephrine 4 TPN 42 D5W 75 Goals of care discussed with family (sister, she is the caregiver) for over 18 minutes: Full code status. Discussed plan with Dr. Villatoro, family and nurses: Currently ICU status, s/p bronchoscopy x 2 and intestinal resection with diagnosis of foreign body, on mechanical assisted ventilation with increased oxygen requirement, under sedation-analgesia, on empiric IV antibiotic, IV fluids, bronchodilators and intermittent IV vasopressors. Have discussed with family the probability of requiring tracheostomy. Indicated IV diuretics to assist respiratory weaning. Consulted surgery for eventual tracheostomy, and to start trickle feedings. Critical care time spent including discussion with nursing and family excluding procedures: 98 minutes Plan discussed with: Patient, Other (Sister (Delmis) and nurses) My Orders My Orders Orders - BLANCA IRVIN RESIDENT Procedure Category Date Status Time Respiratory Misc. RT 09/04/24 Transmitted Order 09:15 Piperacillin-Tazob PHA 09/04/24 In Process 3.375gm (Zosyn 3.375g 10:00 Comprehensive LAB 09/05/24 Verified Metabolic Panel 05:00 Phosphorus LAB 09/05/24 Verified 05:00 Magnesium LAB 09/05/24 Verified 05:00 Tpn Per Pharmacy [facility] 09/04/24 In Process 22:00 Amino Acid [facility] 09/04/24 In Process Infusion... 22:00 Vancomycin Per [facility] 09/04/24 In Process Pharmacy [facility] 16:27 Phenytoin Iv Dilantin [facility] 09/04/24 In Process 16:45 Vancomycin Per [facility] 09/04/24 In Process Pharmacy 18:15 Dietary Evaluation Review Comments: 1. no PO or EN tube feeding until GI bleed resolved. Cancel Cardic Diet 2. Initiate TPN if pt is NPO>7 days. Expected Outcomes/Goals: reassess needs when pt is off vent. BLANCA IRVIN RESIDENT September 04, 2024 18:48
[2024-09-04] MEDS: [UNRECOGNIZED DRUG - OTHER] IV NR (21:47)
[2024-09-04] MEDS: POTASSIUM PHOSPHATE IV NR (21:47)
[2024-09-04] MEDS: MAGNESIUM SULF IV NR (21:47)
[2024-09-05] VITALS (105 sets, daily range): BP systolic 79–143; BP diastolic 38–77; PULSE 82–116; RESP 21–53; TEMP 97.5–100.1; O2SAT 88–100
[2024-09-05] MEDS: Jevity 1.2 Cal/Fiber 1 Liter GT SCH (00:12)
[2024-09-05 04:11] LABS: Hematocrit 24.3 % (41.0-53.0); Mean Corpuscular Hemoglobin 31.7 pg (28.0-32.0); Mean Corpuscular Hgb Conc. 32.9 g/dL (32.0-36.0); Mean Corpuscular Volume 96.3 fL (80.0-100.0); Platelet Count (auto) 636 10^3/uL (140-450); Red Blood Cells 2.52 10^6/uL (4.5-5.90); Red Cell Distribution Width 18.1 % (11.8-14.3); White Blood Cell 8.5 10^3/uL (4.4-10.8)
[2024-09-05 04:13] LABS: INR 1.08 (0.9-1.15); Prothrombin Time 11.4 sec (9.3-11.8)
[2024-09-05 04:15] LABS: Alanine Aminotransferase 11 U/L (7-40); Anion Gap 7 (5-15); Aspartate Aminotransferase 34 U/L (13-40); BUN/Creatinine Ratio 35.4 (10.0-20.0); Bilirubin, Total 0.8 mg/dL (0.2-1.0); Carbon Dioxide 25 mmol/L (20-31); Magnesium 2.1 mg/dL (1.6-2.6); Potassium 3.9 mmol/L (3.5-5.1); Sodium 142 mmol/L (136-145); Total Protein 5.8 g/dL (5.7-8.2)
--- NOTE | 2024-09-05 04:20 | DVH ---
CHEST RADIOGRAPH Indication: INTUBATED Technique: Single frontal view of the chest was obtained Comparison: XY CHEST PORTABLE on DOS: 09/04/24, XY CHEST PORTABLE on DOS: 09/03/24, XY CHEST PORTABLE o n DOS: 09/02/24, XY CHEST XRAY 1 VIEW on DOS: 09/01/24, XY CHEST XRAY 1 VIEW on DOS: 08/31/24, XY CHEST PORTABLE on DOS: 09/04/24 FINDINGS: Lines and Tubes: Endotracheal tube projects 5 cm above the balwinder. Enteric tube tip projects over th e expected region of the stomach. Left PICC tip projects over the superior vena cava. Lungs: Multifocal consolidative opacities. Pleura: No effusion. No pneumothorax. Cardiomediastinal contours: Unremarkable Bones: No acute osseous abnormality. IMPRESSION: Multifocal consolidative opacities.
[2024-09-05 04:23] LABS: Basophils % (manual) 0 (0.0-2.0); Blast Cells 0; Myelocytes % 0; Reactive Lymphocytes 0
[2024-09-05 04:34] LABS: Albumin 2.5 g/dL (3.2-4.8); Alkaline Phosphatase 161 U/L (46-116); Blood Urea Nitrogen 23 mg/dL (9-23); Calcium 8.5 mg/dL (8.7-10.4); Chloride 110 mmol/L (98-107); Glucose 146 mg/dL (74-106)
[2024-09-05 05:18] LABS: Band Neutrophils % (manual) 1; Eosinophils % (manual) 10 (0-7); Giant Platelets Few; Large Platelets FEW; Lymphocytes % (manual) 10 (10.0-50.0); Metamyelocytes % 1; Monocytes % (manual) 7 (0-12); Platelet Estimate Increased; Promyelocytes % 1
[2024-09-05 07:07] LABS: Base Excess -2.6 mmol/L (-2.0-3.0)
[2024-09-05] MEDS: GASTROGRAFIN 120 ML SOL ONE (15:30)
--- NOTE | 2024-09-05 20:42 | DVH ---
Procedure: XY SMALL BOWEL SERIES-W GASTROGRA Reason for study/Clinical History: Intestinal obstruction Comparison Study: XY SMALL BOWEL SERIES-W GASTROGRA on DOS: 08/23/24 Technique: Single contrast small bowel series performed. FINDINGS/IMPRESSION: Initial oil scout view of the abdomen and pelvis appears demonstrates no acute process. Contrast is identified within the colon by 3 hours. This represents a normal small bowel transit dick daily
--- NOTE | 2024-09-05 21:30 | DVHPN2 ---
Progress Note - Dictate Date Seen: September 05, 2024 Medical Necessity Reason Pt with a Central, PICC or Fol: Yes The following are medically ne: PICC Line, Josue Catheter Reason for josue catheter: Strict I&O Subjective Postop day 7. 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 Patient is intubated sedated;Peep of 8 and FiO2 50% NG tube output put miminal appears to be mostly dark bilious minimal Patient was started on trickle tube feedings H&H is at 8.0 Liver enzymes are normal No bowel movement recorded Pt is still on IV TPN S/P BRONCHOSCOPY on 09/04/24 There were copious purulent secretions in the airways bilaterally consistent with aspiration pneumonia. The secretions were then loosened up with approximately 50 cc of normal saline and thoroughly suctioned into a separate specimen container. There were no endobronchial lesions however, mucosa appeared inflamed and easily friable. After the procedure, the scope was removed. Patient tolerated the procedure well. vital signs Vital Sign Date Time Temp Pulse Resp B/P (MAP) Pulse Ox O2 Delivery O2 Flow Rate FiO2 09/05/24 20:15 111 36 111/61 (78) 94 09/05/24 20:00 100.1 100.1 09/05/24 19:56 50 09/05/24 08:00 Mechanical Ventilator+ Total Intake and Output 09/04/24 09/04/24 09/05/24 15:00 23:00 07:00 Intake Total 1497.635 ml 1712.396 ml 1596.319 ml Output Total 1350 ml 1625 ml Balance 1497.635 ml 362.396 ml -28.681 ml medications Current Medications Medications Dose Ordered Sig/Shar Route Start Time Stop Time Status Last Admin Dose Admin Ipratropium [place] 0.5 mg Q4HPRN PRN NEB 08/20/24 20:15 09/05/24 11:29 0.5 MG Doxycycline Hyclate 100 ml @ 50 mls/hr Q12H IV 08/21/24 18:30 UNV Midazolam HCl 50 ml @ 1 mls/hr Q24H IV 08/21/24 18:45 09/05/24 13:00 14 MLS/HR Norepinephrine Bitartrate 32 mg/ Sodium Chloride 250 ml @ 0.938 mls/ hr Q24H IV 08/22/24 09:15 09/05/24 12:00 3.75 MLS/HR Valproate Sodium 250 mg/Sodium Chloride 52.5 ml @ 52.5 mls/hr BID IV 08/22/24 22:00 09/05/24 10:27 52.5 MLS/HR Diagnostic Test (Pha) 1 strip Q6HR 08/24/24 00:00 09/05/24 17:56 1 STRIP Insulin Human Regular FOLLOW SLIDING SCALE Q6HR SC 08/24/24 00:00 09/05/24 00:11 2 UNITS Dextrose 50 ml UD IV 08/23/24 22:00 Amino Acids 0 ml @ 0 mls/hr PER PHARMACY IV 08/24/24 12:15 Levalbuterol HCl 0.625 mg Q6HR NEB 08/25/24 12:00 09/05/24 11:29 0.625 MG Acetaminophen 650 mg Q6HP PRN [place] 08/26/24 16:30 09/04/24 17:05 650 MG Sodium Chloride 10 ml QSHIFT@10,22 IV 08/29/24 22:00 09/05/24 10:27 10 ML Vancomycin HCl 200 ml @ 200 mls/hr Q16H IV 08/31/24 04:00 09/05/24 13:33 200 MLS/HR Fentanyl Citrate 250 ml @ 2.5 mls/hr Q24H IV 08/30/24 22:00 09/05/24 18:00 17.5 MLS/HR Pantoprazole Sodium 40 mg BID IV 09/01/24 22:00 09/05/24 08:42 40 MG Propofol 100 ml @ 1.635 mls/ hr Q24H IV 09/02/24 22:30 09/05/24 02:49 9.81 MLS/HR Piperacillin Sod/ Tazobactam Sod 100 ml @ 25 mls/hr Q8H IV 09/04/24 10:00 09/05/24 18:39 25 MLS/HR Potassium Phosphate 44 meq/ Magnesium Sulfate 20 meq/ Multivitamins 10 ml/Chromium/ Copper/Manganese/ Zinc 1 ml/Amino Acids/Dextrose 1,126 ml @ 47 mls/hr [id number] IV 09/04/24 22:00 09/05/24 21:59 09/04/24 21:47 47 MLS/HR Phenytoin Sodium 100 mg Q8HR IV 09/04/24 16:45 09/05/24 15:21 100 MG Vancomycin HCl 0 ml @ 0 mls/hr UD IV 09/04/24 18:15 Enteral Nutritional Formula 1,000 ml 30ML/HR GT 09/04/24 18:45 09/05/24 00:12 1,000 ML Potassium Acetate 30 meq/Potassium Phosphate 20 meq/ Magnesium Sulfate 20 meq/ Multivitamins 10 ml/Chromium/ Copper/Manganese/ Zinc 1 ml/Amino Acids/Dextrose 1,135.5455 ml @ 47 mls/hr [id number] IV 09/05/24 22:00 09/06/24 21:59 objective Patient Is intubated sedated thin male somewhat cachectic Cardiovascular: Normal S1 and S2. No murmurs, gallops or rubs Respiratory: Mechanically assisted ventilation, equal bilateral airway entree. Bilateral diffuse rhonchus Abdomen: Soft, nontender, no organomegaly, normal bowel sounds MSK/skin: Mobilization of limbs cannot be evaluated. Skin is dry and warm Neurological: Orientation cannot be assessed. No apparent motor no sensitive deficits. Pupils are isocoric and reactive laboratory and microbiology Laboratory Tests 09/05/24 03:00 Test 09/05/24 03:00 Range/Units Serum Glucose 146 H 74-106 mg/dL Problems(with codes): (1) Foreign body in jejunum (2) Small bowel obstruction (3) Abnormal finding on GI tract imaging (4) Coffee ground emesis (5) Pneumonia, unspecified organism (6) Generalized weakness (7) Sepsis, unspecified organism (8) Metabolic encephalopathy Prognosis Plan Decrease sedation Monitor FiO2 and PEEP When patient is stable there was consideration for a possible tracheostomy I will follow up patient with you as needed Continue IV Protonix 40 mg q.12 hours Advance tube feedings to 20 mL/hour Dietary Evaluation Review Comments: 1. no PO or EN tube feeding until GI bleed resolved. Cancel Cardic Diet 2. Initiate TPN if pt is NPO>7 days. Expected Outcomes/Goals: reassess needs when pt is off vent. Plan discussed with: Other (Dr Daugherty) MADAN JUAREZ MD September 05, 2024 21:30
[2024-09-05] MEDS: TPN PER PHARMACY IV NR (22:04)
--- NOTE | 2024-09-05 22:58 | DVHPNRES ---
Progress Note Date Seen: September 05, 2024 Resident Creating Document: BLANCA IRVIN RESIDENT Medical Necessity Reason Pt with a Central, PICC or Fol: Yes The following are medically ne: PICC Line, Josue Catheter Reason for josue catheter: Strict I&O Subjective Review of Systems Juanjose Ribeiro is a 53-year-old male patient who presents to ED via EMS with chief complaint of progressive dyspnea. Patient is currently intubated, could not obtain review of systems. Obtained information by family (sister) and EMR. Patient's symptoms got worse three days prior to his admission, associated with nausea, vomiting. Per sister patient stopped eating on Wednesday after coming back from a care facility, presented ground coffee emesis and has been having constipation (last bowel movement last ). Patient on scene and in ED presented hypotension, desaturation, tachypnea, with initial diagnosis of acute respiratory failure with septic shock secondary to probable aspiration pneumonia. Required IV fluids, empiric IV antibiotic and high-flow with regular response, deciding endotracheal intubation and placement of central line. While intubating, evidenced copious dark ground coffee secretion, deciding to initiate octreotide and IV pantoprazole. 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 2016 pneumonia Surgical history: Per sister had lung surgery because of collapse lung (questionable thoracentesis) Family history: Mother of congestive heart failure, also had diabetes Social history: Lives in [place] with sister who is her his caregiver. Denies current tobacco, alcohol and other drug abuse Allergies: Denies Home medication: Divalproex 250 mg p.o. b.i.d., Dilantin 100 mg p.o. q.8 hours Patient seen and examined at bedside. Currently in ICU requirement of vent support, have spoken with sister (Delmis) about probability of requiring a tracheostomy. Completed second bronchoscopy on 06/07/2024 with abundant bilateral mucus plugs. Consulted surgical physician assistant for eventual tracheostomy and for feedings, indicated trickle feedings. status, on sedoanalgesia due to mechanical assisted ventilation, on IV vasopressors and empiric IV antibiotic, status post intestinal resection with terminal-terminal anastomosis. Pathology lab diagnosed foreign body in Jejunum (orbi toy). Objective vital signs Vital Sign Date Time Temp Pulse Resp B/P (MAP) Pulse Ox O2 Delivery O2 Flow Rate FiO2 09/05/24 22:15 105/53 09/05/24 22:14 108 30 96 40 09/05/24 20:00 Mechanical Ventilator+ 09/05/24 20:00 100.1 100.1 Total Intake and Output 09/04/24 09/04/24 09/05/24 15:00 23:00 07:00 Intake Total 1497.635 ml 1712.396 ml 1596.319 ml Output Total 1350 ml 1625 ml Balance 1497.635 ml 362.396 ml -28.681 ml medications Current Medications Medications Dose Ordered Sig/Shar Route Start Time Stop Time Status Last Admin Dose Admin Ipratropium [place] 0.5 mg Q4HPRN PRN NEB 08/20/24 20:15 09/05/24 11:29 0.5 MG Doxycycline Hyclate 100 ml @ 50 mls/hr Q12H IV 08/21/24 18:30 UNV Midazolam HCl 50 ml @ 1 mls/hr Q24H IV 08/21/24 18:45 09/05/24 22:15 14 MLS/HR Norepinephrine Bitartrate 32 mg/ Sodium Chloride 250 ml @ 0.938 mls/ hr Q24H IV 08/22/24 09:15 09/05/24 12:00 3.75 MLS/HR Valproate Sodium 250 mg/Sodium Chloride 52.5 ml @ 52.5 mls/hr BID IV 08/22/24 22:00 09/05/24 22:00 52.5 MLS/HR Diagnostic Test (Pha) 1 strip Q6HR 08/24/24 00:00 09/05/24 17:56 1 STRIP Insulin Human Regular FOLLOW SLIDING SCALE Q6HR SC 08/24/24 00:00 09/05/24 00:11 2 UNITS Dextrose 50 ml UD IV 08/23/24 22:00 Amino Acids 0 ml @ 0 mls/hr PER PHARMACY IV 08/24/24 12:15 Levalbuterol HCl 0.625 mg Q6HR NEB 08/25/24 12:00 09/05/24 22:35 0.625 MG Acetaminophen 650 mg Q6HP PRN CO 08/26/24 16:30 09/04/24 17:05 650 MG Sodium Chloride 10 ml QSHIFT@10,22 IV 08/29/24 22:00 09/05/24 22:04 10 ML Vancomycin HCl 200 ml @ 200 mls/hr Q16H IV 08/31/24 04:00 09/05/24 13:33 200 MLS/HR Fentanyl Citrate 250 ml @ 2.5 mls/hr Q24H IV 08/30/24 22:00 09/05/24 18:00 17.5 MLS/HR Pantoprazole Sodium 40 mg BID IV 09/01/24 22:00 09/05/24 21:59 40 MG Propofol 100 ml @ 1.635 mls/ hr Q24H IV 09/02/24 22:30 09/05/24 02:49 9.81 MLS/HR Piperacillin Sod/ Tazobactam Sod 100 ml @ 25 mls/hr Q8H IV 09/04/24 10:00 09/05/24 18:39 25 MLS/HR Phenytoin Sodium 100 mg Q8HR IV 09/04/24 16:45 09/05/24 22:00 100 MG Vancomycin HCl 0 ml @ 0 mls/hr UD IV 09/04/24 18:15 Enteral Nutritional Formula 1,000 ml 30ML/HR GT 09/04/24 18:45 09/05/24 00:12 1,000 ML Potassium Acetate 30 meq/Potassium Phosphate 20 meq/ Magnesium Sulfate 20 meq/ Multivitamins 10 ml/Chromium/ Copper/Manganese/ Zinc 1 ml/Amino Acids/Dextrose 1,135.5455 ml @ 47 mls/hr [id number] IV 09/05/24 22:00 09/06/24 21:59 09/05/24 22:04 47 MLS/HR Examination Patient lying in bed, under sedoanalgesia due to mechanical ventilation General: RASS -3, afebrile, mucosae are moist Cardiovascular: Normal S1 and S2. No murmurs, gallops or rubs Respiratory: Mechanically assisted ventilation, equal bilateral airway entree. Bilateral diffuse rhonchus Abdomen: Mildly distended, surgical site of laparotomy with no secretion nor erythema, nontender, no organomegaly, reduced bowel sounds. Has OG in low intermittent suction, with mild secretion MSK/skin: Mobilization of limbs cannot be evaluated. Skin is dry and warm Neurological: Orientation cannot be assessed. No apparent motor or sensitive deficits. Pupils are isocoric and reactive laboratory and microbiology Laboratory Tests 5/27/25 03:00 Test 09/05/24 03:00 Range/Units Serum Glucose 146 H 74-106 mg/dL Microbiology Date/Time Source Procedure Growth Status 09/04/24 14:35 Bronchial Washings Gram Stain - Final Resulted 09/04/24 14:35 Bronchial Washings Respiratory Culture - Preliminary Resulted 08/27/24 16:05 Lung - Final Resulted 08/27/24 16:05 Lung - Final Resulted 08/27/24 16:05 Lung Pending Resulted 08/27/24 16:05 Lung Pending Resulted 08/27/24 16:05 Lung - Final See Separate Report... Resulted 08/22/24 09:00 Urine - Josue [place] Urine Culture - Final Complete 08/20/24 15:21 Blood Blood Culture - Final NO GROWTH AFTER 5 DAYS OF INCUBATION. Complete Problem List/Assessment/Plan Problem List/Assessment/Plan Neurology # Acute metabolic encephalopathy secondary to septic shock likely due to aspiration PNA # Questionable history of childhood meningitis # Developmental delay # Seizures Patient currently intubated Resumed Divalproex and Dilantin. Pharmacy adjusted dose due to hypoalbuminemia Cardiovascular # Ruled out congestive heart failure Negative BNP and Troponin. Chest xray shows pulmonary edema. Echocardiogram: Normal chambers, LVEF 60%, normal RV function and mild TR. Respiratory # Acute respiratory failure due to aspiration pneumonia # Aspiration pneumonia # Bilateral mucous plug Ordered pancultures (blood, urine, sputum), pending Currently under empiric antibiotics (Zosyn and Vamcomycin) On mechanical assisted ventilation (VCV Vt 450, RR 26, PEEP 10, FIO2 40%) On bronchodilators, oxygen therapy Due to continues aspiration pneumonia, with increase oxygen requirement, completed 2 bronchoscopies on 08/27/2024 and 09/04/2024 with abundant mucus plugs Gastrointestinal # Probable upper GI bleed # Intestinal obstruction secondary to foreign body in jejunum - s/p op # Cholecystitis - Resolved # 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 Currently on bolus pantoprazole tid. Will evaluate need for PEG. Ordered small bowel series which showed probable small-bowel obstruction versus ileus. Consulted Surgery: Re-evaluate once patient is more stable from aspiration pneumonia. Indicated initiating trickle feedings on 09/04/2024 Patient currently on low intermittent suction, with copious secretion. Completed small-bowel series with Gastrografin postop, with normal bowel transit. Have increased feedings Genitourinary/Neprhology # KARISHMA hemodynamically mediated (VMN) # Ruled out UTI # Hypernatremia - Resolved UA within normal limits Requires D5W Infectious Disease # Septic shock secondary to aspiration pneumonia Ordered pancultures (blood, urine, sputum), pending Currently under empiric antibiotics (Zosyn and Vancomycin) Currently on IV vasopressors Endocrine # Simple hyperglycemia with no Diabetes # Severe malnutrition Probably secondary to steroids and septic shock On mild ISS BMI less than 19 and hypoalbuminemia Hematology # Rule out GI bleed # Acute blood loss # Iron deficiency anemia Monitor H&H At admission was on Octeotride and Pantoprazole drip. Discontinue octeotride drip on 08/22/2024 Ordered anemia work up Nutrition: NPO due to GI bleed, Ileus vs small intestinal obstruction. On Clinimix posterior TPN Prophylaxis: PUD (pantoprazole bolus tid) and DVT (SCDs) Lines: 08/21/2024 ET tube 08/21/2024 Josue 08/30/2024 PICC Left upper arm 08/21/2024 OG 28/08/2024 JAKE drain 28/08/2024 Left A-line Drips: Fentanyl 300 Versed 12 Propofol 30 Norepinephrine 12 TPN 42 D5W DC Goals of care discussed with family (sister, she is the caregiver) for over 18 minutes: Full code status. Discussed plan with Dr. Kuhn, family and nurses: Currently ICU status, s/p bronchoscopy x 2 and intestinal resection with diagnosis of foreign body, on mechanical assisted ventilation with increased oxygen requirement, under sedation-analgesia, on empiric IV antibiotic, IV fluids, bronchodilators and IV vasopressors. Completed Gastrografin small-bowel series postop with normal bowel transit. Have discussed with family the probability of requiring tracheostomy. Indicated IV diuretics to assist respiratory weaning. Consulted surgery for eventual tracheostomy, and to start trickle feedings. Critical care time spent including discussion with nursing and family excluding procedures: 87 minutes Plan discussed with: Patient, Other (Sister (Delmis) and nurses) My Orders My Orders Orders - BLANCA IRVIN RESIDENT Procedure Category Date Status Time Abg W/ Co-Ox RT 09/05/24 Logged 04:00 Chest Xray 1 View XY 09/05/24 Resulted 04:00 Respiratory Misc. RT 09/05/24 Transmitted Order 08:41 Amino Acid PHA 09/05/24 In Process Infusion... 22:00 Comprehensive LAB 09/06/24 Verified Metabolic Panel 06:00 Magnesium LAB 09/06/24 Verified 06:00 Phosphorus LAB 09/06/24 Verified 06:00 Triglycerides LAB 09/06/24 Verified 06:00 Tpn Per Pharmacy [facility] 09/05/24 In Process 22:00 Vancomycin,Trough LAB 09/07/24 Verified 11:00 Vancomycin Per [facility] 09/07/24 In Process [facility]acy [facility] 12:00 Small Bowel Series-W XY 09/05/24 Resulted Gastrogra 14:35 * Surgical Consult CONS 09/05/24 Verified 22:52 Complete Blood Count LAB 09/06/24 Verified 04:00 Abg W/ Co-Ox RT 09/06/24 Verified 04:00 Dietary Evaluation Review Comments: 1. no PO or EN tube feeding until GI bleed resolved. Cancel Cardic Diet 2. Initiate TPN if pt is NPO>7 days. Expected Outcomes/Goals: reassess needs when pt is off vent. Date of Service: September 05, 2024 Billing Provider: ZACHERY KUHN MD Common Visit Codes: 58136-[id number] CARE 30-74 MIN, 31915-[id number] CARE-EACH +30MIN BLANCA IRVIN RESIDENT September 05, 2024 22:58 ZACHERY KUHN MD September 06, 2024 15:33
[2024-09-06] VITALS (104 sets, daily range): BP systolic 87–133; BP diastolic 41–79; PULSE 71–105; RESP 18–39; TEMP 97.7–98.7; O2SAT 66–100
[2024-09-06 03:54] LABS: Basophils # (auto) 0.1 10 ^3/uL (0-0.2); Basophils % (auto) 0.8 % (0.0-2.0); Eosinophils # (auto) 0.8 10 ^3/uL (0-0.8); Hemoglobin 8.5 g/dL (13.5-17.5)
[2024-09-06 03:56] LABS: Eosinophils % (auto) 9.5 % (0.0-7.0); Hematocrit 25.8 % (41.0-53.0); Lymphocytes # (auto) 1.1 10 ^3/uL (0.4-5.4); Lymphocytes % (auto) 13.6 % (10.0-50.0); Mean Corpuscular Hemoglobin 31.4 pg (28.0-32.0); Mean Corpuscular Hgb Conc. 32.8 g/dL (32.0-36.0); Mean Corpuscular Volume 95.7 fL (80.0-100.0); Monocytes # (auto) 0.9 10 ^3/uL (0-1.3); Monocytes % (auto) 11.3 % (0.0-12.0); Neutrophils # (auto) 5.1 10 ^3/uL (1.6-8.6); Neutrophils % (auto) 64.8 % (37.0-80.0); Nucleated Red Blood Cells % 0.1 %; Platelet Count (auto) 741 10^3/uL (140-450); Red Blood Cells 2.69 10^6/uL (4.5-5.90); Red Cell Distribution Width 19.4 % (11.8-14.3); White Blood Cell 7.9 10^3/uL (4.4-10.8)
[2024-09-06 04:10] LABS: Alanine Aminotransferase 15 U/L (7-40); Anion Gap 6 (5-15); BUN/Creatinine Ratio 34.8 (10.0-20.0); Blood Urea Nitrogen 23 mg/dL (9-23); Carbon Dioxide 27 mmol/L (20-31); Magnesium 2.2 mg/dL (1.6-2.6); Potassium 4.1 mmol/L (3.5-5.1); Total Protein 6.5 g/dL (5.7-8.2)
[2024-09-06 04:11] LABS: Bilirubin, Total 0.8 mg/dL (0.2-1.0); Phosphorus 2.8 mg/dL (2.4-5.1)
[2024-09-06 04:18] LABS: Albumin 2.9 g/dL (3.2-4.8); Alkaline Phosphatase 191 U/L (46-116); Aspartate Aminotransferase 44 U/L (13-40); Calcium 8.6 mg/dL (8.7-10.4); Chloride 114 mmol/L (98-107); Glucose 116 mg/dL (74-106); Sodium 147 mmol/L (136-145); Triglycerides 168 mg/dL (< 150)
[2024-09-06 07:14] LABS: Base Excess 0.3 mmol/L (-2.0-3.0)
[2024-09-06] MEDS: MICAFUNGIN SODIUM 100 MG in SODIUM CHL 0.9% 100 ML IV ONE (10:49)
--- NOTE | 2024-09-06 12:06 | DVH ---
LEFT Upper Extremity Venous Duplex Clinical History: Left upper limb swelling Comparison: None Findings: Duplex Doppler evaluation of the venous system of the LEFT lower neck and upper extremity including c olor Doppler and spectral/pulsed waveform analysis was performed. The internal jugular vein demonstrates appropriate compressibility and waveform variability. The subclavian vein is patent on color Doppler evaluation without intraluminal thrombus and demonstra ju waveform variability. The visualized portion of the brachiocephalic vein is patent on color Doppler evaluation without intr aluminal thrombus and demonstrates waveform variability. The axillary vein demonstrates appropriate compressibility and waveform variability. The brachial veins demonstrate appropriate compressibility and patency on Doppler evaluation. The basilic vein demonstrates appropriate compressibility and patency on Doppler evaluation. Thrombus in the left cephalic vein. Impression: Thrombus in the left cephalic vein. If clinical concern/symptoms persist or worsen, short-interval follow-up study is suggested.
[2024-09-06] MEDS: FREE WATER GT SCH (12:07)
[2024-09-06 15:26] LABS: Base Excess -1.1 mmol/L (-2.0-3.0)
[2024-09-06] MEDS: ENOXAPARIN SOD 30 MG/0.3 ML SYRINGE SC ONE (16:31)
--- NOTE | 2024-09-06 17:17 | DVHPN2 ---
Progress Note - Dictate Date Seen: September 06, 2024 Medical Necessity Reason Pt with a Central, PICC or Fol: Yes The following are medically ne: PICC Line, Josue Catheter Reason for josue catheter: Strict I&O Subjective Postop day 8 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 Patient is intubated sedated;Peep of 5 and FiO2 40% NG tube output put miminal appears to be mostly dark bilious minimal Patient was started on trickle tube feedings H&H is at 8.5 Liver enzymes are normal One bowel movement recorded Pt is still on IV TPN S/P BRONCHOSCOPY on 09/04/24 There were copious purulent secretions in the airways bilaterally consistent with aspiration pneumonia. The secretions were then loosened up with approximately 50 cc of normal saline and thoroughly suctioned into a separate specimen container. There were no endobronchial lesions however, mucosa appeared inflamed and easily friable. After the procedure, the scope was removed. Patient tolerated the procedure well. vital signs Vital Sign Date Time Temp Pulse Resp B/P (MAP) Pulse Ox O2 Delivery O2 Flow Rate FiO2 09/06/24 17:00 93 26 104/60 (75) 09/06/24 16:45 96 09/06/24 16:00 40 09/06/24 12:00 98.7 98.7 09/06/24 08:00 Mechanical Ventilator+ Total Intake and Output 09/05/24 09/05/24 09/06/24 15:00 23:00 07:00 Intake Total 1301.069 ml 514.098 ml 945.439 ml Output Total 2500 ml 1150 ml Balance 1301.069 ml -1985.902 ml -204.561 ml medications Current Medications Medications Dose Ordered Sig/Shar Route Start Time Stop Time Status Last Admin Dose Admin Ipratropium [place] 0.5 mg Q4HPRN PRN NEB 08/20/24 20:15 09/05/24 11:29 0.5 MG Doxycycline Hyclate 100 ml @ 50 mls/hr Q12H IV 08/21/24 18:30 UNV Midazolam HCl 50 ml @ 1 mls/hr Q24H IV 08/21/24 18:45 09/06/24 14:15 14 MLS/HR Norepinephrine Bitartrate 32 mg/ Sodium Chloride 250 ml @ 0.938 mls/ hr Q24H IV 08/22/24 09:15 09/05/24 12:00 3.75 MLS/HR Valproate Sodium 250 mg/Sodium Chloride 52.5 ml @ 52.5 mls/hr BID IV 08/22/24 22:00 09/06/24 09:01 52.5 MLS/HR Diagnostic Test (Pha) 1 strip Q6HR 08/24/24 00:00 09/06/24 12:08 1 STRIP Insulin Human Regular FOLLOW SLIDING SCALE Q6HR SC 08/24/24 00:00 09/06/24 00:30 2 UNITS Dextrose 50 ml UD IV 08/23/24 22:00 Levalbuterol HCl 0.625 mg Q6HR NEB 08/25/24 12:00 09/06/24 12:14 0.625 MG Acetaminophen 650 mg Q6HP PRN [place] 08/26/24 16:30 09/04/24 17:05 650 MG Sodium Chloride 10 ml QSHIFT@10,22 IV 08/29/24 22:00 09/06/24 09:01 10 ML Vancomycin HCl 200 ml @ 200 mls/hr Q16H IV 08/31/24 04:00 09/06/24 03:42 200 MLS/HR Fentanyl Citrate 250 ml @ 2.5 mls/hr Q24H IV 08/30/24 22:00 09/06/24 05:41 17.5 MLS/HR Pantoprazole Sodium 40 mg BID IV 09/01/24 22:00 09/06/24 09:01 40 MG Propofol 100 ml @ 1.635 mls/ hr Q24H IV 09/02/24 22:30 09/06/24 14:15 13.08 MLS/HR Piperacillin Sod/ Tazobactam Sod 100 ml @ 25 mls/hr Q8H IV 09/04/24 10:00 09/06/24 09:01 25 MLS/HR Phenytoin Sodium 100 mg Q8HR IV 09/04/24 16:45 09/06/24 13:49 100 MG Vancomycin HCl 0 ml @ 0 mls/hr UD IV 09/04/24 18:15 Enteral Nutritional Formula 1,000 ml 30ML/HR GT 09/04/24 18:45 09/05/24 00:12 1,000 ML Purified Water 200 ml Q6HR GT 09/06/24 12:00 09/06/24 12:07 200 ML Micafungin Sodium 100 mg/Sodium Chloride 100 ml @ 100 mls/hr DAILY@0900 IV 09/07/24 09:00 Enoxaparin Sodium 30 mg DAILY SC 09/07/24 10:00 objective Patient Is intubated sedated thin male somewhat cachectic Cardiovascular: Normal S1 and S2. No murmurs, gallops or rubs Respiratory: Mechanically assisted ventilation, equal bilateral airway entree. Bilateral diffuse rhonchus Abdomen: Soft, nontender, no organomegaly, normal bowel sounds MSK/skin: Mobilization of limbs cannot be evaluated. Skin is dry and warm Neurological: Orientation cannot be assessed. No apparent motor no sensitive deficits. Pupils are isocoric and reactive laboratory and microbiology Laboratory Tests 09/06/24 03:18 Test 09/06/24 03:18 Range/Units Serum Glucose 116 H 74-106 mg/dL Problems(with codes): (1) Foreign body in jejunum (2) Small bowel obstruction (3) Abnormal finding on GI tract imaging (4) Coffee ground emesis (5) Pneumonia, unspecified organism (6) Sepsis, unspecified organism (7) Generalized weakness Prognosis Plan Try to advance tube feedings if possible If the patient tolerates the enteral tube feedings we can taper off the TPN Continue supportive care I will follow up patient Dietary Evaluation Review Comments: 1. no PO or EN tube feeding until GI bleed resolved. Cancel Cardic Diet 2. Initiate TPN if pt is NPO>7 days. Expected Outcomes/Goals: reassess needs when pt is off vent. Plan discussed with: Other (None) MADAN JUAREZ MD September 06, 2024 17:17
--- NOTE | 2024-09-06 22:14 | DVHPNRES ---
Progress Note Date Seen: September 06, 2024 Resident Creating Document: BLANCA IRVIN RESIDENT Medical Necessity Reason Pt with a Central, PICC or Fol: Yes The following are medically ne: PICC Line, Josue Catheter Reason for josue catheter: Strict I&O Subjective Review of Systems Juanjose Ribeiro is a 53-year-old male patient who presents to ED via EMS with chief complaint of progressive dyspnea. Patient is currently intubated, could not obtain review of systems. Obtained information by family (sister) and EMR. Patient's symptoms got worse three days prior to his admission, associated with nausea, vomiting. Per sister patient stopped eating on Wednesday after coming back from a care facility, presented ground coffee emesis and has been having constipation (last bowel movement last ). Patient on scene and in ED presented hypotension, desaturation, tachypnea, with initial diagnosis of acute respiratory failure with septic shock secondary to probable aspiration pneumonia. Required IV fluids, empiric IV antibiotic and high-flow with regular response, deciding endotracheal intubation and placement of central line. While intubating, evidenced copious dark ground coffee secretion, deciding to initiate octreotide and IV pantoprazole. 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 2016 pneumonia Surgical history: Per sister had lung surgery because of collapse lung (questionable thoracentesis) Family history: Mother of congestive heart failure, also had diabetes Social history: Lives in [place] with sister who is her his caregiver. Denies current tobacco, alcohol and other drug abuse Allergies: Denies Home medication: Divalproex 250 mg p.o. b.i.d., Dilantin 100 mg p.o. q.8 hours Patient seen and examined at bedside. Currently in ICU requirement of vent support, planning on completing tracheostomy on 09/07/2024 due to difficult respiratory weaning. Completed second bronchoscopy on 06/07/2024 with abundant bilateral mucus plugs with evidence of yeast, initiating Micafungin. Continues on sedoanalgesia due to mechanical assisted ventilation, on IV vasopressors and empiric IV antibiotic, status post intestinal resection with terminal-terminal anastomosis, with posterior Gastrografin which ruled out perforation, initiated tube feedings. Pathology lab diagnosed foreign body in Jejunum (orbi toy). Evaluate PEG tube placement. Objective vital signs Vital Sign Date Time Temp Pulse Resp B/P (MAP) Pulse Ox O2 Delivery O2 Flow Rate FiO2 09/06/24 20:29 95/56 09/06/24 20:10 99 26 95 40 09/06/24 12:00 98.7 98.7 09/06/24 08:00 Mechanical Ventilator+ Total Intake and Output 09/05/24 09/05/24 09/06/24 15:00 23:00 07:00 Intake Total 1301.069 ml 514.098 ml 945.439 ml Output Total 2500 ml 1150 ml Balance 1301.069 ml -1985.902 ml -204.561 ml medications Current Medications Medications Dose Ordered Sig/Shar Route Start Time Stop Time Status Last Admin Dose Admin Ipratropium [place] 0.5 mg Q4HPRN PRN NEB 08/20/24 20:15 09/06/24 18:30 0.5 MG Doxycycline Hyclate 100 ml @ 50 mls/hr Q12H IV 08/21/24 18:30 UNV Midazolam HCl 50 ml @ 1 mls/hr Q24H IV 08/21/24 18:45 09/06/24 21:56 14 MLS/HR Norepinephrine Bitartrate 32 mg/ Sodium Chloride 250 ml @ 0.938 mls/ hr Q24H IV 08/22/24 09:15 09/05/24 12:00 3.75 MLS/HR Valproate Sodium 250 mg/Sodium Chloride 52.5 ml @ 52.5 mls/hr BID IV 08/22/24 22:00 09/06/24 09:01 52.5 MLS/HR Diagnostic Test (Pha) 1 strip Q6HR 08/24/24 00:00 09/06/24 17:10 1 STRIP Insulin Human Regular FOLLOW SLIDING SCALE Q6HR SC 08/24/24 00:00 09/06/24 00:30 2 UNITS Dextrose 50 ml UD IV 08/23/24 22:00 Levalbuterol HCl 0.625 mg Q6HR NEB 08/25/24 12:00 09/06/24 18:30 0.625 MG Acetaminophen 650 mg Q6HP PRN MN 08/26/24 16:30 09/04/24 17:05 650 MG Sodium Chloride 10 ml QSHIFT@10,22 IV 08/29/24 22:00 09/06/24 09:01 10 ML Vancomycin HCl 200 ml @ 200 mls/hr Q16H IV 08/31/24 04:00 09/06/24 20:28 200 MLS/HR Fentanyl Citrate 250 ml @ 2.5 mls/hr Q24H IV 08/30/24 22:00 09/06/24 17:32 22.5 MLS/HR Pantoprazole Sodium 40 mg BID IV 09/01/24 22:00 09/06/24 21:51 40 MG Propofol 100 ml @ 1.635 mls/ hr Q24H IV 09/02/24 22:30 09/06/24 20:29 16.35 MLS/HR Piperacillin Sod/ Tazobactam Sod 100 ml @ 25 mls/hr Q8H IV 09/04/24 10:00 09/06/24 17:24 25 MLS/HR Phenytoin Sodium 100 mg Q8HR IV 09/04/24 16:45 09/06/24 21:49 100 MG Vancomycin HCl 0 ml @ 0 mls/hr UD IV 09/04/24 18:15 Enteral Nutritional Formula 1,000 ml 30ML/HR GT 09/04/24 18:45 09/05/24 00:12 1,000 ML Purified Water 200 ml Q6HR GT 09/06/24 12:00 09/06/24 17:13 200 ML Micafungin Sodium 100 mg/Sodium Chloride 100 ml @ 100 mls/hr DAILY@0900 IV 09/07/24 09:00 Enoxaparin Sodium 30 mg DAILY SC 09/07/24 10:00 Examination Patient lying in bed, under sedoanalgesia due to mechanical ventilation General: RASS -3, low grade fever, mucosae are moist Cardiovascular: Normal S1 and S2. No murmurs, gallops or rubs Respiratory: Mechanically assisted ventilation, equal bilateral airway entree. Bilateral diffuse rhonchus Abdomen: Mildly distended, surgical site of laparotomy with no secretion nor erythema, nontender, no organomegaly, reduced bowel sounds. Has OG in low intermittent suction, with mild secretion MSK/skin: Mobilization of limbs cannot be evaluated. Skin is dry and warm Neurological: Orientation cannot be assessed. No apparent motor or sensitive deficits. Pupils are isocoric and reactive laboratory and microbiology Laboratory Tests 09/06/24 03:18 Test 09/06/24 03:18 Range/Units Serum Glucose 116 H 74-106 mg/dL Microbiology Date/Time Source Procedure Growth Status 09/04/24 14:35 Bronchial Washings Gram Stain - Final Resulted 09/04/24 14:35 Bronchial Washings Respiratory Culture - Preliminary Resulted 08/27/24 16:05 Lung - Final Resulted 08/27/24 16:05 Lung - Final Resulted 08/27/24 16:05 Lung Pending Resulted 08/27/24 16:05 Lung Pending Resulted 08/27/24 16:05 Lung - Final See Separate Report... Resulted 08/22/24 09:00 Urine - Josue Port Urine Culture - Final Complete 08/20/24 15:21 Blood Blood Culture - Final NO GROWTH AFTER 5 DAYS OF INCUBATION. Complete Problem List/Assessment/Plan Problem List/Assessment/Plan Neurology # Acute metabolic encephalopathy secondary to septic shock likely due to aspiration PNA # Questionable history of childhood meningitis # Developmental delay # Seizures Patient currently intubated Resumed Divalproex and Dilantin. Pharmacy adjusted dose due to hypoalbuminemia Cardiovascular # Ruled out congestive heart failure Negative BNP and Troponin. Chest xray shows pulmonary edema. Echocardiogram: Normal chambers, LVEF 60%, normal RV function and mild TR. Respiratory # Acute respiratory failure due to aspiration pneumonia # Aspiration pneumonia # Bilateral mucous plug # Fungal pneumonia Ordered pancultures (blood, urine, sputum), pending Currently under empiric antibiotics (Micafungin, Zosyn and Vamcomycin) On mechanical assisted ventilation (VCV Vt 450, RR 26, PEEP 10, FIO2 40%). Planning tracheostomy on 09/07/2024 On bronchodilators, oxygen therapy Due to continues aspiration pneumonia, with increase oxygen requirement, completed 2 bronchoscopies on 08/27/2024 and 09/04/2024 with abundant mucus plugs. 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 Currently on bolus pantoprazole bid. Will evaluate need for PEG. Ordered small bowel series which showed probable small-bowel obstruction versus ileus. Consulted Surgery: Re-evaluate once patient is more stable from aspiration pneumonia. Completed small-bowel series with Gastrografin postop, with normal bowel transit. Tolerating tube feedings Genitourinary/Neprhology # KARISHMA hemodynamically mediated (VMN) # Ruled out UTI # Hypernatremia - Resolved UA within normal limits Required D5W. On tube free water Infectious Disease # Septic shock secondary to aspiration pneumonia Ordered pancultures (blood, urine, sputum), pending Currently under empiric antibiotics (Zosyn and Vancomycin) Currently on IV vasopressors Endocrine # Simple hyperglycemia with no Diabetes # Severe malnutrition Probably secondary to steroids and septic shock On mild ISS BMI less than 19 and hypoalbuminemia Hematology # Rule out GI bleed # Acute blood loss # Iron deficiency anemia # superficial venous thrombosis of left cephalic vein Monitor H&H At admission was on Octeotride and Pantoprazole drip. Discontinue octeotride drip on 08/22/2024 Ordered anemia work up Initiated low dose enoxaparin for DVT prophylaxis Nutrition: Vital AF. Weaning off Clinimix/TPN Prophylaxis: PUD (pantoprazole bolus tid) and DVT (Enoxaparin 30 mg SC daily) Lines: 08/21/2024 ET tube 08/21/2024 Josue 08/30/2024 PICC Left upper arm 08/21/2024 OG Drips: Fentanyl 20 Versed 14 Propofol 40 Norepinephrine 6 TPN 42 Goals of care discussed with family (sister, she is the caregiver) for over 18 minutes: Full code status. Discussed plan with Dr. Kuhn, family and nurses: Currently ICU status, s/p bronchoscopy x 2 and intestinal resection with diagnosis of SBO secondary to ingestion of foreign body, on mechanical assisted ventilation with difficult respiratory weaning due to tachypnea, under sedation-analgesia, on empiric IV antibiotic, IV fluids, bronchodilators and IV vasopressors. Completed Gastrografin small-bowel series postop with normal bowel transit. Planning tracheostomy on 09/07/2024. Critical care time spent including discussion with nursing and family excluding procedures: 62 minutes Plan discussed with: Other (Sister (Delmis) and nurses) My Orders My Orders Orders - BLANCA IRVIN RESIDENT Procedure Category Date Status Time * Surgical Consult CONS 09/05/24 Transmitted 22:52 Abg W/ Co-Ox RT 09/06/24 Logged 04:00 Phenytoin (Dilantin) LAB 09/07/24 Verified 11:00 Free Water PHA 09/06/24 In Process 12:00 Blood Culture ALFA 09/06/24 In Process 08:41 Micafungin Sodium PHA 09/07/24 In Process (Mycamine) 09:00 Lt Upper Dvt US 09/06/24 Resulted 08:39 Ventilator Orders RT 09/06/24 Transmitted 14:05 Ventilator Orders RT 09/06/24 Transmitted 14:17 Creatinine LAB 09/07/24 Verified 05:00 Abg W/ Co-Ox RT 09/06/24 Logged 15:20 * Stoker Installer CONS 09/06/24 Transmitted Consult Urine Dip ED NURSING 09/06/24 Transmitted Enoxaparin Sodium PHA 09/07/24 In Process (Lovenox) 10:00 Dietary Evaluation Review Comments: 1. no PO or EN tube feeding until GI bleed resolved. Cancel Cardic Diet 2. Initiate TPN if pt is NPO>7 days. Expected Outcomes/Goals: reassess needs when pt is off vent. Date of Service: September 06, 2024 Billing Provider: ZACHERY KUHN MD Common Visit Codes: [id number] CARE 30-74 MIN BLANCA IRVIN RESIDENT September 06, 2024 22:14 ZACHERY KUHN MD September 07, 2024 11:52
[2024-09-07] VITALS (105 sets, daily range): BP systolic 84–169; BP diastolic 41–86; PULSE 65–107; RESP 22–28; TEMP 97.5–99.1; O2SAT 91–100
[2024-09-07 04:14] LABS: Basophils # (auto) 0.1 10 ^3/uL (0-0.2); Monocytes # (auto) 0.6 10 ^3/uL (0-1.3); White Blood Cell 5.1 10^3/uL (4.4-10.8)
[2024-09-07 04:17] LABS: Eosinophils # (auto) 0.7 10 ^3/uL (0-0.8); Eosinophils % (auto) 14.1 % (0.0-7.0); Hematocrit 24.5 % (41.0-53.0); Hemoglobin 7.9 g/dL (13.5-17.5); Lymphocytes % (auto) 20.5 % (10.0-50.0); Mean Corpuscular Hemoglobin 31.3 pg (28.0-32.0); Mean Corpuscular Hgb Conc. 32.5 g/dL (32.0-36.0); Mean Corpuscular Volume 96.3 fL (80.0-100.0); Monocytes % (auto) 12.5 % (0.0-12.0); Neutrophils # (auto) 2.6 10 ^3/uL (1.6-8.6); Neutrophils % (auto) 51.9 % (37.0-80.0); Platelet Count (auto) 644 10^3/uL (140-450); Red Blood Cells 2.54 10^6/uL (4.5-5.90)
[2024-09-07 04:25] LABS: INR 1.14 (0.9-1.15); Partial Thromboplastin Time 30.5 SEC (24.5-34.5); Prothrombin Time 11.9 sec (9.3-11.8)
[2024-09-07 04:28] LABS: Alanine Aminotransferase 16 U/L (7-40); Anion Gap 7 (5-15); BUN/Creatinine Ratio 32.8 (10.0-20.0); Blood Urea Nitrogen 19 mg/dL (9-23); Carbon Dioxide 28 mmol/L (20-31); Total Protein 5.9 g/dL (5.7-8.2)
[2024-09-07 04:29] LABS: Bilirubin, Total 0.5 mg/dL (0.2-1.0); Phosphorus 2.6 mg/dL (2.4-5.1)
[2024-09-07 04:40] LABS: Albumin 2.5 g/dL (3.2-4.8); Alkaline Phosphatase 204 U/L (46-116); Aspartate Aminotransferase 41 U/L (13-40); Calcium 8.1 mg/dL (8.7-10.4); Chloride 112 mmol/L (98-107); Glucose 113 mg/dL (74-106); Potassium 3.5 mmol/L (3.5-5.1); Sodium 147 mmol/L (136-145)
--- NOTE | 2024-09-07 05:31 | DVH ---
EXAM: XR Chest, 1 View CLINICAL INDICATION: INTUBATED TECHNIQUE: Frontal view of the chest. COMPARISON: XY CHEST XRAY 1 VIEW on DOS: 09/05/24, XY CHEST PORTABLE on DOS: 09/04/24, XY CHEST HAO BLE on DOS: 09/03/24, XY CHEST PORTABLE on DOS: 09/02/24, XY CHEST XRAY 1 VIEW on DOS: 09/01/24 FINDINGS: LUNGS AND PLEURAL SPACES: Interstitial and patchy airspace disease. No consolidation. No pneumoth orax. HEART: Unremarkable. No cardiomegaly. MEDIASTINUM: Unremarkable. Normal mediastinal contour. BONES/JOINTS: Unremarkable. No acute fracture. TUBES, LINES AND DEVICES: Stable tubes. OTHER FINDINGS: . . IMPRESSION: No significant change from the prior exam.
[2024-09-07 06:29] LABS: Base Excess 0.3 mmol/L (-2.0-3.0)
[2024-09-07] MEDS: MICAFUNGIN SODIUM 100 MG in SODIUM CHL 0.9% 100 ML IV SCH (07:18)
[2024-09-07] MEDS: ENOXAPARIN SOD 30 MG/0.3 ML SYRINGE SC SCH (08:56)
[2024-09-07] MEDS ORDERED: MIDAZOLAM HCL 2MG/2ML 2ml VIAL (1mg/ml) ONE (11:28)
[2024-09-07] MEDS ORDERED: fentaNYL CITRATE 100 MCG/2 ML VL ONE (11:28)
[2024-09-07] MEDS ORDERED: HYDROmorphone HCL 2 MG/ML VL/or syr ONE (11:29)
[2024-09-07] MEDS: LIDOCAINE W/ EPINEPHRINE 1% 20ML VIAL ONE (11:44)
[2024-09-07] MEDS: POTASSIUM CHL 20MEQ/100ML 100 ML IV ONE (12:31)
--- NOTE | 2024-09-07 13:52 | DVH ---
EXAM: XY CHEST PORTABLE Indication: s/p tracheostomy Technique: Single frontal view of the chest was obtained Comparison: XY CHEST XRAY 1 VIEW on DOS: 09/07/24, XY CHEST XRAY 1 VIEW on DOS: 09/05/24, XY CHEST PORT ABLE on DOS: 09/04/24, XY CHEST PORTABLE on DOS: 09/03/24, XY CHEST PORTABLE on DOS: 09/02/24 FINDINGS: Lines and Tubes: Tracheostomy tube is visualized left PICC tip projects over the cavoatrial junction. Enteric tube tip projects over the expected region stomach. Lungs: Multifocal consolidative opacities. Pleura: Possible trace bilateral pleural effusions. No pneumothorax. Cardiomediastinal contours: Unremarkable Bones: No acute osseous abnormality. IMPRESSION: Interval placement of tracheostomy. Otherwise no significant change compared to prior exam.
--- NOTE | 2024-09-07 15:35 | DVHOP ---
DATE OF SURGERY: 09/07/2024 PREOPERATIVE DIAGNOSIS: Ventilator-dependent respiratory failure. POSTOPERATIVE DIAGNOSIS: Ventilator-dependent respiratory failure. SURGEON: Fermín Munson MD SAFETY SPEC: Vincent Stoll NP ANESTHESIA: General endotracheal, Dr. Messina. PROCEDURE: Tracheostomy. DESCRIPTION OF PROCEDURE: Under adequate anesthesia with the patient's skin prepped and draped, the neck flexed, hyperextended, and marked with an indelible ink pen from the cricothyroid membrane to the sternal notch and small amount of 0.25% Marcaine with epinephrine was infiltrated into the proposed incision site, an incision was made approximately 1 inch in length through which adipose tissue was divided and strap muscles divided and retracted laterally. The thyroid gland was displaced superiorly. The thyroid cartilage was exposed. The fourth and fifth cartilages were used for insertion of a size 8 tracheostomy tube after changing the inhaled gas combination to room air to minimize the likelihood of an endotracheal fire. A tracheotomy was made by the electrocautery and dilated to accommodate the size 8 cuff non-fenestrated tracheostomy tube. The tube was advanced through the tracheotomy as the anesthesiologist withdrew the endotracheal tube. The tracheostomy reaching its final position was then secured with insufflation of its cuff with 10 mL of air and further sutured to the skin with two interrupted 2-0 Prolene sutures, further secured with an umbilical tape placed circumferentially. There was an immediate return of CO2 capture and immediate return to normal ventilation upon the insertion of the tracheostomy tube. The patient remained in unchanged clinical condition at the termination of the procedure and left the operating room following an accurate needle and sponge counts. There were no family members present in the waiting room. A chest x-ray was ordered and the chest x-ray obtained immediately after performance of the tracheostomy shows the tracheostomy to be in appropriate position, both lungs fully expanded, no evidence of pneumothorax, no evidence of mediastinal swelling. MD SAMUEL Rodríguez/ANIYAH/ALEJANDRO TID: [id number] RECEIPT: [id number]
--- NOTE | 2024-09-07 19:49 | DVHPN2 ---
Progress Note - Dictate Date Seen: September 07, 2024 Medical Necessity Reason Pt with a Central, PICC or Fol: Yes The following are medically ne: PICC Line, Josue Catheter Reason for josue catheter: Strict I&O Subjective S/P tracheostomy today Postop day 9 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 Patient is intubated sedated;Peep of 5 and FiO2 45% Patient was started on trickle tube feedings H&H is at 7.9 Liver enzymes are normal 4 bowel movements recorded Pt is still on IV TPN vital signs Vital Sign Date Time Temp Pulse Resp B/P (MAP) Pulse Ox O2 Delivery O2 Flow Rate FiO2 09/07/24 18:45 105 28 147/70 (95) 97 09/07/24 18:00 45 09/07/24 16:00 98.2 98.2 09/07/24 07:40 Mechanical Ventilator+ Total Intake and Output 09/06/24 09/06/24 09/07/24 15:00 23:00 07:00 Intake Total 401.644 ml 1296.615 ml 673.432 ml Output Total 1450 ml 1450 ml Balance 401.644 ml -153.385 ml -776.568 ml medications Current Medications Medications Dose Ordered Sig/Shar Route Start Time Stop Time Status Last Admin Dose Admin Ipratropium [place] 0.5 mg Q4HPRN PRN NEB 08/20/24 20:15 09/07/24 05:59 0.5 MG Doxycycline Hyclate 100 ml @ 50 mls/hr Q12H IV 08/21/24 18:30 UNV Midazolam HCl 50 ml @ 1 mls/hr Q24H IV 08/21/24 18:45 09/07/24 16:18 11 MLS/HR Norepinephrine Bitartrate 32 mg/ Sodium Chloride 250 ml @ 0.938 mls/ hr Q24H IV 08/22/24 09:15 09/05/24 12:00 3.75 MLS/HR Valproate Sodium 250 mg/Sodium Chloride 52.5 ml @ 52.5 mls/hr BID IV 08/22/24 22:00 09/07/24 09:53 52.5 MLS/HR Diagnostic Test (Pha) 1 strip Q6HR 08/24/24 00:00 09/07/24 17:32 1 STRIP Insulin Human Regular FOLLOW SLIDING SCALE Q6HR SC 08/24/24 00:00 09/06/24 00:30 2 UNITS Dextrose 50 ml UD IV 08/23/24 22:00 Levalbuterol HCl 0.625 mg Q6HR NEB 08/25/24 12:00 09/07/24 18:35 0.625 MG Acetaminophen 650 mg Q6HP PRN [place] 08/26/24 16:30 09/04/24 17:05 650 MG Sodium Chloride 10 ml QSHIFT@10,22 IV 08/29/24 22:00 09/07/24 09:47 10 ML Fentanyl Citrate 250 ml @ 2.5 mls/hr Q24H IV 08/30/24 22:00 09/07/24 14:56 22.5 MLS/HR Pantoprazole Sodium 40 mg BID IV 09/01/24 22:00 09/07/24 08:56 40 MG Propofol 100 ml @ 1.635 mls/ hr Q24H IV 09/02/24 22:30 09/07/24 12:32 13.08 MLS/HR Piperacillin Sod/ Tazobactam Sod 100 ml @ 25 mls/hr Q8H IV 09/04/24 10:00 09/07/24 17:32 25 MLS/HR Phenytoin Sodium 100 mg Q8HR IV 09/04/24 16:45 09/07/24 14:53 100 MG Vancomycin HCl 0 ml @ 0 mls/hr UD IV 09/04/24 18:15 Enteral Nutritional Formula 1,000 ml 30ML/HR GT 09/04/24 18:45 09/05/24 00:12 1,000 ML Purified Water 200 ml Q6HR GT 09/06/24 12:00 09/06/24 17:13 200 ML Micafungin Sodium 100 mg/Sodium Chloride 100 ml @ 100 mls/hr DAILY@0900 IV 09/07/24 09:00 09/07/24 07:18 100 MLS/HR Enoxaparin Sodium 30 mg DAILY SC 09/07/24 10:00 09/07/24 08:56 30 MG Vancomycin HCl 150 ml @ 150 mls/hr Q16H IV 09/08/24 08:00 objective Patient Is intubated sedated thin male somewhat cachectic Cardiovascular: Normal S1 and S2. No murmurs, gallops or rubs Respiratory: Mechanically assisted ventilation, equal bilateral airway entree. Bilateral diffuse rhonchus Abdomen: Soft, nontender, no organomegaly, normal bowel sounds MSK/skin: Mobilization of limbs cannot be evaluated. Skin is dry and warm Neurological: Orientation cannot be assessed. No apparent motor no sensitive deficits. Pupils are isocoric and reactive laboratory and microbiology Laboratory Tests 09/07/24 03:10 Test 09/07/24 03:10 Range/Units Serum Glucose 113 H 74-106 mg/dL Problems(with codes): (1) Foreign body in jejunum (2) Small bowel obstruction (3) Abnormal finding on GI tract imaging (4) Coffee ground emesis (5) Pneumonia, unspecified organism (6) Sepsis, unspecified organism Prognosis Plan Continue IV antibiotics Continue ventilatory support Advance tube feedings as tolerated to goal rate of 60 per hour Taper off IV TPN Continue IV Protonix 40 mg q.12 hours I will follow as needed Dietary Evaluation Review Comments: 1. no PO or EN tube feeding until GI bleed resolved. Cancel Cardic Diet 2. Initiate TPN if pt is NPO>7 days. Expected Outcomes/Goals: reassess needs when pt is off vent. Plan discussed with: Other (ICU Nurse) MADAN JUAREZ MD September 07, 2024 19:49
--- NOTE | 2024-09-07 19:56 | DVHPNRES ---
Progress Note Date Seen: September 07, 2024 Resident Creating Document: BLANCA IRVIN RESIDENT Medical Necessity Reason Pt with a Central, PICC or Fol: Yes The following are medically ne: PICC Line, Josue Catheter Reason for josue catheter: Strict I&O Subjective Review of Systems Juanjose Ribeiro is a 53-year-old male patient who presents to ED via EMS with chief complaint of progressive dyspnea. Patient is currently intubated, could not obtain review of systems. Obtained information by family (sister) and EMR. Patient's symptoms got worse three days prior to his admission, associated with nausea, vomiting. Per sister patient stopped eating on Wednesday after coming back from a care facility, presented ground coffee emesis and has been having constipation (last bowel movement last ). Patient on scene and in ED presented hypotension, desaturation, tachypnea, with initial diagnosis of acute respiratory failure with septic shock secondary to probable aspiration pneumonia. Required IV fluids, empiric IV antibiotic and high-flow with regular response, deciding endotracheal intubation and placement of central line. While intubating, evidenced copious dark ground coffee secretion, deciding to initiate octreotide and IV pantoprazole. 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 2016 pneumonia Surgical history: Per sister had lung surgery because of collapse lung (questionable thoracentesis) Family history: Mother of congestive heart failure, also had diabetes Social history: Lives in [place] with sister who is her his caregiver. Denies current tobacco, alcohol and other drug abuse Allergies: Denies Home medication: Divalproex 250 mg p.o. b.i.d., Dilantin 100 mg p.o. q.8 hours Patient seen and examined at bedside. Currently in ICU requirement of vent support, planning on completing tracheostomy on 09/07/2024 due to difficult respiratory weaning. Completed second bronchoscopy on 06/07/2024 with abundant bilateral mucus plugs with evidence of yeast, initiating Micafungin. Continues on sedoanalgesia due to mechanical assisted ventilation, on IV vasopressors and empiric IV antibiotic, status post intestinal resection with terminal-terminal anastomosis and tracheostomy, with posterior Gastrografin which ruled out perforation, initiated tube feedings. Pathology lab diagnosed foreign body in Jejunum (orbi toy). Objective vital signs Vital Sign Date Time Temp Pulse Resp B/P (MAP) Pulse Ox O2 Delivery O2 Flow Rate FiO2 09/07/24 18:45 105 28 147/70 (95) 97 09/07/24 18:00 45 09/07/24 16:00 98.2 98.2 09/07/24 07:40 Mechanical Ventilator+ Total Intake and Output 09/06/24 09/06/24 09/07/24 15:00 23:00 07:00 Intake Total 401.644 ml 1296.615 ml 673.432 ml Output Total 1450 ml 1450 ml Balance 401.644 ml -153.385 ml -776.568 ml medications Current Medications Medications Dose Ordered Sig/Shar Route Start Time Stop Time Status Last Admin Dose Admin Ipratropium [place] 0.5 mg Q4HPRN PRN NEB 08/20/24 20:15 09/07/24 05:59 0.5 MG Doxycycline Hyclate 100 ml @ 50 mls/hr Q12H IV 08/21/24 18:30 UNV Midazolam HCl 50 ml @ 1 mls/hr Q24H IV 08/21/24 18:45 09/07/24 16:18 11 MLS/HR Norepinephrine Bitartrate 32 mg/ Sodium Chloride 250 ml @ 0.938 mls/ hr Q24H IV 08/22/24 09:15 09/05/24 12:00 3.75 MLS/HR Valproate Sodium 250 mg/Sodium Chloride 52.5 ml @ 52.5 mls/hr BID IV 08/22/24 22:00 09/07/24 09:53 52.5 MLS/HR Diagnostic Test (Pha) 1 strip Q6HR 08/24/24 00:00 09/07/24 17:32 1 STRIP Insulin Human Regular FOLLOW SLIDING SCALE Q6HR SC 08/24/24 00:00 09/06/24 00:30 2 UNITS Dextrose 50 ml UD IV 08/23/24 22:00 Levalbuterol HCl 0.625 mg Q6HR NEB 08/25/24 12:00 09/07/24 18:35 0.625 MG Acetaminophen 650 mg Q6HP PRN [place] 08/26/24 16:30 09/04/24 17:05 650 MG Sodium Chloride 10 ml QSHIFT@10,22 IV 08/29/24 22:00 09/07/24 09:47 10 ML Fentanyl Citrate 250 ml @ 2.5 mls/hr Q24H IV 08/30/24 22:00 09/07/24 14:56 22.5 MLS/HR Pantoprazole Sodium 40 mg BID IV 09/01/24 22:00 09/07/24 08:56 40 MG Propofol 100 ml @ 1.635 mls/ hr Q24H IV 09/02/24 22:30 09/07/24 12:32 13.08 MLS/HR Piperacillin Sod/ Tazobactam Sod 100 ml @ 25 mls/hr Q8H IV 09/04/24 10:00 09/07/24 17:32 25 MLS/HR Phenytoin Sodium 100 mg Q8HR IV 09/04/24 16:45 09/07/24 14:53 100 MG Vancomycin HCl 0 ml @ 0 mls/hr UD IV 09/04/24 18:15 Enteral Nutritional Formula 1,000 ml 30ML/HR GT 09/04/24 18:45 09/05/24 00:12 1,000 ML Purified Water 200 ml Q6HR GT 09/06/24 12:00 09/06/24 17:13 200 ML Micafungin Sodium 100 mg/Sodium Chloride 100 ml @ 100 mls/hr DAILY@0900 IV 09/07/24 09:00 09/07/24 07:18 100 MLS/HR Enoxaparin Sodium 30 mg DAILY SC 09/07/24 10:00 09/07/24 08:56 30 MG Vancomycin HCl 150 ml @ 150 mls/hr Q16H IV 09/08/24 08:00 Examination Patient lying in bed, under sedoanalgesia due to mechanical ventilation General: RASS -3, low grade fever, mucosae are moist Cardiovascular: Normal S1 and S2. No murmurs, gallops or rubs Respiratory: Mechanically assisted ventilation, equal bilateral airway entree. Bilateral diffuse rhonchus Abdomen: Mildly distended, surgical site of laparotomy with no secretion nor erythema, nontender, no organomegaly, reduced bowel sounds. Has OG in low intermittent suction, with mild secretion MSK/skin: Mobilization of limbs cannot be evaluated. Skin is dry and warm Neurological: Orientation cannot be assessed. No apparent motor or sensitive deficits. Pupils are isocoric and reactive laboratory and microbiology Laboratory Tests 09/07/24 03:10 Test 09/07/24 03:10 Range/Units Serum Glucose 113 H 74-106 mg/dL Microbiology Date/Time Source Procedure Growth Status 09/06/24 09:45 Blood Blood Culture - Preliminary NO GROWTH AFTER 24 HOURS OF INCUBATION. Resulted 09/04/24 14:35 Bronchial Washings Gram Stain - Final Complete 09/04/24 14:35 Bronchial Washings Respiratory Culture - Final Complete 08/27/24 16:05 Lung - Final Resulted 08/27/24 16:05 Lung - Final Resulted 08/27/24 16:05 Lung Pending Resulted 08/27/24 16:05 Lung Pending Resulted 08/27/24 16:05 Lung - Final See Separate Report... Resulted 08/22/24 09:00 Urine - Josue [place] Urine Culture - Final Complete Problem List/Assessment/Plan Problem List/Assessment/Plan Neurology # Acute metabolic encephalopathy secondary to septic shock likely due to aspiration PNA # Questionable history of childhood meningitis # Developmental delay # Seizures Patient currently intubated Resumed Divalproex and Dilantin. Pharmacy adjusted dose due to hypoalbuminemia Cardiovascular # Ruled out congestive heart failure Negative BNP and Troponin. Chest xray shows pulmonary edema. Echocardiogram: Normal chambers, LVEF 60%, normal RV function and mild TR. Respiratory # Acute respiratory failure due to aspiration pneumonia # Aspiration pneumonia # Bilateral mucous plug # Fungal pneumonia Ordered pancultures (blood, urine, sputum), pending Currently under empiric antibiotics (Micafungin, Zosyn and Vamcomycin) On mechanical assisted ventilation (VCV Vt 450, RR 26, PEEP 5, FIO2 35%). Completed tracheostomy on 09/07/2024 On bronchodilators, oxygen therapy Due to continues aspiration pneumonia, with increase oxygen requirement, completed 2 bronchoscopies on 08/27/2024 and 09/04/2024 with abundant mucus plugs. 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 Currently on bolus pantoprazole bid. Will evaluate need for PEG. Ordered small bowel series which showed probable small-bowel obstruction versus ileus. Consulted Surgery: Re-evaluate once patient is more stable from aspiration pneumonia. Completed small-bowel series with Gastrografin postop, with normal bowel transit. Tolerating tube feedings Genitourinary/Neprhology # KARISHMA hemodynamically mediated (VMN) # Ruled out UTI # Hypernatremia - Resolved UA within normal limits Required D5W. On tube free water Infectious Disease # Septic shock secondary to aspiration pneumonia Ordered pancultures (blood, urine, sputum), pending Currently under empiric antibiotics (Zosyn and Vancomycin) Currently on IV vasopressors Endocrine # Simple hyperglycemia with no Diabetes # Severe malnutrition Probably secondary to steroids and septic shock On mild ISS BMI less than 19 and hypoalbuminemia Hematology # Rule out GI bleed # Acute blood loss # Iron deficiency anemia # superficial venous thrombosis of left cephalic vein Monitor H&H At admission was on Octeotride and Pantoprazole drip. Discontinue octeotride drip on 08/22/2024 Ordered anemia work up Initiated low dose enoxaparin for DVT prophylaxis Nutrition: Vital AF. Prophylaxis: PUD (pantoprazole bolus tid) and DVT (Enoxaparin 30 mg SC daily) Lines: 08/21/2024 ET tube removed 09/07/2024 09/07/2024 Tracheostomy 08/21/2024 Josue 08/30/2024 PICC Left upper arm 08/21/2024 OG Drips: Fentanyl 225 Versed 14 Propofol 45 Norepinephrine 6 Goals of care discussed with family (sister, she is the caregiver) for over 18 minutes: Full code status. Discussed plan with Dr. Kuhn, family and nurses: Currently ICU status, s/p bronchoscopy x 2 and intestinal resection with diagnosis of SBO secondary to ingestion of foreign body, on mechanical assisted ventilation with difficult respiratory weaning due to tachypnea, under sedation-analgesia, on empiric IV antibiotic, IV fluids, bronchodilators and IV vasopressors. Completed Gastrografin small-bowel series postop with normal bowel transit. Completed tracheostomy on 09/07/2024. Planning discharge to LTAC Critical care time spent including discussion with nursing and family excluding procedures: 87 minutes Plan discussed with: Other (Sister (Delmis) and nurses)) My Orders My Orders Orders - BLANCA IRVIN RESIDENT Procedure Category Date Status Time Urine Dip ED NURSING 09/06/24 Transmitted Chest Xray 1 View XY 09/07/24 Resulted 04:00 Respiratory Misc. RT 09/07/24 Transmitted Order 08:52 Vancomycin PHA 09/08/24 In Process 750mg/150ml 08:00 Vancomycin,Trough LAB 09/09/24 Verified 15:00 Vancomycin Per [facility] 09/09/24 In Process Pharmacy Protoc 16:00 Dietary Evaluation Review Comments: 1. no PO or EN tube feeding until GI bleed resolved. Cancel Cardic Diet 2. Initiate TPN if pt is NPO>7 days. Expected Outcomes/Goals: reassess needs when pt is off vent. Date of Service: September 07, 2024 Billing Provider: ZACHERY KUHN MD Common Visit Codes: 58161-[id number] CARE 30-74 MIN, [id number] CARE-EACH +30MIN BLANCA IRVIN RESIDENT September 07, 2024 19:56 ZACHERY KUHN MD Sep 10, 2024 11:39
[2024-09-08] VITALS (107 sets, daily range): BP systolic 99–194; BP diastolic 51–86; PULSE 68–110; RESP 21–32; TEMP 97.7–99.5; O2SAT 88–100
[2024-09-08 04:00] LABS: Basophils # (auto) 0.1 10 ^3/uL (0-0.2); Basophils % (auto) 0.9 % (0.0-2.0); Eosinophils # (auto) 0.2 10 ^3/uL (0-0.8); Hemoglobin 8.6 g/dL (13.5-17.5); Lymphocytes # (auto) 1.5 10 ^3/uL (0.4-5.4); Monocytes # (auto) 0.9 10 ^3/uL (0-1.3); Neutrophils # (auto) 3.9 10 ^3/uL (1.6-8.6)
[2024-09-08 04:01] LABS: Alanine Aminotransferase 20 U/L (7-40); Anion Gap 10 (5-15); BUN/Creatinine Ratio 28.6 (10.0-20.0); Bilirubin, Total 0.5 mg/dL (0.2-1.0); Blood Urea Nitrogen 18 mg/dL (9-23); Carbon Dioxide 25 mmol/L (20-31); Glucose 84 mg/dL (74-106); Magnesium 1.8 mg/dL (1.6-2.6); Phosphorus 2.8 mg/dL (2.4-5.1); Potassium 4.3 mmol/L (3.5-5.1); Sodium 143 mmol/L (136-145); Total Protein 6.3 g/dL (5.7-8.2)
[2024-09-08 04:04] LABS: Eosinophils % (auto) 2.9 % (0.0-7.0); Hematocrit 25.5 % (41.0-53.0); Lymphocytes % (auto) 23.1 % (10.0-50.0); Mean Corpuscular Hemoglobin 32.2 pg (28.0-32.0); Mean Corpuscular Hgb Conc. 33.9 g/dL (32.0-36.0); Mean Corpuscular Volume 95.1 fL (80.0-100.0); Monocytes % (auto) 13.8 % (0.0-12.0); Neutrophils % (auto) 59.3 % (37.0-80.0); Red Blood Cells 2.68 10^6/uL (4.5-5.90); Red Cell Distribution Width 19.3 % (11.8-14.3); White Blood Cell 6.6 10^3/uL (4.4-10.8)
[2024-09-08 04:14] LABS: Albumin 2.7 g/dL (3.2-4.8); Alkaline Phosphatase 257 U/L (46-116); Aspartate Aminotransferase 45 U/L (13-40); Calcium 8.6 mg/dL (8.7-10.4); Chloride 108 mmol/L (98-107)
[2024-09-08 04:29] LABS: Platelet Count (auto) 756 10^3/uL (140-450)
[2024-09-08 05:09] LABS: Platelet Estimate Markedly Increased
--- NOTE | 2024-09-08 05:52 | DVH ---
CHEST RADIOGRAPH Indication: INTUBATED Technique: Single frontal view of the chest was obtained Comparison: XY CHEST PORTABLE on DOS: 09/07/24 FINDINGS: Lines and Tubes: The enteric tube courses below the left hemidiaphragm and the tip extends outside th e field of view. Tracheostomy tube is unchanged. Left PICC terminates in the superior vena cava. Lungs: Patchy diffuse bilateral airspace disease. Pleura: No effusion. No pneumothorax. Cardiomediastinal contours: Unremarkable Bones: No acute osseous abnormality. IMPRESSION: 1. Stable position of the support lines and tubes. 2. Patchy diffuse bilateral airspace disease.
[2024-09-08] MEDS: VANCOMYCIN 750mg/150ml 150 ML IV SCH (08:11)
[2024-09-08] MEDS: ARTIFICIAL TEAR OPTH(EYE) OINT 3.5GM EACHEYE ONE (11:15)
--- NOTE | 2024-09-08 12:29 | DVHPN2 ---
Progress Note - Dictate Date Seen: September 08, 2024 Medical Necessity Reason Pt with a Central, PICC or Fol: Yes The following are medically ne: PICC Line, Josue Catheter Reason for josue catheter: Strict I&O Subjective POD # 1 S/P tracheostomy Postop day 10 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 Patient is intubated sedated;Respiratory rate 22, FiO2 30% Liver enzymes are normal 2 bowel movements recorded Hemoglobin 8.6, reactive thrombocytosis vital signs Vital Sign Date Time Temp Pulse Resp B/P (MAP) Pulse Ox O2 Delivery O2 Flow Rate FiO2 09/08/24 12:05 90 22 180/86 (117) 98 30 09/08/24 08:00 99.5 99.5 09/08/24 08:00 Mechanical Ventilator+ Total Intake and Output 09/07/24 09/07/24 09/08/24 15:00 23:00 07:00 Intake Total 750.923 ml 578.783 ml 807.170 ml Output Total 1350 ml 1625 ml Balance 750.923 ml -771.217 ml -817.830 ml medications Current Medications Medications Dose Ordered Sig/Shar Route Start Time Stop Time Status Last Admin Dose Admin Ipratropium [place] 0.5 mg Q4HPRN PRN NEB 08/20/24 20:15 09/08/24 12:05 0.5 MG Doxycycline Hyclate 100 ml @ 50 mls/hr Q12H IV 08/21/24 18:30 UNV Midazolam HCl 50 ml @ 1 mls/hr Q24H IV 08/21/24 18:45 09/08/24 10:42 12 MLS/HR Norepinephrine Bitartrate 32 mg/ Sodium Chloride 250 ml @ 0.938 mls/ hr Q24H IV 08/22/24 09:15 09/05/24 12:00 3.75 MLS/HR Valproate Sodium 250 mg/Sodium Chloride 52.5 ml @ 52.5 mls/hr BID IV 08/22/24 22:00 09/08/24 10:05 52.5 MLS/HR Diagnostic Test (Pha) 1 strip Q6HR 08/24/24 00:00 09/08/24 11:18 1 STRIP Insulin Human Regular FOLLOW SLIDING SCALE Q6HR SC 08/24/24 00:00 09/06/24 00:30 2 UNITS Dextrose 50 ml UD IV 08/23/24 22:00 Levalbuterol HCl 0.625 mg Q6HR NEB 08/25/24 12:00 09/08/24 12:05 0.625 MG Acetaminophen 650 mg Q6HP PRN [place] 08/26/24 16:30 09/04/24 17:05 650 MG Sodium Chloride 10 ml QSHIFT@10,22 IV 08/29/24 22:00 09/08/24 08:10 10 ML Fentanyl Citrate 250 ml @ 2.5 mls/hr Q24H IV 08/30/24 22:00 09/08/24 09:56 27.5 MLS/HR Pantoprazole Sodium 40 mg BID IV 09/01/24 22:00 09/08/24 08:10 40 MG Propofol 100 ml @ 1.635 mls/ hr Q24H IV 09/02/24 22:30 09/08/24 09:14 11.445 MLS/HR Piperacillin Sod/ Tazobactam Sod 100 ml @ 25 mls/hr Q8H IV 09/04/24 10:00 09/08/24 09:23 25 MLS/HR Phenytoin Sodium 100 mg Q8HR IV 09/04/24 16:45 09/08/24 05:33 100 MG Vancomycin HCl 0 ml @ 0 mls/hr UD IV 09/04/24 18:15 Enteral Nutritional Formula 1,000 ml 30ML/HR GT 09/04/24 18:45 09/07/24 21:47 1,000 ML Purified Water 200 ml Q6HR GT 09/06/24 12:00 09/08/24 11:19 200 ML Micafungin Sodium 100 mg/Sodium Chloride 100 ml @ 100 mls/hr DAILY@0900 IV 09/07/24 09:00 09/08/24 08:09 100 MLS/HR Enoxaparin Sodium 30 mg DAILY SC 09/07/24 10:00 09/07/24 08:56 30 MG Vancomycin HCl 150 ml @ 150 mls/hr Q16H IV 09/08/24 08:00 09/08/24 08:11 150 MLS/HR Artificial Tears 1 applic HS EACHEYE 09/08/24 22:00 Hydralazine HCl 10 mg Q6HP PRN IV 09/08/24 12:30 UNV objective Patient Is intubated sedated thin male somewhat cachectic Cardiovascular: Normal S1 and S2. No murmurs, gallops or rubs Respiratory: Mechanically assisted ventilation, equal bilateral airway entree. Bilateral diffuse rhonchus Abdomen: Soft, nontender, no organomegaly, normal bowel sounds MSK/skin: Mobilization of limbs cannot be evaluated. Skin is dry and warm Neurological: Orientation cannot be assessed. No apparent motor no sensitive deficits. Pupils are isocoric and reactive laboratory and microbiology Laboratory Tests 09/08/24 03:05 Test 09/08/24 03:05 Range/Units Serum Glucose 84 74-106 mg/dL Problems(with codes): (1) Foreign body in jejunum (2) Small bowel obstruction (3) Abnormal finding on GI tract imaging (4) Coffee ground emesis (5) Pneumonia, unspecified organism Prognosis Plan Continue IV antibiotics Continue ventilatory support Advance tube feedings as tolerated to goal rate of 60 per hour;Currently 30 mL/hour Taper off IV TPN Continue IV Protonix 40 mg q.12 hours I will follow as needed Dietary Evaluation Review Comments: 1. no PO or EN tube feeding until GI bleed resolved. Cancel Cardic Diet 2. Initiate TPN if pt is NPO>7 days. Expected Outcomes/Goals: reassess needs when pt is off vent. Plan discussed with: Other (None) MADAN JUAREZ MD September 08, 2024 12:29
--- NOTE | 2024-09-08 12:35 | DVHPN2 ---
Progress Note - Dictate Date Seen: September 08, 2024 Medical Necessity Reason Pt with a Central, PICC or Fol: Yes The following are medically ne: PICC Line, Josue Catheter Reason for josue catheter: Strict I&O Subjective E: no major events o/n. weaning off sedation. miguelito TF. vital signs Vital Sign Date Time Temp Pulse Resp B/P (MAP) Pulse Ox O2 Delivery O2 Flow Rate FiO2 09/08/24 12:05 90 22 180/86 (117) 98 30 09/08/24 08:00 99.5 99.5 09/08/24 08:00 Mechanical Ventilator+ Total Intake and Output 09/07/24 09/07/24 09/08/24 15:00 23:00 07:00 Intake Total 750.923 ml 578.783 ml 807.170 ml Output Total 1350 ml 1625 ml Balance 750.923 ml -771.217 ml -817.830 ml medications Current Medications Medications Dose Ordered Sig/Shar Route Start Time Stop Time Status Last Admin Dose Admin Ipratropium [place] 0.5 mg Q4HPRN PRN NEB 08/20/24 20:15 09/08/24 12:05 0.5 MG Doxycycline Hyclate 100 ml @ 50 mls/hr Q12H IV 08/21/24 18:30 UNV Midazolam HCl 50 ml @ 1 mls/hr Q24H IV 08/21/24 18:45 09/08/24 10:42 12 MLS/HR Norepinephrine Bitartrate 32 mg/ Sodium Chloride 250 ml @ 0.938 mls/ hr Q24H IV 08/22/24 09:15 09/05/24 12:00 3.75 MLS/HR Valproate Sodium 250 mg/Sodium Chloride 52.5 ml @ 52.5 mls/hr BID IV 08/22/24 22:00 09/08/24 10:05 52.5 MLS/HR Diagnostic Test (Pha) 1 strip Q6HR 08/24/24 00:00 09/08/24 11:18 1 STRIP Insulin Human Regular FOLLOW SLIDING SCALE Q6HR SC 08/24/24 00:00 09/06/24 00:30 2 UNITS Dextrose 50 ml UD IV 08/23/24 22:00 Levalbuterol HCl 0.625 mg Q6HR NEB 08/25/24 12:00 09/08/24 12:05 0.625 MG Acetaminophen 650 mg Q6HP PRN [place] 08/26/24 16:30 09/04/24 17:05 650 MG Sodium Chloride 10 ml QSHIFT@10,22 IV 08/29/24 22:00 09/08/24 08:10 10 ML Fentanyl Citrate 250 ml @ 2.5 mls/hr Q24H IV 08/30/24 22:00 09/08/24 09:56 27.5 MLS/HR Pantoprazole Sodium 40 mg BID IV 09/01/24 22:00 09/08/24 08:10 40 MG Propofol 100 ml @ 1.635 mls/ hr Q24H IV 09/02/24 22:30 09/08/24 09:14 11.445 MLS/HR Piperacillin Sod/ Tazobactam Sod 100 ml @ 25 mls/hr Q8H IV 09/04/24 10:00 09/08/24 09:23 25 MLS/HR Phenytoin Sodium 100 mg Q8HR IV 09/04/24 16:45 09/08/24 05:33 100 MG Vancomycin HCl 0 ml @ 0 mls/hr UD IV 09/04/24 18:15 Enteral Nutritional Formula 1,000 ml 30ML/HR GT 09/04/24 18:45 09/07/24 21:47 1,000 ML Purified Water 200 ml Q6HR GT 09/06/24 12:00 09/08/24 11:19 200 ML Micafungin Sodium 100 mg/Sodium Chloride 100 ml @ 100 mls/hr DAILY@0900 IV 09/07/24 09:00 09/08/24 08:09 100 MLS/HR Enoxaparin Sodium 30 mg DAILY SC 09/07/24 10:00 09/07/24 08:56 30 MG Vancomycin HCl 150 ml @ 150 mls/hr Q16H IV 09/08/24 08:00 09/08/24 08:11 150 MLS/HR Artificial Tears 1 applic HS EACHEYE 09/08/24 22:00 Hydralazine HCl 10 mg Q6HP PRN IV 09/08/24 12:30 objective GEN: sedated. Intubated ABD: surgical dressings clean and dry. laboratory and microbiology Laboratory Tests 09/08/24 03:05 Test 09/08/24 03:05 Range/Units Serum Glucose 84 74-106 mg/dL Assessment/Plan A: 1. s/p laparoscopic small bowel resection 2. aspiration PNA 3. seizure DO P: 1. melissa removed. surgery signing off. Dietary Evaluation Review Comments: 1. no PO or EN tube feeding until GI bleed resolved. Cancel Cardic Diet 2. Initiate TPN if pt is NPO>7 days. Expected Outcomes/Goals: reassess needs when pt is off vent. Plan discussed with: Other (sister) JOANNE BARROS MD September 08, 2024 12:35
[2024-09-08] MEDS: hydrALAZINE HCL 20 MG/ML VL IV PRN (12:37)
[2024-09-08] MEDS: DEXMEDETOMIDINE HCL IN D5W 100 ML IV SCH (12:58)
--- NOTE | 2024-09-08 19:09 | DVHDSRES ---
Discharge Summary Date of Admission Resident Creating Document: HEATH IRVIN RESIDENT August 20, 2024 at 21:10 Date of Discharge: September 08, 2024 Labs/Diagnostic Data: Laboratory Results Test 09/08/24 17:01 09/08/24 07:11 09/08/24 03:05 09/07/24 15:12 POC Glucose 100 mg/dl (70-106) Blood Gas Specimen Type Arterial Blood Gas Sample Site Right radial Blood Gas Patient Temperature 37.0 Arterial Blood Date Drawn [id number] Arterial Blood pH 7.495 (7.350-7.450) Arterial Blood Partial Pressure CO2 31.6 mmHg (35.0-48.0) Arterial Blood Partial Pressure O2 69.7 mmHg (83.0-108.0) Arterial Blood HCO3 23.8 mmol/L (21.0-28.0) Arterial Blood Oxygen Saturation 94.0 % (94.0-98.0) Arterial Blood Base Excess 1.0 mmol/L (-2.0-3.0) Arterial Blood Oxyhemoglobin 93.7 % (94.0-98.0) Arterial Blood Carboxyhemoglobin 0.2 % (0.5-1.5) Arterial Blood Methemoglobin 0.1 % (0.0-1.5) Sher Test Modified Blood Gas Total Hemoglobin 10.30 g/dL (13.5-17.5) Blood Gas Set Respiration Rate 26.0 Blood Gas Modality Vent - ac FiO2 % 35.0 Blood Gas Tidal Volume 450.0 Blood Gas PEEP or CPAP 5.0 White Blood Count 6.6 10^3/uL (4.4-10.8) Red Blood Count 2.68 10^6/uL (4.5-5.90) Hemoglobin 8.6 g/dL (13.5-17.5) Hematocrit 25.5 % (41.0-53.0) Mean Corpuscular Volume 95.1 fL (80.0-100.0) Mean Corpuscular Hemoglobin 32.2 pg (28.0-32.0) Mean Corpuscular Hemoglobin Concent 33.9 g/dL (32.0-36.0) Red Cell Distribution Width 19.3 % (11.8-14.3) Platelet Count 756 10^3/uL (140-450) Mean Platelet Volume 6.5 fL (6.9-10.8) Neutrophils (%) (Auto) 59.3 % (37.0-80.0) Lymphocytes (%) (Auto) 23.1 % (10.0-50.0) Monocytes (%) (Auto) 13.8 % (0.0-12.0) Eosinophils (%) (Auto) 2.9 % (0.0-7.0) Basophils (%) (Auto) 0.9 % (0.0-2.0) Neutrophils # (Auto) 3.9 10 ^3/uL (1.6-8.6) Lymphocytes # (Auto) 1.5 10 ^3/uL (0.4-5.4) Monocytes # (Auto) 0.9 10 ^3/uL (0-1.3) Eosinophils # (Auto) 0.2 10 ^3/uL (0-0.8) Basophils # (Auto) 0.1 10 ^3/uL (0-0.2) Nucleated Red Blood Cells 0.0 % Platelet Estimate Markedly increased Sodium Level 143 mmol/L (136-145) Potassium Level 4.3 mmol/L (3.5-5.1) Chloride Level 108 mmol/L (98-107) Carbon Dioxide Level 25 mmol/L (20-31) Anion Gap 10 (5-15) Blood Urea Nitrogen 18 mg/dL (9-23) Creatinine 0.63 mg/dL (0.700-1.30) Glomerular Filtration Rate Calc 112 mL/min (>90) BUN/Creatinine Ratio 28.6 (10.0-20.0) Serum Glucose 84 mg/dL (74-106) Calcium Level 8.6 mg/dL (8.7-10.4) Phosphorus Level 2.8 mg/dL (2.4-5.1) Magnesium Level 1.8 mg/dL (1.6-2.6) Total Bilirubin 0.5 mg/dL (0.2-1.0) Aspartate Amino Transferase (AST) 45 U/L (13-40) Alanine Aminotransferase (ALT) 20 U/L (7-40) Alkaline Phosphatase 257 U/L (46-116) Total Protein 6.3 g/dL (5.7-8.2) Albumin 2.7 g/dL (3.2-4.8) Vancomycin Level Trough 14.8 ug/mL (5-10) Phenytoin (Dilantin) Level 8.8 ug/mL (10-20) Test 09/07/24 06:18 09/07/24 03:10 09/06/24 03:18 09/05/24 03:00 Blood Gas Spontaneous Rate 26 Prothrombin Time 11.9 sec (9.3-11.8) Prothrombin Time INR 1.14 (0.9-1.15) Activated Partial Thromboplast Time 30.5 SEC (24.5-34.5) Triglycerides Level 168 mg/dL (< 150) Differential Total Cells Counted 100.0 (100) Neutrophils % (Manual) 70 (37.0-80.0) Band Neutrophils % (Manual) 1 Lymphocytes % (Manual) 10 (10.0-50.0) Monocytes % (Manual) 7 (0-12) Eosinophils % (Manual) 10 (0-7) Basophils % (Manual) 0 (0.0-2.0) Metamyelocytes % (manual) 1 Myelocytes % (Manual) 0 Promyelocytes % (Manual) 1 Blast Cells % (Manual) 0 Reactive Lymphocytes 0 Large Platelets Few Giant Platelets Few Test 09/04/24 03:25 09/03/24 08:13 09/03/24 03:06 09/02/24 22:45 B-Type Natriuretic Peptide 43.28 pg/mL (0-100) Blood Gas Critical Value Read Back Yes Blood Gas Notified Whom heath Chanel md. Blood Gas Notified Time [id number] Blood Gas Notified By bryson Davis rt. Anisocytosis (manual) Slight Urine Color Yellow (Yellow) Urine Clarity Clear (Clear) Urine pH 6.0 (5.0-9.0) Urine Specific [place] 1.017 (1.001-1.035) Urine Protein Trace (Negative) Urine Ketones Negative (Negative) Urine Blood 3+ /uL (Negative) Urine Nitrite Negative (Negative) Urine Bilirubin Negative (Negative) Urine Urobilinogen Normal mg/dL (Negative) Urine Leukocyte Esterase Negative /uL (Negative) Urine RBC 196 /hpf (0 - 3) Urine Microscopic WBC < 1 /HPF (0-3) Urine Squamous Epithelial Cells Few /hpf (<5) Urine Bacteria None seen /hpf (None Seen) Urine Glucose Normal mg/dL (Normal) Test 08/30/24 03:17 08/23/24 16:23 08/23/24 03:20 08/22/24 18:13 Random Vancomycin Level 14.3 ug/mL (5-10) Valproic Acid Level 21.9 ug/mL (50-100) Lactic Acid Level 1.1 mmol/L (0.4-2.0) Gastric Fluid pH 7.0 Gastric Fluid Occult Blood Positive (Negative) Test 08/22/24 09:57 08/22/24 09:00 08/21/24 17:12 08/21/24 17:10 Reticulocyte Count (auto) 1.54 % (0.5-1.5) Haptoglobin 226 mg/dL (29-370) Iron Level 10 ug/dL (65-175) Total Iron Binding Capacity 193 ug/dL (250-425) Percent Iron Saturation 5.2 % (20-55) Ferritin 77.2 ng/mL (22-322) Folic Acid 5.72 ng/mL (>5.38) Urine Opiates Screen Neg (NEGATIVE) Urine Fentanyl Screen Pos (NEGATIVE) Urine Barbiturates Screen Neg (NEGATIVE) Urine Phencyclidine Screen Neg (NEGATIVE) Urine Amphetamines Screen Neg (NEGATIVE) Urine Benzodiazepines Screen Pos (NEGATIVE) Urine Cocaine Screen Neg (NEGATIVE) Urine Cannabinoids Screen Neg (NEGATIVE) Blood Gas Liter Flow 6.00 Influenza Type A Antigen Negative (Negative) Influenza Type B Antigen Negative (Negative) SARS-CoV-2 Antigen (Rapid) Negative (NEGATIVE) Test 08/20/24 18:38 08/20/24 16:15 08/20/24 15:21 Troponin I High Sensitivity 35 ng/L (</=54) Urine Mucus Few (None Seen) Hemoglobin A1c 4.8 % A1C (<5.7) Other Laboratory Tests 09/08/24 03:05 Brief Hx & Hospital Course: Juanjose Ribeiro is a 53-year-old male patient who presents to ED via EMS with chief complaint of progressive dyspnea. Patient required urgent ET intubated in ED, could not obtain review of systems on initial evaluation. Obtained information by family (sister) and EMR. Patient's symptoms got worse three days prior to his admission, associated with nausea, vomiting. Per sister patient stopped eating on Wednesday after coming back from a care facility, presented ground coffee emesis and has been having constipation (last bowel movement last ). Patient on scene and in ED presented hypotension, desaturation, tachypnea, with initial diagnosis of acute respiratory failure with septic shock secondary to probable aspiration pneumonia. Required IV fluids, empiric IV antibiotic and high-flow with regular response, deciding endotracheal intubation and placement of central line. While intubating, evidenced copious dark ground coffee secretion, deciding to initiate octreotide and IV pantoprazole. 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 2016 pneumonia Surgical history: Per sister had lung surgery because of collapse lung (questionable thoracentesis) Family history: Mother of congestive heart failure, also had diabetes Social history: Lives in [place] with sister who is her his caregiver. Denies current tobacco, alcohol and other drug abuse Allergies: Denies Home medication: Divalproex 250 mg p.o. b.i.d., Dilantin 100 mg p.o. q.8 hours Brief hospital course: Acute metabolic encephalopathy secondary to septic shock likely due to aspiration pneumonia in patient with small bowel obstruction due to foreign body (orbi ball) in jejunum, requiring urgent endotracheal intubation (continues on mechanical assisted ventilation but now through tracheostomy which was completed on 09/07/2024), IV fluids, empiric IV antibiotic (micafungin, Zosyn and vancomycin), IV vasopressors, OG tube placement and Protonix drip. Pulmonology specialist evaluated the patient, completed bronchoscopy in two opportunities which evidence bilateral mucus plugs requiring global bronchial wash, last wash evidence yeast. Completed abdomen and pelvis CT which showed cholecystitis and abnormal jejunal mass. Evaluated by neurosurgical physician assistant indicating repeat imaging of gallbladder which showed improvement with medical management and Gastrografin which evidence small-bowel obstruction, indicating small intestine resection with terminal terminal anastomosis. Completed echocardiogram which showed normal chambers, LVEF 60% and normal RV function. Patient presented difficult respiratory weaning due to respiratory distress, deciding to complete tracheostomy. Patient hemodynamically stable, under decreasing sedoanalgesia, with no vasoactive drugs, status post tracheostomy and jejunal resection with terminal terminal anastomosis, in condition to be discharged to LTAC to proceed with respiratory weaning. Was granted under optimal medical therapy, gave advice on healthy lifestyle habits, and follow-up per LTAC health care provider. 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 No murmurs, gallops or rubs Respiratory: Mechanically assisted ventilation, equal bilateral airway entree. Bilateral diffuse rhonchus Abdomen: Mildly distended, surgical site of laparotomy with no secretion nor erythema, nontender, no organomegaly, reduced bowel sounds. Has OG in low intermittent suction, with mild secretion MSK/skin: Mobilization of limbs cannot be evaluated. Skin is dry and warm Neurological: Orientation cannot be assessed. No apparent motor or sensitive deficits. Pupils are isocoric and reactive Goals of care discussed with family (sister, she is the caregiver) for over 18 minutes: Full code status. Discussed plan with Dr. Villatoro, family and nurses. Time spent including in discharge planning including discussion with nursing and family excluding procedures: 96 minutes Operations or Procedures EXAM: XY CHEST PORTABLE HISTORY: sob COMPARISON: None TECHNIQUE: Portable AP view of the chest was performed. FINDINGS: There are patchy and consolidative infiltrates in the left lung, greatest in the left mid lung. There is blunting of the left costophrenic angle. There is diffuse bilateral interstitial prominence. The lung apices are partially obscured by head and neck tissues. No definite pneumothorax. The heart is not enlarged. IMPRESSION: 1. Left-sided pneumonia. 2. Bilateral interstitial prominence may be due to reactive airways disease or CHF. ATED BY: ARLETTE CONTEH MD DICTATED DATE/TIME: 08/20/24 1700 EXAM: CT HEAD WITHOUT CONTRAST INDICATION: altered TECHNIQUE: CT of the head without intravenous contrast. Radiation Dose : 1. Head: CT Dose: CTDI volume is 53.98 mGy. Dose-length product is 973.29 mGy*cm The dose indicators for CT are the volume Computed Tomography (CT) Dose Index (CTDIvol) and the Dose Length Product (DLP), and are measured in units of mGy and mGy-cm, respectively. These indicators are not patient dose, but values generated from the CT scanner acquisition factors. The report includes radiation exposure data for exposures received during this examination. COMPARISON: None FINDINGS: There is no evidence of acute intracranial hemorrhage, extra-axial collection, mass effect, midline shift, herniation or hydrocephalus. The ventricles, sulci and cisterns are age appropriate. The horan-white differentiation is intact. Patchy periventricular and subcortical white matter hypoattenuation is nonspecific but may be related to small vessel ischemic disease. Mild mucosal opacification of the right maxillary sinus. The surrounding soft tissues and osseous structures are unremarkable. IMPRESSION: No acute intracranial abnormality. Radiation optimization: All CT scans at this facility use at least one of these dose optimization techniques: automated exposure control mA and/or kV adjustment per patient size (includes targeted exams where dose is matched to clinical indication) or iterative reconstruction. ATED BY: MIKEY ELLIS MD DICTATED DATE/TIME: 08/20/24 1830 INDICATION: Septic shock, questionable upper GI bleed TECHNIQUE: Multiple real-time sonographic images of the abdomen were obtained. COMPARISON: None FINDINGS: The liver is homogenous in echogenicity. The liver measures 14 cm. No intrahepatic biliary ductal dilatation is noted. Partially visualized small bilateral pleural effusions. The gallbladder wall measures 0.6 cm and is thickened. There are gallstones and gallbladder sludge. The common duct measures 0.4 cm and is unremarkable. Trace pericholecystic edema. The right kidney measures 9.9 cm. No hydronephrosis. The left kidney measures 10.3 cm. No hydronephrosis. There is a right renal cyst measuring 2.7 cm. The spleen measures 13 cm, which is enlarged. The echogenicity is within normal limits. The pancreas is not well visualized due to obscuration from bowel gas. The visualized portions of the IVC and aorta are grossly unremarkable. IMPRESSION: Gallstones and gallbladder sludge with gallbladder wall thickening which can be seen in the setting of acute cholecystitis. Mild splenomegaly. Partially visualized small bilateral pleural effusions. ATED BY: HIRAM BRADY MD DICTATED DATE/TIME: 08/22/24 1023 Procedure: XY SMALL BOWEL SERIES-W GASTROGRA Reason for study/Clinical History: Evaluate obstruction Comparison Study: None Technique: Single contrast small bowel series performed. FINDINGS/IMPRESSION: Initial turf farmer radiograph demonstrates nonspecific bowel-gas pattern. Contrast is not identified within the colon by 3 hours. This represents a delayed transit time. KUB could be obtained on 08/24/2024 2 further assess for enteric contrast entering the colon. ATED BY: MIKEY ELLIS MD DICTATED DATE/TIME: 08/23/24 1725 Procedure: US GALLBLADDER 08/24/2024 12:00 PM Indication: CHOLECYSTOSTOMY Comparison: US ABDOMEN LIMITED on DOS: 08/22/24 Technique: Grayscale and color images of the right upper quadrant were obtained. FINDINGS: Large amount of sludge few subcentimeter calculi noted in gallbladder lumen. Gallbladder wall measures 2.7 mm in thickness. The sonographic Patel's sign is not evaluated. IMPRESSION: 1. Interval resolution of gallbladder wall edema and pericholecystic fluid. Large amount of sludge and few tiny calculi noted in gallbladder lumen. ATED BY: AELISHA ACOSTA MD DICTATED DATE/TIME: 08/24/24 1237 EXAM: Two-dimensional and M-mode echocardiogram with Doppler and color Doppler. Blood Pressure: 92/52 mmHg INDICATION Heart Failure RISK FACTORS Height: 5'6", Weight: 104 DIMENSIONS LVDd 3.9 (3.8-5.7cm) LA (2D) 3.6 (1.9-4.0cm) Aortic Root 2.7 (2.0- 3.7cm) LVDs 2.9 (2.5-4.0cm) LA (MM) (1.9-4.0cm) Aortic Cusp Exc 1.5 (1.5- 2.0cm) EF (%) 55.0 (55-70%) Rt. Atrium 3.8 (1.9-4.0cm) Asc. Aorta cm IVSd 0.4 (0.7-1.1cm) RV (D) 3.4 (1.8-2.4cm) PWd 0.5 (0.7-1.1cm) Mitral Valve Mitral Mitral Stenosis E wave 0.78m/s MV Mean GR. mmHg A wave 0.64m/s MV Peak GR. mmHg E/A ratio 1.2 2D MVA cm2 DECEL Time 141ms PRESS 1/2 Time ms Aortic Valve Aortic Valve Aortic Stenosis V1 1.04m/s AO Mean GR. 4mmHg V2 1.30m/s AO Peak GR. 7mmHg LVOT Diameter 2.0 (1.8-2.4cm) Doppler AHMET 2.51cm2 Pulmonic Valve V2 1.18m/s Tricuspid Valve TR Velocity 2.76m/s RVSP 39mmHg Other Information Quality : Technically Limited Rhythm : Technically limited study due to on vent. Conclusion Technically good study. Sinus rhythm. Normal chamber sizes. Normal valves. EF normal at 60% with normal RV function. Mild TR. No pericardial effusion masses or vegetations. SIGNED BY: VIOLET CLAY Sr., MD SIGNED DATE/TIME: 08/23/24 1647 Exam: CT CT AB PEL WITH IV CON ONLY History: SBO COMPARISON: August 22, 2024 Technique: Multidetector spiral CT of the abdomen and pelvis was performed from lung bases to pubic symphysis. Intravenous contrast was administered during this examination. Portal venous imaging was obtained. Axial, coronal and sagittal multiplanar reformats were performed by the technologist on a separate workstation. Radiation Dose : 1. Abdomen/Pelvis: CTDIvol 5.36mGy, DLP 268.72 mGy*cm. CONTRAST: Type of contrast: Omni 300 Contrast injected: 80 ml Findings: Lung Bases: Bibasilar consolidations , suspicious for pneumonia or aspiration . Small bilateral pleural effusions. Liver: The liver is normal in size. No focal lesions. Normal hepatic vascular enhancement. Gallbladder and Biliary Tree: Unremarkable Spleen: Unremarkable Pancreas: The pancreas is normal in appearance without focal lesions or abnormal enhancement. Adrenal Glands: Unremarkable Kidneys: No hydronephrosis. Bladder: Collapsed around a Rivera catheter. Bowel: The stomach is grossly normal in appearance. Multiple abnormally dilated loops of small bowel are seen throughout the abdomen with probable transition point in the right lower quadrant. Concentric wall thickening of the cecum and ascending colon may reflect infectious/inflammatory colitis The appendix is not visualized; however, no secondary findings of acute appendicitis identified. Stable round masslike lesion is seen within a segment of jejunum which contains both soft tissue and fat components and measures up to 2.7 cm. Ascites: Trace pelvic ascites Lymphadenopathy: No mesenteric, retroperitoneal or periportal lymphadenopathy. Abdominal Wall and Mesentery: Unremarkable. Vasculature: The visualized abdominal aorta is normal in size and caliber. Abdominal and pelvic vessels demonstrate normal enhancement. Pelvic Organs: Unremarkable Musculoskeletal: No aggressive focal bony lesions, acute fractures or dislocation. Stable thoracic compression deformities. IMPRESSION: 1. Stable round masslike lesion is seen within a segment of jejunum which contains both soft tissue and fat components and measures up to 2.7 cm. 2. Small-bowel obstruction with probable transition point in the right lower quadrant. 3. Infectious / inflammatory colitis involving the cecum and ascending colon. 4. Trace pelvic ascites 5. Bibasilar consolidations, suspicious for pneumonia or aspiration. 6. Small bilateral pleural effusions Radiation optimization: All CT scans at this facility use at least one of these dose optimization techniques: automated exposure control mA and/or kV adjustment per patient size (includes targeted exams where dose is matched to clinical indication) or iterative reconstruction. ATED BY: SENTHIL SHERMAN MD DICTATED DATE/TIME: 08/25/24 1856 Exam: US US GUIDED VASCULAR ACCESS Date: 08/29/2024 05:10 PM Clinical History: picc line placement Comparison: None Findings: Targeted sonographic evaluation of the upper arm vein was obtained utilizing grayscale and color Doppler imaging. IMPRESSION: Sonographic assistance for picc line placement. Please refer to procedural report for detailed findings. ATED BY: MIKEY ELLIS MD DICTATED DATE/TIME: 08/30/24 0542 Procedure: XY SMALL BOWEL SERIES-W GASTROGRA Reason for study/Clinical History: Intestinal obstruction Comparison Study: XY SMALL BOWEL SERIES-W GASTROGRA on DOS: 08/23/24 Technique: Single contrast small bowel series performed. FINDINGS/IMPRESSION: Initial turf farmer view of the abdomen and pelvis appears demonstrates no acute process. Contrast is identified within the colon by 3 hours. This represents a normal small bowel transit time. ATED BY: BRIAN SMALL Jr., DO DICTATED DATE/TIME: 09/05/242038 LEFT Upper Extremity Venous Duplex Clinical History: Left upper limb swelling Comparison: None Findings: Duplex Doppler evaluation of the venous system of the LEFT lower neck and upper extremity including color Doppler and spectral/pulsed waveform analysis was performed. The internal jugular vein demonstrates appropriate compressibility and waveform variability. The subclavian vein is patent on color Doppler evaluation without intraluminal thrombus and demonstrates waveform variability. The visualized portion of the brachiocephalic vein is patent on color Doppler evaluation without intraluminal thrombus and demonstrates waveform variability. The axillary vein demonstrates appropriate compressibility and waveform variability. The brachial veins demonstrate appropriate compressibility and patency on Doppler evaluation. The basilic vein demonstrates appropriate compressibility and patency on Doppler evaluation. Thrombus in the left cephalic vein. Impression: Thrombus in the left cephalic vein. If clinical concern/symptoms persist or worsen, short-interval follow-up study is suggested. ATED BY: LANCE CHANDLER MD DICTATED DATE/TIME: 09/06/24 1204 CHEST RADIOGRAPH Indication: INTUBATED Technique: Single frontal view of the chest was obtained Comparison: XY CHEST PORTABLE on DOS: 09/07/24 FINDINGS: Lines and Tubes: The enteric tube courses below the left hemidiaphragm and the tip extends outside the field of view. Tracheostomy tube is unchanged. Left PICC terminates in the superior vena cava. Lungs: Patchy diffuse bilateral airspace disease. Pleura: No effusion. No pneumothorax. Cardiomediastinal contours: Unremarkable Bones: No acute osseous abnormality. IMPRESSION: 1. Stable position of the support lines and tubes. 2. Patchy diffuse bilateral airspace disease. 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 # Fungal pneumonia # KARISHMA hemodynamically mediated (VMN) # Ruled out UTI # Hypernatremia - Resolved # Questionable history of childhood meningitis # Developmental delay # Seizures # Ruled out congestive heart failure # Probable upper GI bleed # Simple hyperglycemia with no Diabetes # Severe malnutrition # Acute blood loss # Iron deficiency anemia # Superficial venous thrombosis of left cephalic vein Discharge Disposition: Inpatient Rehab Facility SNF Discharge Will this Physician continue t: No Discharge Instruct/Medications Diet: See Comment Diet comment: Tube feeding with Jevity Activity: No Restrictions, As Tolerated Follow Up/Referral: Per LTAC Medications: Per EMR Discharge Statement: "Patient was advised to return to the ER or call 911 if any headaches, dizziness, shortness of breath, chest pain, abdominal pain, bleeding, fevers, or worsening of medical condition. Patient was counseled about treatment plan, medications, possible side effects, patientverbalized understanding. All questions were answered to the best of my ability. This discharge took greater then 30 minutes in planning, reviewing documentation, counseling the patient, and discussing with other team members." ASSESSMENT ASSESSMENT Assessment Metabolic encephalopathy associated with septic shock due to Aspiration pneumonia secondary to Small-bowel obstruction with proximal jejunal mass (foreign body) HEATH IRVIN RESIDENT September 08, 2024 19:09
[2024-09-08] MEDS: ARTIFICIAL TEAR OPTH(EYE) OINT 3.5GM EACHEYE SCH (21:16)
[2024-09-09] VITALS (73 sets, daily range): BP systolic 87–160; BP diastolic 41–77; PULSE 68–93; RESP 22–25; TEMP 97.5–98.6; O2SAT 94–99
[2024-09-09 02:53] LABS: Chloride 105 mmol/L (98-107); Potassium 3.8 mmol/L (3.5-5.1); Sodium 140 mmol/L (136-145)
[2024-09-09 02:54] LABS: Anion Gap 11 (5-15); Carbon Dioxide 24 mmol/L (20-31)
[2024-09-09 02:57] LABS: Calcium 8.4 mg/dL (8.7-10.4)
[2024-09-09 02:59] LABS: Glucose 92 mg/dL (74-106)
[2024-09-09 03:00] LABS: BUN/Creatinine Ratio 29.5 (10.0-20.0); Blood Urea Nitrogen 18 mg/dL (9-23); Magnesium 1.7 mg/dL (1.6-2.6)
[2024-09-09 03:48] LABS: Hematocrit 25.3 % (41.0-53.0); Hemoglobin 8.5 g/dL (13.5-17.5); Platelet Count (auto) 672 10^3/uL (140-450); White Blood Cell 4.3 10^3/uL (4.4-10.8)
[2024-09-09 03:51] LABS: Mean Corpuscular Hemoglobin 31.9 pg (28.0-32.0); Mean Corpuscular Hgb Conc. 33.6 g/dL (32.0-36.0); Mean Corpuscular Volume 95.1 fL (80.0-100.0); Red Blood Cells 2.66 10^6/uL (4.5-5.90); Red Cell Distribution Width 19.4 % (11.8-14.3)
[2024-09-09 03:54] LABS: Basophils % (manual) 0 (0.0-2.0); Blast Cells 0; Metamyelocytes % 0; Myelocytes % 0; Promyelocytes % 0; Reactive Lymphocytes 0
[2024-09-09 04:06] LABS: Alanine Aminotransferase 18 U/L (7-40); Anion Gap 8 (5-15); BUN/Creatinine Ratio 28.8 (10.0-20.0); Blood Urea Nitrogen 17 mg/dL (9-23); Carbon Dioxide 24 mmol/L (20-31); Glucose 91 mg/dL (74-106); Potassium 3.7 mmol/L (3.5-5.1); Sodium 141 mmol/L (136-145); Total Protein 6.1 g/dL (5.7-8.2)
[2024-09-09 04:07] LABS: Bilirubin, Total 0.5 mg/dL (0.2-1.0); Phosphorus 4.4 mg/dL (2.4-5.1)
[2024-09-09 04:10] LABS: Albumin 2.7 g/dL (3.2-4.8); Alkaline Phosphatase 270 U/L (46-116); Aspartate Aminotransferase 42 U/L (13-40); Chloride 109 mmol/L (98-107); Magnesium 1.5 mg/dL (1.6-2.6)
[2024-09-09 04:23] LABS: Band Neutrophils % (manual) 1; Eosinophils % (manual) 16 (0-7); Lymphocytes % (manual) 20 (10.0-50.0); Monocytes % (manual) 12 (0-12); Platelet Estimate Markedly Increased
[2024-09-09] MEDS: MAGNESIUM SULFATE 1GM/100ML 100 ML IV SCH (05:27)
[2024-09-09] MEDS: POTASSIUM CHL 20MEQ/100ML 100 ML IV ONE (05:44)
--- NOTE | 2024-09-09 06:04 | DVH ---
CHEST RADIOGRAPH Indication: INTUBATED/ Technique: Single frontal view of the chest was obtained Comparison: XY CHEST PORTABLE on DOS: 09/08/24, XY CHEST PORTABLE on DOS: 09/07/24, XY CHEST XRAY 1 VIE W on DOS: 09/07/24 IMPRESSION: Heart appears stable in size. Support lines and tubes appear unchanged in satisfactory position. Bila teral opacities appear similar, [id number]-left. Possible trace right pleural effusion. No pn eumothorax.
[2024-09-09] MEDS: fentaNYL Drip 2500mCg/250mlNS 250 ML IV SCH (08:09)
--- NOTE | 2024-09-09 08:13 | DVHPN2 ---
Progress Note - Dictate Date Seen: September 09, 2024 Medical Necessity Reason Pt with a Central, PICC or Fol: Yes The following are medically ne: PICC Line, Josue Catheter Reason for josue catheter: Strict I&O vital signs Vital Sign Date Time Temp Pulse Resp B/P (MAP) Pulse Ox O2 Delivery O2 Flow Rate FiO2 09/09/24 06:49 79 22 94/41 (58) 97 40 09/09/24 04:00 97.5 97.5 09/08/24 20:00 Mechanical Ventilator+ Total Intake and Output 09/08/24 09/08/24 09/09/24 15:00 23:00 07:00 Intake Total 714.923 ml 862.925 ml 832.86 ml Output Total 1025 ml 600 ml Balance 714.923 ml -162.075 ml 232.86 ml medications Current Medications Medications Dose Ordered Sig/Shar Route Start Time Stop Time Status Last Admin Dose Admin Ipratropium [place] 0.5 mg Q4HPRN PRN NEB 08/20/24 20:15 09/09/24 06:49 0.5 MG Doxycycline Hyclate 100 ml @ 50 mls/hr Q12H IV 08/21/24 18:30 UNV Midazolam HCl 50 ml @ 1 mls/hr Q24H IV 08/21/24 18:45 09/09/24 06:27 7 MLS/HR Norepinephrine Bitartrate 32 mg/ Sodium Chloride 250 ml @ 0.938 mls/ hr Q24H IV 08/22/24 09:15 09/05/24 12:00 3.75 MLS/HR Valproate Sodium 250 mg/Sodium Chloride 52.5 ml @ 52.5 mls/hr BID IV 08/22/24 22:00 09/09/24 07:49 52.5 MLS/HR Diagnostic Test (Pha) 1 strip Q6HR 08/24/24 00:00 09/09/24 05:34 1 STRIP Insulin Human Regular FOLLOW SLIDING SCALE Q6HR SC 08/24/24 00:00 09/06/24 00:30 2 UNITS Dextrose 50 ml UD IV 08/23/24 22:00 Levalbuterol HCl 0.625 mg Q6HR NEB 08/25/24 12:00 09/09/24 06:49 0.625 MG Acetaminophen 650 mg Q6HP PRN RI 08/26/24 16:30 09/04/24 17:05 650 MG Sodium Chloride 10 ml QSHIFT@10,22 IV 08/29/24 22:00 09/09/24 07:49 10 ML Pantoprazole Sodium 40 mg BID IV 09/01/24 22:00 09/09/24 07:49 40 MG Propofol 100 ml @ 1.635 mls/ hr Q24H IV 09/02/24 22:30 09/08/24 09:14 11.445 MLS/HR Piperacillin Sod/ Tazobactam Sod 100 ml @ 25 mls/hr Q8H IV 09/04/24 10:00 09/09/24 07:50 25 MLS/HR Phenytoin Sodium 100 mg Q8HR IV 09/04/24 16:45 09/09/24 05:27 100 MG Vancomycin HCl 0 ml @ 0 mls/hr UD IV 09/04/24 18:15 Enteral Nutritional Formula 1,000 ml 30ML/HR GT 09/04/24 18:45 09/07/24 21:47 1,000 ML Purified Water 200 ml Q6HR GT 09/06/24 12:00 09/09/24 05:27 200 ML Micafungin Sodium 100 mg/Sodium Chloride 100 ml @ 100 mls/hr DAILY@0900 IV 09/07/24 09:00 09/09/24 07:49 100 MLS/HR Enoxaparin Sodium 30 mg DAILY SC 09/07/24 10:00 09/09/24 07:50 30 MG Vancomycin HCl 150 ml @ 150 mls/hr Q16H IV 09/08/24 08:00 09/08/24 23:35 150 MLS/HR Artificial Tears 1 applic HS EACHEYE 09/08/24 22:00 09/08/24 21:16 1 APPLIC Hydralazine HCl 10 mg Q6HP PRN IV 09/08/24 12:30 09/08/24 12:37 10 MG Fentanyl Citrate 250 ml @ 2.5 mls/hr Q24H IV 09/09/24 01:30 09/09/24 08:09 15 MLS/HR laboratory and microbiology Laboratory Tests 09/09/24 03:27 Test 09/09/24 03:27 Range/Units Serum Glucose 91 74-106 mg/dL Assessment/Plan Impression Acute hypoxemic respiratory failure Metabolic encephalopathy Aspiration pneumonia Seizure disorder Patient seen and examined on the ICU Events On mechanical ventilation S/p tracheostomy PEEP 10, FiO2 50% ABG reviewed requires sedation NG tube in place Management Vent support Titrate to maintain sats 90% or above Sedation holiday and PS/trache collar trials precedex ok Continue antibiotics F/u cultures Bronchodilators Monitor renal function Monitor electrolytes Supplement as needed Pressors as needed for hemodynamic support To maintain a mean arterial pressure of 65 mmHg Antiepileptics as ordered F/u neurology DVT prophylaxis Critical care time 35 minutes Dietary Evaluation Review Comments: 1. no PO or EN tube feeding until GI bleed resolved. Cancel Cardic Diet 2. Initiate TPN if pt is NPO>7 days. Expected Outcomes/Goals: reassess needs when pt is off vent. Plan discussed with: Other (rn) CATHI GARCIA MD September 09, 2024 08:13
--- NOTE | 2024-09-09 10:45 | ECG ---
[facility] Test Date: 2024-09-09 Test Time: 01:06:20 Pat Name: JUAN JOSÉ KWOK Department: icu Room: [address] [place] [address] A Gender: M Application Manager: pallavi : 1970 Requested By: BLANCA IRVIN Order Number: [id number] Reading MD: Elvin Andrew Measurements Intervals [place] Rate: 79 P: -8 [place]: 141 QRS: 34 QRSD: 79 T: 20 QT: 385 QTc: 442 Interpretive Statements Sinus rhythm ST elevation, consider anterolateral injury Electronically Signed On 09-10-2024 22:53:39 PDT by Elvin Andrew Please click the below link to view image of tracing.
--- NOTE | 2024-09-09 16:55 | DVHPN2 ---
Reviewed: Care Plan, H&P, Labs, Medications, Previous Orders, Radiology, Other (CONSULTANTS) Changes from previous H/P or p: No Changes General: Per HPI Objective Vitals Vital Signs Date Time Temp Pulse Resp B/P (MAP) Pulse Ox O2 Delivery O2 Flow Rate FiO2 09/09/24 16:15 90 22 136/69 (91) 97 09/09/24 16:04 35 09/09/24 12:00 98.6 98.6 09/09/24 08:00 Mechanical Ventilator+ Intake/Output Intake and Output 09/09/24 07:00 Intake Total 2438.018 ml Output Total 1625 ml Balance 813.018 ml Intake Oral 800 ml IV Total 1429.018 ml Tube Feeding 209 ml Output Urine Total 1625 ml # Bowel Movements 2 General Appearance: Other (INTUBATED AND SEDATED) Lungs: Other (CRACKLES BILATERAL LUNGS) Cardiovascular: Other (Borderline tachycardia) Medications Current Medications Medications Dose Ordered Sig/Shar Route Start Time Stop Time Status Last Admin Dose Admin Ipratropium [place] 0.5 mg Q4HPRN PRN NEB 08/20/24 20:15 09/09/24 12:26 0.5 MG Doxycycline Hyclate 100 ml @ 50 mls/hr Q12H IV 08/21/24 18:30 UNV Midazolam HCl 50 ml @ 1 mls/hr Q24H IV 08/21/24 18:45 09/09/24 14:51 5 MLS/HR Norepinephrine Bitartrate 32 mg/ Sodium Chloride 250 ml @ 0.938 mls/ hr Q24H IV 08/22/24 09:15 09/05/24 12:00 3.75 MLS/HR Valproate Sodium 250 mg/Sodium Chloride 52.5 ml @ 52.5 mls/hr BID IV 08/22/24 22:00 09/09/24 07:49 52.5 MLS/HR Diagnostic Test (Pha) 1 strip Q6HR 08/24/24 00:00 09/09/24 12:01 1 STRIP Insulin Human Regular FOLLOW SLIDING SCALE Q6HR SC 08/24/24 00:00 09/06/24 00:30 2 UNITS Dextrose 50 ml UD IV 08/23/24 22:00 Levalbuterol HCl 0.625 mg Q6HR NEB 08/25/24 12:00 09/09/24 12:27 0.625 MG Acetaminophen 650 mg Q6HP PRN [place] 08/26/24 16:30 09/04/24 17:05 650 MG Sodium Chloride 10 ml QSHIFT@10,22 IV 08/29/24 22:00 09/09/24 07:49 10 ML Pantoprazole Sodium 40 mg BID IV 09/01/24 22:00 09/09/24 07:49 40 MG Propofol 100 ml @ 1.635 mls/ hr Q24H IV 09/02/24 22:30 09/08/24 09:14 11.445 MLS/HR Piperacillin Sod/ Tazobactam Sod 100 ml @ 25 mls/hr Q8H IV 09/04/24 10:00 09/09/24 07:50 25 MLS/HR Phenytoin Sodium 100 mg Q8HR IV 09/04/24 16:45 09/09/24 12:28 100 MG Vancomycin HCl 0 ml @ 0 mls/hr UD IV 09/04/24 18:15 Enteral Nutritional Formula 1,000 ml 30ML/HR GT 09/04/24 18:45 09/07/24 21:47 1,000 ML Purified Water 200 ml Q6HR GT 09/06/24 12:00 09/09/24 12:28 200 ML Micafungin Sodium 100 mg/Sodium Chloride 100 ml @ 100 mls/hr DAILY@0900 IV 09/07/24 09:00 09/09/24 07:49 100 MLS/HR Enoxaparin Sodium 30 mg DAILY SC 09/07/24 10:00 09/09/24 07:50 30 MG Vancomycin HCl 150 ml @ 150 mls/hr Q16H IV 09/08/24 08:00 09/08/24 23:35 150 MLS/HR Artificial Tears 1 applic HS EACHEYE 09/08/24 22:00 09/08/24 21:16 1 APPLIC Hydralazine HCl 10 mg Q6HP PRN IV 09/08/24 12:30 09/08/24 12:37 10 MG Fentanyl Citrate 250 ml @ 2.5 mls/hr Q24H IV 09/09/24 01:30 09/09/24 08:09 15 MLS/HR Laboratory Results Laboratory Tests 09/09/24 03:27 Chemistry Test 09/09/24 01:40 09/09/24 03:27 Calcium Level 8.4 mg/dL (8.7-10.4) L 9.0 mg/dL (8.7-10.4) Magnesium Level 1.7 mg/dL (1.6-2.6) 1.5 mg/dL (1.6-2.6) L Albumin 2.7 g/dL (3.2-4.8) L Phosphorus Level 4.4 mg/dL (2.4-5.1) Total Protein 6.1 g/dL (5.7-8.2) LFT Test 09/09/24 03:27 Alanine Aminotransferase (ALT) 18 U/L (7-40) Alkaline Phosphatase 270 U/L (46-116) H Aspartate Amino Transferase (AST) 42 U/L (13-40) H Total Bilirubin 0.5 mg/dL (0.2-1.0) Urinalysis Test 08/20/24 16:15 09/02/24 22:45 Urine Mucus Few (None Seen) Urine Color Yellow (Yellow) Urine Clarity Clear (Clear) Urine pH 6.0 (5.0-9.0) Urine Specific [place] 1.017 (1.001-1.035) Urine Protein Trace (Negative) H Urine Ketones Negative (Negative) Urine Blood 3+ /uL (Negative) H Urine Nitrite Negative (Negative) Urine Bilirubin Negative (Negative) Urine Urobilinogen Normal mg/dL (Negative) Urine Leukocyte Esterase Negative /uL (Negative) Urine RBC 196 /hpf (0 - 3) Urine Microscopic WBC < 1 /HPF (0-3) Urine Squamous Epithelial Cells Few /hpf (<5) Urine Bacteria None seen /hpf (None Seen) Urine Glucose Normal mg/dL (Normal) Microbiology Microbiology Date/Time Source Procedure Growth Status 09/06/24 09:45 Blood Blood Culture - Preliminary NO GROWTH AFTER 72 HOURS OF INCUBATION. Resulted 09/04/24 14:35 Bronchial Washings Gram Stain - Final Complete 09/04/24 14:35 Bronchial Washings Respiratory Culture - Final Complete 08/27/24 16:05 Lung - Final Resulted 08/27/24 16:05 Lung - Final Resulted 08/27/24 16:05 Lung Pending Resulted 08/27/24 16:05 Lung Pending Resulted 08/27/24 16:05 Lung - Final See Separate Report... 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 # Fungal pneumonia # KARISHMA hemodynamically mediated (VMN) # Ruled out UTI # Hypernatremia - Resolved # Questionable history of childhood meningitis # Developmental delay # Seizures # Ruled out congestive heart failure # Probable upper GI bleed # Simple hyperglycemia with no Diabetes # Severe malnutrition # Acute blood loss # Iron deficiency anemia # Superficial venous thrombosis of left cephalic vein transferred to LT[facility] Plan discussed with: Patient (nursing staff), Other Date of Service: September 09, 2024 Billing Provider: SARAHI SHAVER DO Common Visit Codes: [id number] CARE 30-74 MIN SARAHI SHAVER DO September 09, 2024 16:55
== END 2024-09-09 16:50 | DRG 4 ==
LOC: ER 15:03 → EDBD 15:03 → OVERFLOW 21:10 → ICU WEST 08-21 04:22
PROVIDERS: ADMIT Internal Medicine Pulmonary Disease; ATTEND Emergency Medicine
PROC: 0BH17EZ Insertion of Endotracheal Airway into Trachea, Via Natural or Artificial Opening (ICD-10-PCS; principal; 2024-08-21)
PROC: 5A1955Z Respiratory Ventilation, Greater than 96 Consecutive Hours (ICD-10-PCS; 2024-08-21)
PROC: 02H633Z Insertion of Infusion Device into Right Atrium, Percutaneous Approach (ICD-10-PCS; 2024-08-21)
PROC: B548ZZA Ultrasonography of Superior Vena Cava, Guidance (ICD-10-PCS; 2024-08-21)
PROC: 0B9D8ZX Drainage of Right Middle Lung Lobe, Via Natural or Artificial Opening Endoscopic, Diagnostic (ICD-10-PCS; 2024-08-27)
PROC: 0BC78ZZ Extirpation of Matter from Left Main Bronchus, Via Natural or Artificial Opening Endoscopic (ICD-10-PCS; 2024-08-27)
PROC: 0BC38ZZ Extirpation of Matter from Right Main Bronchus, Via Natural or Artificial Opening Endoscopic (ICD-10-PCS; 2024-08-27)
PROC: 0DBA4ZZ Excision of Jejunum, Percutaneous Endoscopic Approach (ICD-10-PCS; 2024-08-28)
PROC: 02HV33Z Insertion of Infusion Device into Superior Vena Cava, Percutaneous Approach (ICD-10-PCS; 2024-08-29)
PROC: B548ZZA Ultrasonography of Superior Vena Cava, Guidance (ICD-10-PCS; 2024-08-29)
PROC: 0B9M8ZZ Drainage of Bilateral Lungs, Via Natural or Artificial Opening Endoscopic (ICD-10-PCS; 2024-09-04)
PROC: 0B110F4 Bypass Trachea to Cutaneous with Tracheostomy Device, Open Approach (ICD-10-PCS; 2024-09-07)
DX: A41.9 Sepsis, unspecified organism (principal); E43 Unspecified severe protein-calorie malnutrition; G93.41 Metabolic encephalopathy; J69.0 Pneumonitis due to inhalation of food and vomit; J96.01 Acute respiratory failure with hypoxia; R65.21 Severe sepsis with septic shock; N17.0 Acute kidney failure with tubular necrosis; J18.9 Pneumonia, unspecified organism; K92.2 Gastrointestinal hemorrhage, unspecified; K56.609 Unspecified intestinal obstruction, unspecified as to partial versus complete obstruction; Z68.1 Body mass index [BMI] 19.9 or less, adult; R64 Cachexia; Z99.11 Dependence on respirator [ventilator] status; E87.0 Hyperosmolality and hypernatremia; Z20.822 Contact with and (suspected) exposure to COVID-19; E87.6 Hypokalemia; G80.9 Cerebral palsy, unspecified; E88.09 Other disorders of plasma-protein metabolism, not elsewhere classified; R73.9 Hyperglycemia, unspecified; K81.9 Cholecystitis, unspecified; F79 Unspecified intellectual disabilities; T18.3XXA Foreign body in small intestine, initial encounter; G40.909 Epilepsy, unspecified, not intractable, without status epilepticus; D53.9 Nutritional anemia, unspecified; D50.9 Iron deficiency anemia, unspecified; W44.8XXA Other foreign body entering into or through a natural orifice, initial encounter; D75.839 Thrombocytosis, unspecified; Z80.0 Family history of malignant neoplasm of digestive organs; Z82.49 Family history of ischemic heart disease and other diseases of the circulatory system; Z83.3 Family history of diabetes mellitus; Z79.899 Other long term (current) drug therapy; Z90.49 Acquired absence of other specified parts of digestive tract; Y93.89 Activity, other specified; Y92.89 Other specified places as the place of occurrence of the external cause; Y99.8 Other external cause status
CPT/HCPCS: 31645; 36415; 36556; 36569; 36600; 70450; 71045; 71250; 74018; 74176; 74177; 74250; 76705; 76937; 80048; 80053; 80164; 80185; 80202; 80307; 81001; 82271; 82728; 82746; 82805; 82962; 83010; 83036; 83540; 83550; 83605; 83735; 83880; 84100; 84478; 84484; 85007; 85025; 85027; 85045; 85610; 85730; 86850; 86900; 86901; 87040; 87070; 87081; 87086; 87205; 87426; 87804; 93005; 93306; 93971; 94002; 94003; 94640; 96365; 96375; 99291; 99292; G0378; J0330; J1756; J1815; J2003; J2248; J2250; J2405; J2470; J2543; J2704; J3480; J3490; J7060; J7131